=== PATIENT | female | born 1995 | race Two or more races ===

== ENCOUNTER 2016-10-03 20:08 | Inpatient (IN) | payer OTHER ==
[2016-10-03] MEDS ORDERED: RINGERS SOLUTION,LACTATED 300 ML IV ONE (20:13)
[2016-10-03] MEDS ORDERED: DINOPROSTONE 10 MG VAGINAL INSERT.SR PV PRN (20:13)
[2016-10-03] MEDS ORDERED: OXYTOCIN/NORMAL SALINE 1,000 ML IV PRN (20:13)
[2016-10-03 20:43] LABS: ABSOLUTE EOSINOPHILS # (AUTO) 0.1 10^3/uL (0.0-0.6); ABSOLUTE MONOCYTES (AUTO) 0.5 10^3/uL (0.1-1.4); BASOPHILS % (AUTO) 0.4 % (0-2); EOSINOPHILS % (AUTO) 1.1 % (0-6); HEMATOCRIT 35.9 % (36.0-47.0); HEMOGLOBIN 12.4 g/dL (12.0-15.5); HGB HCT DIFFERENCE 1.3; LYMPHOCYTES % (AUTO) 31.2 % (13-45); MEAN CORPUSCULAR HEMOGLOBIN 31.5 pg (27.0-33.4); MEAN CORPUSCULAR HGB CONC 34.5 g/dL (32.0-36.0); MEAN CORPUSCULAR VOLUME 91 fl (80-97); MONOCYTES % (AUTO) 4.9 % (3-13); RED BLOOD COUNT 3.94 10^6/uL (3.72-5.28); RED CELL DISTRIBUTION WIDTH 13.8 % (11.5-14.0); SEGMENTED NEUTROPHILS % (AUTO) 62.4 % (42-78); WHITE BLOOD COUNT 9.7 10^3/uL (4.0-10.5)
[2016-10-03 20:52] LABS: APPEARANCE,URINE CLEAR; BILIRUBIN,URINE NEGATIVE (NEGATIVE); GLUCOSE, URINE NEGATIVE (NEGATIVE); KETONES,URINE NEGATIVE (NEGATIVE); LEUKOCYTE ESTERASE,URINE NEGATIVE (NEGATIVE); NITRITE,URINE NEGATIVE (NEGATIVE); PROTEIN,URINE NEGATIVE (NEGATIVE); UROBILINOGEN,URINE NEGATIVE mg/dL (<2.0)
[2016-10-03] MEDS ORDERED: DINOPROSTONE 10 MG VAGINAL INSERT.SR ONE (20:55)
[2016-10-03 20:56] LABS: ALANINE AMINOTRANSFERASE 31 U/L (9-52); ALBUMIN 2.8 g/dL (3.5-5.0); ALKALINE PHOSPHATASE 147 U/L (38-126); ANION GAP 10 (5-19); ASPARTATE AMINO TRANSFERASE 19 U/L (14-36); BILIRUBIN,TOTAL 0.3 mg/dL (0.2-1.3); BLOOD UREA NITROGEN 6 mg/dL (7-20); CALCIUM 8.9 mg/dL (8.4-10.2); CARBON DIOXIDE 21 mmol/L (22-30); CHLORIDE 110 mmol/L (98-107); CREATININE RESULT 0.63 mg/dL (0.52-1.25); GLUCOSE 94 mg/dL (75-110); LDH 438 U/L (313-618); POTASSIUM 3.9 mmol/L (3.6-5.0); TOTAL PROTEIN 5.7 g/dL (6.3-8.2); URIC ACID 5.1 mg/dL (2.5-6.2)
[2016-10-03 21:08] LABS: URINE BARBITURATES SCREEN NEGATIVE; URINE METHADONE SCREEN NEGATIVE; URINE PHENCYCLIDINE SCREEN NEGATIVE
[2016-10-03] MEDS: RINGERS SOLUTION,LACTATED 1,000 ML IV PRN (21:08)
[2016-10-03] MEDS ORDERED: ZOLPIDEM TARTRATE 5 MG TABLET PO PRN (22:16)
[2016-10-03] MEDS ORDERED: ZOLPIDEM TARTRATE 5 MG TABLET ONE (22:51)
[2016-10-04] MEDS ORDERED: NALBUPHINE HCL INJ 10 MG/1 ML AMPULE INJ ONE (01:17)
[2016-10-04] MEDS ORDERED: PROMETHAZINE HCL INJ 25 MG/1 ML VIAL IV ONE (01:17)
[2016-10-04] MEDS ORDERED: NALBUPHINE HCL INJ 10 MG/1 ML AMPULE ONE (01:19)
[2016-10-04] MEDS ORDERED: PROMETHAZINE HCL INJ 25 MG/1 ML VIAL ONE (01:19)
--- NOTE | 2016-10-04 04:45 | L&D Admission Assessment ---
LD ADM ASMT Datetime Report Generated by CPN: 10/04/2016 04:45 Assessment Type: Admission Assessment (10/03/2016 20:42:Ashley Steward RN) Weight (lb): 196 (10/03/2016 20:24:QS system process) Weight (kg): 89.1 (10/03/2016 20:24:QS system process) Total Wt Gain (lb): 73 (10/03/2016 20:24:QS system process) Wt Gain (kg): 33.1 (10/03/2016 20:24:QS system process) BMI: 33.6 (10/03/2016 20:24:QS system process) Pain Scale: 3 (10/04/2016 01:15:Ashley Steward RN) Pain Scale: 3 (10/04/2016 00:48:Ashley Steward RN) Pain Scale: 2 (10/03/2016 22:30:Ashley Steward RN) Pain Scale: 0 (10/03/2016 20:42:Ashley Steward RN) Pain Presence: Intermittent (10/04/2016 01:15:Ashley Steward RN) Pain Presence: Intermittent (10/04/2016 00:48:Ashley Steward RN) Pain Presence: Intermittent (10/03/2016 22:30:Ashley Steward RN) Pain Type: Cramping (10/04/2016 01:15:Ashley Steward RN) Pain Type: Cramping (10/04/2016 00:48:Ashley Steward RN) Pain Type: Cramping (10/03/2016 22:30:Ashley Steward RN) Pain Location: Abdomen; Back (10/04/2016 01:15:Ashleymaynor Steward, RN) Pain Location: Abdomen; Back (10/04/2016 00:48:Ashleymaynor Steward, RN) Pain Location: Abdomen (10/03/2016 22:30:Ashley Nichelle, RN) Pain Comments: Pt sleeping soundly. (10/04/2016 01:59:Ashley Steward, RN) Pain Comments: Pt also feeling nauseated (10/04/2016 01:15:Ashley Steward RN) Pain Comments: Offered warm pack for pt's back. Declines at present. (10/04/2016 00:48:Ashleymaynor Steward, RN) Frequency (min): 0 (10/04/2016 04:00:Ashley Nichelle, RN) Frequency (min): occasional (10/04/2016 03:30:Ashley Nichelle, RN) Frequency (min): 1-5 (10/04/2016 03:00:Ashley Nichelle, RN) Frequency (min): occasional (10/04/2016 02:30:Ashley Nichelle, RN) Frequency (min): irritability (10/04/2016 02:00:Ashley Nichelle, RN) Frequency (min): Irregular (10/04/2016 01:30:Ashley Nichelle, RN) Frequency (min): 1.5-4 (10/04/2016 01:00:Ashley Nichelle, RN) Frequency (min): irritability (10/04/2016 00:30:Ashley Nichelle, RN) Frequency (min): occasional (10/04/2016 00:00:Ashley Nichelle, RN) Frequency (min): 1-3 (10/03/2016 23:30:Ashley Nichelle, RN) Frequency (min): 0 (10/03/2016 22:30:Ashley Nichelle, RN) Frequency (min): 0 (10/03/2016 22:00:Ashley Nichelle, RN) Frequency (min): irregular (10/03/2016 21:30:Ashley Nichelle, RN) Frequency (min): occasional (10/03/2016 21:00:Ashley Nichelle, RN) Duration (sec): 30-60 (10/04/2016 03:00:Ashley Nichelle, RN) Duration (sec): 50-60 (10/04/2016 01:30:Ashley Nichelle, RN) Duration (sec): 40-60 (10/04/2016 01:00:Ashley Nichelle, RN) Duration (sec): 40-55 (10/04/2016 00:00:Ashley Nichelle, RN) Duration (sec): 40-60 (10/03/2016 23:30:Ashley Nichelle, RN) Duration (sec): 50-60 (10/03/2016 21:30:Ashley Nichelle, RN) Duration (sec): 50 (10/03/2016 21:00:Ashley Nichelle, RN) Quality: Mild (10/04/2016 04:00:Ashley Nichelle, RN) Quality: Mild/Moderate (10/04/2016 03:30:Ashley Nichelle, RN) Quality: Mild/Moderate (10/04/2016 03:00:Ashley Nichelle, RN) Quality: Mild/Moderate (10/04/2016 02:30:Ashley Nichelle, RN) Quality: Mild/Moderate (10/04/2016 02:00:Ashley Nichelle, RN) Quality: Mild/Moderate (10/04/2016 01:30:Ashley Nichelle, RN) Quality: Mild/Moderate (10/04/2016 01:00:Ashley Nichelle, RN) Quality: Mild/Moderate (10/04/2016 00:30:Ashley Nichelle, RN) Quality: Moderate (10/04/2016 00:00:Ashley Nichelle, RN) Quality: Moderate (10/03/2016 23:30:Ashley Nichelle, RN) Quality: Mild/Moderate (10/03/2016 23:00:Ashley Nichelle, RN) Quality: Mild (10/03/2016 22:30:Ashley Nichelle, RN) Quality: Mild (10/03/2016 22:00:Ashley Nichelle, RN) Quality: Mild (10/03/2016 21:30:Ashley Nichelle, RN) Quality: Mild (10/03/2016 21:00:Ashley Nichelle, RN) Pattern: Normal: <= 5 Contractions in 10 Minutes (10/04/2016 03:30:Ashley Nichelle, RN) Pattern: Normal: <= 5 Contractions in 10 Minutes (10/03/2016 22:30:Ashley Steward RN) Resting Tone [place]: Relaxed (10/04/2016 04:00:Ashley Steward RN) Resting Tone [place]: Relaxed (10/04/2016 03:30:Ashley Steward RN) Resting Tone [place]: Relaxed (10/04/2016 03:00:Ashley Steward RN) Resting Tone [place]: Relaxed (10/04/2016 02:30:Ashley Steward RN) Resting Tone [place]: Relaxed (10/04/2016 02:00:Ashley Steward RN) Resting Tone [place]: Relaxed (10/04/2016 01:30:Ashley Steward RN) Resting Tone [place]: Relaxed (10/04/2016 01:00:Ashley Steward RN) Resting Tone [place]: Relaxed (10/04/2016 00:00:Ashley Steward RN) Resting Tone [place]: Relaxed (10/03/2016 23:30:Ashley Steward RN) Resting Tone [place]: Relaxed (10/03/2016 23:00:Ashley Steward RN) Resting Tone [place]: Relaxed (10/03/2016 22:30:Ashley Steward RN) Resting Tone [place]: Relaxed (10/03/2016 22:00:Ashley Steward RN) Resting Tone [place]: Relaxed (10/03/2016 21:30:Ashley Steward RN) Resting Tone [place]: Relaxed (10/03/2016 21:00:Ashley Steward RN) Contraction Comments: irritability (10/04/2016 04:00:Ashley Steward RN) Contraction Comments: mainly irritablilty noted. (10/04/2016 03:30:Ashley Steward RN) Contraction Comments: alot of irritability noted. (10/04/2016 02:30:Ashley Steward RN) Contraction Comments: Having alot of irritability in between u/c's. (10/04/2016 01:30:Ashley Steward RN) Contraction Comments: Irritability but unsure. (10/03/2016 23:00:Ashley Steward RN) Contraction Comments: irritability- Pt state that feels like bad menstrual cramps. (10/03/2016 22:30:Ashley Steward RN) Contraction Comments: irritability (10/03/2016 22:00:Ashley Steward RN) Dilatation (cm): 0.0 (10/03/2016 21:05:Ashley Steward RN) Effacement (%): 50 (10/03/2016 21:05:Ashley Steward RN) Station: 0 (10/04/2016 01:15:Ashley Steward RN) Station: -3 (10/03/2016 21:05:Ashley Steward RN) Level of Consciousness: Fully Conscious (10/03/2016 20:42:Ashley Steward RN) DTR's/Clonus: DTRs 1+ (10/03/2016 20:42:Ashley Steward RN) Headache: Denies (10/03/2016 20:42:Ashley Steward RN) Dizziness: No (10/03/2016 20:42:Ashley Steward RN) Blurred Vision: No (10/03/2016 20:42:Ashley Steward RN) Extremity Numbness/Tingling : None (10/03/2016 20:42:Ashley Steward RN) Extremity Movement: Full Range of Motion (10/03/2016 20:42:Ashley Steward RN) Heart Rhythm: Regular (10/03/2016 20:42:Ashley Steward RN) Nailbeds: [place] (10/03/2016 20:42:Ashley Steward RN) Capillary Refill: Less than 3 Seconds (10/03/2016 20:42:Ashley Steward RN) Lower Extremities Edema: Bilateral Lower Extremities (10/03/2016 20:42:Ashlye Steward RN) Lower Extremities Edema Degree: 1+ (10/03/2016 20:42:Ashley Steward RN) Upper Extremities Edema: None (10/03/2016 20:42:Ashley Steward RN) Upper Extremities Edema Degree: None (10/03/2016 20:42:Ashley Steward RN) Facial Edema: None (10/03/2016 20:42:Ashley Steward RN) Carolin's Sign Left Leg: Negative (10/03/2016 20:42:Ashley Stewadr RN) Carolin's Sign Right Leg: Negative (10/03/2016 20:42:Ashley Steward RN) DVT Risk Age: Age less than 41 years (10/03/2016 20:42:Ashley Steward RN) DVT Risk BMI: BMI<31 (10/03/2016 20:42:Ashley Steward RN) DVT Risk Surgery: None Applicable (Annotations: tonsillectomy) (10/03/2016 20:42:Ashley Steward RN) DVT Risk Other: Women Only- or (<1 month) (10/03/2016 20:42:Ashley Steward RN) DVT Risk Total: 1 (10/03/2016 20:42:QS system process) DVT Risk Text: Low Risk (<10%) No specific measures, early ambulation (10/03/2016 20:42:QS system process) Respiratory Effort: Unlabored; Regular Rhythm (10/03/2016 20:42:Ashley Steward RN) Breath Sounds, Left: Clear and Equal (10/03/2016 20:42:Ashley Steward RN) Breath Sounds, Right: Clear and Equal (10/03/2016 20:42:Ashley Steward RN) Cough Productivity: None (10/03/2016 20:42:Ashley Steward RN) Nausea/Vomiting: Denies (10/03/2016 20:42:Ashley Steward RN) Bowel Sounds: Normoactive (10/03/2016 20:42:Ashley Steward RN) RUQ Epigastric Pain: Denies (10/03/2016 20:42:Ashley Steward RN) Bowel Patterns: Soft, Formed Stool (10/03/2016 20:42:Ashley Steward RN) Hemorrhoids: None (10/03/2016 20:42:Ashley Steward RN) Diet Type: Regular diet (10/03/2016 20:42:Ashley Steward RN) Last Meal: 10/03/2016 16:00 (10/03/2016 20:42:Ashley Steward RN) Frequency of Urination: No (10/03/2016 20:42:Ashley Steward RN) Urination Burning: No (10/03/2016 20:42:Ashley Steward RN) CVA Tenderness: No (10/03/2016 20:42:Ashley Steward RN) Vaginal Bleeding: None (10/03/2016 20:42:Ashley Steward RN) Skin Color: Normal for Race (10/03/2016 20:42:Ashley Steward RN) Skin Temperature: Warm (10/03/2016 20:42:Ashley Steward RN) Skin Moisture: Dry (10/03/2016 20:42:Ashley Steward RN) Surgical Scars: none (10/03/2016 20:42:Ashley Steward RN) Body Piercings/Tattoos: tattoo x 1 (10/03/2016 20:42:Ashley Steward RN) Jerrod Scale Sensory Perception: No Impairment- Responds to verbal commands. Has no sensory deficit which would limit ability to feel or voice pain or discomfort (10/03/2016 20:42:Ashley Steward RN) Jerrod Scale Moisture: Rarely Moist- Skin is usually dry. Linen only requires changing at routine intervals (10/03/2016 20:42:Ashley Steward RN) Jerrod Scale Activity: Walks Frequently- Walks outside the room at least twice a day and inside room at least every 2 hours during the day. (10/03/2016 20:42:Ashley Steward RN) Jerrod Scale Mobility: No Limitations- Makes major and frequent changes in position without assistance (10/03/2016 20:42:Ashley Steward RN) Jerrod Scale Nutrition: Excellent- Eats most of every meal. Never refuses a meal. Usually eats a total of 4 or more servings of meat and dairy products. Occasionally eats between meals. Does not require supplementation (10/03/2016 20:42:Ashley Steward RN) Jerrod Scale Friction and Shear: No Apparent Problem- Moves in bed and in chair independently and has sufficient muscle strength to lift up completely during move. Maintains good position in bed or chair at all times (10/03/2016 20:42:Ashley Steward RN) Jerrod Scale Total: 23 (10/03/2016 20:42:QS system process) Ejrrod Scale Risk: No Risk of Pressure Ulcer Noted at this Time (10/03/2016 20:42:QS system process) Family Support: Significant Other supportive, at bedside frequently (10/03/2016 20:42:Ashley Steward RN) Emotional State: Calm/Relaxed (10/03/2016 20:42:Ashley Steward RN) Call [place] Within Reach: Yes (10/03/2016 20:42:Ashley Steward RN) Side Rails Up: Yes (10/03/2016 20:42:Ashley Steward RN) Bed Wheels Locked: Yes (10/03/2016 20:42:Ashley Steward RN) Arm Bands Present: Yes (10/03/2016 20:42:Ashley Steward RN) Isolation: [place] (10/03/2016 20:42:Ashley Steward RN) Fall Risk History of Falling: (0) No (10/03/2016 20:42:Ashley Steward RN) Fall Risk Secondary Diagnosis: (0) No (10/03/2016 20:42:Ashley Steward RN) Fall Risk Ambulatory Aid: (0) None/Bedrest/Wheelchair/Nurse Assist (10/03/2016 20:42:Ashley Steward RN) Fall Risk IV Therapy: (0) No (10/03/2016 20:42:Ashley Steward RN) Fall Risk Gait: (0) Normal/Bedrest/Immobile (10/03/2016 20:42:Ashley Steward RN) Fall Risk Mental Status: (0) Oriented to Own Ability (10/03/2016 20:42:Ashley Steward RN) Fall Risk Score: 0 (10/03/2016 20:42:QS system process) Fall Risk Score Definition: No Risk: No action required (10/03/2016 20:42:QS system process) Recent Exp Communicable Disease: No (10/03/2016 20:42:Ashley Steward RN) Cough or Fever: No (10/03/2016 20:42:Ashley Steward RN) Foreign Travel Past 10 Days: No (10/03/2016 20:42:Ashley Steward RN) Open Wounds or Sores: No (10/03/2016 20:42:Ashley Steward RN) Prior Antibiotic Resistance Tx: No (10/03/2016 20:42:Ashley Steward RN) Cultures Obtained: Not Applicable (10/03/2016 20:42:Ashley Steward RN) Isolation Initiated: No (10/03/2016 20:42:Ashley Steward RN) Pt/Family Education: Not Applicable (10/03/2016 20:42:Ashley Steward RN) FHR Baseline Rate (bpm) Baby A: 140 (10/04/2016 04:00:Ashley Steward RN) FHR Baseline Rate (bpm) Baby A: 140 (10/04/2016 03:00:Ashley Steward RN) FHR Baseline Rate (bpm) Baby A: 135 (10/04/2016 02:30:Ashley Steward RN) FHR Baseline Rate (bpm) Baby A: 150 (10/04/2016 02:00:Ashley Steward RN) FHR Baseline Rate (bpm) Baby A: 135 (10/04/2016 01:30:Ashley Steward RN) FHR Baseline Rate (bpm) Baby A: 135 (10/04/2016 01:00:Ashely Steward RN) FHR Baseline Rate (bpm) Baby A: 130 (10/04/2016 00:30:Ashley Steward RN) FHR Baseline Rate (bpm) Baby A: 130 (10/04/2016 00:00:Ashley Steward RN) FHR Baseline Rate (bpm) Baby A: 130 (10/03/2016 23:30:Ashley Steward RN) FHR Baseline Rate (bpm) Baby A: 130 (10/03/2016 23:00:Ashley Steward RN) FHR Baseline Rate (bpm) Baby A: 130 (10/03/2016 22:30:Ashley Steward RN) FHR Baseline Rate (bpm) Baby A: 130 (10/03/2016 22:00:Ashley Steward RN) FHR Baseline Rate (bpm) Baby A: 130 (10/03/2016 21:30:Ashley Steward RN) FHR Baseline Rate (bpm) Baby A: 135 (10/03/2016 21:00:Ashley Steward RN) Variability Baby A: Moderate 6-25 bpm (10/04/2016 04:00:Ashley Steward RN) Variability Baby A: Moderate 6-25 bpm (10/04/2016 03:00:Ashley Steward RN) Variability Baby A: Moderate 6-25 bpm (10/04/2016 02:30:Ashley Nichelle, RN) Variability Baby A: Moderate 6-25 bpm (10/04/2016 02:00:Ashley Nichelle, RN) Variability Baby A: Moderate 6-25 bpm (10/04/2016 01:30:Ashley Nichelle, RN) Variability Baby A: Moderate 6-25 bpm (10/04/2016 01:00:Ashley Nichelle, RN) Variability Baby A: Moderate 6-25 bpm (10/04/2016 00:30:Ashley Nichelle, RN) Variability Baby A: Moderate 6-25 bpm (10/04/2016 00:00:Ashley Nichelle, RN) Variability Baby A: Moderate 6-25 bpm (10/03/2016 23:30:Ashley Nichelle, RN) Variability Baby A: Moderate 6-25 bpm (10/03/2016 23:00:Ashley Nichelle, RN) Variability Baby A: Moderate 6-25 bpm (10/03/2016 22:30:Ashley Nichelle, RN) Variability Baby A: Moderate 6-25 bpm (10/03/2016 22:00:Ashley Nichelle, RN) Variability Baby A: Moderate 6-25 bpm (10/03/2016 21:30:Ashley Nichelle, RN) Variability Baby A: Moderate 6-25 bpm (10/03/2016 21:00:Ashley Nichelle, RN) Accelerations Baby A: None (10/04/2016 04:00:Ashley Nichelle, RN) Accelerations Baby A: 15X15 (10/04/2016 03:00:Ashley Nichelle, RN) Accelerations Baby A: None (10/04/2016 02:30:Ashley Nichelle, RN) Accelerations Baby A: None (10/04/2016 02:00:Ashley Nichelle, RN) Accelerations Baby A: 15X15 (10/04/2016 01:30:Ashley Nichelle, RN) Accelerations Baby A: 15X15 (10/04/2016 01:00:Ashley Nichelle, RN) Accelerations Baby A: 15X15 (10/04/2016 00:30:Ashley Nichelle, RN) Accelerations Baby A: 15X15 (10/04/2016 00:00:Ashley Nichelle, RN) Accelerations Baby A: 15X15 (10/03/2016 23:30:Ashley Steward RN) Accelerations Baby A: 15X15 (10/03/2016 23:00:Ashley Steward RN) Accelerations Baby A: 15X15 (10/03/2016 22:30:Ashley Steward RN) Accelerations Baby A: 15X15 (10/03/2016 22:00:Ashley Steward RN) Accelerations Baby A: 15X15 (10/03/2016 21:30:Ashley Steward RN) Accelerations Baby A: 15X15 (10/03/2016 21:00:Ashlye Steward RN) Decelerations Baby A: None (10/04/2016 04:00:Ashley Steward RN) Decelerations Baby A: None (10/04/2016 03:00:Ashley Steward RN) Decelerations Baby A: None (10/04/2016 02:30:Ashley Steward RN) Decelerations Baby A: None (10/04/2016 02:00:Ashley Steward RN) Decelerations Baby A: None (10/04/2016 01:30:Ashley Steward RN) Decelerations Baby A: None (10/04/2016 01:00:Ashley Steward RN) Decelerations Baby A: None (10/04/2016 00:30:Ashley Steward RN) Decelerations Baby A: None (10/04/2016 00:00:Ashley Steward RN) Decelerations Baby A: None (10/03/2016 23:30:Ashley Steward RN) Decelerations Baby A: None (10/03/2016 23:00:Ashley Steward RN) Decelerations Baby A: None (10/03/2016 22:30:Ashley Steward RN) Decelerations Baby A: None (10/03/2016 22:00:Ashley Steward RN) Decelerations Baby A: None (10/03/2016 21:30:Ashley Steward RN) Decelerations Baby A: None (10/03/2016 21:00:Ashley Steward RN) Assessment Flag: Admission Assessment (10/03/2016 20:42:QS system process)
--- NOTE | 2016-10-04 04:45 | L&D General Admission ---
General Admit Datetime Report Generated by [facility]: 10/04/2016 04:45 Height (in): 64 (10/03/2016 20:24:QS system process) Medication Allergies: shrimp (10/03/2016) (10/03/2016 20:21:QS system process) Hemoglobin: 12.4 (10/03/2016 20:29:QS system process) Hematocrit: 35.9 L (10/03/2016 20:29:QS system process) MCV: 91 (10/03/2016 20:29:QS system process)
--- NOTE | 2016-10-04 04:45 | L&D Discharge Summary ---
OB Discharge Summary Datetime Report Generated by CPN: 10/04/2016 04:45 DISCHARGE DIAGNOSIS Diagnosis/Symptoms: Gestational Hypertension Diagnoses/Symptoms Other: not in labor Gestation: 37.5 Number of Babies in Womb: 1 Parity: 0 DIET/ACTIVITY/RESTRICTIONS Diet: Regular Activity: Bedrest; May Be Up to Bathroom; May Be Up for Meals; May Shower Activity Restrictions: No Exercising; No Lifting; Minimize Stair Climbing TEACHING/INSTRUCTIONS/REFERRALS Instructions Given To: patient and spouse Instructions Understood: Patient Verbalized Understanding; Support Person Verbalized Understanding Referrals: None Educational Materials- Other: *Pre-Eclampsia DISCHARGE INFORMATION Discharged AMA: No Discharge Date/Time: 09/30/2016 19:05 Discharged To: Home Discharge Provider Name: Dr. Mahoney Accompanied By: spouse Discharge Method: Ambulatory Condition: Stable FOLLOW UP INFORMATION Follow Up With: Other-Annotate Follow Up On: 1-2 Days Follow Up Phone Number: [facility] - Comments: Pt to return to L_D at [facility] on Monday evening for IOL, informational handout provided.
--- NOTE | 2016-10-04 04:45 | L&D Current Admission ---
Current Admit Datetime Report Generated by [facility]: 10/04/2016 04:45 Chief Complaint: Scheduled Induction of Labor (10/03/2016 20:42:Ashley Steward RN)
--- NOTE | 2016-10-04 04:45 | L&D Flow Sheet ---
LD Flowsheet Datetime Report Generated by CPN: 10/04/2016 04:45 Datetime: 10/04/2016 04:28 NBP Sys/[place]/Mean (mmHg): 122 (QS system process) : 73 (QS system process) : 93 (QS system process) Pulse: 94 (QS system process) LaborFlag: Labor (QS system process) Datetime: 10/04/2016 04:00 Monitor Mode: External (Ashley Nichelle, RN) Frequency (min): 0 (Ashley Nichelle, RN) Quality: Mild (Ashley Nichelle, RN) Resting Tone (Palpate): Relaxed (Ashley Nichelle, RN) Contraction Comments: irritability (Ashley Nichelle, RN) Monitor Mode: External US (Ashley Nichelle, RN) FHR Baseline Rate : 140 (Ashley Nichelle, RN) FHR Baseline Changes: No Baseline Change (Ashley Nichelle, RN) Variability: Moderate 6-25 bpm (Ashley Nichelle, RN) Accelerations: None (Ashley Nichelle, RN) Decelerations: None (Ashley Nichelle, RN) Datetime: 10/04/2016 03:55 I/O Interventions: Up to BR (Ashley Nichelle, RN) Datetime: 10/04/2016 03:30 Monitor Mode: External (Ashley Nichelle, RN) Frequency (min): occasional (Ashley Nichelle, RN) Quality: Mild/Moderate (Ashley Nichelle, RN) Pattern: Normal: <= 5 Contractions in 10 Minutes (Ashley Nichelle, RN) Resting Tone (Palpate): Relaxed (Ashley Nichelle, RN) Contraction Comments: mainly irritablilty noted. (Ashley Nichelle, RN) Datetime: 10/04/2016 03:27 Patient Care Comments: asked pt if she was getting up to urinate or if she was feeling like she had to have bm. Pt states she is having to pee. (Ashley Nichelle, RN) Datetime: 10/04/2016 03:25 I/O Interventions: Up to BR (Ashley Nichelle, RN) Datetime: 10/04/2016 03:00 Monitor Mode: External (Ashley Nichelle, RN) Frequency (min): 1-5 (Ashley Nichelle, RN) Quality: Mild/Moderate (Ashley Nichelle, RN) Duration (sec): 30-60 (Ashley Nichelle, RN) Resting Tone (Palpate): Relaxed (Ashley Nichelle, RN) Monitor Mode: External US (Ashley Nichelle, RN) FHR Baseline Rate : 140 (Ashley Nichelle, RN) FHR Baseline Changes: No Baseline Change (Ashley Nichelle, RN) Variability: Moderate 6-25 bpm (Ashley Nichelle, RN) Accelerations: 15X15 (Ashley Nichelle, RN) Decelerations: None (Ashley Nichelle, RN) Datetime: 10/04/2016 02:36 I/O Interventions: Up to BR (Ashley Nichelle, RN) Datetime: 10/04/2016 02:30 Monitor Mode: External (Ashley Nichelle, RN) Frequency (min): occasional (Ashley Nichelle, RN) Quality: Mild/Moderate (Ashley Nichelle, RN) Resting Tone (Palpate): Relaxed (Ashley Nichelle, RN) Contraction Comments: alot of irritability noted. (Ashley Steward, RN) Monitor Mode: External US (Ashley Steward, RN) FHR Baseline Rate : 135 (Ashley Nichelle, RN) FHR Baseline Changes: No Baseline Change (Ashley Nichelle, RN) Variability: Moderate 6-25 bpm (Ashley Nichelle, RN) Accelerations: None (Ashley Nichelle, RN) Decelerations: None (Ashley Nichelle, RN) Datetime: 10/04/2016 02:28 NBP Sys/[place]/Mean (mmHg): 126 (QS system process) : 68 (QS system process) : 91 (QS system process) Pulse: 88 (QS system process) LaborFlag: Labor (QS system process) Datetime: 10/04/2016 02:00 Monitor Mode: External (Ashley Nichelle, RN) Frequency (min): irritability (Ashley Nichelle, RN) Quality: Mild/Moderate (Ashley Nichelle, RN) Resting Tone (Palpate): Relaxed (Ashley Steward, RN) Monitor Mode: External US (Ashley Nichelle, RN) FHR Baseline Rate : 150 (Ashley Nichelle, RN) FHR Baseline Changes: No Baseline Change (Ashley Nichelle, RN) Variability: Moderate 6-25 bpm (Ashley Nichelle, RN) Accelerations: None (Ashley Nichelle, RN) Decelerations: None (Ashley Nichelle, RN) Datetime: 10/04/2016 01:59 Pain Assessment Comments: Pt sleeping soundly. (Ashley Steward, RN) LaborFlag: Labor (QS system process) Datetime: 10/04/2016 01:58 NBP Sys/[place]/Mean (mmHg): 124 (QS system process) : 73 (QS system process) : 93 (QS system process) Pulse: 84 (QS system process) LaborFlag: Labor (QS system process) Datetime: 10/04/2016 01:30 Monitor Mode: External (Ashley Nichelle, RN) Frequency (min): Irregular (Ashley Nichelle, RN) Quality: Mild/Moderate (Ashley Nichelle, RN) Duration (sec): 50-60 (Ashley Nichelle, RN) Resting Tone (Palpate): Relaxed (Ashley Nichelle, RN) Contraction Comments: Having alot of irritability in between u/c's. (Ashley Steward, RN) Monitor Mode: External US (Ashley Steward, RN) FHR Baseline Rate : 135 (Ashley Nichelle, RN) FHR Baseline Changes: No Baseline Change (Ashley Nichelle, RN) Variability: Moderate 6-25 bpm (Ashley Nichelle, RN) Accelerations: 15X15 (Ashley Nichelle, RN) Decelerations: None (Ashley Nichelle, RN) Datetime: 10/04/2016 01:29 Analgesics/Sedatives: Nubain (mg) @ (Annotations: 10 IV) (Ashley Steward RN) Antiemetics/Antacids: Phenergan IV (mg) @ 12.5 IV (Ashley Steward, RN) Datetime: 10/04/2016 01:28 NBP Sys/[place]/Mean (mmHg): 137 (QS system process) : 89 (QS system process) : 109 (QS system process) Pulse: 74 (QS system process) LaborFlag: Labor (QS system process) Datetime: 10/04/2016 01:17 Communication Comments: Dr. Meyer notified of pt's pain and vag exam. Orders received for pain med. (Ashley Steward RN) Datetime: 10/04/2016 01:15 Pain Scale: 3 (Ashley Steward RN) Pain Presence: Intermittent (Ashley Steward RN) Pain Type: Cramping (Ashley Steward RN) Pain Location: Abdomen; Back (Ashley Steward RN) Pain Assessment Comments: Pt also feeling nauseated (Ashley Steward RN) Station: 0 (Ashley Steward RN) Exam by: JAYDEN Todd (Ashley Steward RN) Cervix, Consistency: Soft (Ashley Steward RN) Vaginal Exam Comments: Could not reach cervical os due to patients tensness and station of babys head. (Ashley Steward RN) LaborFlag: Labor (QS system process) Datetime: 10/04/2016 01:14 I/O Interventions: Up to BR (Ashley Steward RN) Datetime: 10/04/2016 01:09 Comments: Pt sitting up on side of bed. (Ashley Steward RN) Datetime: 10/04/2016 01:00 Monitor Mode: External (Ashley Nichelle, RN) Frequency (min): 1.5-4 (Ashley Nichelle, RN) Quality: Mild/Moderate (Ashley Nichelle, RN) Duration (sec): 40-60 (Ashley Nichelle, RN) Resting Tone (Palpate): Relaxed (Ashley Nichelle, RN) Monitor Mode: External US (Ashley Nichelle, RN) FHR Baseline Rate : 135 (Ashley Nichelle, RN) FHR Baseline Changes: No Baseline Change (Ashley Nichelle, RN) Variability: Moderate 6-25 bpm (Ashley Nichelle, RN) Accelerations: 15X15 (Ashley Nichelle, RN) Decelerations: None (Ashley Nichelle, RN) Datetime: 10/04/2016 00:59 NBP Sys/[place]/Mean (mmHg): 131 (QS system process) : 86 (QS system process) : 104 (QS system process) Pulse: 66 (QS system process) LaborFlag: Labor (QS system process) Datetime: 10/04/2016 00:48 Pain Scale: 3 (Ashley Nichelle, RN) Pain Presence: Intermittent (Ashley Nichelle, RN) Pain Type: Cramping (Ashley Nichelle, RN) Pain Location: Abdomen; Back (Ashley Nichelle, RN) Pain Assessment Comments: Offered warm pack for pt's back. Declines at present. (Ashley Steward, RN) LaborFlag: Labor (QS system process) Datetime: 10/04/2016 00:30 Frequency (min): irritability (Ashley Nichelle, RN) Quality: Mild/Moderate (Ashley Nichelle, RN) Monitor Mode: External US (Ashley Nichelle, RN) FHR Baseline Rate : 130 (Ashley Nichelle, RN) FHR Baseline Changes: No Baseline Change (Ashley Nichelle, RN) Variability: Moderate 6-25 bpm (Ashley Nichelle, RN) Accelerations: 15X15 (Ashley Nichelle, RN) Decelerations: None (Ashley Nichelle, RN) Datetime: 10/04/2016 00:28 NBP Sys/[place]/Mean (mmHg): 144 (QS system process) : 89 (QS system process) : 111 (QS system process) Pulse: 76 (QS system process) LaborFlag: Labor (QS system process) Datetime: 10/04/2016 00:00 Monitor Mode: External (Ashley Nichelle, RN) Frequency (min): occasional (Ashley Nichelle, RN) Quality: Moderate (Ashley Nichelle, RN) Duration (sec): 40-55 (Ashley Nichelle, RN) Resting Tone (Palpate): Relaxed (Ashley Nichelle, RN) Monitor Mode: External US (Ashley Nichelle, RN) FHR Baseline Rate : 130 (Ashley Nichelle, RN) FHR Baseline Changes: No Baseline Change (Ashley Nichelle, RN) Variability: Moderate 6-25 bpm (Ashley Nichelle, RN) Accelerations: 15X15 (Ashley Nichelle, RN) Decelerations: None (Ashley Nichelle, RN) Datetime: 10/03/2016 23:58 NBP Sys/[place]/Mean (mmHg): 143 (QS system process) : 88 (QS system process) : 111 (QS system process) Pulse: 72 (QS system process) LaborFlag: Labor (QS system process) Datetime: 10/03/2016 23:30 Monitor Mode: External (Ashley Nichelle, RN) Frequency (min): 1-3 (Ashley Nichelle, RN) Quality: Moderate (Ashley Nichelle, RN) Duration (sec): 40-60 (Ashley Nichelle, RN) Resting Tone (Palpate): Relaxed (Ashley Nichelle, RN) Monitor Mode: External US (Ashley Nichelle, RN) FHR Baseline Rate : 130 (Ashley Nichelle, RN) FHR Baseline Changes: No Baseline Change (Ashley Nichelle, RN) Variability: Moderate 6-25 bpm (Ashley Nichelle, RN) Accelerations: 15X15 (Ashley Nichelle, RN) Decelerations: None (Ashley Nichelle, RN) Datetime: 10/03/2016 23:28 NBP Sys/[place]/Mean (mmHg): 133 (QS system process) : 75 (QS system process) : 98 (QS system process) Pulse: 60 (QS system process) LaborFlag: Labor (QS system process) Datetime: 10/03/2016 23:00 Monitor Mode: External (Ashley Steward RN) Monitor Interventions for UA: Gravette Adjusted (Ashley Steward RN) Quality: Mild/Moderate (Ashley Steward RN) Resting Tone (Palpate): Relaxed (Ashley Steward RN) Contraction Comments: Irritability but unsure. (Ashley Steward, RN) Monitor Mode: External US (Ashley Steward, RN) FHR Baseline Rate : 130 (Ashley Steward RN) FHR Baseline Changes: No Baseline Change (Ashley Steward RN) Variability: Moderate 6-25 bpm (Ashley Steward, RN) Accelerations: 15X15 (Ashley Nichelle, RN) Decelerations: None (Ashley Steward, RN) Datetime: 10/03/2016 22:58 NBP Sys/[place]/Mean (mmHg): 148 (QS system process) : 76 (QS system process) : 106 (QS system process) Pulse: 58 (QS system process) LaborFlag: Labor (QS system process) Datetime: 10/03/2016 22:56 Analgesics/Sedatives: Ambien (mg) @ 10 (Ashley Nichelle, RN) Datetime: 10/03/2016 22:31 I/O Interventions: Up to BR (Ashley Nichelle, RN) Datetime: 10/03/2016 22:30 Monitor Mode: External (Ashley Nichelle, RN) Frequency (min): 0 (Ashley Steward, RN) Quality: Mild (Ashley Steward, RN) Pattern: Normal: <= 5 Contractions in 10 Minutes (Ashley Steward, RN) Resting Tone (Palpate): Relaxed (Ashley Steward, RN) Contraction Comments: irritability- Pt state that feels like bad menstrual cramps. (Ashley Steward, RN) Monitor Mode: External US (Ashley Steward, ORTIZ) FHR Baseline Rate : 130 (Ashley Steward, RN) FHR Baseline Changes: No Baseline Change (Ashley Steward, RN) Variability: Moderate 6-25 bpm (Ashley Steward, RN) Accelerations: 15X15 (Ashley Steward, RN) Decelerations: None (Ashley Steward, RN) Pain Scale: 2 (Ashley Steward RN) Pain Presence: Intermittent (Ashley Steward, RN) Pain Type: Cramping (Ashley Stweard, RN) Pain Location: Abdomen (Ashley Steward RN) LaborFlag: Labor (QS system process) Datetime: 10/03/2016 22:28 NBP Sys/[place]/Mean (mmHg): 140 (QS system process) : 84 (QS system process) : 106 (QS system process) Pulse: 63 (QS system process) LaborFlag: Labor (QS system process) Datetime: 10/03/2016 22:00 Monitor Mode: External (Ashley Nichelle, RN) Frequency (min): 0 (Ashley Nichelle, RN) Quality: Mild (Ashley Nichelle, RN) Resting Tone (Palpate): Relaxed (Ashley Nichelle, RN) Contraction Comments: irritability (Ashley Nichelle, RN) Monitor Mode: External US (Ashley Nichelle, RN) FHR Baseline Rate : 130 (Ashley Nichelle, RN) FHR Baseline Changes: No Baseline Change (Ashley Nichelle, RN) Variability: Moderate 6-25 bpm (Ashley Nichelle, RN) Accelerations: 15X15 (Ashley Nichelle, RN) Decelerations: None (Ashley Nichelle, RN) Datetime: 10/03/2016 21:58 NBP Sys/[place]/Mean (mmHg): 134 (QS system process) : 83 (QS system process) : 101 (QS system process) Pulse: 61 (QS system process) LaborFlag: Labor (QS system process) Datetime: 10/03/2016 21:30 Monitor Mode: External (Ashley Nichelle, RN) Frequency (min): irregular (Ashley Nichelle, RN) Quality: Mild (Ashley Nichelle, RN) Duration (sec): 50-60 (Ashley Nichelle, RN) Resting Tone (Palpate): Relaxed (Ashley Nichelle, RN) Monitor Mode: External US (Ashley Nichelle, RN) FHR Baseline Rate : 130 (Ashley Nichelle, RN) FHR Baseline Changes: No Baseline Change (Ashley Nichelle, RN) Variability: Moderate 6-25 bpm (Ashley Nichelle, RN) Accelerations: 15X15 (Ashley Nichelle, RN) Decelerations: None (Ashley Nichelle, RN) Datetime: 10/03/2016 21:28 NBP Sys/[place]/Mean (mmHg): 132 (QS system process) : 68 (QS system process) : 93 (QS system process) Pulse: 63 (QS system process) LaborFlag: Labor (QS system process) Datetime: 10/03/2016 21:05 Dilatation (cm): 0.0 (Ashley Steward RN) Effacement (%): 50 (Ashley Steward RN) Station: -3 (Ashley Steward RN) Exam by: JAYDEN Todd (Ashley Steward RN) Vaginal Bleeding: None (Ashley Steward RN) Cervix, Consistency: Soft (Ashley Steward RN) Cervix, Position: Posterior (Ashley Steward RN) Vaginal Exam Comments: cervix is extremely soft. (Ashley Steward RN) Cervical Ripening Agents: Cervidil (Ashley Steward RN) Datetime: 10/03/2016 21:00 NBP Sys/[place]/Mean (mmHg): 141 (QS system process) : 75 (QS system process) : 103 (QS system process) Pulse: 65 (QS system process) Monitor Mode: External (Ashley Steward RN) Frequency (min): occasional (Ashley Steward RN) Quality: Mild (Ashley Steward RN) Duration (sec): 50 (Ashley Steward RN) Resting Tone (Palpate): Relaxed (Ashley Steward RN) Monitor Mode: External US (Ashley Steward RN) FHR Baseline Rate : 135 (Ashley Steward RN) FHR Baseline Changes: No Baseline Change (Ashley Steward RN) Variability: Moderate 6-25 bpm (Ahsley Steward RN) Accelerations: 15X15 (Ashley Steward RN) Decelerations: None (Ashley Nichelle, RN) LaborFlag: Labor (QS system process) Datetime: 10/03/2016 20:51 I/O Interventions: Up to BR (Ashley Nichelle, RN) Datetime: 10/03/2016 20:44 IV/Blood Work: IV Started; IV Bolus Started (Ashley Nichelle, RN) Patient Care Comments: IV started with 18 g in left forearm (Ashley Nichelle, RN) Datetime: 10/03/2016 20:42 Pain Scale: 0 (Ashley Nichelle, RN) Level of Consciousness: Fully Conscious (Ashley Nichelle, RN) DTR's/Clonus: DTRs 1+ (Ashley Steward, RN) Headache: Denies (Ashley Steward, RN) Breath Sounds, Left: Clear and Equal (Ashley Nichelle, RN) Breath Sounds, Right: Clear and Equal (Ashley Nichelle, RN) Nausea/Vomiting: Denies (Ashley Steward, RN) RUQ Epigastric Pain: Denies (Ashley Steward, RN) LaborFlag: Labor (QS system process) Datetime: 10/03/2016 20:40 Patient Care Comments: IV attempted x2-veins blew (Ashley Steward, RN) Datetime: 10/03/2016 20:32 NBP Sys/[place]/Mean (mmHg): 146 (QS system process) : 87 (QS system process) : 111 (QS system process) Pulse: 79 (QS system process) LaborFlag: Labor (QS system process) Datetime: 10/03/2016 20:30 Procedures: Consents Signed (Ashley Steward RN) Datetime: 10/03/2016 20:28 NBP Sys/[place]/Mean (mmHg): 154 (QS system process) : 93 (QS system process) : 118 (QS system process) Pulse: 65 (QS system process) IV/Blood Work: Labs Drawn (Ashley Steward RN) LaborFlag: Labor (QS system process)
[2016-10-04] MEDS: RINGERS SOLUTION,LACTATED 1,000 ML IV PRN ×2 (06:00→10:35)
--- NOTE | 2016-10-04 06:15 | L&D General Admission ---
General Admit Datetime Report Generated by CPN: 10/04/2016 06:00 INFORMATION Patient Age: 21 (09/09/2016 13:56:QS system process) EDC: 10/19/2016 00:00 (09/27/2016 14:52:Ana M Gillespie RN) : 1 (09/27/2016 14:52:Ana M Gillespie RN) Para: 0 (09/30/2016 18:58:Claudia Durant RN) Term: 0 (09/27/2016 14:52:Claudia Durant RN) : 0 (09/27/2016 14:52:Claudia Durant RN) Spontaneous Abortions: 0 (09/27/2016 14:52:Claudia Durant RN) Induced Abortions: 0 (09/27/2016 14:52:Claudia Durant RN) Livin (09/27/2016 14:52:Claudia Durant RN) Cesareans: 0 (09/27/2016 14:52:Claudia Durant RN) VBACs: 0 (09/27/2016 14:52:Claudia Durant RN) Ectopic: 0 (09/27/2016 14:52:Claudia Durant RN) Multiple Births: 0 (09/27/2016 14:52:Claudia Durant RN) Baby, Number in Womb: 1 (09/30/2016 18:58:Claudia Durant RN) CARE Primary Ground Crew Lines Person: [facility] (09/27/2016 14:52:Ana M Gillespie RN) Month of 1st Visit: March 2016 (09/27/2016 14:52:Claudia Durant RN) Adequate Care: Yes (09/27/2016 14:52:Claudia Durant RN) Prepregnancy Weight (lb): 123 (09/27/2016 14:52:Claudia Durant RN) Prepregnancy Weight (kg): 55.9 (09/27/2016 14:52:QS system process) Height (in): 64 (10/03/2016 20:24:QS system process) ALLERGIES Medication Allergy: No (09/27/2016 14:52:Ana M Gillespie RN) Medication Allergies: shrimp (10/03/2016) (10/03/2016 20:21:QS system process) Latex Allergy: No Latex Allergies (09/27/2016 14:52:Ana M Gillespie RN) Food Allergies: shellfish, crawfish, shrimp (09/27/2016) (09/27/2016 14:52:Claudia Durant RN) Environmental Allergies: none (09/27/2016 14:52:Claudia Durant RN) COMMUNICATION Primary Language: Citizen Of [place] (09/27/2016 14:52:Claudia Durant RN) Medical Tx Preferred Language: Citizen Of [place] (09/27/2016 14:52:Claudia Durant RN) Communication Barrier(s): None (09/27/2016 14:52:Claudia Durant RN) DEMOGRAPHICS Address: [address] [place] [id number] (09/09/2016 13:56:QS system process) Zipcode: [address] (09/09/2016 13:56:QS system process) Home (09/09/2016 13:56:QS system process) SSN: [id number] (09/09/2016 13:56:QS system process) Next of Kin Name: ASHLEY PATE (09/09/2016 13:56:QS system process) Next of Kin (09/09/2016 13:56:QS system process) Next of Kin Relationship: SPO (09/09/2016 13:56:QS system process) Date of : 1995 (09/09/2016 13:56:QS system process) Marital Status: (09/09/2016 13:56:QS system process) Sex: Female (09/09/2016 13:56:QS system process) Race: Other (09/09/2016 13:56:QS system process) Ethnicity: or (09/09/2016 13:56:QS system process) Shinto: None (09/09/2016 13:56:QS system process) DRUG AND ALCOHOL USE Alcohol: No (09/27/2016 14:52:Claudia Durant RN) Cigarettes: Never Smoker. [id number] (09/27/2016 14:52:Claudia Durant RN) Marijuana: No (09/27/2016 14:52:Claudia Durant RN) Cocaine: No (09/27/2016 14:52:Claudia Durant RN) Other Illicit Drugs: No (09/27/2016 14:52:Claudia Durant RN) VACCINE HISTORY Influenza Vaccine: Yes (09/27/2016 14:52:Claudia Durant RN) Influenza Date: 06/2016 (09/27/2016 14:52:Claudia Durant RN) Pneumococcal Vaccine: No (09/27/2016 14:52:Claudia Durant RN) Tetanus Vaccine: Yes (09/27/2016 14:52:Claudia Durant RN) Tetanus Date: 09/2016 (09/27/2016 14:52:Claudia Durant RN) Tdap Vaccine: Yes (09/27/2016 14:52:Claudia Durant RN) Tdap Date: 09/2016 (09/27/2016 14:52:Claudia Durant RN) Hepatitis B Vaccine: No (09/27/2016 14:52:Claudia Durant RN) 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 Crane Operator: [facility] (09/27/2016 14:52:Ashley Steward RN) Feeding Preference: Breast (09/27/2016 14:52:Claudia Durant RN) Benefit of Breast Feed Discussed: Yes (09/27/2016 14:52:Ashley Steward RN) Circumcision: Yes (09/27/2016 14:52:Claudia Durant RN) Classes Attended: Yes (09/27/2016 14:52:Claudia Durant RN) Tubal Ligation: No (09/27/2016 14:52:Claudia Durant RN) Tubal Authorization Signed: N/A (09/27/2016 14:52:Claudia Durant RN) Consent: N/A (09/27/2016 14:52:Claudia Durant RN) Consent Signed: N/A (09/27/2016 14:52:Claudia Durant RN) Pain Management Plans: Epidural (09/27/2016 14:52:Ashley Steward RN) Plans for Labor and Delivery: None (09/27/2016 14:52:Ashley Steward RN) Support Person: Elie Pate (09/27/2016 14:52:Ashley Steward RN) Support Person Relationship: (09/27/2016 14:52:Ashley Steward RN) Cultural/Spritual Practice: No (09/27/2016 14:52:Claudia Durant RN) Spir/Cult Dietary Needs: No (09/27/2016 14:52:Claudia Durant RN) LIVING SITUATION/DISCHARGE PLAN Living Arrangements: House (09/27/2016 14:52:Claudia Durant RN) Adequate Access to:: Electric; Heat; Refrigeration; Plumbing/Running water; Phone; Transportation (09/27/2016 14:52:Claudia Durant RN) WIC Program: No (09/27/2016 14:52:Claudia Durant RN) Discharge Substation Inspector Person: spouse (09/27/2016 14:52:Claudia Durant RN) Person to Help after Discharge: spouse (09/27/2016 14:52:Claudia Durant RN) Currently Using Commun Resources: No (09/27/2016 14:52:Claudia Durant RN) Outside Agency/Hot Mill Tin Roller: No (09/27/2016 14:52:Claudia Durant RN) Car Seat for Discharge: Yes (09/27/2016 14:52:Claudia Durant RN) Adoption Requested: No (09/27/2016 14:52:Claudia Durant RN) Pt Contact w/ Post : N/A (09/27/2016 14:52:Claudia Durant RN) LABS Blood Type: O Positive (09/27/2016 14:52:Ana M Gillespie RN) Antibody Screen: Negative (09/27/2016 14:52:Ana M Gillespie RN) Rho(G) this : Not Applicable (09/27/2016 14:52:Connie Lawrence RN) Hemoglobin: 12.4 (10/03/2016 20:29:QS system process) Hematocrit: 35.9 L (10/03/2016 20:29:QS system process) MCV: 91 (10/03/2016 20:29:QS system process) Group Beta Strep: Negative (09/27/2016 14:52:Ana M Gillespie RN) Gonorrhea: Negative (09/27/2016 14:52:Ana M Gillespie RN) Chlamydia: Negative (09/27/2016 14:52:Ana M Gillespie RN) Hepatitis B: Negative (09/27/2016 14:52:Ana M Gillespie RN) Rubella: Immune (09/27/2016 14:52:Ana M Gillespie RN) OB/PREVIOUS HISTORY Previous Procedures: None (09/27/2016 14:52:Connie Lawrence RN) Current Procedures: Ultrasound; NST (09/27/2016 14:52:Connie Lawrence RN) History of Previous : No (09/27/2016 14:52:Connie Lawrence RN) History of Gestational Diabetes: No (09/27/2016 14:52:Connie Lawrence RN) History of PIH: No (09/27/2016 14:52:Connie Lawrence RN) History of Incompetent Cervix: No (09/27/2016 14:52:Connie Lawrence RN) History of Placenta Previa/Abrup: No (09/27/2016 14:52:Connie Lawrence RN) History of Macrosomia: No (09/27/2016 14:52:Connie Lawrence RN) History of IUGR: No (09/27/2016 14:52:Connie Lawrence RN) History of Hemorrhage: No (09/27/2016 14:52:Connie Lawrence RN) History of Loss/Stillborn: No (09/27/2016 14:52:Connie Lawrence RN) History of : No (09/27/2016 14:52:Connie Lawrence RN) History of D (Rh) Sensitization: No (09/27/2016 14:52:Connie Lawrence RN) History Recurrent Loss/Stillborn: No (09/27/2016 14:52:Connie Lawrence RN) History Depression/PP Depression: No (09/27/2016 14:52:Connie Lawrence RN) History of Uterine Anomaly/WILL: No (09/27/2016 14:52:Connie Lawrence RN) History of Infertility: No (09/27/2016 14:52:Connie Lawrence RN) History of ART Treatment: No (09/27/2016 14:52:Connie Lawrence RN) History of WILL: No (09/27/2016 14:52:Connie Lawrence RN) Comments Obstetrical History: G1-Current (09/27/2016 14:52:Connie Lawrence RN) MEDICAL HISTORY Med Hx Diabetes: No (09/27/2016 14:52:Connie Lawrence RN) Med Hx Hypertension: No (09/27/2016 14:52:Connie Lawrence RN) Med Hx Heart Disease: No (09/27/2016 14:52:Connie Lawrence RN) Med Hx Autoimmune Disorder: No (09/27/2016 14:52:Connie Lawrence RN) Med Hx Kidney Disease/UTI: No (09/27/2016 14:52:Connie Lawrence RN) Med Hx Neurologic/Epilepsy: No (09/27/2016 14:52:Connie Lawrence RN) Med Hx Psychiatric Disorders: No (09/27/2016 14:52:Connie Lawrence RN) Med Hx Hepatitis/Liver Disease: No (09/27/2016 14:52:Connie Lawrence RN) Med Hx Varicosities/Phlebitis: No (09/27/2016 14:52:Connie Lawrence RN) Med Hx Thyroid Dysfunction: No (09/27/2016 14:52:Connie Lawrence RN) Med Hx Trauma/Violence: No (09/27/2016 14:52:Connie Lawrence RN) Med Hx Blood Transfusion: No (09/27/2016 14:52:Connie Lawrence RN) Med Hx Pulmonary (Asthma,TB): No (09/27/2016 14:52:Connie Lawrence RN) Med Hx Breast: No (09/27/2016 14:52:Connie Lawrence RN) Med Hx ARMED CUSTOM PROTECTION OFFICER Surgery: No (09/27/2016 14:52:Connie Lawrence RN) Med Hx Hospitalization/Surgery: Yes (09/27/2016 14:52:Ana M Gillespie RN) Med Hx Anesthetic Complications: No (09/27/2016 14:52:Connie Lawrence RN) Med Hx Abnormal Pap Smear: No (09/27/2016 14:52:Connie Lawrence RN) Other Medical Diseases: No (09/27/2016 14:52:Connie Lawrence RN) Med Hx Significant Family Hx: No (09/27/2016 14:52:Connie Lawrence RN) Details of Med/Surg Hx: tonsillectomy, tubes in ears (09/27/2016 14:52:Ana M Gillespie RN) INFECTIOUS HISTORY Inf Hx Gonorrhea: No (09/27/2016 14:52:Connie Lawrence RN) Inf Hx Chlamydia: No (09/27/2016 14:52:Connie Lawrence RN) Inf Hx Syphilis: No (09/27/2016 14:52:Connie Lawrence RN) Inf Hx HIV/AIDS: No (09/27/2016 14:52:Connie Lawrence RN) Inf Hx Human Papilloma Virus: No (09/27/2016 14:52:Connie Lawrence RN) Inf Hx Pt/Partner Genital Herpes: No (09/27/2016 14:52:Connie Lawrence RN) Inf Hx Tuberculosis/Exposure: No (09/27/2016 14:52:Connie Lawrence RN) Inf Hx Hepatitis B,C: No (09/27/2016 14:52:Connie Lawrence RN) Inf Hx Rash or Viral Illness: No (09/27/2016 14:52:Connie Lawrence RN) GENETIC HISTORY Gen Hx Age >=35 at [place]: No (09/27/2016 14:52:Connie Lawrence RN) Gen Hx Thalassemia: No (09/27/2016 14:52:Connie Lawrence RN) Gen Hx Congenital Heart Defect: No (09/27/2016 14:52:Connie Lawrence RN) Gen Hx Neural Tube Defect: No (09/27/2016 14:52:Connie Lawrence RN) Gen Hx Down's Syndrome: No (09/27/2016 14:52:Connie Lawrence RN) Gen Hx John-Sachs: No (09/27/2016 14:52:Connie Lawrence RN) Gen Hx Marshall: No (09/27/2016 14:52:Connie Lawrence RN) Gen Hx Familial Dysautonomia: No (09/27/2016 14:52:Connie Lawrence RN) Gen Hx Sickle Cell Disease/Trait: No (09/27/2016 14:52:Connie Lawrence RN) Gen Hx Hemophilia/Blood Disorder: No (09/27/2016 14:52:Connie Lawrence RN) Gen Hx Muscular Dystrophy: No (09/27/2016 14:52:Connie Lawrence RN) Gen Hx Cystic Fibrosis: No (09/27/2016 14:52:Connie Lawrence RN) Gen Hx Huntingtons Chorea: No (09/27/2016 14:52:Connie Lawrence RN) Gen Hx Mental Retardation/Autism: No (09/27/2016 14:52:Connie Lawrence RN) Gen Hx Tested for Fragile X: No (09/27/2016 14:52:Connie Lawrence RN) Gen Hx Other Inher/Chromosomal: No (09/27/2016 14:52:Connie Lawrence RN) Gen Hx Maternal Metabolic DO: No (09/27/2016 14:52:Connie Lawrence RN) Gen Hx Pt Father or FOB Defect: No (09/27/2016 14:52:Connie Lawrence RN) Gen Hx Other Genetic History: No (09/27/2016 14:52:Connie Lawrence RN) Gen Hx Drugs/Meds since LMP: No (09/27/2016 14:52:Connie Lawrence RN)
--- NOTE | 2016-10-04 06:15 | L&D Current Admission ---
Current Admit Datetime Report Generated by CPN: 10/04/2016 06:00 ADMISSION INFORMATION Current Admit Date/Time: 10/04/2016 05:55 (10/03/2016 20:42:Ashley Steward RN) Reason for Admission: Induction of Labor (10/03/2016 20:42:Ashley Steward RN) Chief Complaint: Scheduled Induction of Labor (10/03/2016 20:42:Ashley Steward RN) Medications During : Ferrous Sulfate (Iron); Vitamin (10/03/2016 20:42:Ashley Steward RN) EGA per Dates: 37.6 (10/03/2016 20:42:QS system process) Reason for Induction: Gestational Hypertension (10/03/2016 20:42:Ashley Steward RN) Records Available: Yes (10/03/2016 20:42:Ashley Steward RN) General Admission Information: Reviewed; Confirmed (10/03/2016 20:42:Ashley Steward RN) General Admission Reviewed By: JAYDEN Todd (10/03/2016 20:42:Ashley Steward RN) BELONGINGS/ADVANCED DIRECTIVES Disposition of Belongings: Kept with Patient (10/03/2016 20:42:Ashley Steward RN) Advance Direct for Healthcare: No, and Wants No Information (10/03/2016 20:42:Ashley Steward RN) Durable Power of Cover Mat Machine Operator: No (10/03/2016 20:42:Ashley Steward RN) Living Will: No (10/03/2016 20:42:Ashley Steward RN) Organ Donor: Yes (10/03/2016 20:42:Ashley Steward RN) Pt Rights Information Given: Yes (10/03/2016 20:42:Ashley Steward RN) Pt Understands Pt Rights: Yes (10/03/2016 20:42:Ashley Steward RN) Patient Rights Comments: Given in patient access (10/03/2016 20:42:Ashley Steward RN) LEARNING ASSESSMENT Knowledge Level: Understands L_D Process; Understands Care Activities (10/03/2016 20:42:Ashley Steward RN) Barriers to Learning: None (10/03/2016 20:42:Ashley Steward RN) Learning Readiness: Motivated (10/03/2016 20:42:Ashley Steward RN) Learns Best By: Reading; Videos (10/03/2016 20:42:Ashley Steward RN) Learning Needs: Labor and Delivery Process; Pain Management; Symptoms to Report (10/03/2016 20:42:Ashley Steward RN) DOMESTIC VIOLANCE SCREENING Dom Viol Threatened/Hurt: No (10/03/2016 20:42:Ashley Steward RN) Hx of Abuse/Neglect past 2yrs: No (10/03/2016 20:42:Ashley Steward RN) Feel Unsafe Going Home: No (10/03/2016 20:42:Ashley Steward RN) Addt'l Observ Indicating Abuse: No (10/03/2016 20:42:Ashley Steward RN) Reason Unable to Complete Screen: N/A, Screen Completed (10/03/2016 20:42:Ashley Steward RN) Considered Personal Harm/Suicide: No (10/03/2016 20:42:Ashley Steward RN) NUTRITIONAL/FUNCTIONAL SCREENING Problem with Appetite >5 Days: No (10/03/2016 20:42:Ashley Steward RN) Chew/Swallow Difficulties: No (10/03/2016 20:42:Ashley Steward RN) Inappropriate Wt Gain/Loss: No (10/03/2016 20:42:Ashley Steward RN) Presence Skin Breakdown/Ulcer: No (10/03/2016 20:42:Ashley Steward RN) Special Diet: No (10/03/2016 20:42:Ashley Steward RN) Pt Requests Material Handling Warehouse Supervisor Visit: No (10/03/2016 20:42:Ashley Steward RN) Hx of Any of the Following?: N/A (10/03/2016 20:42:Ashley Steward RN) New Diagnosis of: N/A (10/03/2016 20:42:Ashley Steward RN) Requires Assist w/Ambulation: No (10/03/2016 20:42:Ashley Steward RN) Uses Assist Device to Ambulate: No (10/03/2016 20:42:Ashley Steward RN) Pt Requires Help w/ADL's: No (10/03/2016 20:42:Ashley Steward RN)
--- NOTE | 2016-10-04 08:00 | L&D Flow Sheet ---
LD Flowsheet Datetime Report Generated by CPN: 10/04/2016 08:00 Datetime: 10/04/2016 07:58 NBP Sys/[place]/Mean (mmHg): 190 (QS system process) : 85 (QS system process) : 121 (QS system process) Pulse: 98 (QS system process) LaborFlag: Labor (QS system process) Datetime: 10/04/2016 07:28 NBP Sys/[place]/Mean (mmHg): 137 (QS system process) : 82 (QS system process) : 105 (QS system process) Pulse: 88 (QS system process) LaborFlag: Labor (QS system process) Datetime: 10/04/2016 07:19 Respirations: 14 (Ana M Gillespie RN) Temperature (F): 98.5 (Ana M Gillespie RN) Temperature (C): 36.9 (QS system process) Pain Scale: 3 (Ana M Gillespie RN) Pain Presence: Intermittent (Ana M Gillespie RN) Pain Type: Cramping (Ana M Gillespie RN) Pain Location: Abdomen (Ana M Gillespie RN) Pain Relief Measures: Comfort Measures (Ana M Gillespie RN) LaborFlag: Labor (QS system process) Datetime: 10/04/2016 07:18 Level of Consciousness: Fully Conscious (Ana M Gillespie RN) DTR's/Clonus: DTRs 2+; No Clonus (Ana M Gillespie RN) Headache: Denies (Ana M Gillespie RN) Breath Sounds, Left: Clear and Equal (Ana M Gillespie RN) Breath Sounds, Right: Clear and Equal (Ana M Gillespie RN) Nausea/Vomiting: Denies (Ana M Gillespie RN) RUQ Epigastric Pain: Denies (Ana M Gillespie, RN) Datetime: 10/04/2016 07:13 Communication Comments: Bedside report given to Hollis Gillespie RN (Ashley Steward, RN) Datetime: 10/04/2016 07:00 Monitor Mode: External (Ashley Steward, RN) Frequency (min): irritability (Ashley Steward, RN) Quality: Mild/Moderate (Ashley Steward, RN) Resting Tone (Palpate): Relaxed (Ashley Steward, RN) Monitor Mode: External US (Ashley Steward, RN) FHR Baseline Rate : 155 (Ashley Steward, RN) FHR Baseline Changes: No Baseline Change (Ashley Steward, RN) Variability: Moderate 6-25 bpm (Ashley Steward, RN) Accelerations: 15X15 (Ashley Steward, RN) Decelerations: None (Ashley Steward, RN) Datetime: 10/04/2016 06:58 NBP Sys/[place]/Mean (mmHg): 121 (QS system process) : 67 (QS system process) : 89 (QS system process) Pulse: 90 (QS system process) LaborFlag: Labor (QS system process) Datetime: 10/04/2016 06:50 I/O Interventions: Up to BR (Ashley Nichelle, RN) Datetime: 10/04/2016 06:30 Monitor Mode: External (Ashley Steward, RN) Frequency (min): irritability (Ashley Steward, RN) Quality: Mild (Ashley Nichelle, RN) Resting Tone (Palpate): Relaxed (Ashley Nichelle, RN) Monitor Mode: External US (Ashley Nicehlle, RN) FHR Baseline Rate : 145 (Ashley Nichelle, RN) FHR Baseline Changes: No Baseline Change (Ashley Nichelle, RN) Variability: Moderate 6-25 bpm (Ashley Nichelle, RN) Accelerations: 15X15 (Ashley Nichelle, RN) Decelerations: None (Ashley Nichelle, RN) Datetime: 10/04/2016 06:26 Communication Comments: Strip reviewed by Dr. Meyer. (Ashley Nichelle, RN) Datetime: 10/04/2016 06:22 I/O Interventions: Up to BR (Ashley Nichelle, RN) Datetime: 10/04/2016 06:00 Monitor Mode: External (Ashley Nichelle, RN) Frequency (min): Occasional (Ashley Nichelle, RN) Quality: Mild/Moderate (Ashley Nichelle, RN) Resting Tone (Palpate): Relaxed (Ashley Nichelle, RN) Contraction Comments: irritability (Ashley Nichelle, RN) Monitor Mode: External US (Ashley Nichelle, RN) FHR Baseline Rate : 145 (Ashley Nichelle, RN) FHR Baseline Changes: No Baseline Change (Ashley Ncihelle, RN) Variability: Moderate 6-25 bpm (Ashley Nichelle, RN) Accelerations: 15X15 (Ashley Nichelle, RN) Decelerations: None (Ashley Nichelle, RN) Datetime: 10/04/2016 05:58 NBP Sys/[place]/Mean (mmHg): 131 (QS system process) : 73 (QS system process) : 96 (QS system process) Pulse: 92 (QS system process) Temperature (F): 98.6 (Ashley Nichelle, RN) Temperature (C): 37.0 (QS system process) Temperature Route: Oral (Ashley Nichelle, RN) LaborFlag: Labor (QS system process) Datetime: 10/04/2016 05:55 IV/Blood Work: New IV Bag Hung (Ashley Nichelle, RN) Datetime: 10/04/2016 05:30 NBP Sys/[place]/Mean (mmHg): 148 (QS system process) : 76 (QS system process) : 108 (QS system process) Pulse: 86 (QS system process) Monitor Mode: External (Ashley Nichelle, RN) Frequency (min): 0 (Ashley Nichelle, RN) Quality: Mild (Ashley Nichelle, RN) Resting Tone (Palpate): Relaxed (Ashley Nichelle, RN) Contraction Comments: irritability (Ashley Nichelle, RN) Monitor Mode: External US (Ashley Nichelle, RN) FHR Baseline Rate : 145 (Ashley Nichelle, RN) FHR Baseline Changes: No Baseline Change (Ashley Nichelle, RN) Variability: Moderate 6-25 bpm (Ashley Nichelle, RN) Accelerations: None (Ashley Nichelle, RN) Decelerations: None (Ashley Nichelle, RN) LaborFlag: Labor (QS system process) Datetime: 10/04/2016 05:24 I/O Interventions: Up to BR (Ashley Nichelle, RN) Datetime: 10/04/2016 05:00 Monitor Mode: External (Ashley Nichelle, RN) Frequency (min): occasional (Ashley Nichelle, RN) Quality: Mild (Ashley Nichelle, RN) Duration (sec): 50 (Ashley Nichelle, RN) Pattern: Normal: <= 5 Contractions in 10 Minutes (Ashley Nichelle, RN) Resting Tone (Palpate): Relaxed (Ashley Nichelle, RN) Contraction Comments: lots of irritability (Ashley Nichelle, RN) Monitor Mode: External US (Ashley Nichelle, RN) FHR Baseline Rate : 145 (Ashley Nichelle, RN) FHR Baseline Changes: No Baseline Change (Ashley Nichelle, RN) Variability: Moderate 6-25 bpm (Ashley Nichelle, RN) Accelerations: 15X15 (Ashley Nichelle, RN) Decelerations: None (Ashley Nichelle, RN) Datetime: 10/04/2016 04:58 NBP Sys/[place]/Mean (mmHg): 137 (QS system process) : 83 (QS system process) : 103 (QS system process) Pulse: 85 (QS system process) LaborFlag: Labor (QS system process) Datetime: 10/04/2016 04:30 Monitor Mode: External (Ashley Nichelle, RN) Frequency (min): irritability (Ashley Nichelle, RN) Quality: Mild (Ashley Nichelle, RN) Resting Tone (Palpate): Relaxed (Ashley Nichelle, RN) Monitor Mode: External US (Ashley Nichelle, RN) FHR Baseline Rate : 145 (Ashley Nichelle, RN) FHR Baseline Changes: No Baseline Change (Ashley Nichelle, RN) Variability: Moderate 6-25 bpm (Ashley Nichelle, RN) Accelerations: 15X15 (Ashley Nichelle, RN) Decelerations: None (Ashley Nichelle, RN) I/O Interventions: Up to BR (Ashley Nichelle, RN) Datetime: 10/04/2016 04:28 NBP Sys/[place]/Mean (mmHg): 122 (QS system process) : 73 (QS system process) : 93 (QS system process) Pulse: 94 (QS system process) LaborFlag: Labor (QS system process) Datetime: 10/04/2016 04:00 Monitor Mode: External (Ashley Nichelle, RN) Frequency (min): 0 (Ashley Nichelle, RN) Quality: Mild (Ashley Nichelle, RN) Resting Tone (Palpate): Relaxed (Ashley Nichelle, RN) Contraction Comments: irritability (Ashley Nichelle, RN) Monitor Mode: External US (Ashley Nichelle, RN) FHR Baseline Rate : 140 (Ashley Nichelle, RN) FHR Baseline Changes: No Baseline Change (Ashley Nichelle, RN) Variability: Moderate 6-25 bpm (Ashley Nichelle, RN) Accelerations: None (Ashley Nichelle, RN) Decelerations: None (Ashley Nichelle, RN) Datetime: 10/04/2016 03:55 I/O Interventions: Up to BR (Ashley Nichelle, RN) Datetime: 10/04/2016 03:30 Monitor Mode: External (Ashley Steward, RN) Frequency (min): occasional (Ashley Nichelle, RN) Quality: Mild/Moderate (Ashley Nichelle, RN) Pattern: Normal: <= 5 Contractions in 10 Minutes (Ashley Nichelle, RN) Resting Tone (Palpate): Relaxed (Ashley Steward, RN) Contraction Comments: mainly irritablilty noted. (Ashley Nichelle, RN) Monitor Mode: External US (Ashley Nichelle, RN) FHR Baseline Rate : 145 (Ashley Nichelle, RN) Variability: Moderate 6-25 bpm (Ashley Nichelle, RN) Accelerations: 15X15 (Ashley Nichelle, RN) Decelerations: None (Ashley Nichelle, RN) Datetime: 10/04/2016 03:27 Patient Care Comments: asked pt if she was getting up to urinate or if she was feeling like she had to have bm. Pt states she is having to pee. (Ashley Nichelle, RN) Datetime: 10/04/2016 03:25 I/O Interventions: Up to BR (Ashley Nichelle, RN) Datetime: 10/04/2016 03:00 Monitor Mode: External (Ashley Nichelle, RN) Frequency (min): 1-5 (Ashley Nichelle, RN) Quality: Mild/Moderate (Ashley Nichelle, RN) Duration (sec): 30-60 (Ashley Nichelle, RN) Resting Tone (Palpate): Relaxed (Ashley Nichelle, RN) Monitor Mode: External US (Ashley Nichelle, RN) FHR Baseline Rate : 140 (Ashley Nichelle, RN) FHR Baseline Changes: No Baseline Change (Ashley Nichelle, RN) Variability: Moderate 6-25 bpm (Ashley Nichelle, RN) Accelerations: 15X15 (Ashley Nichelle, RN) Decelerations: None (Ashley Nichelle, RN) Datetime: 10/04/2016 02:36 I/O Interventions: Up to BR (Ashley Nichelle, RN) Datetime: 10/04/2016 02:30 Monitor Mode: External (Ashley Nichelle, RN) Frequency (min): occasional (Ashley Nichelle, RN) Quality: Mild/Moderate (Ashley Nichelle, RN) Resting Tone (Palpate): Relaxed (Ashley Nichelle, RN) Contraction Comments: alot of irritability noted. (Ashley Nichelle, RN) Monitor Mode: External US (Ashley Nichelle, RN) FHR Baseline Rate : 135 (Ashley Nichelle, RN) FHR Baseline Changes: No Baseline Change (Ashley Nichelle, RN) Variability: Moderate 6-25 bpm (Ashley Nichelle, RN) Accelerations: None (Ashley Nichelle, RN) Decelerations: None (Ashley Nichelle, RN) Datetime: 10/04/2016 02:28 NBP Sys/[place]/Mean (mmHg): 126 (QS system process) : 68 (QS system process) : 91 (QS system process) Pulse: 88 (QS system process) LaborFlag: Labor (QS system process) Datetime: 10/04/2016 02:00 Monitor Mode: External (Ashley Nichelle, RN) Frequency (min): irritability (Ashley Nichelle, RN) Quality: Mild/Moderate (Ashley Nichelle, RN) Resting Tone (Palpate): Relaxed (Ashley Nichelle, RN) Monitor Mode: External US (Ashley Nichelle, RN) FHR Baseline Rate : 150 (Ashley Nichelle, RN) FHR Baseline Changes: No Baseline Change (Ashley Nichelle, RN) Variability: Moderate 6-25 bpm (Ashley Nichelle, RN) Accelerations: None (Ashley Nichelle, RN) Decelerations: None (Ashley Nichelle, RN) Datetime: 10/04/2016 01:59 Pain Assessment Comments: Pt sleeping soundly. (Ashley Steward RN) LaborFlag: Labor (QS system process) Datetime: 10/04/2016 01:58 NBP Sys/[place]/Mean (mmHg): 124 (QS system process) : 73 (QS system process) : 93 (QS system process) Pulse: 84 (QS system process) LaborFlag: Labor (QS system process) Datetime: 10/04/2016 01:30 Monitor Mode: External (Ashley Steward RN) Frequency (min): Irregular (Ashley Steward RN) Quality: Mild/Moderate (Ashley Steward RN) Duration (sec): 50-60 (Ashley Steward RN) Resting Tone (Palpate): Relaxed (Ashley Steward RN) Contraction Comments: Having alot of irritability in between u/c's. (Ashley Steward RN) Monitor Mode: External US (Ashley Steward RN) FHR Baseline Rate : 135 (Ashley Nichelle, RN) FHR Baseline Changes: No Baseline Change (Ashley Nichelle, RN) Variability: Moderate 6-25 bpm (Ashley Nichelle, RN) Accelerations: 15X15 (Ashley Nichelle, RN) Decelerations: None (Ashley Nichelle, RN) Datetime: 10/04/2016 01:29 Analgesics/Sedatives: Nubain (mg) @ (Annotations: 10 IV) (Ashley Nichelle, RN) Antiemetics/Antacids: Phenergan IV (mg) @ 12.5 IV (Aslhey Nichelle, RN) Datetime: 10/04/2016 01:28 NBP Sys/[place]/Mean (mmHg): 137 (QS system process) : 89 (QS system process) : 109 (QS system process) Pulse: 74 (QS system process) LaborFlag: Labor (QS system process) Datetime: 10/04/2016 01:17 Communication Comments: Dr. Meyer notified of pt's pain and vag exam. Orders received for pain med. (Ashley Steward RN) Datetime: 10/04/2016 01:15 Pain Scale: 3 (Ashley Steward RN) Pain Presence: Intermittent (Ashley Steward RN) Pain Type: Cramping (Ashley Steward RN) Pain Location: Abdomen; Back (Ashley Steward RN) Pain Assessment Comments: Pt also feeling nauseated (Ashley Steward RN) Station: 0 (Ashley Steward RN) Exam by: JAYDEN Todd (Ashley Steward RN) Cervix, Consistency: Soft (Ashley Steward RN) Vaginal Exam Comments: Could not reach cervical os due to patients tensness and station of babys head. (Ashley Steward RN) LaborFlag: Labor (QS system process) Datetime: 10/04/2016 01:14 I/O Interventions: Up to BR (Ashley Nichelle, RN) Datetime: 10/04/2016 01:09 Comments: Pt sitting up on side of bed. (Ashley Nichelle, RN) Datetime: 10/04/2016 01:00 Monitor Mode: External (Ashley Nichelle, RN) Frequency (min): 1.5-4 (Ashley Nichelle, RN) Quality: Mild/Moderate (Ashley Nichelle, RN) Duration (sec): 40-60 (Ashley Steward, RN) Resting Tone (Palpate): Relaxed (Ashley Steward, RN) Monitor Mode: External US (Ashley Steward, RN) FHR Baseline Rate : 135 (Ashley Nichelle, RN) FHR Baseline Changes: No Baseline Change (Ashley Steward, RN) Variability: Moderate 6-25 bpm (Ashley Nichelle, RN) Accelerations: 15X15 (Ashley Steward, RN) Decelerations: None (Ashley Steward, RN) Datetime: 10/04/2016 00:59 NBP Sys/[place]/Mean (mmHg): 131 (QS system process) : 86 (QS system process) : 104 (QS system process) Pulse: 66 (QS system process) LaborFlag: Labor (QS system process) Datetime: 10/04/2016 00:48 Pain Scale: 3 (Ashley Steward RN) Pain Presence: Intermittent (Ashley Steward RN) Pain Type: Cramping (Ashley Steward RN) Pain Location: Abdomen; Back (Ashley Steward RN) Pain Assessment Comments: Offered warm pack for pt's back. Declines at present. (Ashley Steward RN) LaborFlag: Labor (QS system process) Datetime: 10/04/2016 00:30 Frequency (min): irritability (Ashley Nichelle, RN) Quality: Mild/Moderate (Ashley Nichelle, RN) Monitor Mode: External US (Ashley Nichelle, RN) FHR Baseline Rate : 130 (Ashley Nichelle, RN) FHR Baseline Changes: No Baseline Change (Ashley Nichelle, RN) Variability: Moderate 6-25 bpm (Ashley Nichelle, RN) Accelerations: 15X15 (Ashley Nichelle, RN) Decelerations: None (Ashley Nichelle, RN) Datetime: 10/04/2016 00:28 NBP Sys/[place]/Mean (mmHg): 144 (QS system process) : 89 (QS system process) : 111 (QS system process) Pulse: 76 (QS system process) LaborFlag: Labor (QS system process) Datetime: 10/04/2016 00:00 Monitor Mode: External (Ashley Nichelle, RN) Frequency (min): occasional (Ashley Nichelle, RN) Quality: Moderate (Ashley Nichelle, RN) Duration (sec): 40-55 (Ashley Nichelle, RN) Resting Tone (Palpate): Relaxed (Ashley Nichelle, RN) Monitor Mode: External US (Ashley Nichelle, RN) FHR Baseline Rate : 130 (Ashley Nichelle, RN) FHR Baseline Changes: No Baseline Change (Ashley Nichelle, RN) Variability: Moderate 6-25 bpm (Ashley Nichelle, RN) Accelerations: 15X15 (Ashley Nichelle, RN) Decelerations: None (Ashley Nichelle, RN) Datetime: 10/03/2016 23:58 NBP Sys/[place]/Mean (mmHg): 143 (QS system process) : 88 (QS system process) : 111 (QS system process) Pulse: 72 (QS system process) LaborFlag: Labor (QS system process) Datetime: 10/03/2016 23:30 Monitor Mode: External (Ashley Nichelle, RN) Frequency (min): 1-3 (Ashley Nichelle, RN) Quality: Moderate (Ashley Nichelle, RN) Duration (sec): 40-60 (Ashley Nichelle, RN) Resting Tone (Palpate): Relaxed (Ashley Nichelle, RN) Monitor Mode: External US (Ashley Nichelle, RN) FHR Baseline Rate : 130 (Ashley Nichelle, RN) FHR Baseline Changes: No Baseline Change (Ashley Nichelle, RN) Variability: Moderate 6-25 bpm (Ashley Nichelle, RN) Accelerations: 15X15 (Ashley Nichelle, RN) Decelerations: None (Ashley Nichelle, RN) Datetime: 10/03/2016 23:28 NBP Sys/[place]/Mean (mmHg): 133 (QS system process) : 75 (QS system process) : 98 (QS system process) Pulse: 60 (QS system process) LaborFlag: Labor (QS system process) Datetime: 10/03/2016 23:00 Monitor Mode: External (Ashley Steward, RN) Monitor Interventions for UA: [place] Adjusted (Ashley Steward, RN) Quality: Mild/Moderate (Ashley Nichelle, RN) Resting Tone (Palpate): Relaxed (Ashley Steward, RN) Contraction Comments: Irritability but unsure. (Ashley Steward, RN) Monitor Mode: External US (Ashley Nichelle, RN) FHR Baseline Rate : 130 (Ashley Nichelle, RN) FHR Baseline Changes: No Baseline Change (Ashley Nichelle, RN) Variability: Moderate 6-25 bpm (Ashley Nichelle, RN) Accelerations: 15X15 (Ashley Nichelle, RN) Decelerations: None (Ashley Nichelle, RN) Datetime: 10/03/2016 22:58 NBP Sys/[place]/Mean (mmHg): 148 (QS system process) : 76 (QS system process) : 106 (QS system process) Pulse: 58 (QS system process) LaborFlag: Labor (QS system process) Datetime: 10/03/2016 22:56 Analgesics/Sedatives: Ambien (mg) @ 10 (Ashley Steward RN) Datetime: 10/03/2016 22:31 I/O Interventions: Up to BR (Ashley Steward RN) Datetime: 10/03/2016 22:30 Monitor Mode: External (Ashley Steward RN) Frequency (min): 0 (Ashley Steward RN) Quality: Mild (Ashley Steward RN) Pattern: Normal: <= 5 Contractions in 10 Minutes (Ashley Steward RN) Resting Tone (Palpate): Relaxed (Ashley Steward RN) Contraction Comments: irritability- Pt state that feels like bad menstrual cramps. (Ashley Steward RN) Monitor Mode: External US (Ashley Steward RN) FHR Baseline Rate : 130 (Ashley Steward RN) FHR Baseline Changes: No Baseline Change (Ashley Steward RN) Variability: Moderate 6-25 bpm (Ashley Steward RN) Accelerations: 15X15 (Ashley Steward RN) Decelerations: None (Ashley Steward RN) Pain Scale: 2 (Ashley Steward RN) Pain Presence: Intermittent (Ashley Steward RN) Pain Type: Cramping (Ashley Steward RN) Pain Location: Abdomen (Ashley Steward RN) LaborFlag: Labor (QS system process) Datetime: 10/03/2016 22:28 NBP Sys/[place]/Mean (mmHg): 140 (QS system process) : 84 (QS system process) : 106 (QS system process) Pulse: 63 (QS system process) LaborFlag: Labor (QS system process) Datetime: 10/03/2016 22:00 Monitor Mode: External (Ashley Steward RN) Frequency (min): 0 (Ashley Steward RN) Quality: Mild (Ashley Steward RN) Resting Tone (Palpate): Relaxed (Ashley Steward RN) Contraction Comments: irritability (Ashley Steward RN) Monitor Mode: External US (Ashley Steward RN) FHR Baseline Rate : 130 (Ashley Steward RN) FHR Baseline Changes: No Baseline Change (Ashley Steward RN) Variability: Moderate 6-25 bpm (Ashley Nichelle, RN) Accelerations: 15X15 (Ashley Nichelle, RN) Decelerations: None (Ashley Nichelle, RN) Datetime: 10/03/2016 21:58 NBP Sys/[place]/Mean (mmHg): 134 (QS system process) : 83 (QS system process) : 101 (QS system process) Pulse: 61 (QS system process) LaborFlag: Labor (QS system process) Datetime: 10/03/2016 21:30 Monitor Mode: External (Ashley Nichelle, RN) Frequency (min): irregular (Ashley Nichelle, RN) Quality: Mild (Ashley Nichelle, RN) Duration (sec): 50-60 (Ashley Nichelle, RN) Resting Tone (Palpate): Relaxed (Ashley Nichelle, RN) Monitor Mode: External US (Ashley Nichelle, RN) FHR Baseline Rate : 130 (Ashley Nichelle, RN) FHR Baseline Changes: No Baseline Change (Ashley Nichelle, RN) Variability: Moderate 6-25 bpm (Ashley Nichelle, RN) Accelerations: 15X15 (Ashley Nichelle, RN) Decelerations: None (Ashley Steward RN) Datetime: 10/03/2016 21:28 NBP Sys/[place]/Mean (mmHg): 132 (QS system process) : 68 (QS system process) : 93 (QS system process) Pulse: 63 (QS system process) LaborFlag: Labor (QS system process) Datetime: 10/03/2016 21:05 Dilatation (cm): 0.0 (Ashley Steward RN) Effacement (%): 50 (Ashley Steward RN) Station: -3 (Ashley Steward RN) Exam by: JAYDEN Todd (Ashley Steward RN) Vaginal Bleeding: None (Ashley Steward RN) Cervix, Consistency: Soft (Ashley Steward RN) Cervix, Position: Posterior (Ashley Steward RN) Vaginal Exam Comments: cervix is extremely soft. (Ashley Steward RN) Cervical Ripening Agents: Cervidil (Ashley Steward RN) Datetime: 10/03/2016 21:00 NBP Sys/[place]/Mean (mmHg): 141 (QS system process) : 75 (QS system process) : 103 (QS system process) Pulse: 65 (QS system process) Monitor Mode: External (Ashley Nichelle, RN) Frequency (min): occasional (Ashley Nichelle, RN) Quality: Mild (Ashley Nichelle, RN) Duration (sec): 50 (Ashley Nichelle, RN) Resting Tone (Palpate): Relaxed (Ashley Nichelle, RN) Monitor Mode: External US (Ashley Nichelle, RN) FHR Baseline Rate : 135 (Ashley Nichelle, RN) FHR Baseline Changes: No Baseline Change (Ashley Nichelle, RN) Variability: Moderate 6-25 bpm (Ashley Nichelle, RN) Accelerations: 15X15 (Ashley Nichelle, RN) Decelerations: None (Ashley Nichelle, RN) LaborFlag: Labor (QS system process) Datetime: 10/03/2016 20:51 I/O Interventions: Up to BR (Ashley Nichelle, RN) Datetime: 10/03/2016 20:44 IV/Blood Work: IV Started; IV Bolus Started (Ashley Steward, RN) Patient Care Comments: IV started with 18 g in left forearm (Ashley Nichelle, RN) Datetime: 10/03/2016 20:42 Pain Scale: 0 (Ashley Nichelle, RN) Level of Consciousness: Fully Conscious (Ashley Nichelle, RN) DTR's/Clonus: DTRs 1+ (Ashley Nichelle, RN) Headache: Denies (Ashley Nichelle, RN) Breath Sounds, Left: Clear and Equal (Ashley Nichelle, RN) Breath Sounds, Right: Clear and Equal (Ashley Nichelle, RN) Nausea/Vomiting: Denies (Ashley Nichelle, RN) RUQ Epigastric Pain: Denies (Ashley Nichelle, RN) LaborFlag: Labor (QS system process) Datetime: 10/03/2016 20:40 Patient Care Comments: IV attempted x2-veins blew (Ashley Nichelle, RN) Datetime: 10/03/2016 20:32 NBP Sys/[place]/Mean (mmHg): 146 (QS system process) : 87 (QS system process) : 111 (QS system process) Pulse: 79 (QS system process) LaborFlag: Labor (QS system process) Datetime: 10/03/2016 20:30 Procedures: Consents Signed (Ashley Nichelle, RN) Datetime: 10/03/2016 20:28 NBP Sys/[place]/Mean (mmHg): 154 (QS system process) : 93 (QS system process) : 118 (QS system process) Pulse: 65 (QS system process) IV/Blood Work: Labs Drawn (Ashley Steward RN) LaborFlag: Labor (QS system process)
--- NOTE | 2016-10-04 10:14 | L&D Progress Notes ---
PROGRESS NOTES Datetime Report Generated by CPN: 10/04/2016 10:14 PROGRESS NOTE Impression: Reassuring Heart Rate Procedures: Sterile Vag Exam Procedures- Other: cervidil removed Plan: Induction Plan Other: pt may shower, eat light breakfast, plan for pitocin Informed Consent Obtained: Induction of Labor Vital Signs : Reviewed; Within Normal Limits Comment: pt uncomfortable, desires epidural GBS negative Start pitocin May have epidural VAGINAL EXAM Dilatation: 3 Dilatation: 0 Effacement: 60 Effacement: 0 Station: -1 Station: -2 Contractions: irregular MEMBRANES Pooling: Negative Membranes: Intact Membranes: Intact FETUS A FHR - Baseline: 150 Monitoring: External US Variability: Moderate 6-25bpm Accelerations: 15X15 Decelerations: None FHR Category: Category I : 37.6 : 37.6 Estimated Weight (gm): 3500 Presentation: Vertex SIGNATURE SIGNATURE: [id number] SIGNATURE: [id number] SIGNATURE: [id number] Assignment: Dasha Venegas MD Signature: with User ID: [email or web address] : with User ID: Maria Teresa
[2016-10-04] MEDS ORDERED: OXYTOCIN/NORMAL SALINE 1,000 ML IV PRN (10:15)
[2016-10-04] MEDS ORDERED: OXYTOCIN/NORMAL SALINE 20 UNIT/1,000 ML RTUINJ ONE (10:17)
--- NOTE | 2016-10-04 12:01 | L&D Flow Sheet ---
LD Flowsheet Datetime Report Generated by CPN: 10/04/2016 12:00 Datetime: 10/04/2016 11:47 Respirations: 14 (Ana M Gillespie RN) Temperature (F): 98.9 (Ana M Gillespie RN) Temperature (C): 37.2 (QS system process) IV/Blood Work: IV Bolus Started (Ana M Gillespie RN) LaborFlag: Labor (QS system process) Datetime: 10/04/2016 11:46 Monitor Interventions for UA: [place] Adjusted (Ana M Gillespie RN) Datetime: 10/04/2016 11:45 Patient Position/Activity: Left Tilt (Ana M Gillespie, RN) Datetime: 10/04/2016 11:43 I/O Interventions: Up to BR (Ana M Gillespie, RN) Datetime: 10/04/2016 11:30 NBP Sys/[place]/Mean (mmHg): 130 (QS system process) : 74 (QS system process) : 96 (QS system process) Pulse: 77 (QS system process) LaborFlag: Labor (QS system process) Datetime: 10/04/2016 11:16 NBP Sys/[place]/Mean (mmHg): 154 (QS system process) : 96 (QS system process) : 120 (QS system process) Pulse: 100 (QS system process) LaborFlag: Labor (QS system process) Datetime: 10/04/2016 11:15 Monitor Mode: External (Ana M Gillespie RN) Monitor Interventions for UA: [place] Adjusted (Ana M Gillespie RN) Frequency (min): 1-3 (Ana M Gillespie RN) Quality: Mild/Moderate (Ana M Gillespie RN) Duration (sec): 30-60 (Ana M Gillespie RN) Resting Tone (Palpate): Relaxed (Ana M Gillespie RN) Monitor Mode: External US (Ana M Gillespie RN) FHR Baseline Rate : 150 (Ana M Gillespie RN) Variability: Moderate 6-25 bpm (Ana M Gillespie RN) Accelerations: 15X15 (Ana M Gillespie RN) Decelerations: None (Ana M Gillespie RN) Pitocin (milliunit): Pitocin Increased to (milliunits) @ 6 (Ana M Gillespie, RN) Datetime: 10/04/2016 11:13 Patient Position/Activity: Standing (Ana M Gillespie, RN) Datetime: 10/04/2016 11:08 I/O Interventions: Up to BR (Ana M Gillespie RN) Datetime: 10/04/2016 11:05 Pain Scale: 3 (Ana M Gillespie RN) Pain Presence: Intermittent (Ana M Gillespie RN) Pain Type: Contraction (Ana M Gillespie RN) Pain Location: Abdomen; Back (Ana M Gillespie RN) Pain Relief Measures: Comfort Measures (Ana M Gillespie RN) Pain Coping: Talking Through Contractions (Ana M Gillespie RN) Patient Position/Activity: Birthing Ball (Ana M Gillespie RN) Comfort Measures: Hot/Cold Pack (Ana M Gillespie RN) LaborFlag: Labor (QS system process) Datetime: 10/04/2016 11:02 I/O Interventions: Up to BR (Ana M Gillespie RN) Datetime: 10/04/2016 11:00 NBP Sys/[place]/Mean (mmHg): 139 (QS system process) : 82 (QS system process) : 104 (QS system process) Pulse: 89 (QS system process) Monitor Mode: External (Ana M Gillespie RN) Frequency (min): 1-3 (Ana M Gillespie RN) Quality: Mild/Moderate (Ana M Gillespie RN) Duration (sec): 30-60 (Ana M Gillespie RN) Resting Tone (Palpate): Relaxed (Ana M Gillespie RN) Monitor Mode: External US (Ana M Gillespie RN) FHR Baseline Rate : 150 (Ana M Gillespie RN) Variability: Moderate 6-25 bpm (Ana M Gillespie RN) Accelerations: 15X15 (Ana M Gillespie RN) Decelerations: None (Ana M Gillespie RN) Pitocin (milliunit): Pitocin Increased to (milliunits) @ 4 (Ana M Gillespie RN) LaborFlag: Labor (QS system process) Datetime: 10/04/2016 10:45 NBP Sys/[place]/Mean (mmHg): 138 (QS system process) : 84 (QS system process) : 106 (QS system process) Pulse: 77 (QS system process) Monitor Mode: External (Ana M Gillespie RN) Frequency (min): 1-4 (Ana M Gillespie RN) Quality: Mild/Moderate (Ana M Gillespie RN) Duration (sec): 50-70 (Ana M Gillespie RN) Resting Tone (Palpate): Relaxed (Ana M Gillespie RN) Monitor Mode: External US (Ana M Gillespie RN) FHR Baseline Rate : 145 (Ana M Gillespie RN) Variability: Moderate 6-25 bpm (Ana M Gillespie RN) Accelerations: 15X15 (Ana M Gillespie RN) Decelerations: None (Ana M Gillespie RN) Pitocin (milliunit): Pitocin Remains (milliunits) @ 2 (Ana M Gillespie RN) LaborFlag: Labor (QS system process) Datetime: 10/04/2016 10:35 Pitocin (milliunit): Pitocin Started (milliunits) @ 2; Pitocin 20 Units in 1000ml NS (Ana M Gillespie RN) Datetime: 10/04/2016 10:34 Communication Comments: H Pavel CNM on unit, reviewed strip. Ok'd to start Pitocin (Ana M Gillespie RN) Datetime: 10/04/2016 10:30 Monitor Mode: External (Ana M Gillespie RN) Frequency (min): 1-3 (Ana M Gillespie RN) Quality: Mild/Moderate (Ana M Gillespie RN) Duration (sec): 50-60 (Ana M Gillespie RN) Duration Criteria: Less than Two 120 Second Contractions (Ana M Gillespie RN) Pattern: Normal: <= 5 Contractions in 10 Minutes (Ana M Gillespie, RN) Resting Tone (Palpate): Relaxed (Ana M Gillespie RN) Monitor Mode: External US (Ana M Gillespie, RN) FHR Baseline Rate : 155 (Ana M Gillespie, RN) Variability: Moderate 6-25 bpm (Ana M Gillespie RN) Accelerations: 15X15 (Ana M Gillespie, RN) Decelerations: None (Ana M Gillespie, RN) Datetime: 10/04/2016 10:24 I/O Interventions: Up to BR (Ana M Gillespie RN) Datetime: 10/04/2016 10:15 NBP Sys/[place]/Mean (mmHg): 162 (QS system process) : 100 (QS system process) : 125 (QS system process) Pulse: 83 (QS system process) LaborFlag: Labor (QS system process) Datetime: 10/04/2016 10:12 Monitor Interventions for UA: [place] Adjusted (Ana M Gillespie, RN) Datetime: 10/04/2016 10:11 Patient Position/Activity: Left Lateral (Ana M Gillespie, RN) Patient Care Comments: IV fluids returned to 125ml/hr. (Ana M Gillespie, RN) Datetime: 10/04/2016 09:12 Communication Comments: Monitors removed, IV saline locked for pt to eat breakfast and shower (Ana M Gillespie, RN) Datetime: 10/04/2016 09:10 Communication Comments: Orders to start Pitocin and increase every 15 minute per protocol and pt can get epidural anytime (Ana M Gillespie RN) Datetime: 10/04/2016 09:08 Dilatation (cm): 3.0 (Ana M Gillespie RN) Effacement (%): 60 (Ana M Gillespie RN) Station: -1 (Ana M Gillespie RN) Exam by: Paolo Zhao CNM (Ana M Gillespie RN) Medication Comments: cervidil removed (Ana M Gillespie RN) Communication Comments: Paolo Zhao CNM at bedside (Ana M Gillespie RN) Datetime: 10/04/2016 09:00 Monitor Mode: External (Ana M Gillespie RN) Frequency (min): irritability (Ana M Gillespie RN) Quality: Mild (Ana M Gillespie, RN) Resting Tone (Palpate): Relaxed (Ana M Gillespie, RN) Monitor Mode: External US (Ana M Gillespie, RN) FHR Baseline Rate : 145 (Ana M Gillespie, RN) Variability: Moderate 6-25 bpm (Ana M Gillespie, RN) Accelerations: 15X15 (Ana M Gillespie, RN) Decelerations: None (An aM Gillespie, RN) Datetime: 10/04/2016 08:58 NBP Sys/[place]/Mean (mmHg): 141 (QS system process) : 74 (QS system process) : 100 (QS system process) Pulse: 82 (QS system process) LaborFlag: Labor (QS system process) Datetime: 10/04/2016 08:51 I/O Interventions: Up to BR (Ana M Gillespie, RN) Datetime: 10/04/2016 08:30 Monitor Mode: External (Ana M Gillespie, RN) Frequency (min): irritability (Ana M Gillespie, RN) Quality: Mild (Ana M Gillespie, RN) Duration Criteria: Less than Two 120 Second Contractions (Ana M Gillespie, RN) Pattern: Normal: <= 5 Contractions in 10 Minutes (Ana M Gillespie, RN) Resting Tone (Palpate): Relaxed (Ana M Gillespie, RN) Monitor Mode: External US (Ana M Jose Miguel, RN) FHR Baseline Rate : 155 (Ana M Gillespie, RN) Variability: Moderate 6-25 bpm (Ana M Gillespie, RN) Accelerations: 15X15 (Ana M Gillespie, RN) Decelerations: None (Ana M Gillespie, RN) Datetime: 10/04/2016 08:27 I/O Interventions: Up to BR (Ana M Gillespie, RN) Datetime: 10/04/2016 08:04 I/O Interventions: Up to BR (Ana M Gillespie, RN) Datetime: 10/04/2016 08:01 NBP Sys/[place]/Mean (mmHg): 147 (QS system process) : 76 (QS system process) : 104 (QS system process) Pulse: 87 (QS system process) LaborFlag: Labor (QS system process) Datetime: 10/04/2016 08:00 Monitor Mode: External (Ana M Gillespie RN) Frequency (min): irritability (Ana M Gillespie RN) Quality: Mild (Ana M Gillespie RN) Resting Tone (Palpate): Relaxed (Ana M Gillespie RN) Monitor Mode: External US (Ana M Gillespie RN) FHR Baseline Rate : 150 (Ana M Gillespie RN) Variability: Moderate 6-25 bpm (Ana M Gillespie RN) Accelerations: 15X15 (Ana M Gillespie RN) Decelerations: None (Ana M Gillespie RN)
--- NOTE | 2016-10-04 16:01 | L&D Flow Sheet ---
LD Flowsheet Datetime Report Generated by CPN: 10/04/2016 16:00 Datetime: 10/04/2016 15:46 NBP Sys/[place]/Mean (mmHg): 147 (QS system process) : 84 (QS system process) : 109 (QS system process) Pulse: 76 (QS system process) LaborFlag: Labor (QS system process) Datetime: 10/04/2016 15:45 Pain Assessment Comments: Pt sleeping (Ana M Gillespie, RN) Pitocin (milliunit): Pitocin Started (milliunits) @ 2; Pitocin 20 Units in 1000ml NS (Ana M Gillespie RN) Patient Position/Activity: Left Lateral (Ana M Gillespie RN) LaborFlag: Labor (QS system process) Datetime: 10/04/2016 15:31 NBP Sys/[place]/Mean (mmHg): 140 (QS system process) : 91 (QS system process) : 110 (QS system process) Pulse: 90 (QS system process) LaborFlag: Labor (QS system process) Datetime: 10/04/2016 15:30 Monitor Mode: External (Ana M Gillespie RN) Frequency (min): 1-5 (Ana M Gillespie RN) Quality: Mild/Moderate (Ana M Gillespie RN) Duration (sec): 40-70 (Ana M Gillespie RN) Resting Tone (Palpate): Relaxed (Ana M Gillespie RN) Monitor Mode: External US (Ana M Gillespie RN) FHR Baseline Rate : 145 (Ana M Gillespie RN) Variability: Moderate 6-25 bpm (Ana M Gillespie RN) Accelerations: 15X15 (Ana M Gillespie, RN) Decelerations: None (Ana M Gillespie, RN) Datetime: 10/04/2016 15:27 I/O Interventions: Up to BR (Ana M Gillespie, RN) Datetime: 10/04/2016 15:22 Monitor Interventions for UA: [place] Adjusted (Ana M Gillespie, RN) Datetime: 10/04/2016 15:21 Comfort Measures: Rocking Chair (Ana M Gillespie RN) Patient Care Comments: IV fluids returned to 125ml/hr (Ana M Gillespie RN) Datetime: 10/04/2016 15:18 I/O Interventions: Up to BR (Ana M Gillespie RN) Datetime: 10/04/2016 15:15 NBP Sys/[place]/Mean (mmHg): 131 (QS system process) : 64 (QS system process) : 91 (QS system process) Pulse: 80 (QS system process) Monitor Mode: External (Ana M Gillespie RN) Frequency (min): 1-6 (Ana M Gillespie RN) Quality: Mild/Moderate (Ana M Gilelspie RN) Duration (sec): 40-80 (Ana M Gillespie RN) Resting Tone (Palpate): Relaxed (Ana M Gillespie RN) Monitor Mode: External US (Ana M Gillespie RN) FHR Baseline Rate : 145 (Ana M Gillespie RN) Variability: Moderate 6-25 bpm (Ana M Gillespie RN) Accelerations: 15X15 (Ana M Gillespie RN) Decelerations: None (Ana M Gillespie RN) LaborFlag: Labor (QS system process) Datetime: 10/04/2016 15:00 NBP Sys/[place]/Mean (mmHg): 120 (QS system process) : 65 (QS system process) : 88 (QS system process) Pulse: 71 (QS system process) Monitor Mode: External (Ana M Gillespie RN) Frequency (min): 1-5 (Ana M Gillespie RN) Quality: Mild/Moderate (Ana M Gillespie RN) Duration (sec): 40-60 (Ana M Gillespie RN) Resting Tone (Palpate): Relaxed (Ana M Gillespie RN) Monitor Mode: External US (Ana M Gillespie RN) FHR Baseline Rate : 145 (Ana M Gillespie RN) Variability: Moderate 6-25 bpm (Ana M Gillespie, RN) Accelerations: None (Ana M Gillespie, RN) Decelerations: None (Ana M Gillespie, RN) LaborFlag: Labor (QS system process) Datetime: 10/04/2016 14:52 Patient Care Comments: IV bolus of D5LR started per H. Pavel CNM (Ana M Gillespie RN) Datetime: 10/04/2016 14:45 NBP Sys/[place]/Mean (mmHg): 134 (QS system process) : 81 (QS system process) : 104 (QS system process) Pulse: 72 (QS system process) Monitor Mode: External (Ana M Gillespie RN) Frequency (min): 1-1.5 (Ana M Gillespie RN) Quality: Mild/Moderate (Aan M Gillespie RN) Duration (sec): 40-50 (Ana M Gillespie RN) Resting Tone (Palpate): Relaxed (Ana M Gillespie RN) Monitor Mode: External US (Ana M Gillespie RN) FHR Baseline Rate : 135 (Ana M Gillespie RN) Variability: Moderate 6-25 bpm (Ana M Gillespie RN) Accelerations: 15X15 (Ana M Gillespie RN) LaborFlag: Labor (QS system process) Datetime: 10/04/2016 14:42 Pain Assessment Comments: Pt sleeping (Ana M Gillespie RN) Pitocin (milliunit): Pitocin Discontinued (Ana M Gillespie RN) Communication Comments: Paolo Zhao CNM on unit, reviewed strip. Orders to stop Pitocin for 1 hour and reevaluate. (Ana M Gillespie RN) LaborFlag: Labor (QS system process) Datetime: 10/04/2016 14:30 NBP Sys/[place]/Mean (mmHg): 134 (QS system process) : 77 (QS system process) : 100 (QS system process) Pulse: 72 (QS system process) Monitor Mode: External (Ana M Gillespie RN) Frequency (min): 1-5 (Ana M Gillespie RN) Quality: Mild/Moderate (Ana M Gillespie RN) Duration (sec): 40-80 (Ana M Gillespie RN) Resting Tone (Palpate): Relaxed (Ana M Gillespie RN) Monitor Mode: External US (Ana M Gillespie RN) FHR Baseline Rate : 145 (Ana M Gillespie RN) Variability: Moderate 6-25 bpm (Ana M Gillespie RN) Accelerations: 15X15 (Ana M Gillespie, RN) Decelerations: None (Ana M Gillespie RN) LaborFlag: Labor (QS system process) Datetime: 10/04/2016 14:16 I/O Interventions: Up to BR (Ana M Gillespie, RN) Datetime: 10/04/2016 14:15 NBP Sys/[place]/Mean (mmHg): 135 (QS system process) : 76 (QS system process) : 98 (QS system process) Pulse: 98 (QS system process) Monitor Mode: External (Ana M Gillespie RN) Frequency (min): 1-7 (Ana M Gillespie RN) Quality: Mild/Moderate (Ana M Gillespie RN) Duration (sec): 40-60 (Ana M Gillespie RN) Resting Tone (Palpate): Relaxed (Ana M Gillespie RN) Monitor Mode: External US (Ana M Gillespie RN) FHR Baseline Rate : 145 (Ana M Gillespie RN) Variability: Moderate 6-25 bpm (Ana M Gillespie RN) Accelerations: None (Ana M Gillespie RN) Decelerations: None (Ana M Gillespie RN) Pitocin (milliunit): Pitocin Increased to (milliunits) @ 16 (Ana M Gillespie RN) LaborFlag: Labor (QS system process) Datetime: 10/04/2016 14:00 NBP Sys/[place]/Mean (mmHg): 124 (QS system process) : 66 (QS system process) : 89 (QS system process) Pulse: 69 (QS system process) Monitor Mode: External (Ana M Gillespie RN) Frequency (min): 1-2 (Ana M Gillespie RN) Quality: Mild/Moderate (Ana M Gillespie RN) Duration (sec): 40-60 (Ana M Gillespie RN) Resting Tone (Palpate): Relaxed (Ana M Gillespie RN) Monitor Mode: External US (Ana M Gillespie RN) FHR Baseline Rate : 145 (Ana M Gillespie RN) Variability: Moderate 6-25 bpm (Ana M Gillespie RN) Accelerations: 10X10 (Ana M Gillespie RN) Decelerations: None (Ana M Gillespie RN) LaborFlag: Labor (QS system process) Datetime: 10/04/2016 13:58 Monitor Interventions for UA: [place] Adjusted (Ana M Gillespie RN) Datetime: 10/04/2016 13:46 NBP Sys/[place]/Mean (mmHg): 130 (QS system process) : 67 (QS system process) : 92 (QS system process) Pulse: 75 (QS system process) LaborFlag: Labor (QS system process) Datetime: 10/04/2016 13:45 Respirations: 14 (Ana M Gillespie RN) Temperature (F): 98.2 (Ana M Gillespie RN) Temperature (C): 36.8 (QS system process) Monitor Mode: External (Ana M Gillespie RN) Frequency (min): 1-2 (Ana M Gillespie RN) Quality: Mild/Moderate (Ana M Gillespie RN) Duration (sec): 40-70 (Ana M Gillespie RN) Resting Tone (Palpate): Relaxed (Ana M Gillespie RN) Monitor Mode: External US (Ana M Gillespie RN) FHR Baseline Rate : 155 (Ana M Gillespie RN) Variability: Moderate 6-25 bpm (Ana M Gillespie RN) Accelerations: 15X15 (Ana M Gillespie RN) Comments: spontaneous deceleration noted for 2 minutes. Returned to baseline spontaneously (Ana M Gillespie RN) Pain Scale: 3 (Ana M Gillespie RN) Pain Presence: Intermittent (Ana M Gillespie RN) Pain Type: Contraction (Ana M Gillespie RN) Pain Location: Abdomen; Back (Ana M Gillespie RN) Pain Coping: Talking Through Contractions (Ana M Gillespie RN) Pitocin (milliunit): Pitocin Increased to (milliunits) @ 14 (Ana M Gillespie RN) LaborFlag: Labor (QS system process) Datetime: 10/04/2016 13:42 Monitor Interventions for UA: [place] Adjusted (Ana M Gillespie RN) Datetime: 10/04/2016 13:31 NBP Sys/[place]/Mean (mmHg): 172 (QS system process) : 100 (QS system process) : 128 (QS system process) Pulse: 99 (QS system process) I/O Interventions: Up to BR (Ana M Gillespie RN) LaborFlag: Labor (QS system process) Datetime: 10/04/2016 13:30 Monitor Mode: External (Ana M Gillespie RN) Frequency (min): 1-2 (Ana M Gillespie RN) Quality: Mild/Moderate (Ana M Gillespie RN) Duration (sec): 40-70 (Ana M Gillespie RN) Resting Tone (Palpate): Relaxed (Ana M Gillespie RN) Monitor Mode: External US (Ana M Gillespie RN) FHR Baseline Rate : 155 (Ana M Gillespie RN) Variability: Moderate 6-25 bpm (Ana M Gillespie, RN) Accelerations: 15X15 (Ana M Jose Miguel, RN) Decelerations: None (Ana M Jose Miguel, RN) Pitocin (milliunit): Pitocin Remains (milliunits) @ 12 (Ana M Gillespie, RN) Datetime: 10/04/2016 13:19 I/O Interventions: Up to BR (Ana M Gillespie, RN) Datetime: 10/04/2016 13:16 I/O Interventions: Up to BR (Ana M Jose Miguel, RN) Datetime: 10/04/2016 13:15 NBP Sys/[place]/Mean (mmHg): 139 (QS system process) : 86 (QS system process) : 108 (QS system process) Pulse: 76 (QS system process) Monitor Mode: External (Ana M Gillespie RN) Frequency (min): 1-3 (Ana M Gillespie RN) Quality: Mild/Moderate (Ana M Gillespie RN) Duration (sec): 50-70 (Ana M Gillespie RN) Resting Tone (Palpate): Relaxed (Ana M Gillespie RN) Monitor Mode: External US (Ana M Gillespie RN) FHR Baseline Rate : 155 (Ana M Gillespie RN) Variability: Moderate 6-25 bpm (Ana M Gillespie RN) Accelerations: 15X15 (Ana M Gillespie RN) Decelerations: None (Ana M Gillespie RN) Pitocin (milliunit): Pitocin Increased to (milliunits) @ 12 (Ana M Gillespie RN) LaborFlag: Labor (QS system process) Datetime: 10/04/2016 13:09 I/O Interventions: Popsicle (Ana M Gillespie, RN) Datetime: 10/04/2016 13:08 Monitor Interventions for UA: [place] Adjusted (Ana M Gillespie, RN) Datetime: 10/04/2016 13:07 Comfort Measures: Rocking Chair (Ana M Gillespie, RN) Datetime: 10/04/2016 13:00 Monitor Mode: External; Palpation (Ana M Gillespie RN) Quality: Mild/Moderate (Ana M Gillespie RN) Resting Tone (Palpate): Relaxed (Ana M Gillespie RN) Contraction Comments: Contractions not tracing on monitor due to patient position (Ana M Gillespie RN) Monitor Mode: External US (Ana M Gillespie RN) FHR Baseline Rate : 155 (Ana M Gillespie RN) Variability: Moderate 6-25 bpm (Ana M Gillespie RN) Accelerations: 15X15 (Ana M Gillespie RN) Decelerations: None (Ana M Gillespie RN) Pitocin (milliunit): Pitocin Increased to (milliunits) @ 10 (Ana M Gillespie RN) Datetime: 10/04/2016 12:53 Monitor Interventions for UA: [place] Adjusted (Ana M Gillespie, RN) Monitor Interventions for FHR: Ultrasound Adjusted (Ana M Gillespie, RN) Communication: RN at Bedside (Ana M Gillespie, RN) Datetime: 10/04/2016 12:52 Patient Position/Activity: Hands-Knees (Ana M Gillespie, RN) Datetime: 10/04/2016 12:49 I/O Interventions: Up to BR (Ana M Gillespie, RN) Datetime: 10/04/2016 12:45 NBP Sys/[place]/Mean (mmHg): 139 (QS system process) : 80 (QS system process) : 104 (QS system process) Pulse: 68 (QS system process) Monitor Mode: External (Ana M Gillespie RN) Frequency (min): 1-3 (Ana M Gillespie RN) Quality: Mild/Moderate (Ana M Gillespie RN) Duration (sec): 50-70 (Ana M Gillespie RN) Resting Tone (Palpate): Relaxed (Ana M Gillespie RN) Monitor Mode: External US (Ana M Gillespie RN) FHR Baseline Rate : 145 (Ana M Gillespie RN) Variability: Moderate 6-25 bpm (Ana M Gillespie RN) Accelerations: 15X15 (Ana M Gillespie RN) Decelerations: None (Ana M Gillespie RN) Pitocin (milliunit): Pitocin Increased to (milliunits) @ 8 (Ana M Gillespie RN) LaborFlag: Labor (QS system process) Datetime: 10/04/2016 12:31 NBP Sys/[place]/Mean (mmHg): 147 (QS system process) : 80 (QS system process) : 106 (QS system process) Pulse: 71 (QS system process) LaborFlag: Labor (QS system process) Datetime: 10/04/2016 12:30 Monitor Mode: External (Ana M Gillespie, RN) Frequency (min): 155 (Ana M Gillespie RN) Quality: Mild/Moderate (Ana M Gillespie, RN) Duration (sec): 50-80 (Ana M Gillespie, RN) Resting Tone (Palpate): Relaxed (Ana M Gillespie, RN) Monitor Mode: External US (Ana M Gillespie RN) FHR Baseline Rate : 155 (Ana M Gillespie, RN) Variability: Moderate 6-25 bpm (Ana M Gillespie, RN) Accelerations: 15X15 (Ana M Gillespie, RN) Decelerations: None (Ana M Gillespie, RN) Pitocin (milliunit): Pitocin Remains (milliunits) @ 6 (Ana M Gillespie, RN) Datetime: 10/04/2016 12:22 Patient Position/Activity: Left Tilt (Ana M Gillespie, RN) Datetime: 10/04/2016 12:21 I/O Interventions: Up to BR (Ana M Gillespie, ORTIZ) Datetime: 10/04/2016 12:15 Monitor Mode: External (Ana M Gillespie RN) Frequency (min): 1-3 (Ana M Gillespie RN) Quality: Mild/Moderate (Ana M Gillespie RN) Duration (sec): 40-60 (Ana M Gillespie RN) Resting Tone (Palpate): Relaxed (Ana M Gillespie RN) Monitor Mode: External US (Ana M Gillespie RN) FHR Baseline Rate : 155 (Ana M Gillespie RN) Variability: Moderate 6-25 bpm (Ana M Gillespie RN) Accelerations: 15X15 (Ana M Gillespie RN) Decelerations: None (Ana M Gillespie, RN) Pitocin (milliunit): Pitocin Remains (milliunits) @ 6 (Ana M Gillespie RN) Datetime: 10/04/2016 12:10 Patient Position/Activity: Hands-Knees (Ana M Gillespie, RN) Datetime: 10/04/2016 12:07 I/O Interventions: Up to BR (Ana M Gillespie, RN) Datetime: 10/04/2016 12:05 Patient Care Comments: IV fluids returned to 125ml/hr. 300ml bolus given (Ana M Gillespie, RN) Datetime: 10/04/2016 12:00 NBP Sys/[place]/Mean (mmHg): 146 (QS system process) : 92 (QS system process) : 112 (QS system process) Pulse: 94 (QS system process) Monitor Mode: External (Ana M Gillespie RN) Frequency (min): 1-3 (Ana M Gillespie RN) Quality: Mild/Moderate (Ana M Gillespie RN) Duration (sec): 40-60 (Ana M Gillespie, RN) Resting Tone (Palpate): Relaxed (Ana M Gillespie, RN) Monitor Mode: External US (Ana M Gillespie, RN) FHR Baseline Rate : 155 (Ana M Gillespie, RN) Variability: Moderate 6-25 bpm (Ana M Gillespie, RN) Accelerations: 10X10 (Ana M Gillespie, RN) Decelerations: None (Ana M Gillespie, RN) Pitocin (milliunit): Pitocin Remains (milliunits) @ 6 (Ana M Gillespie, RN) LaborFlag: Labor (QS system process)
[2016-10-04] MEDS ORDERED: MISOPROSTOL 0.1 MG TABLET PO ONE (18:45)
[2016-10-04] MEDS ORDERED: MISOPROSTOL 0.1 MG TABLET ONE (18:55)
--- NOTE | 2016-10-04 20:00 | L&D Flow Sheet ---
LD Flowsheet Datetime Report Generated by CPN: 10/04/2016 20:00 Datetime: 10/04/2016 19:58 NBP Sys/[place]/Mean (mmHg): 185 (QS system process) : 102 (QS system process) : 136 (QS system process) Pulse: 78 (QS system process) LaborFlag: Labor (QS system process) Datetime: 10/04/2016 19:55 NBP Sys/[place]/Mean (mmHg): 178 (QS system process) : 96 (QS system process) : 127 (QS system process) Pulse: 81 (QS system process) LaborFlag: Labor (QS system process) Datetime: 10/04/2016 19:31 Level of Consciousness: Fully Conscious (Julia Field, RN) DTR's/Clonus: DTRs 2+; No Clonus (Julia Field, RN) Headache: Denies (Julia Field, RN) Breath Sounds, Left: Clear and Equal (Julia Field, RN) Breath Sounds, Right: Clear and Equal (Julia Field, RN) Nausea/Vomiting: Present (Julia Field, RN) RUQ Epigastric Pain: Denies (Julia Field, RN) Datetime: 10/04/2016 19:26 NBP Sys/[place]/Mean (mmHg): 170 (QS system process) : 86 (QS system process) : 118 (QS system process) Pulse: 84 (QS system process) LaborFlag: Labor (QS system process) Datetime: 10/04/2016 19:20 Communication Comments: Report given to Tran RN (Ana M Gillespie RN) Datetime: 10/04/2016 19:00 Respirations: 14 (Ana M Gillespie RN) Temperature (F): 99.0 (Ana M Gillespie RN) Temperature (C): 37.2 ([employer] system process) Monitor Mode: External (Ana M Gillespie RN) Frequency (min): x2 (Ana M Gillespie RN) Quality: Mild/Moderate (Ana M Gillespie RN) Duration (sec): 50-60 (Ana M Gillespie RN) Resting Tone (Palpate): Relaxed (Ana M Gillespie RN) Monitor Mode: External US (Ana M Gillespie RN) FHR Baseline Rate : 145 (Ana M Gillespie RN) Variability: Moderate 6-25 bpm (Ana M Gillespie RN) Accelerations: 15X15 (Ana M Gillespie RN) Decelerations: None (Ana M Gillespie RN) Cervical Ripening Agents: Cytotec @ 50 (Ana M Gillespie RN) Medication Comments: PO (Ana M Gillespie RN) LaborFlag: Labor (QS system process) Datetime: 10/04/2016 18:52 NBP Sys/[place]/Mean (mmHg): 143 (QS system process) : 83 (QS system process) : 107 (QS system process) Pulse: 71 (QS system process) LaborFlag: Labor (QS system process) Datetime: 10/04/2016 18:16 Communication Comments: Monitors removed for pt to shower. IV saline locked (Ana M Gillespie, RN) Datetime: 10/04/2016 18:15 NBP Sys/[place]/Mean (mmHg): 152 (QS system process) : 86 (QS system process) : 112 (QS system process) Pulse: 67 (QS system process) Monitor Mode: External (Ana M Gillespie RN) Frequency (min): 3-5 (Ana M Gillespie RN) Quality: Mild/Moderate (Ana M Gillespie RN) Duration (sec): 50-70 (Ana M Gillespie RN) Resting Tone (Palpate): Relaxed (Ana M Gillespie RN) Monitor Mode: External US (Ana M Gillespie RN) FHR Baseline Rate : 135 (Ana M Gillespie, RN) Variability: Moderate 6-25 bpm (Ana M Gillespie, RN) Accelerations: 15X15 (Ana M Gillespie, RN) Decelerations: None (Ana M Gillespie, RN) LaborFlag: Labor (QS system process) Datetime: 10/04/2016 18:01 NBP Sys/[place]/Mean (mmHg): 153 (QS system process) : 96 (QS system process) : 119 (QS system process) Pulse: 80 (QS system process) LaborFlag: Labor (QS system process) Datetime: 10/04/2016 18:00 Monitor Mode: External (Ana M Gillespie RN) Frequency (min): 3-5 (Ana M Gillespie, RN) Quality: Mild/Moderate (Ana M Gillespie RN) Duration (sec): 50-70 (Ana M Gillespie RN) Resting Tone (Palpate): Relaxed (Ana M Gillespie RN) Monitor Mode: External US (Ana M Gillespie RN) FHR Baseline Rate : 145 (Ana M Gillespie RN) Variability: Moderate 6-25 bpm (Ana M Gillespie RN) Accelerations: 15X15 (Ana M Gillespie RN) Decelerations: None (Ana M Gillespie RN) Datetime: 10/04/2016 17:56 I/O Interventions: Up to BR (Ana M Gillespie, RN) Datetime: 10/04/2016 17:47 NBP Sys/[place]/Mean (mmHg): 147 (QS system process) : 91 (QS system process) : 114 (QS system process) Pulse: 69 (QS system process) LaborFlag: Labor (QS system process) Datetime: 10/04/2016 17:45 Monitor Mode: External (Ana Mmaynor Gillespie, RN) Frequency (min): 3-6 (Ana Mmaynor Gillespie, RN) Quality: Mild/Moderate (Ana M Jose Miguel, RN) Duration (sec): 50-70 (Ana M Jose Miguel, RN) Resting Tone (Palpate): Relaxed (Ana Mmaynor Gillespie, RN) Monitor Mode: External US (Ana M Gillespie, RN) FHR Baseline Rate : 145 (Ana Mmaynor Gillespie, RN) Variability: Moderate 6-25 bpm (Ana M Jose Miguel, RN) Accelerations: 15X15 (Ana M Jose Miguel, RN) Decelerations: None (Ana M Jose Miguel, RN) Datetime: 10/04/2016 17:35 I/O Interventions: Up to BR (Ana M Gillespie, RN) Datetime: 10/04/2016 17:30 NBP Sys/[place]/Mean (mmHg): 165 (QS system process) : 84 (QS system process) : 119 (QS system process) Pulse: 78 (QS system process) Monitor Mode: External (Ana M Gillespie RN) Frequency (min): 2-6 (Ana M Gillespie RN) Quality: Mild/Moderate (Ana M Gillespie RN) Duration (sec): 50-70 (Ana M Gillespie RN) Resting Tone (Palpate): Relaxed (Ana M Gillespie, RN) Monitor Mode: External US (Ana M Gillespie, RN) FHR Baseline Rate : 145 (Ana M Gillespie, RN) Variability: Moderate 6-25 bpm (Ana M Gillespie, RN) Accelerations: 15X15 (Ana M Gillespie, RN) Decelerations: None (Ana M Gillespie, RN) LaborFlag: Labor (QS system process) Datetime: 10/04/2016 17:15 NBP Sys/[place]/Mean (mmHg): 145 (QS system process) : 87 (QS system process) : 110 (QS system process) Pulse: 73 (QS system process) Monitor Mode: External (Ana M Gillespie RN) Frequency (min): 2-5 (Ana M Gillespie RN) Quality: Mild/Moderate (Ana M Gillespie RN) Duration (sec): 40-80 (Ana M Gillespie RN) Resting Tone (Palpate): Relaxed (Ana M Gillespie, RN) Monitor Mode: External US (Ana M Gillespie, RN) FHR Baseline Rate : 155 (Ana M Gillespie, RN) Variability: Moderate 6-25 bpm (Ana M Gillespie, RN) Accelerations: 15X15 (Ana M Gillespie RN) Decelerations: None (Ana M Gillespie RN) LaborFlag: Labor (QS system process) Datetime: 10/04/2016 17:02 I/O Interventions: Up to BR (Ana M Gillespie RN) Datetime: 10/04/2016 17:00 NBP Sys/[place]/Mean (mmHg): 141 (QS system process) : 84 (QS system process) : 107 (QS system process) Pulse: 80 (QS system process) Monitor Mode: External (Ana M Gillespie RN) Frequency (min): 2-3 (Ana M Gillespie RN) Quality: Mild/Moderate (Ana M Gillespie RN) Duration (sec): 40-80 (Ana M Gillespie RN) Resting Tone (Palpate): Relaxed (Ana M Gillespie RN) Monitor Mode: External US (Ana M Gillespie RN) FHR Baseline Rate : 145 (Ana M Gillespie RN) Variability: Moderate 6-25 bpm (Ana M Gillespie RN) Accelerations: 15X15 (Ana M Gillespie RN) Decelerations: None (Ana M Gillespie RN) LaborFlag: Labor (QS system process) Datetime: 10/04/2016 16:52 Pitocin (milliunit): Pitocin Discontinued (Ana M Gillespie, RN) Datetime: 10/04/2016 16:51 Dilatation (cm): 3.0 (Ana M Gillespie RN) Effacement (%): 80 (Ana M Gillespie RN) Station: -1 (Ana M Gillespie RN) Exam by: Paolo Zhao CN (Ana M Gillespie RN) Communication Comments: Orders to stop Pitocin and let pt eat dinner and then do 50mcg Cytotec PO (Ana M Gillespie RN) Datetime: 10/04/2016 16:45 NBP Sys/[place]/Mean (mmHg): 140 (QS system process) : 95 (QS system process) : 112 (QS system process) Pulse: 89 (QS system process) Monitor Mode: External; Palpation (Ana M Gillespie RN) Frequency (min): 3-4 (Ana M Gillespie RN) Quality: Mild/Moderate (Ana M Gillespie RN) Duration (sec): 50-80 (Ana M Gillespie RN) Resting Tone (Palpate): Relaxed (Ana M Gillespie RN) Contraction Comments: Contractions not tracing due to patient position (Ana M Gillespie RN) Monitor Mode: External US (Ana M Gillespie RN) FHR Baseline Rate : 135 (Ana M Gillespie RN) Variability: Moderate 6-25 bpm (Ana M Gillespie, RN) Accelerations: 15X15 (Ana M Gillespie, RN) Decelerations: None (Ana M Gillespie RN) LaborFlag: Labor (QS system process) Datetime: 10/04/2016 16:36 I/O Interventions: Up to BR (Ana M Gillespie, RN) Datetime: 10/04/2016 16:31 NBP Sys/[place]/Mean (mmHg): 138 (QS system process) : 89 (QS system process) : 109 (QS system process) Pulse: 81 (QS system process) LaborFlag: Labor (QS system process) Datetime: 10/04/2016 16:30 Monitor Mode: External (Ana M Gillespie RN) Frequency (min): 3-4 (Ana M Gillespie RN) Quality: Mild/Moderate (Ana M Gillespie RN) Duration (sec): 50-70 (Ana M Gillespie RN) Resting Tone (Palpate): Relaxed (Ana M Gillespie RN) Monitor Mode: External US (Ana M Gillespie RN) FHR Baseline Rate : 145 (Ana M Gillespie RN) Variability: Moderate 6-25 bpm (Ana M Gillespie RN) Accelerations: 15X15 (Ana M Gillespie RN) Decelerations: None (Ana M Gillespie RN) Pitocin (milliunit): Pitocin Increased to (milliunits) @ 6 (Ana M Gillespie RN) Datetime: 10/04/2016 16:16 I/O Interventions: Up to BR (Ana M iGllespie, RN) Datetime: 10/04/2016 16:15 Monitor Mode: External (Ana M Gillespie, RN) Frequency (min): 2-4 (Ana M Gillespie RN) Quality: Mild/Moderate (Ana M Gillespie RN) Duration (sec): 50-80 (Ana M Gillespie RN) Resting Tone (Palpate): Relaxed (Ana M Gillespie, RN) Monitor Mode: External US (Ana M Gillespie, RN) FHR Baseline Rate : 140 (Ana M Gillespie, RN) Variability: Moderate 6-25 bpm (Ana M Gillespie, RN) Accelerations: 15X15 (Ana M Gillespie, RN) Decelerations: None (Ana M Gillespie, RN) Comments: Pt sitting straight up in bed (Ana M Gillespie, RN) Datetime: 10/04/2016 16:08 Monitor Interventions for UA: [place] Adjusted (Ana M Gillespie, RN) Datetime: 10/04/2016 16:02 Patient Position/Activity: Hands-Knees (Ana M Gillespie RN) Datetime: 10/04/2016 16:00 Monitor Mode: External (Ana M Gillespie RN) Frequency (min): 2-5 (Ana M Gillespie RN) Quality: Mild/Moderate (Ana M Gillespie RN) Duration (sec): 50-100 (Ana M Gillespie RN) Resting Tone (Palpate): Relaxed (Ana M Gillespie RN) Monitor Mode: External US (Ana M Gillespie RN) FHR Baseline Rate : 145 (Ana M Gillespie RN) Variability: Moderate 6-25 bpm (Ana M Gillespie RN) Accelerations: 15X15 (Ana M Gillespie RN) Decelerations: None (Ana M Gillespie RN) Pitocin (milliunit): Pitocin Increased to (milliunits) @ 4 (Ana M Gillespie RN)
[2016-10-04] MEDS ORDERED: FENTANYL/BUPIVACAINE/NS/PF 100 ML EPI PRN (20:21)
[2016-10-04] MEDS ORDERED: BENZOIN/ALOE VERA/STORAX/TOLU TINCTURE 60 ML TP PRN (20:21)
[2016-10-04] MEDS ORDERED: EPHEDRINE SULFATE INJ 50 MG/1 ML AMPULE IV PRN (20:21)
[2016-10-04] MEDS ORDERED: BUPIVACAINE HCL 0.25 % INJ/PF (2.5 MG/1 ML) 30 ML VIAL INFIL ONE (20:21)
[2016-10-04] MEDS ORDERED: BUPIVACAINE HCL 0.25 % INJ/PF (2.5 MG/1 ML) 30 ML VIAL ONE (20:27)
[2016-10-04] MEDS ORDERED: FENTANYL/BUPIVACAINE/NS/PF 200 MCG/100 ML RTUINJ EPI ONE (20:27)
[2016-10-04] MEDS ORDERED: EPHEDRINE SULFATE INJ 50 MG/1 ML AMPULE ONE (20:27)
[2016-10-05] MEDS ORDERED: MISOPROSTOL 0.2 MG TABLET ONE (00:25)
[2016-10-05] MEDS ORDERED: OXYTOCIN/NORMAL SALINE 0 UNIT/0 ML RTUINJ ONE (00:25)
[2016-10-05] MEDS ORDERED: LIDOCAINE 1% INJ-PF (10 MG/ML) 30 ML SDV ONE (00:25)
[2016-10-05] MEDS ORDERED: BENZOCAINE/MENTHOL AEROSOL SPRAY 56 ML TOP PRN (04:41)
[2016-10-05] MEDS ORDERED: DIBUCAINE 1% OINTMENT 28 GM TP PRN (04:41)
[2016-10-05] MEDS ORDERED: MISOPROSTOL 0.2 MG TABLET PR PRN (04:41)
[2016-10-05] MEDS ORDERED: ACETAMINOPHEN WITH CODEINE #3 TABLET PO PRN ×2 (04:41)
[2016-10-05] MEDS ORDERED: DIPH/PERTUSS(ACELL)/TETANUS VAC/PF 0.5 ML SYR (>=10YO) IM PRN (04:41)
[2016-10-05] MEDS ORDERED: MEASLES,MUMPS&RUBELLA VACC/PF 0.5 ML VIAL SUBCUT PRN (04:41)
[2016-10-05] MEDS ORDERED: ZOLPIDEM TARTRATE 5 MG TABLET PO PRN (04:41)
[2016-10-05] MEDS ORDERED: OXYTOCIN/NORMAL SALINE 1,000 ML IV PRN (04:41)
--- NOTE | 2016-10-05 04:46 | L&D Flow Sheet ---
LD Flowsheet Datetime Report Generated by CPN: 10/05/2016 04:45 Datetime: 10/05/2016 04:30 Stage of : Recovery (Julia Field, RN) Datetime: 10/05/2016 04:23 NBP Sys/[place]/Mean (mmHg): 159 (QS system process) : 96 (QS system process) : 120 (QS system process) Pulse: 100 (QS system process) Datetime: 10/05/2016 04:15 Stage of : Recovery (Julia Field, RN) Datetime: 10/05/2016 04:00 Stage of : Recovery (Julia Field, RN) Datetime: 10/05/2016 03:53 NBP Sys/[place]/Mean (mmHg): 147 (QS system process) : 87 (QS system process) : 113 (QS system process) Pulse: 92 (QS system process) Datetime: 10/05/2016 03:45 Stage of : Recovery (Julia Field, RN) Datetime: 10/05/2016 03:30 Stage of : Recovery (Julia Field, RN) Datetime: 10/05/2016 03:15 Stage of : Recovery (Julia Field, RN) Datetime: 10/05/2016 03:00 Stage of : Recovery (Julia Montes De Oca, RN) Temperature (F): 98.7 (Julia Montes De Oca RN) Temperature (C): 37.1 (QS system process) Temperature Route: Oral (Julia Montes De Oca, RN) Datetime: 10/05/2016 02:53 NBP Sys/[place]/Mean (mmHg): 139 (QS system process) : 75 (QS system process) : 101 (QS system process) Pulse: 104 (QS system process) LaborFlag: Labor (QS system process) Datetime: 10/05/2016 02:45 Monitor Mode: External; Palpation (Julia Montes De Oca RN) Frequency (min): 1-3 (Julia Montes De Oca RN) Quality: Moderate to Strong (Julia Field, RN) Duration (sec): 40-50 (Julia Field, RN) Resting Tone (Palpate): Relaxed (Julia Field, RN) Monitor Mode: External US (Julia Field, RN) FHR Baseline Rate : 145 (Julia Field, RN) Variability: Moderate 6-25 bpm (Julia Field, RN) Accelerations: 10X10 (Julia Field, RN) Decelerations: None (Julia Field, RN) Datetime: 10/05/2016 02:30 Monitor Mode: External; Palpation (Julia Field, RN) Frequency (min): 1-2 (Julia Field, RN) Quality: Moderate to Strong (Julia Field, RN) Duration (sec): 40-50 (Julia Field, RN) Resting Tone (Palpate): Relaxed (Julia Field, RN) Monitor Mode: External US (Julia Field, RN) FHR Baseline Rate : 145 (Julia Field, RN) Variability: Moderate 6-25 bpm (Julia Field, RN) Accelerations: None (Julia Field, RN) Decelerations: None (Julia Field, RN) Pitocin (milliunit): Pitocin Remains (milliunits) @ 8 (Julia Field, RN) Datetime: 10/05/2016 02:23 NBP Sys/[place]/Mean (mmHg): 155 (QS system process) : 79 (QS system process) : 106 (QS system process) Pulse: 146 (QS system process) LaborFlag: Labor (QS system process) Datetime: 10/05/2016 02:15 Monitor Mode: External; Palpation (Julia , RN) Frequency (min): 1-2 (Julia , RN) Quality: Moderate to Strong (Julia Field, RN) Duration (sec): 40-50 (Julia Field, RN) Resting Tone (Palpate): Relaxed (Julia Field, RN) Monitor Mode: External US (Julia Field, RN) FHR Baseline Rate : 155 (Julia Field, RN) Variability: Moderate 6-25 bpm (Julia Field, RN) Accelerations: None (Julia Field, RN) Decelerations: None (Julia Field, RN) Pitocin (milliunit): Pitocin Remains (milliunits) @ 8 (Julia Field, RN) Datetime: 10/05/2016 02:00 Monitor Mode: External; Palpation (Julia Field, RN) Frequency (min): 1-2 (Julia Field, RN) Quality: Moderate (Julia Field, RN) Duration (sec): 40-50 (Julia Field, RN) Resting Tone (Palpate): Relaxed (Julia Field, RN) Monitor Mode: External US (Julia Field, RN) FHR Baseline Rate : 145 (Julia Field, RN) Variability: Moderate 6-25 bpm (Julia Field, RN) Accelerations: 15X15 (Julia Field, RN) Decelerations: None (Julia Field, RN) Pitocin (milliunit): Pitocin Remains (milliunits) @ 8 (Julia Field, RN) Datetime: 10/05/2016 01:53 NBP Sys/[place]/Mean (mmHg): 179 (QS system process) : 87 (QS system process) : 123 (QS system process) Pulse: 104 (QS system process) LaborFlag: Labor (QS system process) Datetime: 10/05/2016 01:45 Monitor Mode: External; Palpation (Julia Field, RN) Frequency (min): 1-2 (Julia Field, RN) Quality: Moderate (Julia Field, RN) Duration (sec): 40-50 (Julia Field, RN) Resting Tone (Palpate): Relaxed (Julia Field, RN) Monitor Mode: External US (Julia Field, RN) FHR Baseline Rate : 135 (Julia Field, RN) Variability: Moderate 6-25 bpm (Julia Field, RN) Accelerations: 10X10 (Julia Field, RN) Decelerations: None (Julia Field, RN) Pitocin (milliunit): Pitocin Remains (milliunits) @ 8 (Julia Field, RN) Datetime: 10/05/2016 01:43 Stage 2 Comments: Tug of War (Julia Field, RN) Datetime: 10/05/2016 01:30 Monitor Mode: External; Palpation (Julia Field, RN) Frequency (min): 2-3 (Julia Field, RN) Quality: Moderate (Julia Field, RN) Duration (sec): 50-60 (Julia Field, RN) Resting Tone (Palpate): Relaxed (Julia Field, RN) Monitor Mode: External US (Julia Field, RN) FHR Baseline Rate : 145 (Julia Field, RN) Variability: Moderate 6-25 bpm (Julia Field, RN) Accelerations: 10X10 (Julia Field, RN) Decelerations: None (Julia Field, RN) Pitocin (milliunit): Pitocin Remains (milliunits) @ 8 (Julia Field, RN) Datetime: 10/05/2016 01:24 Pushing: Coached on Pushing (Julia Field, RN) Pushing Position: Pushing with Contractions (Julia Field, RN) Pushing Progress: Descent with Pushing (Julia Field, RN) Datetime: 10/05/2016 01:17 Pushing: Coached on Pushing; Urge to Push (Julia Field, RN) Pushing Position: Pushing with Contractions (Julia Field, RN) Datetime: 10/05/2016 01:15 Monitor Mode: External; Palpation (Julia Field, RN) Frequency (min): 1.5-3 (Julia Field, RN) Quality: Moderate (Julia Field, RN) Duration (sec): 60-90 (Julia Field, RN) Resting Tone (Palpate): Relaxed (Julia Field, RN) Monitor Mode: External US (Julia Field, RN) FHR Baseline Rate : 145 (Julia Field, RN) Variability: Moderate 6-25 bpm (Julia Field, RN) Accelerations: 15X15 (Julia Field, RN) Decelerations: None (Julia Field, RN) Pitocin (milliunit): Pitocin Remains (milliunits) @ 8 (Julia Field, RN) Datetime: 10/05/2016 01:11 Dilatation (cm): 10.0 (Connie Lattibeaudeir, RN) Exam by: Dr. Venegas (Connie Lattibeaudeir, RN) Membrane Status: Ruptured (Connie Lattibeaudeir, RN) Datetime: 10/05/2016 01:00 Monitor Mode: External; Palpation (Julia Montes De Oca, RN) Frequency (min): 1.5-2 (Julia Montes De Oca, RN) Quality: Moderate (Julia Montes De Oca, RN) Duration (sec): 80-100 (Julia Field, RN) Resting Tone (Palpate): Relaxed (Julia Field, RN) Monitor Mode: External US (Julia Field, RN) FHR Baseline Rate : 145 (Julia Field, RN) Variability: Moderate 6-25 bpm (Julia Field, RN) Accelerations: 10X10 (Julia Field, RN) Decelerations: None (Julia Field, RN) Pitocin (milliunit): Pitocin Remains (milliunits) @ 8 (Julia Field, RN) Datetime: 10/05/2016 00:53 NBP Sys/[place]/Mean (mmHg): 172 (QS system process) : 97 (QS system process) : 128 (QS system process) Pulse: 96 (QS system process) LaborFlag: Labor (QS system process) Datetime: 10/05/2016 00:45 Monitor Mode: External; Palpation (Julia Montes De Oca RN) Frequency (min): 2.5-3 (Julia Montes De Oca RN) Quality: Moderate (Julia Montes De Oca RN) Duration (sec): 60-100 (Julia Montes De Oca RN) Resting Tone (Palpate): Relaxed (Julia Montse De Oca RN) Monitor Mode: External US (Julia Montes De Oca RN) FHR Baseline Rate : 140 (Julia Montes De Oca RN) Variability: Moderate 6-25 bpm (Julia Montes De Oca RN) Accelerations: 15X15 (Julia Montes De Oca RN) Decelerations: None (Julia Montes De Oca RN) Pitocin (milliunit): Pitocin Remains (milliunits) @ 8 (Julia Montes De Oca RN) Communication: RN Reviewed Strip; Call/Page Placed to Provider (Julia Montes De Oca RN) Communication Comments: Informed Dr. Venegas of vag exam; Dr. Venegas is on her way in (Julia Montes De Oca RN) Datetime: 10/05/2016 00:42 Dilatation (cm): 9.5 (Julia Field, RN) Effacement (%): 100 (Julia Field, RN) Station: 1 (Julia Montes De Oca, RN) Exam by: ORTIZ Roger (Julia Field, RN) Datetime: 10/05/2016 00:30 Monitor Mode: External; Palpation (Julia Field, RN) Frequency (min): 2-3 (Julia Montes De Oca, RN) Quality: Moderate (Julia Field, RN) Duration (sec): 70-100 (Julia Field, RN) Resting Tone (Palpate): Relaxed (Julia Field, RN) Monitor Mode: External US (Julia Field, RN) FHR Baseline Rate : 145 (Julia Field, RN) Variability: Moderate 6-25 bpm (Julia Field, RN) Accelerations: 10X10 (Julia Field, RN) Decelerations: None (Julia Field, RN) Pitocin (milliunit): Pitocin Increased to (milliunits) @ 8 (Julia Field, RN) Datetime: 10/05/2016 00:23 NBP Sys/[place]/Mean (mmHg): 142 (QS system process) : 88 (QS system process) : 111 (QS system process) Pulse: 75 (QS system process) LaborFlag: Labor (QS system process) Datetime: 10/05/2016 00:15 Monitor Mode: External; Palpation (Julia Montes De Oca RN) Frequency (min): 1.5-2.5 (Julia Montes De Oca RN) Quality: Moderate (Julia Montes De Oca RN) Duration (sec): 50-100 (Julia Montes De Oca RN) Resting Tone (Palpate): Relaxed (Julia Montes De Oca RN) Monitor Mode: External US (Julia Montes De Oca RN) FHR Baseline Rate : 135 (Julia Montes De Oca RN) Variability: Moderate 6-25 bpm (Julia Montes De Oca RN) Accelerations: 15X15 (Julia Montes De Oca RN) Decelerations: None (Julia Montes De Oca RN) Dilatation (cm): 7.5 (Julia Montes De Oca RN) Effacement (%): 80 (Julia Montes De Oca RN) Station: 0 (Julia Montes De Oca RN) Exam by: ORTIZ Roger (Julia Montes De Oca RN) Pitocin (milliunit): Pitocin Remains (milliunits) @ 6 (Julia Field, RN) Datetime: 10/05/2016 00:00 Monitor Mode: External; Palpation (Julia Montes De Oca, RN) Frequency (min): 2-4 (Julia Montes De Oca, RN) Quality: Mild/Moderate (Julia Field, RN) Duration (sec): 50-80 (Julia Field, RN) Resting Tone (Palpate): Relaxed (Julia Field, RN) Monitor Mode: External US (Julia Field, RN) FHR Baseline Rate : 145 (Julia Field, RN) Variability: Moderate 6-25 bpm (Julia Field, RN) Accelerations: 10X10 (Julia Field, RN) Decelerations: None (Julia Field, RN) Pitocin (milliunit): Pitocin Increased to (milliunits) @ 6 (Julia Field, RN) Datetime: 10/04/2016 23:54 NBP Sys/[place]/Mean (mmHg): 138 (QS system process) : 88 (QS system process) : 108 (QS system process) Pulse: 75 (QS system process) LaborFlag: Labor (QS system process) Datetime: 10/04/2016 23:45 Monitor Mode: External; Palpation (Julia Field, RN) Frequency (min): 3.5-4.5 (Julia Field, RN) Quality: Mild/Moderate (Julia Field, RN) Duration (sec): 70-90 (Julia Field, RN) Resting Tone (Palpate): Relaxed (Julia Field, RN) Monitor Mode: External US (Julia Field, RN) FHR Baseline Rate : 140 (Julia Field, RN) Variability: Moderate 6-25 bpm (Julia Field, RN) Accelerations: 10X10 (Julia Field, RN) Decelerations: None (Julia Field, RN) Pitocin (milliunit): Pitocin Remains (milliunits) @ 4 (Julia Field, RN) Datetime: 10/04/2016 23:33 Patient Position/Activity: Peanut Ball; Right Extreme (Julia Field, RN) Datetime: 10/04/2016 23:30 Monitor Mode: External; Palpation (Julia Field, RN) Frequency (min): 3-3.5 (Julia Field, RN) Quality: Mild/Moderate (Julia Field, RN) Duration (sec): 60-100 (Julia Field, RN) Resting Tone (Palpate): Relaxed (Julia Field, RN) Monitor Mode: External US (Julia Field, RN) FHR Baseline Rate : 135 (Julia Field, RN) Variability: Moderate 6-25 bpm (Julia Field, RN) Accelerations: 15X15 (Julia Field, RN) Decelerations: None (Julia Field, RN) Pitocin (milliunit): Pitocin Increased to (milliunits) @ 4 (Julia Field, RN) Datetime: 10/04/2016 23:23 NBP Sys/[place]/Mean (mmHg): 122 (QS system process) : 70 (QS system process) : 91 (QS system process) Pulse: 68 (QS system process) LaborFlag: Labor (QS system process) Datetime: 10/04/2016 23:15 Monitor Mode: External; Palpation (Julia Field, RN) Monitor Interventions for UA: [place] Adjusted (Julia Field, RN) Frequency (min): x1 (Julia Field, RN) Quality: Mild/Moderate (Julia Field, RN) Duration (sec): 60 (Julia Field, RN) Resting Tone (Palpate): Relaxed (Julia Field, RN) Monitor Mode: External US (Julia Field, RN) Monitor Interventions for FHR: Ultrasound Adjusted (Julia Field, RN) FHR Baseline Rate : 145 (Julia Field, RN) Variability: Moderate 6-25 bpm (Julia Field, RN) Pitocin (milliunit): Pitocin Remains (milliunits) @ 2 (Julia Field, RN) Datetime: 10/04/2016 23:00 Monitor Mode: External; Palpation (Julia Field, RN) Frequency (min): 4-5.5 (Julia Field, RN) Quality: Mild/Moderate (Julia Field, RN) Duration (sec): 60-120 (Julia Field, RN) Resting Tone (Palpate): Relaxed (Julia Field, RN) Monitor Mode: External US (Julia Field, RN) FHR Baseline Rate : 150 (Julia Field, RN) Variability: Moderate 6-25 bpm (Julia Field, RN) Accelerations: 15X15 (Julia Field, RN) Decelerations: Late (Julia Field, RN) Patient Position/Activity: Left Lateral; Peanut Ball (Julia Field, RN) Datetime: 10/04/2016 22:55 Pitocin (milliunit): Pitocin Started (milliunits) @ 2; Pitocin 20 Units in 1000ml NS (Julia Field, RN) Datetime: 10/04/2016 22:53 NBP Sys/[place]/Mean (mmHg): 135 (QS system process) : 84 (QS system process) : 105 (QS system process) Pulse: 73 (QS system process) LaborFlag: Labor (QS system process) Datetime: 10/04/2016 22:50 Communication: RN Reviewed Strip; Provider Orders Received; Call/Page Placed to Provider (Julia Montes De Oca RN) Communication Comments: Informed Venegas of vag exam; orders received to restart pitocin (Julia Montes De Oca RN) Datetime: 10/04/2016 22:46 Temperature (F): 98.7 (Julia Montes De Oca RN) Temperature (C): 37.1 (QS system process) Dilatation (cm): 5.0 (Julia Montes De Oca RN) Effacement (%): 80 (Julia Montes De Oca RN) Station: -1 (Julia Montes De Oca RN) Exam by: ORTIZ Roger (Julia Montes De Oca RN) LaborFlag: Labor (QS system process) Datetime: 10/04/2016 22:30 Monitor Mode: External; Palpation (Julia Field, RN) Frequency (min): 3.5-6 (Julia Field, RN) Quality: Mild/Moderate (Julia Field, RN) Duration (sec): 80-120 (Julia Field, RN) Resting Tone (Palpate): Relaxed (Julia Field, RN) Monitor Mode: External US (Julia Field, RN) FHR Baseline Rate : 150 (Julia Field, RN) Variability: Moderate 6-25 bpm (Julia Field, RN) Accelerations: 15X15 (Julia Field, RN) Decelerations: None (Julia Field, RN) Datetime: 10/04/2016 22:24 NBP Sys/[place]/Mean (mmHg): 124 (QS system process) : 82 (QS system process) : 99 (QS system process) Pulse: 86 (QS system process) LaborFlag: Labor (QS system process) Datetime: 10/04/2016 22:00 Monitor Mode: External; Palpation (Julia Field, RN) Frequency (min): 3.5-5.5 (Julia Field, RN) Quality: Mild/Moderate (Julia Field, RN) Duration (sec): 60-100 (Julia Field, RN) Resting Tone (Palpate): Relaxed (Julia Field, RN) Monitor Mode: External US (Julia Field, RN) FHR Baseline Rate : 145 (Julia Field, RN) Variability: Moderate 6-25 bpm (Julia Field, RN) Accelerations: 15X15 (Julia Field, RN) Decelerations: None (Julia Field, RN) Datetime: 10/04/2016 21:53 NBP Sys/[place]/Mean (mmHg): 132 (QS system process) : 70 (QS system process) : 95 (QS system process) Pulse: 86 (QS system process) LaborFlag: Labor (QS system process) Datetime: 10/04/2016 21:30 Monitor Mode: External; Palpation (Julia Field, RN) Frequency (min): 3-6 (Julia Field, RN) Quality: Mild/Moderate (Julia Field, RN) Duration (sec): 80-100 (Julia Field, RN) Resting Tone (Palpate): Relaxed (Ujlia Field, RN) Monitor Mode: External US (Julia Field, RN) FHR Baseline Rate : 150 (Julia Field, RN) Variability: Moderate 6-25 bpm (Julia Field, RN) Accelerations: 15X15 (Julia Field, RN) Decelerations: None (Julia Field, RN) Datetime: 10/04/2016 21:22 NBP Sys/[place]/Mean (mmHg): 129 (QS system process) : 76 (QS system process) : 98 (QS system process) Pulse: 105 (QS system process) LaborFlag: Labor (QS system process) Datetime: 10/04/2016 21:18 NBP Sys/[place]/Mean (mmHg): 159 (QS system process) : 72 (QS system process) : 103 (QS system process) Pulse: 102 (QS system process) LaborFlag: Labor (QS system process) Datetime: 10/04/2016 21:13 NBP Sys/[place]/Mean (mmHg): 127 (QS system process) : 87 (QS system process) : 103 (QS system process) Pulse: 90 (QS system process) LaborFlag: Labor (QS system process) Datetime: 10/04/2016 21:06 NBP Sys/[place]/Mean (mmHg): 133 (QS system process) : 75 (QS system process) : 100 (QS system process) Pulse: 90 (QS system process) LaborFlag: Labor (QS system process) Datetime: 10/04/2016 21:05 NBP Sys/[place]/Mean (mmHg): 141 (QS system process) : 73 (QS system process) : 102 (QS system process) Pulse: 85 (QS system process) LaborFlag: Labor (QS system process) Datetime: 10/04/2016 21:04 NBP Sys/[place]/Mean (mmHg): 141 (QS system process) : 74 (QS system process) : 100 (QS system process) Pulse: 96 (QS system process) LaborFlag: Labor (QS system process) Datetime: 10/04/2016 21:03 NBP Sys/[place]/Mean (mmHg): 154 (QS system process) : 82 (QS system process) : 111 (QS system process) Pulse: 117 (QS system process) I/O Interventions: Hutchison Cath Inserted (Julia Montes De Oca RN) LaborFlag: Labor (QS system process) Datetime: 10/04/2016 21:02 NBP Sys/[place]/Mean (mmHg): 148 (QS system process) : 78 (QS system process) : 105 (QS system process) Pulse: 105 (QS system process) LaborFlag: Labor (QS system process) Datetime: 10/04/2016 21:01 NBP Sys/[place]/Mean (mmHg): 147 (QS system process) : 74 (QS system process) : 105 (QS system process) Pulse: 93 (QS system process) LaborFlag: Labor (QS system process) Datetime: 10/04/2016 21:00 NBP Sys/[place]/Mean (mmHg): 141 (QS system process) : 84 (QS system process) : 107 (QS system process) Pulse: 94 (QS system process) Monitor Mode: External; Palpation (Julia Montes De Oca, RN) Frequency (min): x1 (Julia Montes De Oca, RN) Quality: Mild/Moderate (Julia Field, RN) Duration (sec): 80 (Julia , RN) Resting Tone (Palpate): Relaxed (Julia Montes De Oca, RN) Contraction Comments: sitting up for epidural (Julia Montes De Oca, RN) Monitor Mode: External US (Julia Montes De Oca, RN) FHR Baseline Rate : 150 (Julia Field, RN) Variability: Moderate 6-25 bpm (Julia Field, RN) Accelerations: 15X15 (Julia Field, RN) Decelerations: None (Julia Field, RN) LaborFlag: Labor (QS system process) Datetime: 10/04/2016 20:59 NBP Sys/[place]/Mean (mmHg): 140 (QS system process) : 87 (QS system process) : 109 (QS system process) Pulse: 107 (QS system process) Anesthesia Level Check: T10- Umbilicus (Julia Montes De Oca, RN) LaborFlag: Labor (QS system process) Datetime: 10/04/2016 20:58 NBP Sys/[place]/Mean (mmHg): 140 (QS system process) : 83 (QS system process) : 104 (QS system process) Pulse: 103 (QS system process) LaborFlag: Labor (QS system process) Datetime: 10/04/2016 20:57 NBP Sys/[place]/Mean (mmHg): 161 (QS system process) : 79 (QS system process) : 112 (QS system process) Pulse: 106 (QS system process) LaborFlag: Labor (QS system process) Datetime: 10/04/2016 20:55 NBP Sys/[place]/Mean (mmHg): 166 (QS system process) : 79 (QS system process) : 114 (QS system process) Pulse: 105 (QS system process) LaborFlag: Labor (QS system process) Datetime: 10/04/2016 20:54 NBP Sys/[place]/Mean (mmHg): 155 (QS system process) : 83 (QS system process) : 113 (QS system process) Pulse: 105 (QS system process) Pulse: 112 (QS system process) SpO2 (%): 100 (QS system process) LaborFlag: Labor (QS system process) Datetime: 10/04/2016 20:53 NBP Sys/[place]/Mean (mmHg): 155 (QS system process) : 100 (QS system process) : 122 (QS system process) Pulse: 103 (QS system process) LaborFlag: Labor (QS system process) Datetime: 10/04/2016 20:52 Epidural Procedure: Cath Placed; Test Dose (Malika Jael, RN) Datetime: 10/04/2016 20:49 Pulse: 98 (QS system process) SpO2 (%): 100 (QS system process) LaborFlag: Labor (QS system process) Datetime: 10/04/2016 20:44 Pulse: 94 (QS system process) SpO2 (%): 100 (QS system process) LaborFlag: Labor (QS system process) Datetime: 10/04/2016 20:42 Procedure Verify: Correct Patient Identity; Correct Side and Site are Marked; Accurate Procedure Consent Form; Agreement on Procedure to be Done; Correct Patient Position; Relevant Images and Results are Properly Labeled and Displayed; Addressed Need to Administer Antibiotics or Fluids for Irrigation; Safety Precautions Based on Patient History or Medication Use (Malika Elder RN) Anesthesia Plans: Epidural (Malika Elder RN) Epidural Positioning: Sitting (Malika Elder RN) Anesthesia Comments: Dr Forde at bedside (Malika Elder RN) Datetime: 10/04/2016 20:39 Procedure Verify: Correct Patient Identity; Correct Side and Site are Marked; Accurate Procedure Consent Form; Agreement on Procedure to be Done; Correct Patient Position; Relevant Images and Results are Properly Labeled and Displayed; Addressed Need to Administer Antibiotics or Fluids for Irrigation; Safety Precautions Based on Patient History or Medication Use (Julia Montes De Oca RN) Anesthesia Plans: Epidural (Julia Montes De Oca RN) Epidural Positioning: Sitting (Julia Montes De Oca RN) Datetime: 10/04/2016 20:30 Monitor Mode: External; Palpation (Julia Field, RN) Frequency (min): x2 (Julia Field, RN) Quality: Mild/Moderate (Julia Field, RN) Duration (sec): 100 (Julia Field, RN) Resting Tone (Palpate): Relaxed (Julia Field, RN) Monitor Mode: External US (Julia Field, RN) FHR Baseline Rate : 145 (Julia Field, RN) Variability: Moderate 6-25 bpm (Julia Field, RN) Accelerations: 15X15 (Julia Field, RN) Decelerations: None (Julia Field, RN) Datetime: 10/04/2016 20:25 NBP Sys/[place]/Mean (mmHg): 181 (QS system process) : 84 (QS system process) : 120 (QS system process) Pulse: 90 (QS system process) LaborFlag: Labor (QS system process) Datetime: 10/04/2016 20:20 Procedure Verify: Correct Patient Identity; Correct Side and Site are Marked; Accurate Procedure Consent Form; Agreement on Procedure to be Done (Julia Montes De Oca, RN) Anesthesia Plans: Epidural (Julia Montes De Oca, RN) Datetime: 10/04/2016 20:09 I/O Interventions: Up to BR (Julia Montes De Oca, RN) Datetime: 10/04/2016 20:06 Communication: RN Reviewed Strip; Provider Orders Received; Call/Page Placed to Provider (Julia Montes De Oca RN) Communication Comments: Informed Dr. Venegas of patient's status and complaint of pain 4 out of 5; orders received for epidural (Julia Montes De Oca, RN) Datetime: 10/04/2016 20:01 Pain Scale: 4 (Julia Montes De Oca, ORTIZ) Pain Presence: Intermittent (Julia Montes De Oca, RN) Pain Type: Cramping; Contraction (Julia Montes De Oca, RN) Pain Location: Abdomen (Julia Montes De Oca, RN) Pain Goal: 0 (Julia Montes De Oca, RN) Pain Coping: Talking Through Contractions; Breathing Through Contractions; Requesting Pain Medication or Epidural (Julia Montes De Oca RN) LaborFlag: Labor (QS system process) Datetime: 10/04/2016 20:00 NBP Sys/[place]/Mean (mmHg): 160 (QS system process) : 91 (QS system process) : 119 (QS system process) Pulse: 75 (QS system process) Monitor Mode: External; Palpation (Julia Montes De Oca, RN) Frequency (min): 3-4 (Julia Montes De Oca, RN) Quality: Mild/Moderate (Julia Montes De Oca, RN) Duration (sec): 60-80 (Julia Montes De Oca, RN) Resting Tone (Palpate): Relaxed (Julia Montes De Oca, RN) Monitor Mode: External US (Julia Montes De Oca, RN) FHR Baseline Rate : 140 (Julia Montes De Oca, RN) Variability: Moderate 6-25 bpm (Julia Montes De Oca, RN) Accelerations: 15X15 (Julia Montes De Oca, RN) Decelerations: None (Julia Montes De Oca, RN) LaborFlag: Labor (QS system process) Datetime: 10/04/2016 19:58 NBP Sys/[place]/Mean (mmHg): 185 (QS system process) : 102 (QS system process) : 136 (QS system process) Pulse: 78 (QS system process) LaborFlag: Labor (QS system process) Datetime: 10/04/2016 19:55 NBP Sys/[place]/Mean (mmHg): 178 (QS system process) : 96 (QS system process) : 127 (QS system process) Pulse: 81 (QS system process) LaborFlag: Labor (QS system process) Datetime: 10/04/2016 19:36 I/O Interventions: Up to BR ([facility], RN) Datetime: 10/04/2016 19:31 Level of Consciousness: Fully Conscious (Julia Field, RN) DTR's/Clonus: DTRs 2+; No Clonus (Julia Field, RN) Headache: Denies (Julia Field, RN) Breath Sounds, Left: Clear and Equal (Julia Field, RN) Breath Sounds, Right: Clear and Equal (Julia Field, RN) Nausea/Vomiting: Present (Julia Field, RN) RUQ Epigastric Pain: Denies (Julia Field, RN) Datetime: 10/04/2016 19:30 Monitor Mode: External; Palpation (Julia Field, RN) Frequency (min): 4.5-5.5 (Julia Field, RN) Quality: Mild/Moderate (Julia Field, RN) Duration (sec): 80-100 (Julia Field, RN) Resting Tone (Palpate): Relaxed (Julia Field, RN) Monitor Mode: External US (Julia Field, RN) FHR Baseline Rate : 145 (Julia Field, RN) Variability: Moderate 6-25 bpm (Julia Field, RN) Accelerations: 15X15 (Julia Field, RN) Decelerations: None (Julia Field, RN) Datetime: 10/04/2016 19:26 NBP Sys/[place]/Mean (mmHg): 170 (QS system process) : 86 (QS system process) : 118 (QS system process) Pulse: 84 (QS system process) LaborFlag: Labor (QS system process) Datetime: 10/04/2016 19:20 Communication Comments: Report given to Tran Montes De Oca RN (Ana M Gillespie, RN) Datetime: 10/04/2016 19:00 Respirations: 14 (Ana M Gillespie RN) Temperature (F): 99.0 (Ana M Gillespie RN) Temperature (C): 37.2 (QS system process) Monitor Mode: External (Ana M Gillespie RN) Frequency (min): x2 (Ana M Gillespie RN) Quality: Mild/Moderate (Ana M Gillespie RN) Duration (sec): 50-60 (Ana M Gillespie RN) Resting Tone (Palpate): Relaxed (Ana M Gillespie RN) Monitor Mode: External US (Ana M Gillespie RN) FHR Baseline Rate : 145 (Ana M Gillespie RN) Variability: Moderate 6-25 bpm (Ana M Gillespie RN) Accelerations: 15X15 (Ana M Gillespie RN) Decelerations: None (Ana M Gillespie RN) Cervical Ripening Agents: Cervidil; Cytotec @ (Connie Lawrence RN) Medication Comments: PO (Ana M Gillespie RN) LaborFlag: Labor (QS system process) Datetime: 10/04/2016 18:52 NBP Sys/[place]/Mean (mmHg): 143 (QS system process) : 83 (QS system process) : 107 (QS system process) Pulse: 71 (QS system process) LaborFlag: Labor (QS system process) Datetime: 10/04/2016 18:16 Communication Comments: Monitors removed for pt to shower. IV saline locked (Ana M Gillespie RN) Datetime: 10/04/2016 18:15 NBP Sys/[place]/Mean (mmHg): 152 (QS system process) : 86 (QS system process) : 112 (QS system process) Pulse: 67 (QS system process) Monitor Mode: External (Ana M Gillespie RN) Frequency (min): 3-5 (Ana M Gillespie RN) Quality: Mild/Moderate (Ana M Gillespie RN) Duration (sec): 50-70 (Ana M Gillespie RN) Resting Tone (Palpate): Relaxed (Ana M Gillespie RN) Monitor Mode: External US (Ana M Gillespie RN) FHR Baseline Rate : 135 (Ana M Gillespie RN) Variability: Moderate 6-25 bpm (Ana M Gillespie RN) Accelerations: 15X15 (Ana M Gillespie, RN) Decelerations: None (Ana M Gillespie, RN) LaborFlag: Labor (QS system process) Datetime: 10/04/2016 18:01 NBP Sys/[place]/Mean (mmHg): 153 (QS system process) : 96 (QS system process) : 119 (QS system process) Pulse: 80 (QS system process) LaborFlag: Labor (QS system process) Datetime: 10/04/2016 18:00 Monitor Mode: External (Ana M Gillespie, RN) Frequency (min): 3-5 (Ana M Gillespie, RN) Quality: Mild/Moderate (Ana M Gillespie, RN) Duration (sec): 50-70 (Ana M Gillespie, RN) Resting Tone (Palpate): Relaxed (Ana M Gillespie, RN) Monitor Mode: External US (Ana M Gillespie, RN) FHR Baseline Rate : 145 (Ana M Gillespie, RN) Variability: Moderate 6-25 bpm (Ana M Gillespie, RN) Accelerations: 15X15 (Ana M Gillespie, RN) Decelerations: None (Ana M Gillespie, RN) Datetime: 10/04/2016 17:56 I/O Interventions: Up to BR (Ana M Gillespie RN) Datetime: 10/04/2016 17:47 NBP Sys/[place]/Mean (mmHg): 147 (QS system process) : 91 (QS system process) : 114 (QS system process) Pulse: 69 (QS system process) LaborFlag: Labor (QS system process) Datetime: 10/04/2016 17:45 Monitor Mode: External (Ana M Gillespie RN) Frequency (min): 3-6 (Ana M Gillespie RN) Quality: Mild/Moderate (Ana M Gillespie RN) Duration (sec): 50-70 (Ana M Gillespie RN) Resting Tone (Palpate): Relaxed (Ana M Gillespie RN) Monitor Mode: External US (Ana M Gillespie RN) FHR Baseline Rate : 145 (Ana M Gillespie RN) Variability: Moderate 6-25 bpm (Ana M Gillespie RN) Accelerations: 15X15 (Ana M Gillespie RN) Decelerations: None (Ana M Gillespie RN) Datetime: 10/04/2016 17:35 I/O Interventions: Up to BR (Ana M Gillespie RN) Datetime: 10/04/2016 17:30 NBP Sys/[place]/Mean (mmHg): 165 (QS system process) : 84 (QS system process) : 119 (QS system process) Pulse: 78 (QS system process) Monitor Mode: External (Ana M Gillespie RN) Frequency (min): 2-6 (Ana M Gillespie RN) Quality: Mild/Moderate (Ana M Gillespie RN) Duration (sec): 50-70 (Ana M Gillespie RN) Resting Tone (Palpate): Relaxed (Ana M Gillespie RN) Monitor Mode: External US (Ana M Gillespie RN) FHR Baseline Rate : 145 (Ana M Gillespie RN) Variability: Moderate 6-25 bpm (Ana M Gillespie RN) Accelerations: 15X15 (Ana M Gillespie RN) Decelerations: None (Ana M Gillespie RN) LaborFlag: Labor (QS system process) Datetime: 10/04/2016 17:15 NBP Sys/[place]/Mean (mmHg): 145 (QS system process) : 87 (QS system process) : 110 (QS system process) Pulse: 73 (QS system process) Monitor Mode: External (Ana M Gillespie RN) Frequency (min): 2-5 (Ana M Gillespie RN) Quality: Mild/Moderate (Ana M Gillespie RN) Duration (sec): 40-80 (Ana M Gillespie RN) Resting Tone (Palpate): Relaxed (Ana M Gillespie RN) Monitor Mode: External US (Ana M Gillespie RN) FHR Baseline Rate : 155 (Ana M Gillespie RN) Variability: Moderate 6-25 bpm (Ana M Gillespie, RN) Accelerations: 15X15 (Ana M Gillespie, RN) Decelerations: None (Ana M Gillespie, RN) LaborFlag: Labor (QS system process) Datetime: 10/04/2016 17:02 I/O Interventions: Up to BR (Ana M Gillespie, RN) Datetime: 10/04/2016 17:00 NBP Sys/[place]/Mean (mmHg): 141 (QS system process) : 84 (QS system process) : 107 (QS system process) Pulse: 80 (QS system process) Monitor Mode: External (Ana M Gillespie RN) Frequency (min): 2-3 (Ana M Gillespie RN) Quality: Mild/Moderate (Ana M Gillespie RN) Duration (sec): 40-80 (Ana M Gillespie RN) Resting Tone (Palpate): Relaxed (Ana M Gillespie RN) Monitor Mode: External US (Ana M Gillespie RN) FHR Baseline Rate : 145 (Ana M Gillespie RN) Variability: Moderate 6-25 bpm (Ana M Gillespie, RN) Accelerations: 15X15 (Ana M Gillespie, RN) Decelerations: None (Ana M Gillespie, RN) LaborFlag: Labor (QS system process) Datetime: 10/04/2016 16:52 Pitocin (milliunit): Pitocin Discontinued (Ana M Gillespie RN) Datetime: 10/04/2016 16:51 Dilatation (cm): 3.0 (Ana M Gillespie RN) Effacement (%): 80 (Ana M Gillespie RN) Station: -1 (Ana M Gillespie RN) Exam by: Paolo Zhao CNM (Ana M Gillespie RN) Communication Comments: Orders to stop Pitocin and let pt eat dinner and then do 50mcg Cytotec PO (Ana M Gillespie RN) Datetime: 10/04/2016 16:45 NBP Sys/[place]/Mean (mmHg): 140 (QS system process) : 95 (QS system process) : 112 (QS system process) Pulse: 89 (QS system process) Monitor Mode: External; Palpation (Ana M Gillespie RN) Frequency (min): 3-4 (Ana M Gillespie RN) Quality: Mild/Moderate (Ana M Gillespie RN) Duration (sec): 50-80 (Ana M Gillespie RN) Resting Tone (Palpate): Relaxed (Ana M Gillespie RN) Contraction Comments: Contractions not tracing due to patient position (Ana M Gillespie RN) Monitor Mode: External US (Ana M Gillespie RN) FHR Baseline Rate : 135 (Ana M Gillespie RN) Variability: Moderate 6-25 bpm (Ana M Gillespie RN) Accelerations: 15X15 (Ana M Gillespie RN) Decelerations: None (Ana M Gillespie RN) LaborFlag: Labor (QS system process)
--- NOTE | 2016-10-05 04:47 | L&D Admission Assessment ---
LD ADM ASMT Datetime Report Generated by CPN: 10/05/2016 04:45 Assessment Type: Ongoing Assessment (10/04/2016 19:31:Julia Montes De Oca RN) Assessment Type: Ongoing Assessment (10/04/2016 07:18:Ana M Gillespie RN) Pain Scale: 4 (10/04/2016 20:01:Julia Montes De Oca RN) Pain Scale: 3 (10/04/2016 13:45:Ana M Gillespie RN) Pain Scale: 3 (10/04/2016 11:05:Ana M Gillespie RN) Pain Scale: 3 (10/04/2016 07:19:Ana M Gillespie RN) Pain Presence: Intermittent (10/04/2016 20:01:Julia Montes De Oca RN) Pain Presence: Intermittent (10/04/2016 13:45:Ana M Gillespie RN) Pain Presence: Intermittent (10/04/2016 11:05:Ana M Gillespie RN) Pain Presence: Intermittent (10/04/2016 07:19:Ana M Gillespie RN) Pain Type: Cramping; Contraction (10/04/2016 20:01:Julia Montes De Oca RN) Pain Type: Contraction (10/04/2016 13:45:Ana M Gillespie RN) Pain Type: Contraction (10/04/2016 11:05:Ana M Gillespie RN) Pain Type: Cramping (10/04/2016 07:19:Ana M Gillespie RN) Pain Location: Abdomen (10/04/2016 20:01:Julia Montes De Oca RN) Pain Location: Abdomen; Back (10/04/2016 13:45:Ana M Gillespie RN) Pain Location: Abdomen; Back (10/04/2016 11:05:Ana M Gillespie RN) Pain Location: Abdomen (10/04/2016 07:19:Ana M Gillespie RN) Pain Goal: 0 (10/04/2016 20:01:Julia Montes De Oca RN) Pain Comments: Pt sleeping (10/04/2016 15:45:Ana M Gillespie RN) Pain Comments: Pt sleeping (10/04/2016 14:42:Ana M Gillespie RN) Frequency (min): 1-3 (10/05/2016 02:45:Julia Montes De Oca, RN) Frequency (min): 1-2 (10/05/2016 02:30:Julia Montes De Oca, RN) Frequency (min): 1-2 (10/05/2016 02:15:Julia Montes De Oca RN) Frequency (min): 1-2 (10/05/2016 02:00:Julia Montes De Oca RN) Frequency (min): 1-2 (10/05/2016 01:45:Julia Montes De Oca RN) Frequency (min): 2-3 (10/05/2016 01:30:Julia Montes De Oca, RN) Frequency (min): 1.5-3 (10/05/2016 01:15:Julia Montes De Oca, RN) Frequency (min): 1.5-2 (10/05/2016 01:00:Julia Montes De Oca, RN) Frequency (min): 2.5-3 (10/05/2016 00:45:Julia Montes De Oca, RN) Frequency (min): 2-3 (10/05/2016 00:30:Julia Montes De Oca, RN) Frequency (min): 1.5-2.5 (10/05/2016 00:15:Julia Montes De Oca, RN) Frequency (min): 2-4 (10/05/2016 00:00:Julia Montes De Oca, RN) Frequency (min): 3.5-4.5 (10/04/2016 23:45:Julia Montes De Oca, RN) Frequency (min): 3-3.5 (10/04/2016 23:30:Julia Montes De Oca, RN) Frequency (min): x1 (10/04/2016 23:15:Julia Montes De Oca, RN) Frequency (min): 4-5.5 (10/04/2016 23:00:Julia Field, RN) Frequency (min): 3.5-6 (10/04/2016 22:30:Julia Field, RN) Frequency (min): 3.5-5.5 (10/04/2016 22:00:Julia Field, RN) Frequency (min): 3-6 (10/04/2016 21:30:Julia Field, RN) Frequency (min): x1 (10/04/2016 21:00:Julia Field, RN) Frequency (min): x2 (10/04/2016 20:30:Julia Field, RN) Frequency (min): 3-4 (10/04/2016 20:00:Julia Field, RN) Frequency (min): 4.5-5.5 (10/04/2016 19:30:Julia Montes De Oca, RN) Frequency (min): x2 (10/04/2016 19:00:Ana M Gillespie RN) Frequency (min): 3-5 (10/04/2016 18:15:Ana M Gillespie RN) Frequency (min): 3-5 (10/04/2016 18:00:Ana M Gillespie RN) Frequency (min): 3-6 (10/04/2016 17:45:Ana M Gillespie RN) Frequency (min): 2-6 (10/04/2016 17:30:Ana M Gillespie RN) Frequency (min): 2-5 (10/04/2016 17:15:Ana M Gillespie RN) Frequency (min): 2-3 (10/04/2016 17:00:Ana M Gillespie RN) Frequency (min): 3-4 (10/04/2016 16:45:Ana M Gillespie RN) Frequency (min): 3-4 (10/04/2016 16:30:Ana M Gillespie RN) Frequency (min): 2-4 (10/04/2016 16:15:Aan M Gillespie RN) Frequency (min): 2-5 (10/04/2016 16:00:Ana M Gillespie RN) Frequency (min): 3-4 (10/04/2016 15:45:Ana M Gillespie RN) Frequency (min): 1-5 (10/04/2016 15:30:Ana M Gillespie RN) Frequency (min): 1-6 (10/04/2016 15:15:Ana M Gillespie RN) Frequency (min): 1-5 (10/04/2016 15:00:Ana M Gillespie RN) Frequency (min): 1-1.5 (10/04/2016 14:45:Ana M Gillespie RN) Frequency (min): 1-5 (10/04/2016 14:30:Ana M Gillespie RN) Frequency (min): 1-7 (10/04/2016 14:15:Ana M Gillespie RN) Frequency (min): 1-2 (10/04/2016 14:00:Ana M Gillespie RN) Frequency (min): 1-2 (10/04/2016 13:45:Ana M Gillespie RN) Frequency (min): 1-2 (10/04/2016 13:30:Ana M Gillespie RN) Frequency (min): 1-3 (10/04/2016 13:15:Ana M Gillespie RN) Frequency (min): 1-3 (10/04/2016 12:45:Ana M Gillespie RN) Frequency (min): 155 (10/04/2016 12:30:Ana M Gillespie RN) Frequency (min): 1-3 (10/04/2016 12:15:Ana M Gillespie RN) Frequency (min): 1-3 (10/04/2016 12:00:Ana M Gillespie RN) Frequency (min): 1-3 (10/04/2016 11:45:Ana M Gillespie RN) Frequency (min): 1-3 (10/04/2016 11:30:Ana M Gillespie RN) Frequency (min): 1-3 (10/04/2016 11:15:Ana M Gillespie RN) Frequency (min): 1-3 (10/04/2016 11:00:Ana M Gillespie RN) Frequency (min): 1-4 (10/04/2016 10:45:Ana M Gillespie RN) Frequency (min): 1-3 (10/04/2016 10:30:Ana M Gillespie RN) Frequency (min): irritability (10/04/2016 09:00:Ana M Gillespie RN) Frequency (min): irritability (10/04/2016 08:30:Ana M Gillespie RN) Frequency (min): irritability (10/04/2016 08:00:Ana M Gillespie RN) Frequency (min): irritability (10/04/2016 07:30:Ana M Gillespie RN) Frequency (min): irritability (10/04/2016 07:00:Ashley Steward RN) Frequency (min): irritability (10/04/2016 06:30:Ashley Steward, RN) Frequency (min): Occasional (10/04/2016 06:00:Ashley Steward RN) Frequency (min): 0 (10/04/2016 05:30:Ashley Steward, RN) Frequency (min): occasional (10/04/2016 05:00:Ashley Steward, RN) Duration (sec): 40-50 (10/05/2016 02:45:Julia Montes De Oca RN) Duration (sec): 40-50 (10/05/2016 02:30:Julia Montes De Oca RN) Duration (sec): 40-50 (10/05/2016 02:15:Julia Montes De Oca RN) Duration (sec): 40-50 (10/05/2016 02:00:Julia Montes De Oca RN) Duration (sec): 40-50 (10/05/2016 01:45:Julia Montes De Oca RN) Duration (sec): 50-60 (10/05/2016 01:30:Julia Montes De Oca RN) Duration (sec): 60-90 (10/05/2016 01:15:Julia Montes De Oca RN) Duration (sec): 80-100 (10/05/2016 01:00:Julia Montes De Oca RN) Duration (sec): 60-100 (10/05/2016 00:45:Julia Montes De Oca RN) Duration (sec): 70-100 (10/05/2016 00:30:Julia Montes De Oca RN) Duration (sec): 50-100 (10/05/2016 00:15:Julia Montes De Oca RN) Duration (sec): 50-80 (10/05/2016 00:00:Julia Montes De Oca RN) Duration (sec): 70-90 (10/04/2016 23:45:Julia Montes De Oca RN) Duration (sec): 60-100 (10/04/2016 23:30:Julia Montes De Oca RN) Duration (sec): 60 (10/04/2016 23:15:Julia Montes De Oca RN) Duration (sec): 60-120 (10/04/2016 23:00:Julia Montes De Oca RN) Duration (sec): 80-120 (10/04/2016 22:30:Julia Montes De Oca RN) Duration (sec): 60-100 (10/04/2016 22:00:Julia Montes De Oca RN) Duration (sec): 80-100 (10/04/2016 21:30:Julia Montes De Oca RN) Duration (sec): 80 (10/04/2016 21:00:Julia Montes De Oca RN) Duration (sec): 100 (10/04/2016 20:30:Julia Montes De Oca RN) Duration (sec): 60-80 (10/04/2016 20:00:Julia Montes De Oca RN) Duration (sec): 80-100 (10/04/2016 19:30:Julia Montes De Oca RN) Duration (sec): 50-60 (10/04/2016 19:00:Ana M Gillespie RN) Duration (sec): 50-70 (10/04/2016 18:15:Ana M Gillespie RN) Duration (sec): 50-70 (10/04/2016 18:00:Ana M Gillespie RN) Duration (sec): 50-70 (10/04/2016 17:45:Ana M Gillespie RN) Duration (sec): 50-70 (10/04/2016 17:30:Ana M Gillespie RN) Duration (sec): 40-80 (10/04/2016 17:15:Ana M Gillespie RN) Duration (sec): 40-80 (10/04/2016 17:00:Ana M Gillespie RN) Duration (sec): 50-80 (10/04/2016 16:45:Ana M Gillespie RN) Duration (sec): 50-70 (10/04/2016 16:30:Ana M Gillespie RN) Duration (sec): 50-80 (10/04/2016 16:15:Ana M Gillespie RN) Duration (sec): 50-100 (10/04/2016 16:00:Ana M Gillespie RN) Duration (sec): 50-70 (10/04/2016 15:45:Ana M Gillespie RN) Duration (sec): 40-70 (10/04/2016 15:30:Ana M Gillespie RN) Duration (sec): 40-80 (10/04/2016 15:15:Ana M Gillespie RN) Duration (sec): 40-60 (10/04/2016 15:00:Ana M Gillespie RN) Duration (sec): 40-50 (10/04/2016 14:45:Ana M Gillespie RN) Duration (sec): 40-80 (10/04/2016 14:30:Ana M Gillespie RN) Duration (sec): 40-60 (10/04/2016 14:15:Ana M Gillespie RN) Duration (sec): 40-60 (10/04/2016 14:00:Ana M Gillespie RN) Duration (sec): 40-70 (10/04/2016 13:45:Ana M Gillespie RN) Duration (sec): 40-70 (10/04/2016 13:30:Ana M Gillespie RN) Duration (sec): 50-70 (10/04/2016 13:15:Ana M Gillespie RN) Duration (sec): 50-70 (10/04/2016 12:45:Ana M Gillespie RN) Duration (sec): 50-80 (10/04/2016 12:30:Ana M Gillepsie RN) Duration (sec): 40-60 (10/04/2016 12:15:Ana M Gillespie RN) Duration (sec): 40-60 (10/04/2016 12:00:Ana M Gillespie RN) Duration (sec): 40-60 (10/04/2016 11:45:Ana M Gillespie RN) Duration (sec): 40-60 (10/04/2016 11:30:Ana M Gillespie RN) Duration (sec): 30-60 (10/04/2016 11:15:Ana M Gillespie RN) Duration (sec): 30-60 (10/04/2016 11:00:Ana M Gillespie RN) Duration (sec): 50-70 (10/04/2016 10:45:Ana M Gillespie RN) Duration (sec): 50-60 (10/04/2016 10:30:Ana M Gillespie RN) Duration (sec): 50 (10/04/2016 05:00:Ashley Steward RN) Quality: Moderate to Strong (10/05/2016 02:45:Julia Montes De Oca, RN) Quality: Moderate to Strong (10/05/2016 02:30:Julia Montes De Oca, RN) Quality: Moderate to Strong (10/05/2016 02:15:Julia Montes De Oca, RN) Quality: Moderate (10/05/2016 02:00:Julia Montes De Oca, RN) Quality: Moderate (10/05/2016 01:45:Julia Montes De Oca, RN) Quality: Moderate (10/05/2016 01:30:Julia Montes De Oca, RN) Quality: Moderate (10/05/2016 01:15:Julia Montes De Oca, RN) Quality: Moderate (10/05/2016 01:00:Julia Montes De Oca, RN) Quality: Moderate (10/05/2016 00:45:Julia Montes De Oca, RN) Quality: Moderate (10/05/2016 00:30:Julia Montes De Oca, RN) Quality: Moderate (10/05/2016 00:15:Julia Montes De Oca, RN) Quality: Mild/Moderate (10/05/2016 00:00:Julia Montes De Oca, RN) Quality: Mild/Moderate (10/04/2016 23:45:Julia Montes De Oca, RN) Quality: Mild/Moderate (10/04/2016 23:30:Julia Montes De Oca, RN) Quality: Mild/Moderate (10/04/2016 23:15:Julia Montes De Oca, RN) Quality: Mild/Moderate (10/04/2016 23:00:Julia Montes De Oca, RN) Quality: Mild/Moderate (10/04/2016 22:30:Julia Montes De Oca, RN) Quality: Mild/Moderate (10/04/2016 22:00:Julia Montes De Oca, RN) Quality: Mild/Moderate (10/04/2016 21:30:Julia Montes De Oca, RN) Quality: Mild/Moderate (10/04/2016 21:00:Julia Montes De Oca RN) Quality: Mild/Moderate (10/04/2016 20:30:Julia Montes De Oca, RN) Quality: Mild/Moderate (10/04/2016 20:00:Julia Montes De Oca, RN) Quality: Mild/Moderate (10/04/2016 19:30:Julia Field, RN) Quality: Mild/Moderate (10/04/2016 19:00:Ana M Gillespie RN) Quality: Mild/Moderate (10/04/2016 18:15:Ana M Gillespie RN) Quality: Mild/Moderate (10/04/2016 18:00:Ana M Gillespie RN) Quality: Mild/Moderate (10/04/2016 17:45:Ana M Gillespie RN) Quality: Mild/Moderate (10/04/2016 17:30:Ana M Gillespie RN) Quality: Mild/Moderate (10/04/2016 17:15:Ana M Gillespie RN) Quality: Mild/Moderate (10/04/2016 17:00:Ana M Gillespie RN) Quality: Mild/Moderate (10/04/2016 16:45:Ana M Gillespie RN) Quality: Mild/Moderate (10/04/2016 16:30:Ana M Gillespie RN) Quality: Mild/Moderate (10/04/2016 16:15:Ana M Gillespie RN) Quality: Mild/Moderate (10/04/2016 16:00:Ana M Gillespie RN) Quality: Mild/Moderate (10/04/2016 15:45:Ana M Gillespie RN) Quality: Mild/Moderate (10/04/2016 15:30:Ana M Gillespie RN) Quality: Mild/Moderate (10/04/2016 15:15:Ana M Gillespie RN) Quality: Mild/Moderate (10/04/2016 15:00:Ana M Gillespie RN) Quality: Mild/Moderate (10/04/2016 14:45:Ana M Gillespie RN) Quality: Mild/Moderate (10/04/2016 14:30:Ana M Gillespie RN) Quality: Mild/Moderate (10/04/2016 14:15:Ana M Gillespie RN) Quality: Mild/Moderate (10/04/2016 14:00:Ana M Gillespie RN) Quality: Mild/Moderate (10/04/2016 13:45:Ana M Gillespie RN) Quality: Mild/Moderate (10/04/2016 13:30:Ana M Gillespie RN) Quality: Mild/Moderate (10/04/2016 13:15:Ana M Gillespie RN) Quality: Mild/Moderate (10/04/2016 13:00:Ana M Gillespie RN) Quality: Mild/Moderate (10/04/2016 12:45:Ana M Gillespie RN) Quality: Mild/Moderate (10/04/2016 12:30:Ana M Gillespie RN) Quality: Mild/Moderate (10/04/2016 12:15:Ana M Gillespie RN) Quality: Mild/Moderate (10/04/2016 12:00:Ana M Gillespie RN) Quality: Mild/Moderate (10/04/2016 11:45:Ana M Gillespie RN) Quality: Mild/Moderate (10/04/2016 11:30:Ana M Gillespie RN) Quality: Mild/Moderate (10/04/2016 11:15:Ana M Gillespie RN) Quality: Mild/Moderate (10/04/2016 11:00:Ana M Gillespie RN) Quality: Mild/Moderate (10/04/2016 10:45:Ana M Gillespie RN) Quality: Mild/Moderate (10/04/2016 10:30:Ana M Gillespie RN) Quality: Mild (10/04/2016 09:00:Ana M Gillespie RN) Quality: Mild (10/04/2016 08:30:Ana M Gillespie RN) Quality: Mild (10/04/2016 08:00:Ana M Gillespie RN) Quality: Mild (10/04/2016 07:30:Ana M Gillespie RN) Quality: Mild/Moderate (10/04/2016 07:00:Ashley Steward RN) Quality: Mild (10/04/2016 06:30:Ashley Steward RN) Quality: Mild/Moderate (10/04/2016 06:00:Ashley Steward RN) Quality: Mild (10/04/2016 05:30:Ashley Steward RN) Quality: Mild (10/04/2016 05:00:Ashley Steward RN) Pattern: Normal: <= 5 Contractions in 10 Minutes (10/04/2016 15:45:Ana M Gillespie RN) Pattern: Normal: <= 5 Contractions in 10 Minutes (10/04/2016 10:30:Ana M Gillespie RN) Pattern: Normal: <= 5 Contractions in 10 Minutes (10/04/2016 08:30:Ana M Gillespie RN) Pattern: Normal: <= 5 Contractions in 10 Minutes (10/04/2016 05:00:Ashley Steward RN) Resting Tone [place]: Relaxed (10/05/2016 02:45:Julia Field, RN) Resting Tone [place]: Relaxed (10/05/2016 02:30:Julia Montes De Oca, RN) Resting Tone [place]: Relaxed (10/05/2016 02:15:Julia Montes De Oca, RN) Resting Tone [place]: Relaxed (10/05/2016 02:00:Julia Montes De Oca, RN) Resting Tone [place]: Relaxed (10/05/2016 01:45:Julia Montes De Oca, RN) Resting Tone [place]: Relaxed (10/05/2016 01:30:Julia Montes De Oca, RN) Resting Tone [place]: Relaxed (10/05/2016 01:15:Julia Montes De Oca, RN) Resting Tone [place]: Relaxed (10/05/2016 01:00:Julia Montes De Oca, RN) Resting Tone [place]: Relaxed (10/05/2016 00:45:Julia Montes De Oca, RN) Resting Tone [place]: Relaxed (10/05/2016 00:30:Julia Montes De Oca, RN) Resting Tone [place]: Relaxed (10/05/2016 00:15:Julia Montes De Oca, RN) Resting Tone [place]: Relaxed (10/05/2016 00:00:Julia Montes De Oca, RN) Resting Tone [place]: Relaxed (10/04/2016 23:45:Julia Montes De Oca, RN) Resting Tone [place]: Relaxed (10/04/2016 23:30:Julia Montes De Oca, RN) Resting Tone [place]: Relaxed (10/04/2016 23:15:Julia Montes De Oca, RN) Resting Tone [place]: Relaxed (10/04/2016 23:00:Julia Montes De Oca, RN) Resting Tone [place]: Relaxed (10/04/2016 22:30:Julia Montes De Oca, RN) Resting Tone [place]: Relaxed (10/04/2016 22:00:Julia Montes De Oca, RN) Resting Tone [place]: Relaxed (10/04/2016 21:30:Julia Montes De Oca, RN) Resting Tone [place]: Relaxed (10/04/2016 21:00:Julia Montes De Oca, RN) Resting Tone [place]: Relaxed (10/04/2016 20:30:Julia Montes De Oca, RN) Resting Tone [place]: Relaxed (10/04/2016 20:00:Julia Montes De Oca, RN) Resting Tone [place]: Relaxed (10/04/2016 19:30:Julia Montes De Oca RN) Resting Tone [place]: Relaxed (10/04/2016 19:00:Ana M Gillespie RN) Resting Tone [place]: Relaxed (10/04/2016 18:15:Ana M Gillespie RN) Resting Tone [place]: Relaxed (10/04/2016 18:00:Ana M Gillespie RN) Resting Tone [place]: Relaxed (10/04/2016 17:45:Ana M Gillespie RN) Resting Tone [place]: Relaxed (10/04/2016 17:30:Ana M Gillespie RN) Resting Tone [place]: Relaxed (10/04/2016 17:15:Ana M Gillespie RN) Resting Tone [place]: Relaxed (10/04/2016 17:00:Ana M Gillespie RN) Resting Tone [place]: Relaxed (10/04/2016 16:45:Ana M Gillespie RN) Resting Tone [place]: Relaxed (10/04/2016 16:30:Ana M Gillespie RN) Resting Tone [place]: Relaxed (10/04/2016 16:15:Ana M Gillespie RN) Resting Tone [place]: Relaxed (10/04/2016 16:00:Ana M Gillespie RN) Resting Tone [place]: Relaxed (10/04/2016 15:45:Ana M Gillespie RN) Resting Tone [place]: Relaxed (10/04/2016 15:30:Ana M Gillespie RN) Resting Tone [place]: Relaxed (10/04/2016 15:15:Ana M Gillespie RN) Resting Tone [place]: Relaxed (10/04/2016 15:00:An aM Gillespie RN) Resting Tone [place]: Relaxed (10/04/2016 14:45:Ana M Gillespie RN) Resting Tone [place]: Relaxed (10/04/2016 14:30:Ana M Gillespie RN) Resting Tone [place]: Relaxed (10/04/2016 14:15:Ana M Gillespie RN) Resting Tone [place]: Relaxed (10/04/2016 14:00:Ana M Gillespie RN) Resting Tone [place]: Relaxed (10/04/2016 13:45:Ana M Gillespie RN) Resting Tone [place]: Relaxed (10/04/2016 13:30:Ana M Gillespie RN) Resting Tone [place]: Relaxed (10/04/2016 13:15:Ana M Gillespie RN) Resting Tone [place]: Relaxed (10/04/2016 13:00:Ana M Gillespie RN) Resting Tone [place]: Relaxed (10/04/2016 12:45:Ana M Gillespie RN) Resting Tone [place]: Relaxed (10/04/2016 12:30:Ana M Gillespie RN) Resting Tone [place]: Relaxed (10/04/2016 12:15:Ana M Gillespie RN) Resting Tone [place]: Relaxed (10/04/2016 12:00:Ana M Gillespie RN) Resting Tone [place]: Relaxed (10/04/2016 11:45:Ana M Gillespie RN) Resting Tone [place]: Relaxed (10/04/2016 11:30:Ana M Gillespie RN) Resting Tone [place]: Relaxed (10/04/2016 11:15:Ana M Gillespie RN) Resting Tone [place]: Relaxed (10/04/2016 11:00:Ana M Gillespie RN) Resting Tone [place]: Relaxed (10/04/2016 10:45:Ana M Gillespie RN) Resting Tone [place]: Relaxed (10/04/2016 10:30:Ana M Gillespie RN) Resting Tone [place]: Relaxed (10/04/2016 09:00:Ana M Gillespie RN) Resting Tone [place]: Relaxed (10/04/2016 08:30:Ana M Gillespie RN) Resting Tone [place]: Relaxed (10/04/2016 08:00:Ana M Gillespie RN) Resting Tone [place]: Relaxed (10/04/2016 07:30:Ana M Gillespie RN) Resting Tone [place]: Relaxed (10/04/2016 07:00:Ashley Steward RN) Resting Tone [place]: Relaxed (10/04/2016 06:30:Ashley Steward RN) Resting Tone [place]: Relaxed (10/04/2016 06:00:Ashley Steward RN) Resting Tone [place]: Relaxed (10/04/2016 05:30:Ashley Steward RN) Resting Tone [place]: Relaxed (10/04/2016 05:00:Ashley Steward RN) Contraction Comments: sitting up for epidural (10/04/2016 21:00:Julia Montes De Oca RN) Contraction Comments: Contractions not tracing due to patient position (10/04/2016 16:45:Ana M Gillespie RN) Contraction Comments: Contractions not tracing on monitor due to patient position (10/04/2016 13:00:Ana M Gillespie RN) Contraction Comments: irritability (10/04/2016 06:00:Ashley Steward RN) Contraction Comments: irritability (10/04/2016 05:30:Ashley Steward RN) Contraction Comments: lots of irritability (10/04/2016 05:00:Ashley Steward RN) Dilatation (cm): 10.0 (10/05/2016 01:11:Connie Lawrence RN) Dilatation (cm): 9.5 (10/05/2016 00:42:Julia Montes De Oca RN) Dilatation (cm): 7.5 (10/05/2016 00:15:Julia Montes De Oca RN) Dilatation (cm): 5.0 (10/04/2016 22:46:Julia Montes De Oca RN) Dilatation (cm): 3.0 (10/04/2016 16:51:Ana M Gillespie RN) Dilatation (cm): 3.0 (10/04/2016 09:08:Ana M Gillespie RN) Effacement (%): 100 (10/05/2016 00:42:Julia Montes De Oca RN) Effacement (%): 80 (10/05/2016 00:15:Julia Montes De Oca RN) Effacement (%): 80 (10/04/2016 22:46:Julia Montes De Oca RN) Effacement (%): 80 (10/04/2016 16:51:Ana M Gillespie RN) Effacement (%): 60 (10/04/2016 09:08:Ana M Gillespie RN) Station: 1 (10/05/2016 00:42:Julia Montes De Oca RN) Station: 0 (10/05/2016 00:15:Julia Montes De Oca RN) Station: -1 (10/04/2016 22:46:Julia Montes De Oca RN) Station: -1 (10/04/2016 16:51:Ana M Gillespie RN) Station: -1 (10/04/2016 09:08:Ana M Gillespie RN) Membranes Status: Ruptured (10/05/2016 01:11:Connie Lawrence RN) Level of Consciousness: Fully Conscious (10/04/2016 19:31:Julia Montes De Oca RN) Level of Consciousness: Fully Conscious (10/04/2016 07:18:Ana M Gillespie RN) DTR's/Clonus: DTRs 2+; No Clonus (10/04/2016 19:31:Julia Montes De Oca RN) DTR's/Clonus: DTRs 2+; No Clonus (10/04/2016 07:18:Ana M Gillespie RN) Headache: Denies (10/04/2016 19:31:Julia Montes De Oca RN) Headache: Denies (10/04/2016 07:18:Ana M Gillespie RN) Dizziness: No (10/04/2016 19:31:Julia Montes De Oca RN) Dizziness: No (10/04/2016 07:18:Ana M Gillespie RN) Blurred Vision: No (10/04/2016 19:31:Julia Montes De Oca RN) Blurred Vision: No (10/04/2016 07:18:Ana M Gillespie RN) Extremity Numbness/Tingling : None (10/04/2016 19:31:Julia Montes De Oca RN) Extremity Numbness/Tingling : None (10/04/2016 07:18:Ana M Gillespie RN) Extremity Movement: Full Range of Motion (10/04/2016 19:31:Julia Montes De Oca RN) Extremity Movement: Full Range of Motion (10/04/2016 07:18:Ana M Gillespie RN) Heart Rhythm: Regular (10/04/2016 19:31:Julia Montes De Oca RN) Nailbeds: Merrick (10/04/2016 19:31:Julia Montes De Oca RN) Nailbeds: Merrick (10/04/2016 07:18:Ana M Gillespie RN) Capillary Refill: Less than 3 Seconds (10/04/2016 19:31:Julia Montes De Oca RN) Capillary Refill: Less than 3 Seconds (10/04/2016 07:18:Ana M Gillespie RN) Lower Extremities Edema: Bilateral Lower Extremities (10/04/2016 19:31:Julia Montes De Oca RN) Lower Extremities Edema Degree: 1+ (10/04/2016 19:31:Julia Montes De Oca RN) Upper Extremities Edema: None (10/04/2016 19:31:Julia Field, RN) Upper Extremities Edema Degree: None (10/04/2016 19:31:Julia Montes De Oca RN) Facial Edema: None (10/04/2016 19:31:Julia Montes De Oca RN) Facial Edema: None (10/04/2016 07:18:Ana M Gillespie RN) Carolin's Sign Left Leg: Negative (10/04/2016 19:31:Julia Montes De Oca RN) Carolin's Sign Right Leg: Negative (10/04/2016 19:31:Julia Montes De Oca RN) DVT Risk Age: Age less than 41 years (10/04/2016 19:31:Julia Montes De Oca RN) DVT Risk BMI: BMI<31 (10/04/2016 19:31:Julia Montes De Oca RN) DVT Risk Surgery: None Applicable (10/04/2016 19:31:Julia Montes De Oca RN) DVT Risk Other: Women Only- or (<1 month) (10/04/2016 19:31:Julia Montes De Oca RN) DVT Risk Total: 1 (10/04/2016 19:31:QS system process) DVT Risk Text: Low Risk (<10%) No specific measures, early ambulation (10/04/2016 19:31:QS system process) Respiratory Effort: Unlabored; Regular Rhythm; Equal Expansion (10/04/2016 19:31:Julia Montes De Oca RN) Respiratory Effort: Unlabored; Regular Rhythm; Equal Expansion (10/04/2016 07:18:Ana M Gillespie RN) Breath Sounds, Left: Clear and Equal (10/04/2016 19:31:Julia Montes De Oca RN) Breath Sounds, Left: Clear and Equal (10/04/2016 07:18:Ana M Gillespie RN) Breath Sounds, Right: Clear and Equal (10/04/2016 19:31:Julia Montes De Oca RN) Breath Sounds, Right: Clear and Equal (10/04/2016 07:18:Ana M Gillespie RN) Cough Productivity: None (10/04/2016 19:31:Julia Montes De Oca RN) Cough Productivity: None (10/04/2016 07:18:Ana M Gillespie RN) Nausea/Vomiting: Present (10/04/2016 19:31:Julia Montes De Oca RN) Nausea/Vomiting: Denies (10/04/2016 07:18:Ana M Gillespie RN) Bowel Sounds: Normoactive (10/04/2016 19:31:Julia Montes De Oca RN) Bowel Sounds: Normoactive; All Quadrants (10/04/2016 07:18:Ana M Gillespie RN) RUQ Epigastric Pain: Denies (10/04/2016 19:31:Julia Montes De Oca RN) RUQ Epigastric Pain: Denies (10/04/2016 07:18:Ana M Gillespie RN) Bowel Patterns: Soft, Formed Stool (10/04/2016 19:31:Julia Montes De Oca RN) Hemorrhoids: None (10/04/2016 19:31:Julia Montes De Oca RN) Diet Type: Regular diet (10/04/2016 19:31:Julia Montes De Oca RN) Bladder: Nondistended (10/04/2016 19:31:Julia Montes De Oca RN) Bladder: Nondistended (10/04/2016 07:18:Ana M Gillespie RN) Frequency of Urination: No (10/04/2016 19:31:Julia Montes De Oca RN) Frequency of Urination: No (10/04/2016 07:18:Ana M Gillespie RN) Urination Burning: No (10/04/2016 19:31:Julia Montes De Oca RN) Urination Burning: No (10/04/2016 07:18:Ana M Gillespie RN) CVA Tenderness: No (10/04/2016 19:31:Julia Montes De Oca RN) CVA Tenderness: No (10/04/2016 07:18:Ana M Gillespie RN) Vaginal Discharge Color: N/A (10/04/2016 07:18:Ana M Gillespie RN) Skin Color: Normal for Race (10/04/2016 19:31:Julia Montes De Oca RN) Skin Color: Normal for Race (10/04/2016 07:18:Ana M Gillespie RN) Skin Temperature: Warm (10/04/2016 19:31:Julia Montes De Oca RN) Skin Temperature: Warm (10/04/2016 07:18:Ana M Gillespie RN) Skin Moisture: Dry (10/04/2016 19:31:Julia Montes De Oca RN) Skin Moisture: Dry (10/04/2016 07:18:Ana M Gillespie RN) Jerrod Scale Sensory Perception: No Impairment- Responds to verbal commands. Has no sensory deficit which would limit ability to feel or voice pain or discomfort (10/04/2016 19:31:Julia Montes De Oca RN) Jerrod Scale Sensory Perception: No Impairment- Responds to verbal commands. Has no sensory deficit which would limit ability to feel or voice pain or discomfort (10/04/2016 07:18:Ana M Gillespie RN) Jerrod Scale Moisture: Rarely Moist- Skin is usually dry. Linen only requires changing at routine intervals (10/04/2016 19:31:Julia Montes De Oca RN) Jerrod Scale Moisture: Rarely Moist- Skin is usually dry. Linen only requires changing at routine intervals (10/04/2016 07:18:Ana M Gillespie RN) Jerrod Scale Activity: Walks Frequently- Walks outside the room at least twice a day and inside room at least every 2 hours during the day. (10/04/2016 19:31:Julia Montes De Oca RN) Jerrod Scale Activity: Walks Frequently- Walks outside the room at least twice a day and inside room at least every 2 hours during the day. (10/04/2016 07:18:Ana M Gillespie RN) Jerrod Scale Mobility: No Limitations- Makes major and frequent changes in position without assistance (10/04/2016 19:31:Julia Montes De Oca RN) Jerrod Scale Mobility: No Limitations- Makes major and frequent changes in position without assistance (10/04/2016 07:18:Ana M Gillespie RN) Jerrod Scale Nutrition: Excellent- Eats most of every meal. Never refuses a meal. Usually eats a total of 4 or more servings of meat and dairy products. Occasionally eats between meals. Does not require supplementation (10/04/2016 19:31:Julia Montes De Oca RN) Jerrod Scale Nutrition: Excellent- Eats most of every meal. Never refuses a meal. Usually eats a total of 4 or more servings of meat and dairy products. Occasionally eats between meals. Does not require supplementation (10/04/2016 07:18:Ana M Gillespie RN) Jerrod Scale Friction and Shear: No Apparent Problem- Moves in bed and in chair independently and has sufficient muscle strength to lift up completely during move. Maintains good position in bed or chair at all times (10/04/2016 19:31:Julia Montes De Oca RN) Jerrod Scale Friction and Shear: No Apparent Problem- Moves in bed and in chair independently and has sufficient muscle strength to lift up completely during move. Maintains good position in bed or chair at all times (10/04/2016 07:18:Ana M Gillespie RN) Jerrod Scale Total: 23 (10/04/2016 19:31:QS system process) Jerrod Scale Total: 23 (10/04/2016 07:18:QS system process) Jerrod Scale Risk: No Risk of Pressure Ulcer Noted at this Time (10/04/2016 19:31:QS system process) Jerrod Scale Risk: No Risk of Pressure Ulcer Noted at this Time (10/04/2016 07:18:QS system process) Family Support: Significant Other supportive, at bedside frequently (10/04/2016 19:31:Julai Montes De Oca RN) Family Support: Significant Other supportive, at bedside frequently (10/04/2016 07:18:Ana M Gillespie RN) Emotional State: Calm/Relaxed (10/04/2016 19:31:Julia Montes De Oca RN) Emotional State: Calm/Relaxed (10/04/2016 07:18:Ana M Gillespie RN) Call [place] Within Reach: Yes (10/04/2016 19:31:Julia Montes De Oca RN) Call [place] Within Reach: Yes (10/04/2016 07:18:Ana M Gillespie RN) Side Rails Up: Yes (10/04/2016 19:31:Julia Montes De Oca RN) Side Rails Up: Yes (10/04/2016 07:18:Ana M Gillespie RN) Bed Wheels Locked: Yes (10/04/2016 19:31:Julia Montes De Oca RN) Bed Wheels Locked: Yes (10/04/2016 07:18:Ana M Gillespie RN) Arm Bands Present: Yes (10/04/2016 19:31:Julia Montes De Oca RN) Arm Bands Present: Yes (10/04/2016 07:18:Ana M Gillespie RN) Isolation: [place] (10/04/2016 19:31:Julia Montes De Oca RN) Fall Risk History of Falling: (0) No (10/04/2016 19:31:Julia Montes De Oca RN) Fall Risk History of Falling: (0) No (10/04/2016 07:18:Ana M Gillespie RN) Fall Risk Secondary Diagnosis: (0) No (10/04/2016 19:31:Julia Montes De Oca RN) Fall Risk Secondary Diagnosis: (0) No (10/04/2016 07:18:Ana M Gillespie RN) Fall Risk Ambulatory Aid: (0) None/Bedrest/Wheelchair/Nurse Assist (10/04/2016 19:31:Julia Montes De Oca RN) Fall Risk Ambulatory Aid: (0) None/Bedrest/Wheelchair/Nurse Assist (10/04/2016 07:18:Ana M Gillespie RN) Fall Risk IV Therapy: (20) Yes (10/04/2016 19:31:Julia Montes De Oca RN) Fall Risk IV Therapy: (0) No (10/04/2016 07:18:Ana M Gillespie RN) Fall Risk Gait: (0) Normal/Bedrest/Immobile (10/04/2016 19:31:Julia Montes De Oca RN) Fall Risk Gait: (0) Normal/Bedrest/Immobile (10/04/2016 07:18:Ana M Gillespie RN) Fall Risk Mental Status: (0) Oriented to Own Ability (10/04/2016 19:31:Julia Montes De Oca RN) Fall Risk Mental Status: (0) Oriented to Own Ability (10/04/2016 07:18:Ana M Gillespie RN) Fall Risk Score: 20 (10/04/2016 19:31:QS system process) Fall Risk Score: 0 (10/04/2016 07:18:QS system process) Fall Risk Score Definition: No Risk: No action required (10/04/2016 19:31:QS system process) Fall Risk Score Definition: No Risk: No action required (10/04/2016 07:18:QS system process) Recent Exp Communicable Disease: No (10/04/2016 19:31:Julia Montes De Oca RN) Cough or Fever: No (10/04/2016 19:31:Julia Montes De Oca RN) Foreign Travel Past 10 Days: No (10/04/2016 19:31:Julia Montes De Oca RN) Open Wounds or Sores: No (10/04/2016 19:31:Julia Montes De Oca RN) Prior Antibiotic Resistance Tx: No (10/04/2016 19:31:Julia Montes De Oca RN) Cultures Obtained: Not Applicable (10/04/2016 19:31:Julia Montes De Oca RN) Isolation Initiated: No (10/04/2016 19:31:Julia Montes De Oca RN) Pt/Family Education: Handwashing Hygiene (10/04/2016 19:31:Julia Montes De Oca RN) FHR Baseline Rate (bpm) Baby A: 145 (10/05/2016 02:45:Julia Montes De Oca RN) FHR Baseline Rate (bpm) Baby A: 145 (10/05/2016 02:30:Julia Montes De Oca RN) FHR Baseline Rate (bpm) Baby A: 155 (10/05/2016 02:15:Julia Montes De Oca RN) FHR Baseline Rate (bpm) Baby A: 145 (10/05/2016 02:00:Julia Montes De Oca RN) FHR Baseline Rate (bpm) Baby A: 135 (10/05/2016 01:45:Julia Montes De Oca RN) FHR Baseline Rate (bpm) Baby A: 145 (10/05/2016 01:30:Julia Montes De Oca RN) FHR Baseline Rate (bpm) Baby A: 145 (10/05/2016 01:15:Julia Montes De Oca RN) FHR Baseline Rate (bpm) Baby A: 145 (10/05/2016 01:00:Julia Montes De Oca RN) FHR Baseline Rate (bpm) Baby A: 140 (10/05/2016 00:45:Julia Montes De Oca RN) FHR Baseline Rate (bpm) Baby A: 145 (10/05/2016 00:30:Julia Montes De Oca RN) FHR Baseline Rate (bpm) Baby A: 135 (10/05/2016 00:15:Julia Montes D eOca RN) FHR Baseline Rate (bpm) Baby A: 145 (10/05/2016 00:00:Julia Montes De Oca RN) FHR Baseline Rate (bpm) Baby A: 140 (10/04/2016 23:45:Julia Montes De Oca RN) FHR Baseline Rate (bpm) Baby A: 135 (10/04/2016 23:30:Julia Montes De Oca RN) FHR Baseline Rate (bpm) Baby A: 145 (10/04/2016 23:15:Julia Montes De Oca RN) FHR Baseline Rate (bpm) Baby A: 150 (10/04/2016 23:00:Julia Montes De Oca RN) FHR Baseline Rate (bpm) Baby A: 150 (10/04/2016 22:30:Julia Montes De Oca RN) FHR Baseline Rate (bpm) Baby A: 145 (10/04/2016 22:00:Julia Montes De Oca RN) FHR Baseline Rate (bpm) Baby A: 150 (10/04/2016 21:30:Julia Montes De Oca RN) FHR Baseline Rate (bpm) Baby A: 150 (10/04/2016 21:00:Julia Montes De Oca RN) FHR Baseline Rate (bpm) Baby A: 145 (10/04/2016 20:30:Julia Montes De Oca RN) FHR Baseline Rate (bpm) Baby A: 140 (10/04/2016 20:00:Julia Montes De Oca RN) FHR Baseline Rate (bpm) Baby A: 145 (10/04/2016 19:30:Julia Montes De Oca RN) FHR Baseline Rate (bpm) Baby A: 145 (10/04/2016 19:00:Ana M Gillespie RN) FHR Baseline Rate (bpm) Baby A: 135 (10/04/2016 18:15:Ana M Gillespie RN) FHR Baseline Rate (bpm) Baby A: 145 (10/04/2016 18:00:Ana M Gillespie RN) FHR Baseline Rate (bpm) Baby A: 145 (10/04/2016 17:45:Ana M Gillespie RN) FHR Baseline Rate (bpm) Baby A: 145 (10/04/2016 17:30:Ana M Gillespie RN) FHR Baseline Rate (bpm) Baby A: 155 (10/04/2016 17:15:Ana M Gillespie RN) FHR Baseline Rate (bpm) Baby A: 145 (10/04/2016 17:00:Ana M Gillespie RN) FHR Baseline Rate (bpm) Baby A: 135 (10/04/2016 16:45:Ana M Gillespie RN) FHR Baseline Rate (bpm) Baby A: 145 (10/04/2016 16:30:Ana M Gillespie RN) FHR Baseline Rate (bpm) Baby A: 140 (10/04/2016 16:15:Ana M Gillespie RN) FHR Baseline Rate (bpm) Baby A: 145 (10/04/2016 16:00:Ana M Gillespie RN) FHR Baseline Rate (bpm) Baby A: 145 (10/04/2016 15:45:Ana M Gillespie RN) FHR Baseline Rate (bpm) Baby A: 145 (10/04/2016 15:30:Ana M Gillespie RN) FHR Baseline Rate (bpm) Baby A: 145 (10/04/2016 15:15:Ana M Gillespie RN) FHR Baseline Rate (bpm) Baby A: 145 (10/04/2016 15:00:Ana M Gillespie RN) FHR Baseline Rate (bpm) Baby A: 135 (10/04/2016 14:45:Ana M Gillespie RN) FHR Baseline Rate (bpm) Baby A: 145 (10/04/2016 14:30:Ana M Gillespie RN) FHR Baseline Rate (bpm) Baby A: 145 (10/04/2016 14:15:Ana M Gillespie RN) FHR Baseline Rate (bpm) Baby A: 145 (10/04/2016 14:00:Ana M Gillespie RN) FHR Baseline Rate (bpm) Baby A: 155 (10/04/2016 13:45:Ana M Gillespie RN) FHR Baseline Rate (bpm) Baby A: 155 (10/04/2016 13:30:Ana M Gillespie RN) FHR Baseline Rate (bpm) Baby A: 155 (10/04/2016 13:15:Ana M Gillespie RN) FHR Baseline Rate (bpm) Baby A: 155 (10/04/2016 13:00:Ana M Gillespie RN) FHR Baseline Rate (bpm) Baby A: 145 (10/04/2016 12:45:Ana M Gillespie RN) FHR Baseline Rate (bpm) Baby A: 155 (10/04/2016 12:30:Ana M Gillespie RN) FHR Baseline Rate (bpm) Baby A: 155 (10/04/2016 12:15:Ana M Gillespie RN) FHR Baseline Rate (bpm) Baby A: 155 (10/04/2016 12:00:Ana M Gillespie RN) FHR Baseline Rate (bpm) Baby A: 145 (10/04/2016 11:45:Ana M Gillespie RN) FHR Baseline Rate (bpm) Baby A: 145 (10/04/2016 11:30:Ana M Gillespie RN) FHR Baseline Rate (bpm) Baby A: 150 (10/04/2016 11:15:Ana M Gillespie RN) FHR Baseline Rate (bpm) Baby A: 150 (10/04/2016 11:00:Ana M Gillespie RN) FHR Baseline Rate (bpm) Baby A: 145 (10/04/2016 10:45:Ana M Gillespie RN) FHR Baseline Rate (bpm) Baby A: 155 (10/04/2016 10:30:Ana M Gillespie RN) FHR Baseline Rate (bpm) Baby A: 145 (10/04/2016 09:00:Ana M Gillespie RN) FHR Baseline Rate (bpm) Baby A: 155 (10/04/2016 08:30:Ana M Gillespie RN) FHR Baseline Rate (bpm) Baby A: 150 (10/04/2016 08:00:Ana M Gillespie RN) FHR Baseline Rate (bpm) Baby A: 155 (10/04/2016 07:30:Ana M Gillespie RN) FHR Baseline Rate (bpm) Baby A: 155 (10/04/2016 07:00:Ashley Steward RN) FHR Baseline Rate (bpm) Baby A: 145 (10/04/2016 06:30:Ashley Steward RN) FHR Baseline Rate (bpm) Baby A: 145 (10/04/2016 06:00:Ashley Steward RN) FHR Baseline Rate (bpm) Baby A: 145 (10/04/2016 05:30:Ashley Steward RN) FHR Baseline Rate (bpm) Baby A: 145 (10/04/2016 05:00:Ashley Steward RN) Variability Baby A: Moderate 6-25 bpm (10/05/2016 02:45:Julia Montes De Oca RN) Variability Baby A: Moderate 6-25 bpm (10/05/2016 02:30:Julia Montes De Oca RN) Variability Baby A: Moderate 6-25 bpm (10/05/2016 02:15:Julia Montes De Oca RN) Variability Baby A: Moderate 6-25 bpm (10/05/2016 02:00:Julia Montes De Oca RN) Variability Baby A: Moderate 6-25 bpm (10/05/2016 01:45:Julia Montes De Oca RN) Variability Baby A: Moderate 6-25 bpm (10/05/2016 01:30:Julia Montes De Oca RN) Variability Baby A: Moderate 6-25 bpm (10/05/2016 01:15:Julia Montes De Oca RN) Variability Baby A: Moderate 6-25 bpm (10/05/2016 01:00:Julia Montes De Oca RN) Variability Baby A: Moderate 6-25 bpm (10/05/2016 00:45:Julia Montes De Oca RN) Variability Baby A: Moderate 6-25 bpm (10/05/2016 00:30:Julia Montes De Oca RN) Variability Baby A: Moderate 6-25 bpm (10/05/2016 00:15:Julia Montes De Oca RN) Variability Baby A: Moderate 6-25 bpm (10/05/2016 00:00:Julia Montes De Oca RN) Variability Baby A: Moderate 6-25 bpm (10/04/2016 23:45:Julia Montes De Oca RN) Variability Baby A: Moderate 6-25 bpm (10/04/2016 23:30:Julia Montes De Oca RN) Variability Baby A: Moderate 6-25 bpm (10/04/2016 23:15:Julia Montes De Oca RN) Variability Baby A: Moderate 6-25 bpm (10/04/2016 23:00:Julia Montes De Oca RN) Variability Baby A: Moderate 6-25 bpm (10/04/2016 22:30:Julia Montes De Oca RN) Variability Baby A: Moderate 6-25 bpm (10/04/2016 22:00:Julia Montes De Oca RN) Variability Baby A: Moderate 6-25 bpm (10/04/2016 21:30:Julia Montes De Oca RN) Variability Baby A: Moderate 6-25 bpm (10/04/2016 21:00:Julia Montes De Oca RN) Variability Baby A: Moderate 6-25 bpm (10/04/2016 20:30:Julia Montes De Oca RN) Variability Baby A: Moderate 6-25 bpm (10/04/2016 20:00:Julia Montes De Oca RN) Variability Baby A: Moderate 6-25 bpm (10/04/2016 19:30:Julia Montes De Oca RN) Variability Baby A: Moderate 6-25 bpm (10/04/2016 19:00:Ana M Gillespie RN) Variability Baby A: Moderate 6-25 bpm (10/04/2016 18:15:Ana M Gillespie RN) Variability Baby A: Moderate 6-25 bpm (10/04/2016 18:00:Ana M Gillespie RN) Variability Baby A: Moderate 6-25 bpm (10/04/2016 17:45:Ana M Gillespie RN) Variability Baby A: Moderate 6-25 bpm (10/04/2016 17:30:Ana M Gillespie RN) Variability Baby A: Moderate 6-25 bpm (10/04/2016 17:15:Ana M Gillespie RN) Variability Baby A: Moderate 6-25 bpm (10/04/2016 17:00:Ana M Gillespie RN) Variability Baby A: Moderate 6-25 bpm (10/04/2016 16:45:Ana M Gillespie RN) Variability Baby A: Moderate 6-25 bpm (10/04/2016 16:30:Ana M Gillespie RN) Variability Baby A: Moderate 6-25 bpm (10/04/2016 16:15:Ana M Gillespie RN) Variability Baby A: Moderate 6-25 bpm (10/04/2016 16:00:Ana M Gillespie RN) Variability Baby A: Moderate 6-25 bpm (10/04/2016 15:45:Ana M Gillespie RN) Variability Baby A: Moderate 6-25 bpm (10/04/2016 15:30:Ana M Gillespie RN) Variability Baby A: Moderate 6-25 bpm (10/04/2016 15:15:Ana M Gillespie RN) Variability Baby A: Moderate 6-25 bpm (10/04/2016 15:00:Ana M Gillespie RN) Variability Baby A: Moderate 6-25 bpm (10/04/2016 14:45:Ana M Gillespie RN) Variability Baby A: Moderate 6-25 bpm (10/04/2016 14:30:Ana M Gillespie RN) Variability Baby A: Moderate 6-25 bpm (10/04/2016 14:15:Ana M Gillespie RN) Variability Baby A: Moderate 6-25 bpm (10/04/2016 14:00:Ana M Gillespie RN) Variability Baby A: Moderate 6-25 bpm (10/04/2016 13:45:Ana M Gillespie RN) Variability Baby A: Moderate 6-25 bpm (10/04/2016 13:30:Ana M Gillespie RN) Variability Baby A: Moderate 6-25 bpm (10/04/2016 13:15:Ana M Gillespie RN) Variability Baby A: Moderate 6-25 bpm (10/04/2016 13:00:Ana M Gillespie RN) Variability Baby A: Moderate 6-25 bpm (10/04/2016 12:45:Ana M Gillespie RN) Variability Baby A: Moderate 6-25 bpm (10/04/2016 12:30:Ana M Gillespie RN) Variability Baby A: Moderate 6-25 bpm (10/04/2016 12:15:Ana M Gillespie RN) Variability Baby A: Moderate 6-25 bpm (10/04/2016 12:00:Ana M Gillespie RN) Variability Baby A: Moderate 6-25 bpm (10/04/2016 11:45:Ana M Gillespie RN) Variability Baby A: Moderate 6-25 bpm (10/04/2016 11:30:Ana M Gillespie RN) Variability Baby A: Moderate 6-25 bpm (10/04/2016 11:15:Ana M Gillespie RN) Variability Baby A: Moderate 6-25 bpm (10/04/2016 11:00:Ana M Gillespie RN) Variability Baby A: Moderate 6-25 bpm (10/04/2016 10:45:Ana M Gillespie RN) Variability Baby A: Moderate 6-25 bpm (10/04/2016 10:30:Ana M Gillespie RN) Variability Baby A: Moderate 6-25 bpm (10/04/2016 09:00:Ana M Gillespie RN) Variability Baby A: Moderate 6-25 bpm (10/04/2016 08:30:Ana M Gillespie RN) Variability Baby A: Moderate 6-25 bpm (10/04/2016 08:00:Ana M Gillespie RN) Variability Baby A: Moderate 6-25 bpm (10/04/2016 07:30:Ana M Gillespie RN) Variability Baby A: Moderate 6-25 bpm (10/04/2016 07:00:Ashley Steward RN) Variability Baby A: Moderate 6-25 bpm (10/04/2016 06:30:Ashley Steward RN) Variability Baby A: Moderate 6-25 bpm (10/04/2016 06:00:Ashley Steward RN) Variability Baby A: Moderate 6-25 bpm (10/04/2016 05:30:Ashley Steward RN) Variability Baby A: Moderate 6-25 bpm (10/04/2016 05:00:Ashley Steward RN) Accelerations Baby A: 10X10 (10/05/2016 02:45:Julia Montes De Oca RN) Accelerations Baby A: None (10/05/2016 02:30:Julia Montes De Oca RN) Accelerations Baby A: None (10/05/2016 02:15:Julia Montes De Oca RN) Accelerations Baby A: 15X15 (10/05/2016 02:00:Julia Montes De Oca RN) Accelerations Baby A: 10X10 (10/05/2016 01:45:Julia Montes De Oca RN) Accelerations Baby A: 10X10 (10/05/2016 01:30:Julia Montes De Oca RN) Accelerations Baby A: 15X15 (10/05/2016 01:15:Julia Montes De Oca RN) Accelerations Baby A: 10X10 (10/05/2016 01:00:Julia Montes De Oca RN) Accelerations Baby A: 15X15 (10/05/2016 00:45:Julia Montes De Oca RN) Accelerations Baby A: 10X10 (10/05/2016 00:30:Julia Montes De Oca RN) Accelerations Baby A: 15X15 (10/05/2016 00:15:Julia Montes De Oca RN) Accelerations Baby A: 10X10 (10/05/2016 00:00:Julia Montes De Oca RN) Accelerations Baby A: 10X10 (10/04/2016 23:45:Julia Montes De Oca RN) Accelerations Baby A: 15X15 (10/04/2016 23:30:Julia Montes De Oca RN) Accelerations Baby A: 15X15 (10/04/2016 23:00:Julia Montes De Oca RN) Accelerations Baby A: 15X15 (10/04/2016 22:30:Julia Montes De Oca RN) Accelerations Baby A: 15X15 (10/04/2016 22:00:Julia Montes De Oca RN) Accelerations Baby A: 15X15 (10/04/2016 21:30:Julia Montes De Oca RN) Accelerations Baby A: 15X15 (10/04/2016 21:00:Julia Montes De Oca RN) Accelerations Baby A: 15X15 (10/04/2016 20:30:Julia Montes De Oca RN) Accelerations Baby A: 15X15 (10/04/2016 20:00:Julia Montes De Oca RN) Accelerations Baby A: 15X15 (10/04/2016 19:30:Julia Montes De Oca RN) Accelerations Baby A: 15X15 (10/04/2016 19:00:Ana M Gillespie RN) Accelerations Baby A: 15X15 (10/04/2016 18:15:Ana M Gillespie RN) Accelerations Baby A: 15X15 (10/04/2016 18:00:Ana M Gillespie RN) Accelerations Baby A: 15X15 (10/04/2016 17:45:Ana M Gillespie RN) Accelerations Baby A: 15X15 (10/04/2016 17:30:Ana M Gillespie RN) Accelerations Baby A: 15X15 (10/04/2016 17:15:Ana M Gillespie RN) Accelerations Baby A: 15X15 (10/04/2016 17:00:Ana M Gillespie RN) Accelerations Baby A: 15X15 (10/04/2016 16:45:Ana M Gillespie RN) Accelerations Baby A: 15X15 (10/04/2016 16:30:Ana M Gillespie RN) Accelerations Baby A: 15X15 (10/04/2016 16:15:Ana M Gillespie RN) Accelerations Baby A: 15X15 (10/04/2016 16:00:Ana M Gillespie RN) Accelerations Baby A: 15X15 (10/04/2016 15:45:Ana M Gillespie RN) Accelerations Baby A: 15X15 (10/04/2016 15:30:Ana M Gillespie RN) Accelerations Baby A: 15X15 (10/04/2016 15:15:Ana M Gillespie RN) Accelerations Baby A: None (10/04/2016 15:00:Ana M Gillespie RN) Accelerations Baby A: 15X15 (10/04/2016 14:45:Ana M Gillespie RN) Accelerations Baby A: 15X15 (10/04/2016 14:30:Ana M Gillespie RN) Accelerations Baby A: None (10/04/2016 14:15:Ana M Gillespie RN) Accelerations Baby A: 10X10 (10/04/2016 14:00:Ana M Gillespie RN) Accelerations Baby A: 15X15 (10/04/2016 13:45:Ana M Gillespie RN) Accelerations Baby A: 15X15 (10/04/2016 13:30:Ana M Gillespie RN) Accelerations Baby A: 15X15 (10/04/2016 13:15:Ana M Gillespie RN) Accelerations Baby A: 15X15 (10/04/2016 13:00:Ana M Gillespie RN) Accelerations Baby A: 15X15 (10/04/2016 12:45:Ana M Gillespie RN) Accelerations Baby A: 15X15 (10/04/2016 12:30:Ana M Gillespie RN) Accelerations Baby A: 15X15 (10/04/2016 12:15:Ana M Gillespie RN) Accelerations Baby A: 10X10 (10/04/2016 12:00:Ana M Gillespie RN) Accelerations Baby A: 15X15 (10/04/2016 11:45:Ana M Gillespie RN) Accelerations Baby A: 15X15 (10/04/2016 11:30:Ana M Gillespie RN) Accelerations Baby A: 15X15 (10/04/2016 11:15:Ana M Gillespie RN) Accelerations Baby A: 15X15 (10/04/2016 11:00:Ana M Gillespie RN) Accelerations Baby A: 15X15 (10/04/2016 10:45:Ana M Gillespie RN) Accelerations Baby A: 15X15 (10/04/2016 10:30:Ana M Gillespie RN) Accelerations Baby A: 15X15 (10/04/2016 09:00:Ana M Gillespie RN) Accelerations Baby A: 15X15 (10/04/2016 08:30:Ana M Gillespie RN) Accelerations Baby A: 15X15 (10/04/2016 08:00:Ana M Gillespie RN) Accelerations Baby A: 15X15 (10/04/2016 07:30:Ana M Gillespie RN) Accelerations Baby A: 15X15 (10/04/2016 07:00:Ashley Steward RN) Accelerations Baby A: 15X15 (10/04/2016 06:30:Ashley Steward RN) Accelerations Baby A: 15X15 (10/04/2016 06:00:Ashley Steward RN) Accelerations Baby A: None (10/04/2016 05:30:Ashley Steward RN) Accelerations Baby A: 15X15 (10/04/2016 05:00:Ashley Steward RN) Decelerations Baby A: None (10/05/2016 02:45:Julia Montes De Oca RN) Decelerations Baby A: None (10/05/2016 02:30:Julia Montes De Oca RN) Decelerations Baby A: None (10/05/2016 02:15:Julia Montes De Oca RN) Decelerations Baby A: None (10/05/2016 02:00:Julia Montes De Oca RN) Decelerations Baby A: None (10/05/2016 01:45:Julia Montes De Oca RN) Decelerations Baby A: None (10/05/2016 01:30:Julia Montes De Oca RN) Decelerations Baby A: None (10/05/2016 01:15:Julia Montes De Oca RN) Decelerations Baby A: None (10/05/2016 01:00:Julia Montes De Oca RN) Decelerations Baby A: None (10/05/2016 00:45:Julia Montes De Oca RN) Decelerations Baby A: None (10/05/2016 00:30:Julia Montes De Oca RN) Decelerations Baby A: None (10/05/2016 00:15:Julia Montes De Oca RN) Decelerations Baby A: None (10/05/2016 00:00:Julia Montes De Oca RN) Decelerations Baby A: None (10/04/2016 23:45:Julia Montes De Oca RN) Decelerations Baby A: None (10/04/2016 23:30:Julia Montes De Oca RN) Decelerations Baby A: Late (10/04/2016 23:00:Julia Montes De Oca RN) Decelerations Baby A: None (10/04/2016 22:30:Julia Montes De Oca RN) Decelerations Baby A: None (10/04/2016 22:00:Julia Montes De Oca RN) Decelerations Baby A: None (10/04/2016 21:30:Julia Montes De Oca RN) Decelerations Baby A: None (10/04/2016 21:00:Julia Montes De Oca RN) Decelerations Baby A: None (10/04/2016 20:30:Julia Montes De Oca RN) Decelerations Baby A: None (10/04/2016 20:00:Julia Montes De Oca RN) Decelerations Baby A: None (10/04/2016 19:30:uJlia Montes De Oca RN) Decelerations Baby A: None (10/04/2016 19:00:Ana M Gillespie RN) Decelerations Baby A: None (10/04/2016 18:15:Ana M Gillespie RN) Decelerations Baby A: None (10/04/2016 18:00:Ana M Gillespie RN) Decelerations Baby A: None (10/04/2016 17:45:Ana M Gillespie RN) Decelerations Baby A: None (10/04/2016 17:30:Ana M Gillespie RN) Decelerations Baby A: None (10/04/2016 17:15:Ana M Gillespie RN) Decelerations Baby A: None (10/04/2016 17:00:Ana M Gillespie RN) Decelerations Baby A: None (10/04/2016 16:45:Ana M Gillespie RN) Decelerations Baby A: None (10/04/2016 16:30:Ana M Gillespie RN) Decelerations Baby A: None (10/04/2016 16:15:Ana M Gillespie RN) Decelerations Baby A: None (10/04/2016 16:00:Ana M Gillespie RN) Decelerations Baby A: None (10/04/2016 15:45:Ana M Gillespie RN) Decelerations Baby A: None (10/04/2016 15:30:Ana M Gillespie RN) Decelerations Baby A: None (10/04/2016 15:15:Ana M Gillespie RN) Decelerations Baby A: None (10/04/2016 15:00:Ana M Gillespie RN) Decelerations Baby A: None (10/04/2016 14:30:Ana M Gillespie RN) Decelerations Baby A: None (10/04/2016 14:15:Ana M Gillespie RN) Decelerations Baby A: None (10/04/2016 14:00:Ana M Gillespie RN) Decelerations Baby A: None (10/04/2016 13:30:Ana M Gillespie RN) Decelerations Baby A: None (10/04/2016 13:15:Ana M Gillespie RN) Decelerations Baby A: None (10/04/2016 13:00:Ana M Gillespie RN) Decelerations Baby A: None (10/04/2016 12:45:Ana M Gillespie RN) Decelerations Baby A: None (10/04/2016 12:30:Ana M Gillespie RN) Decelerations Baby A: None (10/04/2016 12:15:Ana M Gillespie RN) Decelerations Baby A: None (10/04/2016 12:00:Ana M Gillespie RN) Decelerations Baby A: None (10/04/2016 11:45:Ana M Gillespie RN) Decelerations Baby A: None (10/04/2016 11:30:Ana M Gillespie RN) Decelerations Baby A: None (10/04/2016 11:15:Ana M Gillespie RN) Decelerations Baby A: None (10/04/2016 11:00:Ana M Gillespie RN) Decelerations Baby A: None (10/04/2016 10:45:Ana M Gillespie RN) Decelerations Baby A: None (10/04/2016 10:30:Ana M Gillespie RN) Decelerations Baby A: None (10/04/2016 09:00:Ana M Gillespie RN) Decelerations Baby A: None (10/04/2016 08:30:Ana M Gillespie RN) Decelerations Baby A: None (10/04/2016 08:00:Ana M Gillespie RN) Decelerations Baby A: None (10/04/2016 07:30:Ana M Gillespie RN) Decelerations Baby A: None (10/04/2016 07:00:Ashley Steward RN) Decelerations Baby A: None (10/04/2016 06:30:Ashley Steward RN) Decelerations Baby A: None (10/04/2016 06:00:Ashley Steward RN) Decelerations Baby A: None (10/04/2016 05:30:Ashley Steward RN) Decelerations Baby A: None (10/04/2016 05:00:Ashley Steward RN)
--- NOTE | 2016-10-05 04:47 | L&D Discharge Summary ---
OB Discharge Summary Datetime Report Generated by CPN: 10/05/2016 04:45 DISCHARGE DIAGNOSIS Diagnosis/Symptoms: Gestational Hypertension Diagnoses/Symptoms Other: not in labor Gestation: 38.0 Number of Babies in Womb: 1 Parity: 0 DIET/ACTIVITY/RESTRICTIONS Diet: Regular Activity: Bedrest; May Be Up to Bathroom; May Be Up for Meals; May Shower Activity Restrictions: No Exercising; No Lifting; Minimize Stair Climbing TEACHING/INSTRUCTIONS/REFERRALS Instructions Given To: patient and spouse Instructions Understood: Patient Verbalized Understanding; Support Person Verbalized Understanding Referrals: None Educational Materials- Other: *Pre-Eclampsia DISCHARGE INFORMATION Discharged AMA: No Discharge Date/Time: 09/30/2016 19:05 Discharged To: Home Discharge Provider Name: Dr. Mahoney Accompanied By: spouse Discharge Method: Ambulatory Condition: Stable FOLLOW UP INFORMATION Follow Up With: Other-Annotate Follow Up On: 1-2 Days Follow Up Phone Number: [facility] - Comments: Pt to return to L_D at [facility] on Monday evening for IOL, informational handout provided.
--- NOTE | 2016-10-05 04:58 | Admission Physical ---
Datetime Report Generated by CPN: 10/05/2016 04:57 CURRENT ADMISSION Chief Complaint: Signs/Symptoms Gestational HTN; Scheduled Induction of Labor Indication for Induction: Gest. HTN/PreEclampsia/Eclampsia Admit Plan: Admit to Unit; Initiate Labor Induction Protocol ALLERGIES Medication Allergies: No Medication Allergies: shrimp (10/03/2016) Latex: No Latex Allergies Food Allergies: shellfish, crawfish, shrimp (09/27/2016) Environmental Allergies: none OBSTETRICAL HISTORY EDC: 10/19/2016 00:00 : 1 Para: 0 Term: 0 : 0 SAB: 0 IAB: 0 Ectopic: 0 Livin Cesareans: 0 VBACs: 0 Multiple Births: 0 Gestational Diabetes: No Rh Sensitization: No Incompetent Cervix: No WILL: No Infertility: No ART Treatment: No Uterine Anomaly: No IUGR: No Hx Previous C/S: No Macrosomia: No Hx Loss/Stillborn: No PIH: No Hx : No Placenta Previa/Abruption: No Depression/PP Depression: No PTL/PROM: No Post Hemorrhage: No Current Procedures: Ultrasound; NST Obstetrical History Comments: G1-Current SEE RECORDS Alcohol: No Marijuana : No Cocaine: No Other Illicit Drugs: No Cigarettes: Never Smoker. [id number] MEDICAL HISTORY Diabetes: No Blood Transfusion: No Pulmonary Disease (Asthma, TB): No Breast Disease: No Hypertension: No Facetor Surgery: No Heart Disease: No Hosp/Surgery: Yes Autoimmune Disorder: No Anesthetic Complications: No Kidney Disease: No Abnormal Pap Smear: No Neuro/Epilepsy: No Psychiatric Disorders: No Other Medical Diseases: No Hepatitis/Liver Disease: No Significant Family History: No Varicosities/Phlebitis: No Trauma/Violence : No Thyroid Dysfunction: No Medical History Comments: tonsillectomy, tubes in ears L hip doesn't have full range of motion INFECTIOUS HISTORY Gonorrhea: No Genital Herpes: No Chlamydia: No Tuberculosis: No Syphilis: No Hepatitis: No HIV/AIDS Exposure: No Rash or Viral Illness: No HPV: No PHYSICAL EXAM General: Normal HEENT: Normal Neurologic: Normal Thyroid: Normal Heart: Normal Lungs: Normal Breast: Normal Back: Normal Abdomen: Normal Genitourinary Exam: Normal Extremities: Normal DTRs: Normal Pelvic Type: Adequate Vital Signs: Reviewed VAGINAL EXAM Dilatation: 3 Effacement: 60 Station: -1 Contraction Comments: irregular MEMBRANES Pooling: Negative Membranes: Intact FETUS A EGA: 37.6 Monitoring: External US FHR- Baseline: 150 Variability: Moderate 6-25bpm Accelerations: 15X15 Decelerations: None FHR Category: Category I Estimated Weight (gm): 3500 Presentation: Vertex Admit Comment: severe range pressures in office last week requiring 2 visits to L_D for PreE w/u that returned normal. Given additional days for cervical ripening. Now here for induction w/ cervidil. PLANS FOR LABOR AND DELIVERY Labor and Delivery: None Pain Management: Epidural Feeding Preference: Breast Benefit of Breast Feed Discussed: Yes Circumcision: Yes INFORMED CONSENT Informed Consent Obtained: Induction of Labor Signature: with User ID: [email or web address]
--- NOTE | 2016-10-05 05:03 | Delivery Summary ---
Del Sum A-C Datetime Report Generated by CPN: 10/05/2016 05:03 ADMISSION DATA Chief Complaint: Signs/Symptoms Gestational HTN; Scheduled Induction of Labor Indication for Induction: Gest. HTN/PreEclampsia/Eclampsia Admission Impression: Term, Intrauterine ; Induction of Labor; Medical Complication Admit Provider Comments: severe range pressures in office last week requiring 2 visits to L_D for PreE w/u that returned normal. Given additional days for cervical ripening. Now here for induction w/ cervidil. DELIVERY PERSONNEL Delivery Doctor:: Dasha Venegas MD Labor and Delivery Nurse:: Julia Montes De Oca RNtool engineer Nurse:: Kathy Barragan RN Plant Packer/OPTICIANRY TEACHER: Yue Alyjerson, CASH ANALYST MATERNAL INFORMATION Delivery Anesthesia: Epidural Medications After Delivery: Pitocin Drip 20 Units/1000ml NSS; Other-Please Comment Meds After Delivery Comment: Cytotec 1000 mcg NV Estimated Blood Loss (ml): 300 Maternal Complications: None Provider Comments: over intact perineum, no lacs. live male ap 8/9. nuchal times one easily reduced. spontaneous intact placenta 3vc. no complications LABOR SUMMARY EDC: 10/19/2016 00:00 No. Babies in Womb: 1 Attempted: No Labor Anesthesia: Epidural LABOR INFORMATION Reason for Induction: Gestational Hypertension Onset of Labor: 10/04/2016 22:46 Complete Dilatation: 10/05/2016 01:11 Cervical Ripening Agents: Cervidil; Cytotec @ Oxytocin: Induction Group B Beta Strep: Negative Antibiotics # of Doses: 0 Steroids Given: None Reason Steroids Not Administered: Not Applicable MEMBRANES Membranes Rupture Method: Spontaneous Amniotic Fluid Color: Clear Amniotic Fluid Amount: None Amniotic Fluid Odor: Normal STAGES OF LABOR Stage 1 hr: 2 Stage 1 min: 25 Stage 2 hr: 1 Stage 2 min: 34 Stage 3 hr: 0 Stage 3 min: 3 Total Time in Labor hr: 4 Total Time in Labor min: 2 VAGINAL DELIVERY Episiotomy: None Laceration Extension: N/A Laceration Type: None Laceration Repair: Not Applicable Sponge Count Correct: N/A Sharps Count Correct: N/A CSECTION DELIVERY Primary Indication: N/A Secondary Indication: N/A CSection Incidence: N/A Labor: N/A Elective: N/A CSection Incision: N/A BABY A INFORMATION Infant Delivery Date/Time: 10/05/2016 02:45 Method of Delivery: Vaginal Born in Route : No : N/A Forceps: N/A Vacuum Extraction: N/A Shoulder Dystocia : No PRESENTATION/POSITION BABY A Presentation: Cephalic Cephalic Presentation: Vertex Vertex Position: Right Occipital Anterior Breech Presentation: N/A PLACENTA INFORMATION BABY A Placenta Delivery Time : 10/05/2016 02:48 Placenta Method of Delivery: Spontaneous Placenta Status: Delivered SCORES BABY A Heart Rate 1 min: >100 bpm Resp Effort 1 min: Good Cry Reflex Irritability 1 min: Cough or Sneeze or Pulls Away Muscle Tone 1 min: Active Motion Color 1 min: Blue/Pale Resuscitation Effort 1 min: Tactile Stimulation SCORE 1 MIN: 8 Heart Rate 5 min: >100 bpm Resp Effort 5 min: Good Cry Reflex Irritability 5 min: Cough or Sneeze or Pulls Away Muscle Tone 5 min: Active Motion Color 5 min: Body [place], Extremities Blue Resuscitation Effort 5 min: Tactile Stimulation SCORE 5 MIN: 9 INFORMATION BABY A Gestational Age at Delivery: 38.0 Gestational Status: Early Term- 37- 38.6 Weeks Outcome : Liveborn Infant Condition : Stable Infant Sex: Male IDENTIFICATION BABY A Infant Verification Date/Time: 10/05/2016 02:51 ID Band Number: [id number] Mother's Name Verified: Yes RN Verifying : SEdilson Melinda RN Additional Verifying Personnel: REdilson Florence RN WEIGHT/LENGTH BABY A Infant Birthweight (gm): 3370 Weight (lb): 7 Weight (oz): 7 Length (in): 20.25 Infant Length (cm): 51.44 CORD INFORMATION BABY A No. Cord Vessels: 3 Nuchal Cord : Around Neck x1, Loose Cord Blood Taken: Yes-For Eval (Mom's Blood Type - or O+) Suction: Mouth; Nose ASSESSMENT BABY A Infant Complications: None Physical Findings at Delivery: Within Normal Limits Respirations: Appears Normal Skin to Skin: Yes Alterations Expert/ALS Called : No Care By: Waleska Barragan RN Transferred To: [facility] BABY B INFORMATION : N/A SIGNATURES Signature: with User ID: [email or web address]
[2016-10-05] MEDS: IBUPROFEN 800 MG TABLET PO SCH ×3 (05:55→21:14)
--- NOTE | 2016-10-05 06:17 | L&D General Admission ---
General Admit Datetime Report Generated by CPN: 10/05/2016 06:00 INFORMATION Patient Age: 21 (09/09/2016 13:56:QS system process) EDC: 10/19/2016 00:00 (09/27/2016 14:52:Ana M Gillespie RN) : 1 (09/27/2016 14:52:Ana M Gillespie RN) Para: 0 (09/30/2016 18:58:Claudia Durant RN) Term: 0 (09/27/2016 14:52:Claudia Durant RN) : 0 (09/27/2016 14:52:Claudia Durant RN) Spontaneous Abortions: 0 (09/27/2016 14:52:Claudia Durant RN) Induced Abortions: 0 (09/27/2016 14:52:Claudia Durant RN) Livin (09/27/2016 14:52:Claudia Durant RN) Cesareans: 0 (09/27/2016 14:52:Claudia Durant RN) VBACs: 0 (09/27/2016 14:52:Claudia Durant RN) Ectopic: 0 (09/27/2016 14:52:Claudia Durant RN) Multiple Births: 0 (09/27/2016 14:52:Claudia Durant RN) Baby, Number in Womb: 1 (09/30/2016 18:58:Claudia Durant RN) CARE [facility] (09/27/2016 14:52:Ana M Gillespie RN) Month of 1st Visit: March 2016 (09/27/2016 14:52:Claudia Durant RN) Adequate Care: Yes (09/27/2016 14:52:Claudia Durant RN) Prepregnancy Weight (lb): 123 (09/27/2016 14:52:Claudia Durant RN) Prepregnancy Weight (kg): 55.9 (09/27/2016 14:52:QS system process) Height (in): 64 (10/05/2016 04:56:QS system process) ALLERGIES Medication Allergy: No (09/27/2016 14:52:Ana M Gillespie RN) Medication Allergies: shrimp (10/03/2016) (10/03/2016 20:21:QS system process) Latex Allergy: No Latex Allergies (09/27/2016 14:52:Ana M Gillespie RN) Food Allergies: shellfish, crawfish, shrimp (09/27/2016) (09/27/2016 14:52:Claudia Durant RN) Environmental Allergies: none (09/27/2016 14:52:Claudia Durant RN) COMMUNICATION Primary Language: Citizen Of [place] (09/27/2016 14:52:Claudia Durant RN) Medical Tx Preferred Language: Citizen Of [place] (09/27/2016 14:52:Claudia Durant RN) Communication Barrier(s): None (09/27/2016 14:52:Claudia Durant RN) DEMOGRAPHICS Address: [address] [place] [id number] (09/09/2016 13:56:QS system process) Zipcode: [address] (09/09/2016 13:56:QS system process) Home (09/09/2016 13:56:QS system process) SSN: [id number] (09/09/2016 13:56:QS system process) Next of Kin Name: ASHLEY PATE (09/09/2016 13:56:QS system process) Next of Kin (09/09/2016 13:56:QS system process) Next of Kin Relationship: SPO (09/09/2016 13:56:QS system process) Date of : 1995 (09/09/2016 13:56:QS system process) Marital Status: (09/09/2016 13:56:QS system process) Sex: Female (09/09/2016 13:56:QS system process) Race: Other (09/09/2016 13:56:QS system process) Ethnicity: or (09/09/2016 13:56:QS system process) Buddhist: None (09/09/2016 13:56:QS system process) DRUG AND ALCOHOL USE Alcohol: No (09/27/2016 14:52:Claudia Durant RN) Cigarettes: Never Smoker. [id number] (09/27/2016 14:52:Claudia Durant RN) Marijuana: No (09/27/2016 14:52:Claudia Durant RN) Cocaine: No (09/27/2016 14:52:Claudia Durant RN) Other Illicit Drugs: No (09/27/2016 14:52:Claudia Durant RN) VACCINE HISTORY Influenza Vaccine: Yes (09/27/2016 14:52:Claudia Durant RN) Influenza Date: 06/2016 (09/27/2016 14:52:Claudia Durant RN) Pneumococcal Vaccine: No (09/27/2016 14:52:Claudia Durant RN) Tetanus Vaccine: Yes (09/27/2016 14:52:Claudia Durant RN) Tetanus Date: 09/2016 (09/27/2016 14:52:Claudia Durant RN) Tdap Vaccine: Yes (09/27/2016 14:52:Claudia Durant RN) Tdap Date: 09/2016 (09/27/2016 14:52:Claudia Durant RN) Hepatitis B Vaccine: No (09/27/2016 14:52:Claudia Durant RN) Dental Instructor: [facility] (09/27/2016 14:52:Ashley Steward RN) Feeding Preference: Breast (09/27/2016 14:52:Claudia Durant RN) Benefit of Breast Feed Discussed: Yes (09/27/2016 14:52:Ashley Steward RN) Circumcision: Yes (09/27/2016 14:52:Claudia Durant RN) Classes Attended: Yes (09/27/2016 14:52:Claudia Durant RN) Tubal Ligation: No (09/27/2016 14:52:Claudia Durant RN) Tubal Authorization Signed: N/A (09/27/2016 14:52:Claudia Durant RN) Consent: N/A (09/27/2016 14:52:Claudia Durant RN) Consent Signed: N/A (09/27/2016 14:52:Claudia Durant RN) Pain Management Plans: Epidural (09/27/2016 14:52:Ashley Steward RN) Plans for Labor and Delivery: None (09/27/2016 14:52:Ashley Steward RN) Support Person: Elie Pate (09/27/2016 14:52:Ashley Steward RN) Support Person Relationship: (09/27/2016 14:52:Ashley Steward RN) Cultural/Spritual Practice: No (09/27/2016 14:52:Claudia Durant RN) Spir/Cult Dietary Needs: No (09/27/2016 14:52:Claudia Durant RN) LIVING SITUATION/DISCHARGE PLAN Living Arrangements: House (09/27/2016 14:52:Claudia Durant RN) Adequate Access to:: Electric; Heat; Refrigeration; Plumbing/Running water; Phone; Transportation (09/27/2016 14:52:Claudai Durant RN) WIC Program: No (09/27/2016 14:52:Claudia Durant RN) Discharge Hydraulic Press Tender Person: spouse (09/27/2016 14:52:Claudia Durant RN) Person to Help after Discharge: spouse (09/27/2016 14:52:Claudia Durant RN) Currently Using Commun Resources: No (09/27/2016 14:52:Claudia Durant RN) Outside Agency/Industrial Truck Operator: No (09/27/2016 14:52:Claudia Durant RN) Car Seat for Discharge: Yes (09/27/2016 14:52:Claudia Durant RN) Adoption Requested: No (09/27/2016 14:52:Claudia Durant RN) Pt Contact w/ Post : N/A (09/27/2016 14:52:Claudia Durant RN) LABS Blood Type: O Positive (09/27/2016 14:52:Ana M Gillespie RN) Antibody Screen: Negative (09/27/2016 14:52:Ana M Gillespie RN) Rho(G) this : Not Applicable (09/27/2016 14:52:Connie Lawrence RN) Hemoglobin: 12.4 (10/03/2016 20:29:QS system process) Hematocrit: 35.9 L (10/03/2016 20:29:QS system process) MCV: 91 (10/03/2016 20:29:QS system process) Group Beta Strep: Negative (09/27/2016 14:52:Ana M Gillespie RN) Gonorrhea: Negative (09/27/2016 14:52:Ana M Gillespie RN) Chlamydia: Negative (09/27/2016 14:52:Ana M Gillespie RN) Hepatitis B: Negative (09/27/2016 14:52:Ana M Gillespie RN) Rubella: Immune (09/27/2016 14:52:Ana M Gillespie RN) OB/PREVIOUS HISTORY Previous Procedures: None (09/27/2016 14:52:Connie Lawrence RN) Current Procedures: Ultrasound; NST (09/27/2016 14:52:Connie Lawrence RN) History of Previous : No (09/27/2016 14:52:Connie Lawrence RN) History of Gestational Diabetes: No (09/27/2016 14:52:Connie Lawrence RN) History of PIH: No (09/27/2016 14:52:Connie Lawrence RN) History of Incompetent Cervix: No (09/27/2016 14:52:Connie Lawrence RN) History of Placenta Previa/Abrup: No (09/27/2016 14:52:Connie Lawrence RN) History of Macrosomia: No (09/27/2016 14:52:Connie Lawrence RN) History of IUGR: No (09/27/2016 14:52:Connie Lawrence RN) History of Hemorrhage: No (09/27/2016 14:52:Connie Lawrence RN) History of Loss/Stillborn: No (09/27/2016 14:52:Connie Lawrence RN) History of : No (09/27/2016 14:52:Connie Lawrence RN) History of D (Rh) Sensitization: No (09/27/2016 14:52:Connie Lawrence RN) History Recurrent Loss/Stillborn: No (09/27/2016 14:52:Connie Lawrence RN) History Depression/PP Depression: No (09/27/2016 14:52:Connie Lawrence RN) History of Uterine Anomaly/WILL: No (09/27/2016 14:52:Connie Lawrence RN) History of Infertility: No (09/27/2016 14:52:Connie Lawrence RN) History of ART Treatment: No (09/27/2016 14:52:Connie Lawrence RN) History of WILL: No (09/27/2016 14:52:Connie Lawrence RN) Comments Obstetrical History: G1-Current (09/27/2016 14:52:Connie Lawrence RN) MEDICAL HISTORY Med Hx Diabetes: No (09/27/2016 14:52:Connie Lawrence RN) Med Hx Hypertension: No (09/27/2016 14:52:Connie Lawrence RN) Med Hx Heart Disease: No (09/27/2016 14:52:Connie Lawrence RN) Med Hx Autoimmune Disorder: No (09/27/2016 14:52:Connie Lawrence RN) Med Hx Kidney Disease/UTI: No (09/27/2016 14:52:Connie Lawrence RN) Med Hx Neurologic/Epilepsy: No (09/27/2016 14:52:Connie Lawrence RN) Med Hx Psychiatric Disorders: No (09/27/2016 14:52:Connie Lawrence RN) Med Hx Hepatitis/Liver Disease: No (09/27/2016 14:52:Connie Lawrence RN) Med Hx Varicosities/Phlebitis: No (09/27/2016 14:52:Connie Lawrence RN) Med Hx Thyroid Dysfunction: No (09/27/2016 14:52:Connie Lawrence RN) Med Hx Trauma/Violence: No (09/27/2016 14:52:Connie Lawrence RN) Med Hx Blood Transfusion: No (09/27/2016 14:52:Connie Lawrence RN) Med Hx Pulmonary (Asthma,TB): No (09/27/2016 14:52:Connie Lawrence RN) Med Hx Breast: No (09/27/2016 14:52:Connie Lawrence RN) Med Hx SUGAR LABORATORY ASSISTANT Surgery: No (09/27/2016 14:52:Connie Lawrence RN) Med Hx Hospitalization/Surgery: Yes (09/27/2016 14:52:Ana M Gillespie RN) Med Hx Anesthetic Complications: No (09/27/2016 14:52:Connie Lawrence RN) Med Hx Abnormal Pap Smear: No (09/27/2016 14:52:Connie Lawrence RN) Other Medical Diseases: No (09/27/2016 14:52:Connie Lawrence RN) Med Hx Significant Family Hx: No (09/27/2016 14:52:Connie Lawrence RN) Details of Med/Surg Hx: tonsillectomy, tubes in ears L hip doesn't have full range of motion (09/27/2016 14:52:Ana M Gillespie RN) INFECTIOUS HISTORY Inf Hx Gonorrhea: No (09/27/2016 14:52:Connie Lawrence RN) Inf Hx Chlamydia: No (09/27/2016 14:52:Connie Lawrence RN) Inf Hx Syphilis: No (09/27/2016 14:52:Connie Lawrence RN) Inf Hx HIV/AIDS: No (09/27/2016 14:52:Connie Lawrence RN) Inf Hx Human Papilloma Virus: No (09/27/2016 14:52:Connie Lawrence RN) Inf Hx Pt/Partner Genital Herpes: No (09/27/2016 14:52:Connie Lawrence RN) Inf Hx Tuberculosis/Exposure: No (09/27/2016 14:52:Connie Lawrence RN) Inf Hx Hepatitis B,C: No (09/27/2016 14:52:Connie Lawrence RN) Inf Hx Rash or Viral Illness: No (09/27/2016 14:52:Connie Lawrence RN) GENETIC HISTORY Gen Hx Age >=35 at [place]: No (09/27/2016 14:52:Connie Lawrence RN) Gen Hx Thalassemia: No (09/27/2016 14:52:Connie Lawrence RN) Gen Hx Congenital Heart Defect: No (09/27/2016 14:52:Connie Lawrence RN) Gen Hx Neural Tube Defect: No (09/27/2016 14:52:Connie Lawrence RN) Gen Hx Down's Syndrome: No (09/27/2016 14:52:Connie Lawrence RN) Gen Hx John-Sachs: No (09/27/2016 14:52:Connie Lawrence RN) Gen Hx Marshall: No (09/27/2016 14:52:Connie Lawrence RN) Gen Hx Familial Dysautonomia: No (09/27/2016 14:52:Connie Lawrence RN) Gen Hx Sickle Cell Disease/Trait: No (09/27/2016 14:52:Connie Lawrence RN) Gen Hx Hemophilia/Blood Disorder: No (09/27/2016 14:52:Connie Lawrence RN) Gen Hx Muscular Dystrophy: No (09/27/2016 14:52:Connie Lawrence RN) Gen Hx Cystic Fibrosis: No (09/27/2016 14:52:Connie Lawrence RN) Gen Hx Huntingtons Chorea: No (09/27/2016 14:52:Connie Lawrence RN) Gen Hx Mental Retardation/Autism: No (09/27/2016 14:52:Connie Lawrence RN) Gen Hx Tested for Fragile X: No (09/27/2016 14:52:Connie Lawrence RN) Gen Hx Other Inher/Chromosomal: No (09/27/2016 14:52:Connie Lawrence RN) Gen Hx Maternal Metabolic DO: No (09/27/2016 14:52:Connie Lawrence RN) Gen Hx Pt Father or FOB Defect: No (09/27/2016 14:52:Connie Lawrence RN) Gen Hx Other Genetic History: No (09/27/2016 14:52:Connie Lawrence RN) Gen Hx Drugs/Meds since LMP: No (09/27/2016 14:52:Connie Lawrence RN)
--- NOTE | 2016-10-05 07:01 | L&D Flow Sheet ---
LD Flowsheet Datetime Report Generated by CPN: 10/05/2016 07:00 Datetime: 10/05/2016 04:30 Stage of : Recovery (Julia Field, RN) Datetime: 10/05/2016 04:23 NBP Sys/[place]/Mean (mmHg): 159 (QS system process) : 96 (QS system process) : 120 (QS system process) Pulse: 100 (QS system process) Datetime: 10/05/2016 04:15 Stage of : Recovery (Julia Field, RN) Datetime: 10/05/2016 04:00 Stage of : Recovery (Julia Field, RN) Datetime: 10/05/2016 03:53 NBP Sys/[place]/Mean (mmHg): 147 (QS system process) : 87 (QS system process) : 113 (QS system process) Pulse: 92 (QS system process) Datetime: 10/05/2016 03:45 Stage of : Recovery (Julia Field, RN) Datetime: 10/05/2016 03:30 Stage of : Recovery (Julia Field, RN) Datetime: 10/05/2016 03:15 Stage of : Recovery (Julia Field, RN) Datetime: 10/05/2016 03:00 Stage of : Recovery (Julia Montes De Oca, RN) Temperature (F): 98.7 (Julia Montes De Oca RN) Temperature (C): 37.1 (QS system process) Temperature Route: Oral (Julia Montes De Oca, RN) Datetime: 10/05/2016 02:53 NBP Sys/[place]/Mean (mmHg): 139 (QS system process) : 75 (QS system process) : 101 (QS system process) Pulse: 104 (QS system process) LaborFlag: Labor (QS system process) Datetime: 10/05/2016 02:45 Monitor Mode: External; Palpation (Julia Montes De Oca RN) Frequency (min): 1-3 (Julia Montes De Oca RN) Quality: Moderate to Strong (Julia Field, RN) Duration (sec): 40-50 (Julia Field, RN) Resting Tone (Palpate): Relaxed (Julia Field, RN) Monitor Mode: External US (Julia Field, RN) FHR Baseline Rate : 145 (Julia Field, RN) Variability: Moderate 6-25 bpm (Julia Field, RN) Accelerations: 10X10 (Julia Field, RN) Decelerations: None (Julia Field, RN) Datetime: 10/05/2016 02:30 Monitor Mode: External; Palpation (Julia Field, RN) Frequency (min): 1-2 (Julia Field, RN) Quality: Moderate to Strong (Julia Field, RN) Duration (sec): 40-50 (Julia Field, RN) Resting Tone (Palpate): Relaxed (Julia Field, RN) Monitor Mode: External US (Julia Field, RN) FHR Baseline Rate : 145 (Julia Field, RN) Variability: Moderate 6-25 bpm (Julia Field, RN) Accelerations: None (Julia Field, RN) Decelerations: None (Julia Field, RN) Pitocin (milliunit): Pitocin Remains (milliunits) @ 8 (Julia Field, RN) Datetime: 10/05/2016 02:23 NBP Sys/[place]/Mean (mmHg): 155 (QS system process) : 79 (QS system process) : 106 (QS system process) Pulse: 146 (QS system process) LaborFlag: Labor (QS system process) Datetime: 10/05/2016 02:15 Monitor Mode: External; Palpation (Julia , RN) Frequency (min): 1-2 (Julia , RN) Quality: Moderate to Strong (Julia Field, RN) Duration (sec): 40-50 (Julia Field, RN) Resting Tone (Palpate): Relaxed (Julia Field, RN) Monitor Mode: External US (Julia Field, RN) FHR Baseline Rate : 155 (Julia Field, RN) Variability: Moderate 6-25 bpm (Julia Field, RN) Accelerations: None (Julia Field, RN) Decelerations: None (Julia Field, RN) Pitocin (milliunit): Pitocin Remains (milliunits) @ 8 (Julia Field, RN) Datetime: 10/05/2016 02:00 Monitor Mode: External; Palpation (Julia Field, RN) Frequency (min): 1-2 (Julia Field, RN) Quality: Moderate (Julia Field, RN) Duration (sec): 40-50 (Julia Field, RN) Resting Tone (Palpate): Relaxed (Julia Field, RN) Monitor Mode: External US (Julia Field, RN) FHR Baseline Rate : 145 (Julia Field, RN) Variability: Moderate 6-25 bpm (Julia Field, RN) Accelerations: 15X15 (Julia Field, RN) Decelerations: None (Julia Field, RN) Pitocin (milliunit): Pitocin Remains (milliunits) @ 8 (Julia Field, RN) Datetime: 10/05/2016 01:53 NBP Sys/[place]/Mean (mmHg): 179 (QS system process) : 87 (QS system process) : 123 (QS system process) Pulse: 104 (QS system process) LaborFlag: Labor (QS system process) Datetime: 10/05/2016 01:45 Monitor Mode: External; Palpation (Julia Field, RN) Frequency (min): 1-2 (Julia Field, RN) Quality: Moderate (Julia Field, RN) Duration (sec): 40-50 (Julia Field, RN) Resting Tone (Palpate): Relaxed (Julia Field, RN) Monitor Mode: External US (Julia Field, RN) FHR Baseline Rate : 135 (Julia Field, RN) Variability: Moderate 6-25 bpm (Julia Field, RN) Accelerations: 10X10 (Julia Field, RN) Decelerations: None (Julia Field, RN) Pitocin (milliunit): Pitocin Remains (milliunits) @ 8 (Julia Field, RN) Datetime: 10/05/2016 01:43 Stage 2 Comments: Tug of War (Julia Field, RN) Datetime: 10/05/2016 01:30 Monitor Mode: External; Palpation (Julia Field, RN) Frequency (min): 2-3 (Julia Field, RN) Quality: Moderate (Julia Field, RN) Duration (sec): 50-60 (Julia Field, RN) Resting Tone (Palpate): Relaxed (Julia Field, RN) Monitor Mode: External US (Julia Field, RN) FHR Baseline Rate : 145 (Julia Field, RN) Variability: Moderate 6-25 bpm (Julia Field, RN) Accelerations: 10X10 (Julia Field, RN) Decelerations: None (Julia Field, RN) Pitocin (milliunit): Pitocin Remains (milliunits) @ 8 (Julia Field, RN) Datetime: 10/05/2016 01:24 Pushing: Coached on Pushing (Julia Field, RN) Pushing Position: Pushing with Contractions (Juila Field, RN) Pushing Progress: Descent with Pushing (Julia Field, RN) Datetime: 10/05/2016 01:17 Pushing: Coached on Pushing; Urge to Push (Julia Field, RN) Pushing Position: Pushing with Contractions (Julia Field, RN) Datetime: 10/05/2016 01:15 Monitor Mode: External; Palpation (Julia Field, RN) Frequency (min): 1.5-3 (Julia Field, RN) Quality: Moderate (Julia Field, RN) Duration (sec): 60-90 (Julia Field, RN) Resting Tone (Palpate): Relaxed (Julia Field, RN) Monitor Mode: External US (Julia Field, RN) FHR Baseline Rate : 145 (Julia Field, RN) Variability: Moderate 6-25 bpm (Julia Field, RN) Accelerations: 15X15 (Julia Field, RN) Decelerations: None (Julia Field, RN) Pitocin (milliunit): Pitocin Remains (milliunits) @ 8 (Julia Field, RN) Datetime: 10/05/2016 01:11 Dilatation (cm): 10.0 (Connie Lattibeaudeir, RN) Exam by: Dr. Venegas (Connie Lattibeaudeir, RN) Membrane Status: Ruptured (Connie Lattibeaudeir, RN) Datetime: 10/05/2016 01:00 Monitor Mode: External; Palpation (Julia Montes De Oca, RN) Frequency (min): 1.5-2 (Julia Montes De Oca, RN) Quality: Moderate (Julia Montes De Oca, RN) Duration (sec): 80-100 (Julia Field, RN) Resting Tone (Palpate): Relaxed (Julia Field, RN) Monitor Mode: External US (Julia Field, RN) FHR Baseline Rate : 145 (Julia Field, RN) Variability: Moderate 6-25 bpm (Julia Field, RN) Accelerations: 10X10 (Julia Field, RN) Decelerations: None (Julia Field, RN) Pitocin (milliunit): Pitocin Remains (milliunits) @ 8 (Julia Field, RN) Datetime: 10/05/2016 00:53 NBP Sys/[place]/Mean (mmHg): 172 (QS system process) : 97 (QS system process) : 128 (QS system process) Pulse: 96 (QS system process) LaborFlag: Labor (QS system process) Datetime: 10/05/2016 00:45 Monitor Mode: External; Palpation (Julia Montes De Oca RN) Frequency (min): 2.5-3 (Julia Montes De Oca RN) Quality: Moderate (Julia Montes De Oca RN) Duration (sec): 60-100 (Julia Montes De Oca RN) Resting Tone (Palpate): Relaxed (Julia Montes De Oca RN) Monitor Mode: External US (Julia Montes De Oca RN) FHR Baseline Rate : 140 (Julia Montes De Oca RN) Variability: Moderate 6-25 bpm (Julia Montes De Oca RN) Accelerations: 15X15 (Julia Montes De Oca RN) Decelerations: None (Julia Montes De Oca RN) Pitocin (milliunit): Pitocin Remains (milliunits) @ 8 (Julia Montes De Oca RN) Communication: RN Reviewed Strip; Call/Page Placed to Provider (Julia Montes De Oca RN) Communication Comments: Informed Dr. Venegas of vag exam; Dr. Venegas is on her way in (Julia Montes De Oca RN) Datetime: 10/05/2016 00:42 Dilatation (cm): 9.5 (Julia Field, RN) Effacement (%): 100 (Julia Field, RN) Station: 1 (Julia Montes De Oca, RN) Exam by: ORTIZ Roger (Julia Field, RN) Datetime: 10/05/2016 00:30 Monitor Mode: External; Palpation (Julia Field, RN) Frequency (min): 2-3 (Julia Montes De Oca, RN) Quality: Moderate (Julia Field, RN) Duration (sec): 70-100 (Julia Field, RN) Resting Tone (Palpate): Relaxed (Julia Field, RN) Monitor Mode: External US (Julia Field, RN) FHR Baseline Rate : 145 (Julia Field, RN) Variability: Moderate 6-25 bpm (Julia Field, RN) Accelerations: 10X10 (Julia Field, RN) Decelerations: None (Julia Field, RN) Pitocin (milliunit): Pitocin Increased to (milliunits) @ 8 (Julia Field, RN) Datetime: 10/05/2016 00:23 NBP Sys/[place]/Mean (mmHg): 142 (QS system process) : 88 (QS system process) : 111 (QS system process) Pulse: 75 (QS system process) LaborFlag: Labor (QS system process) Datetime: 10/05/2016 00:15 Monitor Mode: External; Palpation (Julia Montes De Oca RN) Frequency (min): 1.5-2.5 (Julia Montes De Oca RN) Quality: Moderate (Julia Montes De Oca RN) Duration (sec): 50-100 (Julia Montes De Oca RN) Resting Tone (Palpate): Relaxed (Julia Montes De Oca RN) Monitor Mode: External US (Julia Montes De Oca RN) FHR Baseline Rate : 135 (Julia Montes De Oca RN) Variability: Moderate 6-25 bpm (Julia Montes De Oca RN) Accelerations: 15X15 (Julia Montes De Oca RN) Decelerations: None (Julia Montes De Oca RN) Dilatation (cm): 7.5 (Julia Montes De Oca RN) Effacement (%): 80 (Julia Montes De Oca RN) Station: 0 (Julia Montes De Oca RN) Exam by: ORTIZ Roger (Julia Montes De Oca RN) Pitocin (milliunit): Pitocin Remains (milliunits) @ 6 (Julia Field, RN) Datetime: 10/05/2016 00:00 Monitor Mode: External; Palpation (Julia Montes De Oca, RN) Frequency (min): 2-4 (Julia Montes De Oca, RN) Quality: Mild/Moderate (Julia Field, RN) Duration (sec): 50-80 (Julia Field, RN) Resting Tone (Palpate): Relaxed (Julia Field, RN) Monitor Mode: External US (Julia Field, RN) FHR Baseline Rate : 145 (Julia Field, RN) Variability: Moderate 6-25 bpm (Julia Field, RN) Accelerations: 10X10 (Julia Field, RN) Decelerations: None (Julia Field, RN) Pitocin (milliunit): Pitocin Increased to (milliunits) @ 6 (Julia Field, RN) Datetime: 10/04/2016 23:54 NBP Sys/[place]/Mean (mmHg): 138 (QS system process) : 88 (QS system process) : 108 (QS system process) Pulse: 75 (QS system process) LaborFlag: Labor (QS system process) Datetime: 10/04/2016 23:45 Monitor Mode: External; Palpation (Julia Field, RN) Frequency (min): 3.5-4.5 (Julia Field, RN) Quality: Mild/Moderate (Julia Field, RN) Duration (sec): 70-90 (Julia Field, RN) Resting Tone (Palpate): Relaxed (Julia Field, RN) Monitor Mode: External US (Julia Field, RN) FHR Baseline Rate : 140 (Julia Field, RN) Variability: Moderate 6-25 bpm (Julia Field, RN) Accelerations: 10X10 (Julia Field, RN) Decelerations: None (Julia Field, RN) Pitocin (milliunit): Pitocin Remains (milliunits) @ 4 (Julia Field, RN) Datetime: 10/04/2016 23:33 Patient Position/Activity: Peanut Ball; Right Extreme (Julia Field, RN) Datetime: 10/04/2016 23:30 Monitor Mode: External; Palpation (Julia Field, RN) Frequency (min): 3-3.5 (Julia Field, RN) Quality: Mild/Moderate (Julia Field, RN) Duration (sec): 60-100 (Julia Field, RN) Resting Tone (Palpate): Relaxed (Julia Field, RN) Monitor Mode: External US (Julia Field, RN) FHR Baseline Rate : 135 (Julia Field, RN) Variability: Moderate 6-25 bpm (Julia Field, RN) Accelerations: 15X15 (Julia Field, RN) Decelerations: None (Julia Field, RN) Pitocin (milliunit): Pitocin Increased to (milliunits) @ 4 (Julia Field, RN) Datetime: 10/04/2016 23:23 NBP Sys/[place]/Mean (mmHg): 122 (QS system process) : 70 (QS system process) : 91 (QS system process) Pulse: 68 (QS system process) LaborFlag: Labor (QS system process) Datetime: 10/04/2016 23:15 Monitor Mode: External; Palpation (Julia Field, RN) Monitor Interventions for UA: [place] Adjusted (Julia Field, RN) Frequency (min): x1 (Julia Field, RN) Quality: Mild/Moderate (Julia Field, RN) Duration (sec): 60 (Julia Field, RN) Resting Tone (Palpate): Relaxed (Julia Field, RN) Monitor Mode: External US (Julia Field, RN) Monitor Interventions for FHR: Ultrasound Adjusted (Julia Field, RN) FHR Baseline Rate : 145 (Julia Field, RN) Variability: Moderate 6-25 bpm (Julia Field, RN) Pitocin (milliunit): Pitocin Remains (milliunits) @ 2 (Julia Field, RN) Datetime: 10/04/2016 23:00 Monitor Mode: External; Palpation (Julia Field, RN) Frequency (min): 4-5.5 (Julia Field, RN) Quality: Mild/Moderate (Julia Field, RN) Duration (sec): 60-120 (Julia Field, RN) Resting Tone (Palpate): Relaxed (Julia Field, RN) Monitor Mode: External US (Julia Field, RN) FHR Baseline Rate : 150 (Julia Field, RN) Variability: Moderate 6-25 bpm (Julia Field, RN) Accelerations: 15X15 (Julia Field, RN) Decelerations: Late (Julia Field, RN) Patient Position/Activity: Left Lateral; Peanut Ball (Julia Field, RN) Datetime: 10/04/2016 22:55 Pitocin (milliunit): Pitocin Started (milliunits) @ 2; Pitocin 20 Units in 1000ml NS (Julia Field, RN) Datetime: 10/04/2016 22:53 NBP Sys/[place]/Mean (mmHg): 135 (QS system process) : 84 (QS system process) : 105 (QS system process) Pulse: 73 (QS system process) LaborFlag: Labor (QS system process) Datetime: 10/04/2016 22:50 Communication: RN Reviewed Strip; Provider Orders Received; Call/Page Placed to Provider (Julia Montes De Oca RN) Communication Comments: Informed Venegas of vag exam; orders received to restart pitocin (Julia Montes De Oca RN) Datetime: 10/04/2016 22:46 Temperature (F): 98.7 (Julia Montes De Oca RN) Temperature (C): 37.1 (QS system process) Dilatation (cm): 5.0 (Julia Montes De Oca RN) Effacement (%): 80 (Julia Montes De Oca RN) Station: -1 (Julia Montes De Oca RN) Exam by: ORTIZ Roger (Julia Montes De Oca RN) LaborFlag: Labor (QS system process) Datetime: 10/04/2016 22:30 Monitor Mode: External; Palpation (Julia Field, RN) Frequency (min): 3.5-6 (Julia Field, RN) Quality: Mild/Moderate (Julia Field, RN) Duration (sec): 80-120 (Julia Field, RN) Resting Tone (Palpate): Relaxed (Julia Field, RN) Monitor Mode: External US (Julia Field, RN) FHR Baseline Rate : 150 (Julia Field, RN) Variability: Moderate 6-25 bpm (Julia Field, RN) Accelerations: 15X15 (Julia Field, RN) Decelerations: None (Julia Field, RN) Datetime: 10/04/2016 22:24 NBP Sys/[place]/Mean (mmHg): 124 (QS system process) : 82 (QS system process) : 99 (QS system process) Pulse: 86 (QS system process) LaborFlag: Labor (QS system process) Datetime: 10/04/2016 22:00 Monitor Mode: External; Palpation (Julia Field, RN) Frequency (min): 3.5-5.5 (Julia Field, RN) Quality: Mild/Moderate (Julia Field, RN) Duration (sec): 60-100 (Julia Field, RN) Resting Tone (Palpate): Relaxed (Julia Field, RN) Monitor Mode: External US (Julia Field, RN) FHR Baseline Rate : 145 (Julia Field, RN) Variability: Moderate 6-25 bpm (Julia Field, RN) Accelerations: 15X15 (Julia Field, RN) Decelerations: None (Julia Field, RN) Datetime: 10/04/2016 21:53 NBP Sys/[place]/Mean (mmHg): 132 (QS system process) : 70 (QS system process) : 95 (QS system process) Pulse: 86 (QS system process) LaborFlag: Labor (QS system process) Datetime: 10/04/2016 21:30 Monitor Mode: External; Palpation (Julia Field, RN) Frequency (min): 3-6 (Julia Field, RN) Quality: Mild/Moderate (Julia Field, RN) Duration (sec): 80-100 (Julia Field, RN) Resting Tone (Palpate): Relaxed (Julia Field, RN) Monitor Mode: External US (Julia Field, RN) FHR Baseline Rate : 150 (Julia Field, RN) Variability: Moderate 6-25 bpm (Julia Field, RN) Accelerations: 15X15 (Julia Field, RN) Decelerations: None (Julia Field, RN) Datetime: 10/04/2016 21:22 NBP Sys/[place]/Mean (mmHg): 129 (QS system process) : 76 (QS system process) : 98 (QS system process) Pulse: 105 (QS system process) LaborFlag: Labor (QS system process) Datetime: 10/04/2016 21:18 NBP Sys/[place]/Mean (mmHg): 159 (QS system process) : 72 (QS system process) : 103 (QS system process) Pulse: 102 (QS system process) LaborFlag: Labor (QS system process) Datetime: 10/04/2016 21:13 NBP Sys/[place]/Mean (mmHg): 127 (QS system process) : 87 (QS system process) : 103 (QS system process) Pulse: 90 (QS system process) LaborFlag: Labor (QS system process) Datetime: 10/04/2016 21:06 NBP Sys/[place]/Mean (mmHg): 133 (QS system process) : 75 (QS system process) : 100 (QS system process) Pulse: 90 (QS system process) LaborFlag: Labor (QS system process) Datetime: 10/04/2016 21:05 NBP Sys/[place]/Mean (mmHg): 141 (QS system process) : 73 (QS system process) : 102 (QS system process) Pulse: 85 (QS system process) LaborFlag: Labor (QS system process) Datetime: 10/04/2016 21:04 NBP Sys/[place]/Mean (mmHg): 141 (QS system process) : 74 (QS system process) : 100 (QS system process) Pulse: 96 (QS system process) LaborFlag: Labor (QS system process) Datetime: 10/04/2016 21:03 NBP Sys/[place]/Mean (mmHg): 154 (QS system process) : 82 (QS system process) : 111 (QS system process) Pulse: 117 (QS system process) I/O Interventions: [place] Cath Inserted (Julia Montes De Oca RN) LaborFlag: Labor (QS system process) Datetime: 10/04/2016 21:02 NBP Sys/[place]/Mean (mmHg): 148 (QS system process) : 78 (QS system process) : 105 (QS system process) Pulse: 105 (QS system process) LaborFlag: Labor (QS system process) Datetime: 10/04/2016 21:01 NBP Sys/[place]/Mean (mmHg): 147 (QS system process) : 74 (QS system process) : 105 (QS system process) Pulse: 93 (QS system process) LaborFlag: Labor (QS system process) Datetime: 10/04/2016 21:00 NBP Sys/[place]/Mean (mmHg): 141 (QS system process) : 84 (QS system process) : 107 (QS system process) Pulse: 94 (QS system process) Monitor Mode: External; Palpation (Julia Montes De Oca, RN) Frequency (min): x1 (Julia Montes De Oca, RN) Quality: Mild/Moderate (Julia Field, RN) Duration (sec): 80 (Julia , RN) Resting Tone (Palpate): Relaxed (Julia Montes De Oca, RN) Contraction Comments: sitting up for epidural (Julia Montes De Oca, RN) Monitor Mode: External US (Julia Montes De Oca, RN) FHR Baseline Rate : 150 (Julia Field, RN) Variability: Moderate 6-25 bpm (Julia Field, RN) Accelerations: 15X15 (Julia Field, RN) Decelerations: None (Julia Field, RN) LaborFlag: Labor (QS system process) Datetime: 10/04/2016 20:59 NBP Sys/[place]/Mean (mmHg): 140 (QS system process) : 87 (QS system process) : 109 (QS system process) Pulse: 107 (QS system process) Anesthesia Level Check: T10- Umbilicus (Julia Montes De Oca, RN) LaborFlag: Labor (QS system process) Datetime: 10/04/2016 20:58 NBP Sys/[place]/Mean (mmHg): 140 (QS system process) : 83 (QS system process) : 104 (QS system process) Pulse: 103 (QS system process) LaborFlag: Labor (QS system process) Datetime: 10/04/2016 20:57 NBP Sys/[place]/Mean (mmHg): 161 (QS system process) : 79 (QS system process) : 112 (QS system process) Pulse: 106 (QS system process) LaborFlag: Labor (QS system process) Datetime: 10/04/2016 20:55 NBP Sys/[place]/Mean (mmHg): 166 (QS system process) : 79 (QS system process) : 114 (QS system process) Pulse: 105 (QS system process) LaborFlag: Labor (QS system process) Datetime: 10/04/2016 20:54 NBP Sys/[place]/Mean (mmHg): 155 (QS system process) : 83 (QS system process) : 113 (QS system process) Pulse: 105 (QS system process) Pulse: 112 (QS system process) SpO2 (%): 100 (QS system process) LaborFlag: Labor (QS system process) Datetime: 10/04/2016 20:53 NBP Sys/[place]/Mean (mmHg): 155 (QS system process) : 100 (QS system process) : 122 (QS system process) Pulse: 103 (QS system process) LaborFlag: Labor (QS system process) Datetime: 10/04/2016 20:52 Epidural Procedure: Cath Placed; Test Dose (Malika Jael, RN) Datetime: 10/04/2016 20:49 Pulse: 98 (QS system process) SpO2 (%): 100 (QS system process) LaborFlag: Labor (QS system process) Datetime: 10/04/2016 20:44 Pulse: 94 (QS system process) SpO2 (%): 100 (QS system process) LaborFlag: Labor (QS system process) Datetime: 10/04/2016 20:42 Procedure Verify: Correct Patient Identity; Correct Side and Site are Marked; Accurate Procedure Consent Form; Agreement on Procedure to be Done; Correct Patient Position; Relevant Images and Results are Properly Labeled and Displayed; Addressed Need to Administer Antibiotics or Fluids for Irrigation; Safety Precautions Based on Patient History or Medication Use (Malika Elder RN) Anesthesia Plans: Epidural (Malika Elder RN) Epidural Positioning: Sitting (Malika Elder RN) Anesthesia Comments: Dr Forde at bedside (Malika Elder RN) Datetime: 10/04/2016 20:39 Procedure Verify: Correct Patient Identity; Correct Side and Site are Marked; Accurate Procedure Consent Form; Agreement on Procedure to be Done; Correct Patient Position; Relevant Images and Results are Properly Labeled and Displayed; Addressed Need to Administer Antibiotics or Fluids for Irrigation; Safety Precautions Based on Patient History or Medication Use (Julia Montes De Oca RN) Anesthesia Plans: Epidural (Julia Montes De Oca RN) Epidural Positioning: Sitting (Julia Montes De Oca RN) Datetime: 10/04/2016 20:30 Monitor Mode: External; Palpation (Julia Field, RN) Frequency (min): x2 (Julia Field, RN) Quality: Mild/Moderate (Juila Field, RN) Duration (sec): 100 (Julia Field, RN) Resting Tone (Palpate): Relaxed (Julia Field, RN) Monitor Mode: External US (Julia Field, RN) FHR Baseline Rate : 145 (Julia Field, RN) Variability: Moderate 6-25 bpm (Julia Field, RN) Accelerations: 15X15 (Julia Field, RN) Decelerations: None (Julia Field, RN) Datetime: 10/04/2016 20:25 NBP Sys/[place]/Mean (mmHg): 181 (QS system process) : 84 (QS system process) : 120 (QS system process) Pulse: 90 (QS system process) LaborFlag: Labor (QS system process) Datetime: 10/04/2016 20:20 Procedure Verify: Correct Patient Identity; Correct Side and Site are Marked; Accurate Procedure Consent Form; Agreement on Procedure to be Done (Julia Montes De Oca, RN) Anesthesia Plans: Epidural (Julia Montes De Oca, RN) Datetime: 10/04/2016 20:09 I/O Interventions: Up to BR (Julia Montes De Oca, RN) Datetime: 10/04/2016 20:06 Communication: RN Reviewed Strip; Provider Orders Received; Call/Page Placed to Provider (Julia Montes De Oca RN) Communication Comments: Informed Dr. Venegas of patient's status and complaint of pain 4 out of 5; orders received for epidural (Julia Montes De Oca, RN) Datetime: 10/04/2016 20:01 Pain Scale: 4 (Julia Montes De Oca, ORTIZ) Pain Presence: Intermittent (Julia Montes De Oca, RN) Pain Type: Cramping; Contraction (Julia Montes De Oca, RN) Pain Location: Abdomen (Julia Montes De Oca, RN) Pain Goal: 0 (Julia Montes De Oca, RN) Pain Coping: Talking Through Contractions; Breathing Through Contractions; Requesting Pain Medication or Epidural (Julia Montes De Oca RN) LaborFlag: Labor (QS system process) Datetime: 10/04/2016 20:00 NBP Sys/[place]/Mean (mmHg): 160 (QS system process) : 91 (QS system process) : 119 (QS system process) Pulse: 75 (QS system process) Monitor Mode: External; Palpation (Julia Montes De Oca, RN) Frequency (min): 3-4 (Julia Montes De Oca, RN) Quality: Mild/Moderate (Julia Montes De Oca, RN) Duration (sec): 60-80 (Julia Montes De Oca, RN) Resting Tone (Palpate): Relaxed (Julia Montes De Oca, RN) Monitor Mode: External US (Julia Montes De Oca, RN) FHR Baseline Rate : 140 (Julia Montes De Oca, RN) Variability: Moderate 6-25 bpm (Julia Montes De Oca, RN) Accelerations: 15X15 (Julia Montes De Oca, RN) Decelerations: None (Julia Montes De Oca, RN) LaborFlag: Labor (QS system process) Datetime: 10/04/2016 19:58 NBP Sys/[place]/Mean (mmHg): 185 (QS system process) : 102 (QS system process) : 136 (QS system process) Pulse: 78 (QS system process) LaborFlag: Labor (QS system process) Datetime: 10/04/2016 19:55 NBP Sys/[place]/Mean (mmHg): 178 (QS system process) : 96 (QS system process) : 127 (QS system process) Pulse: 81 (QS system process) LaborFlag: Labor (QS system process) Datetime: 10/04/2016 19:36 I/O Interventions: Up to BR ([facility], RN) Datetime: 10/04/2016 19:31 Level of Consciousness: Fully Conscious (Julia Field, RN) DTR's/Clonus: DTRs 2+; No Clonus (Julia Field, RN) Headache: Denies (Julia Field, RN) Breath Sounds, Left: Clear and Equal (Julia Field, RN) Breath Sounds, Right: Clear and Equal (Julia Field, RN) Nausea/Vomiting: Present (Juila Field, RN) RUQ Epigastric Pain: Denies (Julia Field, RN) Datetime: 10/04/2016 19:30 Monitor Mode: External; Palpation (Julia Field, RN) Frequency (min): 4.5-5.5 (Julia Field, RN) Quality: Mild/Moderate (Julia Field, RN) Duration (sec): 80-100 (Julia Field, RN) Resting Tone (Palpate): Relaxed (Julia Field, RN) Monitor Mode: External US (Julia Field, RN) FHR Baseline Rate : 145 (Julia Field, RN) Variability: Moderate 6-25 bpm (Julia Field, RN) Accelerations: 15X15 (Julia Field, RN) Decelerations: None (Julia Field, RN) Datetime: 10/04/2016 19:26 NBP Sys/[place]/Mean (mmHg): 170 (QS system process) : 86 (QS system process) : 118 (QS system process) Pulse: 84 (QS system process) LaborFlag: Labor (QS system process) Datetime: 10/04/2016 19:20 Communication Comments: Report given to rTan Montes De Oca RN (Ana M Gillespie, RN) Datetime: 10/04/2016 19:00 Respirations: 14 (Ana M Gillespie RN) Temperature (F): 99.0 (Ana M Gillespie RN) Temperature (C): 37.2 (QS system process) Monitor Mode: External (Ana M Gillespie RN) Frequency (min): x2 (Ana M Gillespie RN) Quality: Mild/Moderate (Ana M Gillespie RN) Duration (sec): 50-60 (Ana M Gillespie RN) Resting Tone (Palpate): Relaxed (Ana M Gillespie RN) Monitor Mode: External US (Ana M Gillespie RN) FHR Baseline Rate : 145 (Ana M Gillespie RN) Variability: Moderate 6-25 bpm (Ana M Gillespie RN) Accelerations: 15X15 (Ana M Gillespie RN) Decelerations: None (Ana M Gillespie RN) Cervical Ripening Agents: Cervidil; Cytotec @ (Connie Lawrence RN) Medication Comments: PO (Ana M Gillespie RN) LaborFlag: Labor (QS system process)
[2016-10-05] MEDS: DOCUSATE SODIUM 100 MG CAPSULE PO SCH ×2 (10:01→17:29)
[2016-10-05] MEDS: SENNOSIDES/DOCUSATE 8.6-50 MG 1 EACH TABLET PO SCH (10:01)
[2016-10-05] MEDS: FERROUS SULFATE 325 MG TABLET PO SCH ×2 (10:01→17:29)
[2016-10-05] MEDS: PRENATAL VITAMIN W-O CA NO5/FE FUMARATE/FA CAPSULE PO SCH (10:01)
[2016-10-06] MEDS: IBUPROFEN 800 MG TABLET PO SCH ×2 (05:13→14:53)
--- NOTE | 2016-10-06 06:11 | L&D General Admission ---
General Admit Datetime Report Generated by CPN: 10/06/2016 06:00 INFORMATION Patient Age: 21 (09/09/2016 13:56:QS system process) EDC: 10/19/2016 00:00 (09/27/2016 14:52:Ana M Gillespie RN) : 1 (09/27/2016 14:52:Ana M Gillespie RN) Para: 0 (09/30/2016 18:58:Claudia Durant RN) Term: 0 (09/27/2016 14:52:Claudia Durant RN) : 0 (09/27/2016 14:52:Claudia uDrant RN) Spontaneous Abortions: 0 (09/27/2016 14:52:Claudia Durant RN) Induced Abortions: 0 (09/27/2016 14:52:Claudia Durant RN) Livin (09/27/2016 14:52:Claudia Durant RN) Cesareans: 0 (09/27/2016 14:52:Claudia Durant RN) VBACs: 0 (09/27/2016 14:52:Claudia Durant RN) Ectopic: 0 (09/27/2016 14:52:Claudia Durant RN) Multiple Births: 0 (09/27/2016 14:52:Claudia Durant RN) Baby, Number in Womb: 1 (09/30/2016 18:58:Claudia Durant RN) CARE Primary Child Guidance Counselor: [facility] (09/27/2016 14:52:Ana M Gillespie RN) Month of 1st Visit: March 2016 (09/27/2016 14:52:Claudia Durant RN) Adequate Care: Yes (09/27/2016 14:52:Claudia Durant RN) Prepregnancy Weight (lb): 123 (09/27/2016 14:52:Claudia Durant RN) Prepregnancy Weight (kg): 55.9 (09/27/2016 14:52:QS system process) Height (in): 64 (10/05/2016 13:25:QS system process) ALLERGIES Medication Allergy: No (09/27/2016 14:52:Ana M Gillespie RN) Medication Allergies: shrimp (10/03/2016) (10/03/2016 20:21:QS system process) Latex Allergy: No Latex Allergies (09/27/2016 14:52:Ana M Gillespie RN) Food Allergies: shellfish, crawfish, shrimp (09/27/2016) (09/27/2016 14:52:Claudia Durant RN) Environmental Allergies: none (09/27/2016 14:52:Claudia Durant RN) COMMUNICATION Primary Language: Comoran (09/27/2016 14:52:Claudia Durant RN) Medical Tx Preferred Language: Comoran (09/27/2016 14:52:Claudia Durant RN) Communication Barrier(s): None (09/27/2016 14:52:Claudia Durant RN) DEMOGRAPHICS Address: [address] [place] [id number] (09/09/2016 13:56:QS system process) Zipcode: [address] (09/09/2016 13:56:QS system process) Home (09/09/2016 13:56:QS system process) SSN: [id number] (09/09/2016 13:56:QS system process) Next of Kin Name: ASHLEY PATE (09/09/2016 13:56:QS system process) Next of Kin (09/09/2016 13:56:QS system process) Next of Kin Relationship: SPO (09/09/2016 13:56:QS system process) Date of : 1995 (09/09/2016 13:56:QS system process) Marital Status: (09/09/2016 13:56:QS system process) Sex: Female (09/09/2016 13:56:QS system process) Race: Other (09/09/2016 13:56:QS system process) Ethnicity: or (09/09/2016 13:56:QS system process) Latter Day: None (09/09/2016 13:56:QS system process) DRUG AND ALCOHOL USE Alcohol: No (09/27/2016 14:52:Claudia Durant RN) Cigarettes: Never Smoker. [id number] (09/27/2016 14:52:Claudia Durant RN) Marijuana: No (09/27/2016 14:52:Claudia Durant RN) Cocaine: No (09/27/2016 14:52:Claudia Durant RN) Other Illicit Drugs: No (09/27/2016 14:52:Claudia Durant RN) VACCINE HISTORY Influenza Vaccine: Yes (09/27/2016 14:52:Claudia Durant RN) Influenza Date: 06/2016 (09/27/2016 14:52:Claudia Durant RN) Pneumococcal Vaccine: No (09/27/2016 14:52:Claudia Durant RN) Tetanus Vaccine: Yes (09/27/2016 14:52:Claudia Durant RN) Tetanus Date: 09/2016 (09/27/2016 14:52:Claudia Durant RN) Tdap Vaccine: Yes (09/27/2016 14:52:Claudia Durant RN) Tdap Date: 09/2016 (09/27/2016 14:52:Claudia Durant RN) Hepatitis B Vaccine: No (09/27/2016 14:52:Claudia Durant RN) Geriatric Physician: [facility] (09/27/2016 14:52:Ashley Steward RN) Feeding Preference: Breast (09/27/2016 14:52:Claudia Durant RN) Benefit of Breast Feed Discussed: Yes (09/27/2016 14:52:Ashley Steward RN) Circumcision: Yes (09/27/2016 14:52:Claudia Durant RN) Classes Attended: Yes (09/27/2016 14:52:Claudia Durant RN) Tubal Ligation: No (09/27/2016 14:52:Claudia Durant RN) Tubal Authorization Signed: N/A (09/27/2016 14:52:Claudia Durant RN) Consent: N/A (09/27/2016 14:52:Claudia Durant RN) Consent Signed: N/A (09/27/2016 14:52:Claudia Durant RN) Pain Management Plans: Epidural (09/27/2016 14:52:Ashley Steward RN) Plans for Labor and Delivery: None (09/27/2016 14:52:Ashley Steward RN) Support Person: Elie Pate (09/27/2016 14:52:Ashley Steward RN) Support Person Relationship: (09/27/2016 14:52:Ashley Steward RN) Cultural/Spritual Practice: No (09/27/2016 14:52:Claudia Durant RN) Spir/Cult Dietary Needs: No (09/27/2016 14:52:Claudia Durant RN) LIVING SITUATION/DISCHARGE PLAN Living Arrangements: House (09/27/2016 14:52:Claudia Durant RN) Adequate Access to:: Electric; Heat; Refrigeration; Plumbing/Running water; Phone; Transportation (09/27/2016 14:52:Claudia Durant RN) WIC Program: No (09/27/2016 14:52:Claudia Durant RN) Discharge Hydrogenation Operator Person: spouse (09/27/2016 14:52:Claudia Durant RN) Person to Help after Discharge: spouse (09/27/2016 14:52:Claudia Durant RN) Currently Using Commun Resources: No (09/27/2016 14:52:Claudia Durant RN) Outside Agency/Poultry Hatchery Supervisor: No (09/27/2016 14:52:Claudia Durant RN) Car Seat for Discharge: Yes (09/27/2016 14:52:Claudia Durant RN) Adoption Requested: No (09/27/2016 14:52:Claudia Durant RN) Pt Contact w/ Post : N/A (09/27/2016 14:52:Claudia Durant RN) LABS Blood Type: O Positive (09/27/2016 14:52:Ana M Gillespie RN) Antibody Screen: Negative (09/27/2016 14:52:Ana M Gillespie RN) Rho(G) this : Not Applicable (09/27/2016 14:52:Connie Lawrence RN) Hemoglobin: 12.4 (10/03/2016 20:29:QS system process) Hematocrit: 35.9 L (10/03/2016 20:29:QS system process) MCV: 91 (10/03/2016 20:29:QS system process) Group Beta Strep: Negative (09/27/2016 14:52:Ana M Gillespie RN) Gonorrhea: Negative (09/27/2016 14:52:Ana M Gillespie RN) Chlamydia: Negative (09/27/2016 14:52:Ana M Gillespie RN) Hepatitis B: Negative (09/27/2016 14:52:Ana M Gillespie RN) Rubella: Immune (09/27/2016 14:52:Ana M Gillespie RN) OB/PREVIOUS HISTORY Previous Procedures: None (09/27/2016 14:52:Connie Lawrence RN) Current Procedures: Ultrasound; NST (09/27/2016 14:52:Connie Lawrence RN) History of Previous : No (09/27/2016 14:52:Connie Lawrence RN) History of Gestational Diabetes: No (09/27/2016 14:52:Connie Lawrence RN) History of PIH: No (09/27/2016 14:52:Connie Lawrence RN) History of Incompetent Cervix: No (09/27/2016 14:52:Connie Lawrence RN) History of Placenta Previa/Abrup: No (09/27/2016 14:52:Connie Lawrence RN) History of Macrosomia: No (09/27/2016 14:52:Connie Lawrence RN) History of IUGR: No (09/27/2016 14:52:Connie Lawrence RN) History of Hemorrhage: No (09/27/2016 14:52:Connie Lawrence RN) History of Loss/Stillborn: No (09/27/2016 14:52:Connie Lawrence RN) History of : No (09/27/2016 14:52:Connie Lawrence RN) History of D (Rh) Sensitization: No (09/27/2016 14:52:Connie Lawrence RN) History Recurrent Loss/Stillborn: No (09/27/2016 14:52:Connie Lawrence RN) History Depression/PP Depression: No (09/27/2016 14:52:Connie Lawrence RN) History of Uterine Anomaly/WILL: No (09/27/2016 14:52:Connie Lawrence RN) History of Infertility: No (09/27/2016 14:52:Connie Lawrence RN) History of ART Treatment: No (09/27/2016 14:52:Connie Lawrence RN) History of WILL: No (09/27/2016 14:52:Connie Lawrence RN) Comments Obstetrical History: G1-Current (09/27/2016 14:52:Connie Lawrence RN) MEDICAL HISTORY Med Hx Diabetes: No (09/27/2016 14:52:Connie Lawrence RN) Med Hx Hypertension: No (09/27/2016 14:52:Connie Lawrence RN) Med Hx Heart Disease: No (09/27/2016 14:52:Connie Lawrence RN) Med Hx Autoimmune Disorder: No (09/27/2016 14:52:Connie Lawrence RN) Med Hx Kidney Disease/UTI: No (09/27/2016 14:52:Connie Lawrence RN) Med Hx Neurologic/Epilepsy: No (09/27/2016 14:52:Connie Lawrence RN) Med Hx Psychiatric Disorders: No (09/27/2016 14:52:Connie Lawrence RN) Med Hx Hepatitis/Liver Disease: No (09/27/2016 14:52:Connie Lawrence RN) Med Hx Varicosities/Phlebitis: No (09/27/2016 14:52:Connie Lawrence RN) Med Hx Thyroid Dysfunction: No (09/27/2016 14:52:Connie Lawrence RN) Med Hx Trauma/Violence: No (09/27/2016 14:52:Connie Lawrence RN) Med Hx Blood Transfusion: No (09/27/2016 14:52:Connie Lawrence RN) Med Hx Pulmonary (Asthma,TB): No (09/27/2016 14:52:Connie Lawrence RN) Med Hx Breast: No (09/27/2016 14:52:Connie Lawrence RN) Med Hx ASSISTANT PROFESSOR OF ECONOMICS Surgery: No (09/27/2016 14:52:Connie Lawrence RN) Med Hx Hospitalization/Surgery: Yes (09/27/2016 14:52:Ana M Gillespie RN) Med Hx Anesthetic Complications: No (09/27/2016 14:52:Connie Lawrence RN) Med Hx Abnormal Pap Smear: No (09/27/2016 14:52:Connie Lawrence RN) Other Medical Diseases: No (09/27/2016 14:52:Connie Lawrence RN) Med Hx Significant Family Hx: No (09/27/2016 14:52:Connie Lawrence RN) Details of Med/Surg Hx: tonsillectomy, tubes in ears L hip doesn't have full range of motion (09/27/2016 14:52:Ana M Gillespie RN) INFECTIOUS HISTORY Inf Hx Gonorrhea: No (09/27/2016 14:52:Connie Lawrence RN) Inf Hx Chlamydia: No (09/27/2016 14:52:Connie Lawrence RN) Inf Hx Syphilis: No (09/27/2016 14:52:Connie Lawrence RN) Inf Hx HIV/AIDS: No (09/27/2016 14:52:Connie Lawrence RN) Inf Hx Human Papilloma Virus: No (09/27/2016 14:52:Connie Lawrence RN) Inf Hx Pt/Partner Genital Herpes: No (09/27/2016 14:52:Connie Lawrence RN) Inf Hx Tuberculosis/Exposure: No (09/27/2016 14:52:Connie Lawrence RN) Inf Hx Hepatitis B,C: No (09/27/2016 14:52:Connie Lawrence RN) Inf Hx Rash or Viral Illness: No (09/27/2016 14:52:Connie Lawrence RN) GENETIC HISTORY Gen Hx Age >=35 at [place]: No (09/27/2016 14:52:Connie Lawrence RN) Gen Hx Thalassemia: No (09/27/2016 14:52:Connie Lawrence RN) Gen Hx Congenital Heart Defect: No (09/27/2016 14:52:Connie Lawrence RN) Gen Hx Neural Tube Defect: No (09/27/2016 14:52:Connie Lawrence RN) Gen Hx Down's Syndrome: No (09/27/2016 14:52:Connie Lawrence RN) Gen Hx John-Sachs: No (09/27/2016 14:52:Connie Lawrence RN) Gen Hx Marshall: No (09/27/2016 14:52:Connie Lawrence RN) Gen Hx Familial Dysautonomia: No (09/27/2016 14:52:Connie Lawrence RN) Gen Hx Sickle Cell Disease/Trait: No (09/27/2016 14:52:Connie Lawrence RN) Gen Hx Hemophilia/Blood Disorder: No (09/27/2016 14:52:Connie Lawrence RN) Gen Hx Muscular Dystrophy: No (09/27/2016 14:52:Connie Lawrence RN) Gen Hx Cystic Fibrosis: No (09/27/2016 14:52:Connie Lawrence RN) Gen Hx Huntingtons Chorea: No (09/27/2016 14:52:Connie Lawrence RN) Gen Hx Mental Retardation/Autism: No (09/27/2016 14:52:Connie Lawrence RN) Gen Hx Tested for Fragile X: No (09/27/2016 14:52:Connie Lawrence RN) Gen Hx Other Inher/Chromosomal: No (09/27/2016 14:52:Connie Lawrence RN) Gen Hx Maternal Metabolic DO: No (09/27/2016 14:52:Connie Lawrence RN) Gen Hx Pt Father or FOB Defect: No (09/27/2016 14:52:Connie Lawrence RN) Gen Hx Other Genetic History: No (09/27/2016 14:52:Connie Lawrence RN) Gen Hx Drugs/Meds since LMP: No (09/27/2016 14:52:Connie Lawrence RN)
--- NOTE | 2016-10-06 06:11 | L&D Current Admission ---
Current Admit Datetime Report Generated by CPN: 10/06/2016 06:00 ADMISSION INFORMATION Current Admit Date/Time: 10/04/2016 05:55 (10/03/2016 20:42:Ashley Steward RN) Reason for Admission: Induction of Labor (10/03/2016 20:42:Ashley Steward RN) Chief Complaint: Scheduled Induction of Labor (10/03/2016 20:42:Ashley Steward RN) Medications During : Ferrous Sulfate (Iron); Vitamin (10/03/2016 20:42:Ashley Steward RN) EGA per Dates: 37.6 (10/03/2016 20:42:QS system process) Reason for Induction: Gestational Hypertension (10/03/2016 20:42:Ashley Steward RN) Records Available: Yes (10/03/2016 20:42:Ashley Steward RN) General Admission Information: Reviewed; Confirmed (10/03/2016 20:42:Ashley Steward RN) General Admission Reviewed By: JAYDEN Todd (10/03/2016 20:42:Ashley Steward RN) BELONGINGS/ADVANCED DIRECTIVES Disposition of Belongings: Kept with Patient (10/03/2016 20:42:Ashley Stewadr RN) Advance Direct for Healthcare: No, and Wants No Information (10/03/2016 20:42:Ashley Steward RN) Durable Power of Clinical Informatics Spec: No (10/03/2016 20:42:Ashley Steward RN) Living Will: No (10/03/2016 20:42:Ashley Steward RN) Organ Donor: Yes (10/03/2016 20:42:Ashley Steward RN) Pt Rights Information Given: Yes (10/03/2016 20:42:Ashley Steward RN) Pt Understands Pt Rights: Yes (10/03/2016 20:42:Ashley Steward RN) Patient Rights Comments: Given in patient access (10/03/2016 20:42:Ashley Steward RN) LEARNING ASSESSMENT Knowledge Level: Understands L_D Process; Understands Care Activities (10/03/2016 20:42:Ashley Steward RN) Barriers to Learning: None (10/03/2016 20:42:Ashley Steward RN) Learning Readiness: Motivated (10/03/2016 20:42:Ashley Steward RN) Learns Best By: Reading; Videos (10/03/2016 20:42:Ashley Steward RN) Learning Needs: Labor and Delivery Process; Pain Management; Symptoms to Report (10/03/2016 20:42:Ashley Steward RN) DOMESTIC VIOLANCE SCREENING Dom Viol Threatened/Hurt: No (10/03/2016 20:42:Ashley Steward RN) Hx of Abuse/Neglect past 2yrs: No (10/03/2016 20:42:Ashley Steward RN) Feel Unsafe Going Home: No (10/03/2016 20:42:Ashley Steward RN) Addt'l Observ Indicating Abuse: No (10/03/2016 20:42:Ashley Steward RN) Reason Unable to Complete Screen: N/A, Screen Completed (10/03/2016 20:42:Ashley Steward RN) Considered Personal Harm/Suicide: No (10/03/2016 20:42:Ashley Steward RN) NUTRITIONAL/FUNCTIONAL SCREENING Problem with Appetite >5 Days: No (10/03/2016 20:42:Ashley Steward RN) Chew/Swallow Difficulties: No (10/03/2016 20:42:Ashely Steward RN) Inappropriate Wt Gain/Loss: No (10/03/2016 20:42:Ashley Steward RN) Presence Skin Breakdown/Ulcer: No (10/03/2016 20:42:Ashley Steward RN) Special Diet: No (10/03/2016 20:42:Ashley Steward RN) Pt Requests Nut Chopper Visit: No (10/03/2016 20:42:Ashley Steward RN) Hx of Any of the Following?: N/A (10/03/2016 20:42:Ashley Steward RN) New Diagnosis of: N/A (10/03/2016 20:42:Ashley Steward RN) Requires Assist w/Ambulation: No (10/03/2016 20:42:Ashley Steward RN) Uses Assist Device to Ambulate: No (10/03/2016 20:42:Ashley Steward RN) Pt Requires Help w/ADL's: No (10/03/2016 20:42:Ashley Steward RN)
--- NOTE | 2016-10-06 06:16 | L&D Care Plan ---
LD CARE PLANS Datetime Report Generated by CPCourtney: 10/06/2016 06:15 Datetime: 10/03/2016 20:54 State: Risk For (Connie Lawrence RN) Related To: Labor and Delivery Process; Treatment and Procedures; Post (Connie Lawrence RN) Goal(s): Patients Pain will be Assessed and Managed; Patient will Verbalize Adequate Relief of Pain or the Ability to [place] with Current Pain (Connie Lawrence RN) Interventions: Assess Pain Severity on Scale of 0 (None) to 5 (Severe); Assess Type, Location and Intensity of Pain Each Time Client Reports Discomfort and Notify Provider if Unusal Pain Develops; Encourage Proper Breathing and Relaxation Techniques; Offer Alternatives Such as Repositioning, Calm Environment, Massages, Diversional Activities, Ice Pack, Splinting, and Ambulation; Administer Analgesics as Ordered; Assist with Epidural Placement as Appropriate; Evaluate Therapeutic Effectiveness of Medication and Treatments (Connie Lawrence RN) Outcome: Patient will Report Absence or Relief of Pain Consistent with Established Pain Goal (Connie Lawrence RN) Status: Ongoing (Connie Lawrence RN) Outcome: Patient will have a Decrease in Signs and Symptoms of Discomfort (Connie Lawrence RN) Status: Ongoing (Connie Lawrence RN) Outcome: Pain will be Controlled During Procedures (Connie Lawrence RN) Status: Ongoing (Connie Lawrence RN) State: Risk For (Connie Lawrence RN) Related To: Labor and Delivery Process; Perceived or Actual Threat to ; Fear of Unknown; Situational Crisis; Significant Life Event (Cnonie Lawrence RN) Goal(s): Patient will have Decreased Anxiety and be able to Function at Acceptable Levels (Connie Lawrence RN) Interventions: Assess Verbal and Nonverbal Behavioral Indicators of Anxiety; Assist Patient to Identify and Verbalize Symptoms of Anxiety; Identify and Demonstrate Techniques to Control Anxiety; Assist Patient with Coping Mechanisms to Manage Anxiety; Provide Theraputic Touch for the Patient; Explain to Patient, Using a Calm Reassuring Approach and Nonmedical Terms, All Activities, Procedures, and Concerns; Instruct Patient and Family about Post Discharge Care, Limitations, Symptoms to Report and Resources Available (Connie Lawrence RN) Outcome: Patient will Identify, Verbalize and Demonstrate Techniques to Control Anxiety (Connie Lawrence RN) Status: Ongoing (Connie Lawrence RN) Outcome: Patient's Posture, Facial Expressions, Gestures and Activity Level will Reflect Decreased Anxiety (Connie Lawrence RN) Status: Ongoing (Connie Lawrence RN) Outcome: Patient will Verbalize a Sense of Control and/or Acceptance of the Situation (Connie Lawrence RN) Status: Ongoing (Connie Lawrence RN) Outcome: Patient will Identify and Utilize Support Person (Connie Lawrence RN) Status: Ongoing (Connie Lawrence RN) State: Actual (Connie Lawrence RN) Related To: Labor and Delivery Process; Treatment and Procedures; Impending Alterations in Family Dynamics; Community Resources and Available Support Mechanisms (Cnonie Lawrence RN) Goal(s): Patient will Accurately Verbalize Understanding of Plan of Care and Treatment; Patient and Family will Accurately Verbalize Understanding of the Disease Process (Connie Lawrence RN) Interventions: Assess Motivation and Willingness of Patient/Family to Learn; Assess Preferred Learning Mode: One to One Instruction, Reading, Videos, Group Discussion or Demonstration; Assess Barriers to Learning: Pain, Emotional State, Language Barrier, Cognitive Impairment, Visual or Hearing Deficits; Assess Patient and Family Knowledge of Disease Process, Medications and Treatment; Discuss Therapy and/or Treatment Options, Describe Rationale Behind Management, Therapy and Treatment Recommendations; Instruct Patient and Family on Signs and Symptoms to Report; Instruct Patient and Family on Medication Effects and Side Effects; Provide Appropriate and Timely Education Using Multiple Techniques; Provide Patient and Family with Support Group Information and Resources; Give Clear and Thorough Explanations and Demonstrations (Connie Lawrence RN) Outcome: Patient and Family will Verbalize Understanding of Condition, Treatment and Signs and Symptoms to Report (Connie Lawrence RN) Status: Ongoing (Connie Lawrence RN) Outcome: Patient will Identify Perceived Learning Needs and Express Motivation to Learn (Connie Lawrence RN) Status: Ongoing (Connie Lawrence RN) Outcome: Patient will Verbalize Understanding of Desired Content, and/or Performs Desired Skill Prior to Discharge (Connie Lawrence RN) Status: Ongoing (Connie Lawrence RN) State: Risk For (Connie Lawrence RN) Related To: Prolonged Labor or Induction; Invasive Procedures; Altered Tissue Integrity (Connie Lawrence RN) Goal(s): The Patient will be Free of Infection, Vital Signs Stable and Lab Work within Normal Parameters (Connie Lawrence RN) Interventions: Instruct and Reinforce Proper Handwashing, Hygiene, and Care Techniques to Patient and Family; Monitor Vital Signs; Monitor Patient for the Following Signs of Infection: Fever, Abdominal Tenderness, Unusual Discharge; Monitor Aminiotic Fluid, Urine and Lochia for Color and Odor; Observe Wounds, Incisions and Invasive Line Sites for Redness, Drainage and Edema; Assess IV Sites per Hospital Policy; Monitor Lab and Test Results and Notify Provider of Abnormal Findings; Assess Nutritional Status and Promote Good Nutrition (Connie Lawrence RN) Outcome: Patient will Remain Free of Infection (Connie Lawrence RN) Status: Ongoing (Connie Lawrence RN) Outcome: Infection will be Recognized Early to Allow for Prompt Treatment (Connie Lawrence RN) Status: Ongoing (Connie Lawrence RN) Outcome: Patient will have Vital Signs Within Expected Range (Connie Lawrence RN) Status: Ongoing (Connie Lawrence RN) State: Risk For (Connie Lawrence RN) Related To: Gestational Hypertension; Prolonged Labor or Induction (Connie Lawrence RN) Goal(s): Patient will Achieve and Maintain a Balanced Fluid Volume Status; Hemodynamically Stable (Connie Lawrence RN) Interventions: Monitor Vital Signs; Auscultate Breath Sounds; Monitor Patient for Skin Turgor, Mucous Membranes, Dry Skin, Weakness, Headaches and Confusion; Provide Oral Fluids as Ordered; Initiate and Maintain Intravenous Fluids as Ordered; Monitor Intake and Output as Indicated Per Patient Status; Accurately Measure Blood Loss; Monitor Lab and Test Results as Obtained and Notify Provider of Abnormal Findings; Monitor Patient's Weight (Cnonie Lawrence RN) Outcome: Patient will have Clear Lung Sounds (Connie Lawrence RN) Status: Ongoing (Connie Lawrence RN) Outcome: Patient will have Vital Signs within Expected Range (Connie Lawrence RN) Status: Ongoing (Connie Lawrence RN) Outcome: Urine Output will be within Expected Range (Connie Lawrence RN) Status: Ongoing (Connie Lawrence RN) Outcome: Patient will have Minimal Generalized or Upper Extremity Edema (Connie Lawrence RN) Status: Ongoing (Connie Lawrecne RN) State: Risk For (Connie Lawrence RN) Related To: Labor and Delivery Process; Gestational Hypertension or Eclampsia (Connie Lawrence RN) Goal(s): Patient will Remain Free from Injury (Connie Lawrence RN) Interventions: Monitoring as per Hospital Protocol; Assess Neurological Status; Perform Risk Assessment of Patients with Induction and ; Perform Fall Risk Assessment and Prevention per Hospital Protocol; Perform DVT Risk Assessment and Prophylaxis per Hospital Protocol; Ensure that Oxygen, Suction, and Resuscitation Medications and Equipment are Readily Available; Confirm Patient ID Prior to Procedure(s) and Medication Administration per Hospital Policy (Connie Lawrence RN) Outcome: Successful Fall Risk Prevention (Connie Lawrence RN) Status: Ongoing (Connie Lawrence RN) Outcome: Patient will Deliver Infant without Adverse Sequela (Connie Lawrence RN) Status: Ongoing (Connie Lawrence RN) Outcome: Patient's Neurological Status will Remain Stable (Connie Lawrence RN) Status: Ongoing (Connie Lawrence RN) State: Risk For (Connie Lawrence RN) Related To: Vaginal Delivery; Prolonged Bedrest; Altered Tissue Integrity; Invasive Procedures (Connie Lawrence RN) Goal(s): Patient will Maintain Optimal Skin Integrity, Free of Breakdown, Injury or Infection (Connie Lawrence RN) Interventions: Complete Screening for Pressure Ulcer Risk and Initiate Protocol per Hospital Policy; Monitor Site of Skin Impairment for Color Changes, Redness, Swelling, Warmth, Pain or Other Signs of Infection; Encourage and Assist with Position Changes; Monitor Patient's Mobility Status; Provide Adequate Nutrition and Fluids; Teach Patient Appropriate Hygienic Care; Teach Patient/Family Skin Care Management (Connie Lawrence RN) Outcome: Patient will not have Evidence of Injury Such as Skin Breakdown, Scrapes, Cuts, or Bruising (Connie Lawrence RN) Status: Ongoing (Connie Lawrence RN) Outcome: Patient will Report Any Altered Sensation or Pain at Site of Skin Impairment (Connie Lawrence RN) Status: Ongoing (Connie Lawrence RN) Outcome: Patients Incisions and Wounds will be without Signs or Symptoms of Infection (Connie Lawrence RN) Status: Ongoing (Connie Lawrence RN) Outcome: Patient will Demonstrate Understanding of Plan to Heal Skin and Prevent Reinjury and Verbalize Risk Factors (Connie Lawrence RN) Status: Ongoing (Connie Lawrence RN)
[2016-10-06 07:39] LABS: HEMATOCRIT 32.7 % (36.0-47.0); HEMOGLOBIN 11.3 g/dL (12.0-15.5); HGB HCT DIFFERENCE 1.2; MEAN CORPUSCULAR HEMOGLOBIN 31.3 pg (27.0-33.4); MEAN CORPUSCULAR HGB CONC 34.4 g/dL (32.0-36.0); MEAN CORPUSCULAR VOLUME 91 fl (80-97); RED BLOOD COUNT 3.61 10^6/uL (3.72-5.28); RED CELL DISTRIBUTION WIDTH 14.1 % (11.5-14.0); WHITE BLOOD COUNT 12.5 10^3/uL (4.0-10.5)
[2016-10-06] MEDS: SENNOSIDES/DOCUSATE 8.6-50 MG 1 EACH TABLET PO SCH (09:14)
[2016-10-06] MEDS: PRENATAL VITAMIN W-O CA NO5/FE FUMARATE/FA CAPSULE PO SCH (09:14)
[2016-10-06] MEDS: DOCUSATE SODIUM 100 MG CAPSULE PO SCH ×2 (09:14→18:26)
[2016-10-06] MEDS: FERROUS SULFATE 325 MG TABLET PO SCH ×2 (09:14→18:26)
[2016-10-06 12:24] VITALS: BP 143/89
--- NOTE | 2016-10-06 14:52 | PDOC DISCHARGE SUMMARY ---
Discharge Summary-OB Discharge Date: 10/06/16 - desires to be discharged today if baby can go as well - Final Diagnosis (1) Vaginal delivery Is this a current diagnosis for this admission?: Yes - Discharge Medication Home Medications: Pnv with Ca,No.72/Iron/FA [Pnv Plus Multivit Tab] 1 tab PO DAILY Ibuprofen [Motrin 800 mg Tablet] 800 mg PO Q8HP PRN #90 tablet 10/06/16 Reason(s) for Admission: Induction of Labor - GHTN Procedures: NST, Ultrasound Intrapartum Procedure(s): Spontaneous Vaginal Delivery - Diagnosis Test Laboratory: Temp Pulse Resp BP Pulse Ox 97.8 F 59 L 18 143/89 H 100 10/06/16 12:00 10/06/16 12:00 10/06/16 12:00 10/06/16 12:00 10/06/16 04:21 10/03/16 10/03/16 10/06/16 20:20 20:29 06:50 RBC 3.94 3.61 L Hgb 12.4 11.3 L Hct 35.9 L 32.7 L Urine Opiates Screen NEGATIVE - Discharge information/Instructions Discharge Activity: Activity As Tolerated, Balance Activity w/Rest, No Lifting Over 10 Pounds, Pelvic Rest, No tub bath Discharge Diet: As Tolerated, Regular Disposition: HOME, SELF-CARE Follow up with: [facility] in: 1, Weeks - BP check Physical Exam (OB) Vital Signs: Temp Pulse Resp BP Pulse Ox 97.8 F 59 L 18 143/89 H 100 10/06/16 12:00 10/06/16 12:00 10/06/16 12:00 10/06/16 12:00 10/06/16 04:21 - General General Appearance: Appears well In distress: None - PIH/Pre-Eclampsia DTR's: 1 + Clonus: Negative Headache: Absent Epigastric Pain: No Visual Changes: No - Episiotomy/Laceration Site Condition: N/A - Lochia Lochia Amount: Small 10-25 ml Lochia Color: Rubra/Red - Abdomen Description: Soft, Round Hernia Present: No Fundal Description: Firm, Midline Fundal Height: u/u - u/2 - Respiratory Respiratory Status: No respiratory distress - Neurological Cognition: Normal Orientation: AAOx4 - Psychological Associated symptoms: Normal affect, Normal mood
--- NOTE | 2016-10-07 06:16 | L&D General Admission ---
General Admit Datetime Report Generated by CPN: 10/07/2016 06:00 INFORMATION Patient Age: 21 (09/09/2016 13:56:QS system process) EDC: 10/19/2016 00:00 (09/27/2016 14:52:Ana M Gillespie RN) : 1 (09/27/2016 14:52:Ana M Gillespie RN) Para: 0 (09/30/2016 18:58:Claudia Durant RN) Term: 0 (09/27/2016 14:52:Claudia Durant RN) : 0 (09/27/2016 14:52:Claudia Durant RN) Spontaneous Abortions: 0 (09/27/2016 14:52:Claudia Durant RN) Induced Abortions: 0 (09/27/2016 14:52:Claudia Durant RN) Livin (09/27/2016 14:52:Claudia Durant RN) Cesareans: 0 (09/27/2016 14:52:Claudia Durant RN) VBACs: 0 (09/27/2016 14:52:Claudia Durant RN) Ectopic: 0 (09/27/2016 14:52:Claudia Durant RN) Multiple Births: 0 (09/27/2016 14:52:Claudia Durant RN) Baby, Number in Womb: 1 (09/30/2016 18:58:Claudia Durant RN) CARE Primary Furnace Packer: [employer] (09/27/2016 14:52:Ana M Gillespie RN) Month of 1st Visit: March 2016 (09/27/2016 14:52:Claudia Durant RN) Adequate Care: Yes (09/27/2016 14:52:Claudia Durant RN) Prepregnancy Weight (lb): 123 (09/27/2016 14:52:Claudia Durant RN) Prepregnancy Weight (kg): 55.9 (09/27/2016 14:52:QS system process) Height (in): 64 (10/06/2016 14:52:QS system process) ALLERGIES Medication Allergy: No (09/27/2016 14:52:Ana M Gillespie RN) Medication Allergies: shrimp (10/03/2016) (10/03/2016 20:21:QS system process) Latex Allergy: No Latex Allergies (09/27/2016 14:52:Ana M Gillespie RN) Food Allergies: shellfish, crawfish, shrimp (09/27/2016) (09/27/2016 14:52:Claudia Durant RN) Environmental Allergies: none (09/27/2016 14:52:Claudia Durant RN) COMMUNICATION Primary Language: [place] Korean (09/27/2016 14:52:Claudia Durant RN) Medical Tx Preferred Language: [place] (09/27/2016 14:52:Claudia Durant RN) Communication Barrier(s): None (09/27/2016 14:52:Claudia Durant RN) DEMOGRAPHICS Address: [address] [place] [id number] (09/09/2016 13:56:QS system process) Zipcode: [address] (09/09/2016 13:56:QS system process) Home (09/09/2016 13:56:QS system process) SSN: [id number] (09/09/2016 13:56:QS system process) Next of Kin Name: ASHLEY PATE (09/09/2016 13:56:QS system process) Next of Kin (09/09/2016 13:56:QS system process) Next of Kin Relationship: SPO (09/09/2016 13:56:QS system process) Date of : 1995 (09/09/2016 13:56:QS system process) Marital Status: (09/09/2016 13:56:QS system process) Sex: Female (09/09/2016 13:56:QS system process) Race: Other (09/09/2016 13:56:QS system process) Ethnicity: or (09/09/2016 13:56:QS system process) Mandaeism: None (09/09/2016 13:56:QS system process) DRUG AND ALCOHOL USE Alcohol: No (09/27/2016 14:52:Claudia Durant RN) Cigarettes: Never Smoker. [id number] (09/27/2016 14:52:Claudia Durant RN) Marijuana: No (09/27/2016 14:52:Claudia Durant RN) Cocaine: No (09/27/2016 14:52:Claudia Durant RN) Other Illicit Drugs: No (09/27/2016 14:52:Claudia Durant RN) VACCINE HISTORY Influenza Vaccine: Yes (09/27/2016 14:52:Claudia Durant RN) Influenza Date: 06/2016 (09/27/2016 14:52:Claudia Durant RN) Pneumococcal Vaccine: No (09/27/2016 14:52:Claudia Durant RN) Tetanus Vaccine: Yes (09/27/2016 14:52:Claudia Durant RN) Tetanus Date: 09/2016 (09/27/2016 14:52:Claudia Durant RN) Tdap Vaccine: Yes (09/27/2016 14:52:Claudia Durant RN) Tdap Date: 09/2016 (09/27/2016 14:52:Claudia Durant RN) Hepatitis B Vaccine: No (09/27/2016 14:52:Claudia Durant RN) 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 Lathe 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: [facility] (09/27/2016 14:52:Ashley Steward RN) Feeding Preference: Breast (09/27/2016 14:52:Claudia Durant RN) Benefit of Breast Feed Discussed: Yes (09/27/2016 14:52:Ashley Steward RN) Circumcision: Yes (09/27/2016 14:52:Claudia Durant RN) Classes Attended: Yes (09/27/2016 14:52:Claudia Durant RN) Tubal Ligation: No (09/27/2016 14:52:Claudia Durant RN) Tubal Authorization Signed: N/A (09/27/2016 14:52:Claudia Durant RN) Consent: N/A (09/27/2016 14:52:Claudia Durant RN) Consent Signed: N/A (09/27/2016 14:52:Claudia Durant RN) Pain Management Plans: Epidural (09/27/2016 14:52:Ashley Steward RN) Plans for Labor and Delivery: None (09/27/2016 14:52:Ashley Steward RN) Support Person: Elie Pate (09/27/2016 14:52:Ashley Steward RN) Support Person Relationship: (09/27/2016 14:52:Ashley Steward RN) Cultural/Spritual Practice: No (09/27/2016 14:52:Claudia Durant RN) Spir/Cult Dietary Needs: No (09/27/2016 14:52:Claudia Durant RN) LIVING SITUATION/DISCHARGE PLAN Living Arrangements: House (09/27/2016 14:52:Claudia Durant RN) Adequate Access to:: Electric; Heat; Refrigeration; Plumbing/Running water; Phone; Transportation (09/27/2016 14:52:Claudia Durant RN) WIC Program: No (09/27/2016 14:52:Claudia Durant RN) Discharge Social Security Benefits Interviewer Person: spouse (09/27/2016 14:52:Claudia Durant RN) Person to Help after Discharge: spouse (09/27/2016 14:52:Claudia Durant RN) Currently Using Commun Resources: No (09/27/2016 14:52:Claudia Durant RN) Outside Agency/Funeral Prearrangement Counselor: No (09/27/2016 14:52:Claudia Durant RN) Car Seat for Discharge: Yes (09/27/2016 14:52:Claudia Durant RN) Adoption Requested: No (09/27/2016 14:52:Claudia Durant RN) Pt Contact w/ Post : N/A (09/27/2016 14:52:Claudia Durant RN) LABS Blood Type: O Positive (09/27/2016 14:52:Ana M Gillespie RN) Antibody Screen: Negative (09/27/2016 14:52:Ana M Gillespie RN) Rho(G) this : Not Applicable (09/27/2016 14:52:Connie Lawrence RN) Hemoglobin: 11.3 L (10/06/2016 06:50:QS system process) Hematocrit: 32.7 L (10/06/2016 06:50:QS system process) MCV: 91 (10/06/2016 06:50:QS system process) Group Beta Strep: Negative (09/27/2016 14:52:Ana M Gillespie RN) Gonorrhea: Negative (09/27/2016 14:52:Ana M Gillespie RN) Chlamydia: Negative (09/27/2016 14:52:Ana M Gillespie RN) Hepatitis B: Negative (09/27/2016 14:52:Ana M Gillespie RN) Rubella: Immune (09/27/2016 14:52:Ana M Gillespie RN) OB/PREVIOUS HISTORY Previous Procedures: None (09/27/2016 14:52:Connie Lawrence RN) Current Procedures: Ultrasound; NST (09/27/2016 14:52:Connie Lawrence RN) History of Previous : No (09/27/2016 14:52:Connie Lawrence RN) History of Gestational Diabetes: No (09/27/2016 14:52:Connie Lawrence RN) History of PIH: No (09/27/2016 14:52:Connie Lawrence RN) History of Incompetent Cervix: No (09/27/2016 14:52:Connie Lawrence RN) History of Placenta Previa/Abrup: No (09/27/2016 14:52:Connie Lawrence RN) History of Macrosomia: No (09/27/2016 14:52:Connie Lawernce RN) History of IUGR: No (09/27/2016 14:52:Connie Lawrence RN) History of Hemorrhage: No (09/27/2016 14:52:Connie Lawrence RN) History of Loss/Stillborn: No (09/27/2016 14:52:Connie Lawrence RN) History of : No (09/27/2016 14:52:Connie Lawrence RN) History of D (Rh) Sensitization: No (09/27/2016 14:52:Connie Lawrence RN) History Recurrent Loss/Stillborn: No (09/27/2016 14:52:Connie Lawrence RN) History Depression/PP Depression: No (09/27/2016 14:52:Connie Lawrence RN) History of Uterine Anomaly/WILL: No (09/27/2016 14:52:Connie Lawrence RN) History of Infertility: No (09/27/2016 14:52:Connie Lawrence RN) History of ART Treatment: No (09/27/2016 14:52:Connie Lawrence RN) History of WILL: No (09/27/2016 14:52:Connie Lawrence RN) Comments Obstetrical History: G1-Current (09/27/2016 14:52:Connie Lawrence RN) MEDICAL HISTORY Med Hx Diabetes: No (09/27/2016 14:52:Connie Lawrence RN) Med Hx Hypertension: No (09/27/2016 14:52:Connie Lawrence RN) Med Hx Heart Disease: No (09/27/2016 14:52:Connie Lawrence RN) Med Hx Autoimmune Disorder: No (09/27/2016 14:52:Connie Lawrence RN) Med Hx Kidney Disease/UTI: No (09/27/2016 14:52:Connie Lawrence RN) Med Hx Neurologic/Epilepsy: No (09/27/2016 14:52:Connie Lawrence RN) Med Hx Psychiatric Disorders: No (09/27/2016 14:52:Connie Lawrence RN) Med Hx Hepatitis/Liver Disease: No (09/27/2016 14:52:Connie Lawrence RN) Med Hx Varicosities/Phlebitis: No (09/27/2016 14:52:Connie Lawrence RN) Med Hx Thyroid Dysfunction: No (09/27/2016 14:52:Connie Lawrence RN) Med Hx Trauma/Violence: No (09/27/2016 14:52:Connie Lawrence RN) Med Hx Blood Transfusion: No (09/27/2016 14:52:Connie Lawrence RN) Med Hx Pulmonary (Asthma,TB): No (09/27/2016 14:52:Connie Lawrence RN) Med Hx Breast: No (09/27/2016 14:52:Connie Lawrence RN) Med Hx CHICKEN FANCIER Surgery: No (09/27/2016 14:52:Connie Lawrence RN) Med Hx Hospitalization/Surgery: Yes (09/27/2016 14:52:Ana M Gillespie RN) Med Hx Anesthetic Complications: No (09/27/2016 14:52:Connie Lawrence RN) Med Hx Abnormal Pap Smear: No (09/27/2016 14:52:Connie Lawrence RN) Other Medical Diseases: No (09/27/2016 14:52:Connie Lawrence RN) Med Hx Significant Family Hx: No (09/27/2016 14:52:Connie Lawrence RN) Details of Med/Surg Hx: tonsillectomy, tubes in ears L hip doesn't have full range of motion (09/27/2016 14:52:Ana M Gillespie RN) INFECTIOUS HISTORY Inf Hx Gonorrhea: No (09/27/2016 14:52:Connie Lawrence RN) Inf Hx Chlamydia: No (09/27/2016 14:52:Connie Lawrence RN) Inf Hx Syphilis: No (09/27/2016 14:52:Connie Lawrence RN) Inf Hx HIV/AIDS: No (09/27/2016 14:52:Connie Lawrence RN) Inf Hx Human Papilloma Virus: No (09/27/2016 14:52:Connie Lawrence RN) Inf Hx Pt/Partner Genital Herpes: No (09/27/2016 14:52:Connie Lawrence RN) Inf Hx Tuberculosis/Exposure: No (09/27/2016 14:52:Connie Lawrence RN) Inf Hx Hepatitis B,C: No (09/27/2016 14:52:Connie Lawrence RN) Inf Hx Rash or Viral Illness: No (09/27/2016 14:52:Connie Lawrence RN) GENETIC HISTORY Gen Hx Age >=35 at MATTE[place]: No (09/27/2016 14:52:Connie Lawrence RN) Gen Hx Thalassemia: No (09/27/2016 14:52:Connie Lawrence RN) Gen Hx Congenital Heart Defect: No (09/27/2016 14:52:Connie Lawrence RN) Gen Hx Neural Tube Defect: No (09/27/2016 14:52:Connie Lawrence RN) Gen Hx Down's Syndrome: No (09/27/2016 14:52:Connie Lawrence RN) Gen Hx John-Sachs: No (09/27/2016 14:52:Connie Lawrence RN) Gen Hx Marshall: No (09/27/2016 14:52:Connie Lawrence RN) Gen Hx Familial Dysautonomia: No (09/27/2016 14:52:Connie Lawrence RN) Gen Hx Sickle Cell Disease/Trait: No (09/27/2016 14:52:Connie Lawrence RN) Gen Hx Hemophilia/Blood Disorder: No (09/27/2016 14:52:Connie Lawrence RN) Gen Hx Muscular Dystrophy: No (09/27/2016 14:52:Connie Lawrence RN) Gen Hx Cystic Fibrosis: No (09/27/2016 14:52:Connie Lawrence RN) Gen Hx Huntingtons Chorea: No (09/27/2016 14:52:Connie Lawrence RN) Gen Hx Mental Retardation/Autism: No (09/27/2016 14:52:Connie Lawrence RN) Gen Hx Tested for Fragile X: No (09/27/2016 14:52:Connie Lawrence RN) Gen Hx Other Inher/Chromosomal: No (09/27/2016 14:52:Connie Lawrence RN) Gen Hx Maternal Metabolic DO: No (09/27/2016 14:52:Connie Lawrence RN) Gen Hx Pt Father or FOB Defect: No (09/27/2016 14:52:Connie Lawrence RN) Gen Hx Other Genetic History: No (09/27/2016 14:52:Connie Lawrence RN) Gen Hx Drugs/Meds since LMP: No (09/27/2016 14:52:Connie Lawrence RN)
--- NOTE | 2016-10-07 06:16 | L&D Current Admission ---
Current Admit Datetime Report Generated by CPN: 10/07/2016 06:00 ADMISSION INFORMATION Current Admit Date/Time: 10/04/2016 05:55 (10/03/2016 20:42:Ashley Steward RN) Reason for Admission: Induction of Labor (10/03/2016 20:42:Ashley Steward RN) Chief Complaint: Scheduled Induction of Labor (10/03/2016 20:42:Ashley Steward RN) Medications During : Ferrous Sulfate (Iron); Vitamin (10/03/2016 20:42:Ashley Steward RN) EGA per Dates: 37.6 (10/03/2016 20:42:QS system process) Reason for Induction: Gestational Hypertension (10/03/2016 20:42:Ashley Steward RN) Records Available: Yes (10/03/2016 20:42:Ashley Steward RN) General Admission Information: Reviewed; Confirmed (10/03/2016 20:42:Ashley Steward RN) General Admission Reviewed By: JAYDEN Todd (10/03/2016 20:42:Ashley Steward RN) BELONGINGS/ADVANCED DIRECTIVES Disposition of Belongings: Kept with Patient (10/03/2016 20:42:Ashley Steward RN) Advance Direct for Healthcare: No, and Wants No Information (10/03/2016 20:42:Ashley Steward RN) Durable Power of Leather Whitener: No (10/03/2016 20:42:Ashley Steward RN) Living Will: No (10/03/2016 20:42:Ashley Steward RN) Organ Donor: Yes (10/03/2016 20:42:Ashley Steward RN) Pt Rights Information Given: Yes (10/03/2016 20:42:Ashley Steward RN) Pt Understands Pt Rights: Yes (10/03/2016 20:42:Ashley Steward RN) Patient Rights Comments: Given in patient access (10/03/2016 20:42:Ashley Steward RN) LEARNING ASSESSMENT Knowledge Level: Understands L_D Process; Understands Care Activities (10/03/2016 20:42:Ashley Steward RN) Barriers to Learning: None (10/03/2016 20:42:Ashley Steward RN) Learning Readiness: Motivated (10/03/2016 20:42:Ashley Steward RN) Learns Best By: Reading; Videos (10/03/2016 20:42:Ashley Steward RN) Learning Needs: Labor and Delivery Process; Pain Management; Symptoms to Report (10/03/2016 20:42:Ashley Steward RN) DOMESTIC VIOLANCE SCREENING Dom Viol Threatened/Hurt: No (10/03/2016 20:42:Ashley Steward RN) Hx of Abuse/Neglect past 2yrs: No (10/03/2016 20:42:Ashley Steward RN) Feel Unsafe Going Home: No (10/03/2016 20:42:Ashley Steward RN) Addt'l Observ Indicating Abuse: No (10/03/2016 20:42:Ashley Steward RN) Reason Unable to Complete Screen: N/A, Screen Completed (10/03/2016 20:42:Ashley Steward RN) Considered Personal Harm/Suicide: No (10/03/2016 20:42:Ashley Steward RN) NUTRITIONAL/FUNCTIONAL SCREENING Problem with Appetite >5 Days: No (10/03/2016 20:42:Ashley Steward RN) Chew/Swallow Difficulties: No (10/03/2016 20:42:Ashley Steward RN) Inappropriate Wt Gain/Loss: No (10/03/2016 20:42:Ashley Steward RN) Presence Skin Breakdown/Ulcer: No (10/03/2016 20:42:Ashley Steward RN) Special Diet: No (10/03/2016 20:42:Ashley Steward RN) Pt Requests Exceptional Student Education Teacher Visit: No (10/03/2016 20:42:Ashley Steward RN) Hx of Any of the Following?: N/A (10/03/2016 20:42:Ashley Steward RN) New Diagnosis of: N/A (10/03/2016 20:42:Ashley Steward RN) Requires Assist w/Ambulation: No (10/03/2016 20:42:Ashley Steward RN) Uses Assist Device to Ambulate: No (10/03/2016 20:42:Ashley Steward RN) Pt Requires Help w/ADL's: No (10/03/2016 20:42:Ashley Steward RN)
--- NOTE | 2016-10-08 06:16 | L&D Current Admission ---
Current Admit Datetime Report Generated by CPN: 10/08/2016 06:00 ADMISSION INFORMATION Current Admit Date/Time: 10/04/2016 05:55 (10/03/2016 20:42:Ashley Steward RN) Reason for Admission: Induction of Labor (10/03/2016 20:42:Ashley Steward RN) Chief Complaint: Scheduled Induction of Labor (10/03/2016 20:42:Ashley Steward RN) Medications During : Ferrous Sulfate (Iron); Vitamin (10/03/2016 20:42:Ashley Steward RN) EGA per Dates: 37.6 (10/03/2016 20:42:QS system process) Reason for Induction: Gestational Hypertension (10/03/2016 20:42:Ashley Steward RN) Records Available: Yes (10/03/2016 20:42:Ashley Steward RN) General Admission Information: Reviewed; Confirmed (10/03/2016 20:42:Ashley Steward RN) General Admission Reviewed By: JAYDEN Todd (10/03/2016 20:42:Ashley Steward RN) BELONGINGS/ADVANCED DIRECTIVES Disposition of Belongings: Kept with Patient (10/03/2016 20:42:Ashley Steward RN) Advance Direct for Healthcare: No, and Wants No Information (10/03/2016 20:42:Ashley Steward RN) Durable Power of Boring Mill Set Up Operator: No (10/03/2016 20:42:Ashley Steward RN) Living Will: No (10/03/2016 20:42:Ashley Steward RN) Organ Donor: Yes (10/03/2016 20:42:Ashley Steward RN) Pt Rights Information Given: Yes (10/03/2016 20:42:Ashley Steward RN) Pt Understands Pt Rights: Yes (10/03/2016 20:42:Ashley Steward RN) Patient Rights Comments: Given in patient access (10/03/2016 20:42:Ashley Steward RN) LEARNING ASSESSMENT Knowledge Level: Understands L_D Process; Understands Care Activities (10/03/2016 20:42:Ashley Steward RN) Barriers to Learning: None (10/03/2016 20:42:Ashley Steward RN) Learning Readiness: Motivated (10/03/2016 20:42:Ashley Steward RN) Learns Best By: Reading; Videos (10/03/2016 20:42:Ashley Steward RN) Learning Needs: Labor and Delivery Process; Pain Management; Symptoms to Report (10/03/2016 20:42:Ashley Steward RN) DOMESTIC VIOLANCE SCREENING Dom Viol Threatened/Hurt: No (10/03/2016 20:42:Ashley Steward RN) Hx of Abuse/Neglect past 2yrs: No (10/03/2016 20:42:Ashley Steward RN) Feel Unsafe Going Home: No (10/03/2016 20:42:Ashley Steward RN) Addt'l Observ Indicating Abuse: No (10/03/2016 20:42:Ashley Steward RN) Reason Unable to Complete Screen: N/A, Screen Completed (10/03/2016 20:42:Ashley Steward RN) Considered Personal Harm/Suicide: No (10/03/2016 20:42:Ashley Steward RN) NUTRITIONAL/FUNCTIONAL SCREENING Problem with Appetite >5 Days: No (10/03/2016 20:42:Ashley Steward RN) Chew/Swallow Difficulties: No (10/03/2016 20:42:Ashley Steward RN) Inappropriate Wt Gain/Loss: No (10/03/2016 20:42:Ashley Steward RN) Presence Skin Breakdown/Ulcer: No (10/03/2016 20:42:Ashley Steward RN) Special Diet: No (10/03/2016 20:42:Ashley Steward RN) Pt Requests Percussion Teacher Visit: No (10/03/2016 20:42:Ashley Steward RN) Hx of Any of the Following?: N/A (10/03/2016 20:42:Ashley Steward RN) New Diagnosis of: N/A (10/03/2016 20:42:Ashley Steward RN) Requires Assist w/Ambulation: No (10/03/2016 20:42:Ashley Steward RN) Uses Assist Device to Ambulate: No (10/03/2016 20:42:Ashley Steward RN) Pt Requires Help w/ADL's: No (10/03/2016 20:42:Ashley Steward RN)
--- NOTE | 2016-10-08 06:16 | L&D General Admission ---
General Admit Datetime Report Generated by CPN: 10/08/2016 06:00 INFORMATION Patient Age: 21 (09/09/2016 13:56:QS system process) EDC: 10/19/2016 00:00 (09/27/2016 14:52:Ana M Gillespie RN) : 1 (09/27/2016 14:52:Ana M Gillespie RN) Para: 0 (09/30/2016 18:58:Claudia Durant RN) Term: 0 (09/27/2016 14:52:Claudia Durant RN) : 0 (09/27/2016 14:52:Claudia Durant RN) Spontaneous Abortions: 0 (09/27/2016 14:52:Claudia Durant RN) Induced Abortions: 0 (09/27/2016 14:52:Claudia Durant RN) Livin (09/27/2016 14:52:Claudia Durant RN) Cesareans: 0 (09/27/2016 14:52:Claudia Durant RN) VBACs: 0 (09/27/2016 14:52:Claudia Durant RN) Ectopic: 0 (09/27/2016 14:52:Claudia Durant RN) Multiple Births: 0 (09/27/2016 14:52:Claudia Durant RN) Baby, Number in Womb: 1 (09/30/2016 18:58:Claudia Durant RN) CARE Primary Personal Service [facility] (09/27/2016 14:52:Ana M Gillespie RN) Month of 1st Visit: March 2016 (09/27/2016 14:52:Claudia Durant RN) Adequate Care: Yes (09/27/2016 14:52:Claudia Druant RN) Prepregnancy Weight (lb): 123 (09/27/2016 14:52:Claudia Durant RN) Prepregnancy Weight (kg): 55.9 (09/27/2016 14:52:QS system process) Height (in): 64 (10/06/2016 14:52:QS system process) ALLERGIES Medication Allergy: No (09/27/2016 14:52:Ana M Gillespie RN) Medication Allergies: shrimp (10/03/2016) (10/03/2016 20:21:QS system process) Latex Allergy: No Latex Allergies (09/27/2016 14:52:Ana M Gillespie RN) Food Allergies: shellfish, crawfish, shrimp (09/27/2016) (09/27/2016 14:52:Claudia Durant RN) Environmental Allergies: none (09/27/2016 14:52:Claudia Durant RN) COMMUNICATION Primary Language: Bolivian (09/27/2016 14:52:Claudia Durant RN) Medical Tx Preferred Language: Bolivian (09/27/2016 14:52:Claudia Durant RN) Communication Barrier(s): None (09/27/2016 14:52:Claudia Durant RN) DEMOGRAPHICS Address: [address] [place] [id number] (09/09/2016 13:56:QS system process) Zipcode: [address] (09/09/2016 13:56:QS system process) Home (09/09/2016 13:56:QS system process) SSN: [id number] (09/09/2016 13:56:QS system process) Next of Kin Name: ASHLEY PATE (09/09/2016 13:56:QS system process) Next of Kin (09/09/2016 13:56:QS system process) Next of Kin Relationship: SPO (09/09/2016 13:56:QS system process) Date of : 1995 (09/09/2016 13:56:QS system process) Marital Status: (09/09/2016 13:56:QS system process) Sex: Female (09/09/2016 13:56:QS system process) Race: Other (09/09/2016 13:56:QS system process) Ethnicity: or (09/09/2016 13:56:QS system process) Catholic: None (09/09/2016 13:56:QS system process) DRUG AND ALCOHOL USE Alcohol: No (09/27/2016 14:52:Claudia Durant RN) Cigarettes: Never Smoker. [id number] (09/27/2016 14:52:Claudia Durant RN) Marijuana: No (09/27/2016 14:52:Claudia Durant RN) Cocaine: No (09/27/2016 14:52:Claudia Durant RN) Other Illicit Drugs: No (09/27/2016 14:52:Claudia Durant RN) VACCINE HISTORY Influenza Vaccine: Yes (09/27/2016 14:52:Claudia Durant RN) Influenza Date: 06/2016 (09/27/2016 14:52:Claudia Durant RN) Pneumococcal Vaccine: No (09/27/2016 14:52:Claudia Durant RN) Tetanus Vaccine: Yes (09/27/2016 14:52:Claudia Durant RN) Tetanus Date: 09/2016 (09/27/2016 14:52:Claudia Durant RN) Tdap Vaccine: Yes (09/27/2016 14:52:Claudia Durant RN) Tdap Date: 09/2016 (09/27/2016 14:52:Claudia Durant RN) Hepatitis B Vaccine: No (09/27/2016 14:52:Claudia Durant RN) Code And Test Clerk: [facility] (09/27/2016 14:52:Ashley Steward RN) Feeding Preference: Breast (09/27/2016 14:52:Claudia Durant RN) Benefit of Breast Feed Discussed: Yes (09/27/2016 14:52:Ashley Steward RN) Circumcision: Yes (09/27/2016 14:52:Claudia Durant RN) Classes Attended: Yes (09/27/2016 14:52:Claudia Durant RN) Tubal Ligation: No (09/27/2016 14:52:Claudia Durant RN) Tubal Authorization Signed: N/A (09/27/2016 14:52:Claudia Durant RN) Consent: N/A (09/27/2016 14:52:Claudia Durant RN) Consent Signed: N/A (09/27/2016 14:52:Claudia Durant RN) Pain Management Plans: Epidural (09/27/2016 14:52:Ashley Steward RN) Plans for Labor and Delivery: None (09/27/2016 14:52:Ashley Steward RN) Support Person: Elie Pate (09/27/2016 14:52:Ashley Steward RN) Support Person Relationship: (09/27/2016 14:52:Ashley Steward RN) Cultural/Spritual Practice: No (09/27/2016 14:52:Claudia Durant RN) Spir/Cult Dietary Needs: No (09/27/2016 14:52:Claudia Durant RN) LIVING SITUATION/DISCHARGE PLAN Living Arrangements: House (09/27/2016 14:52:Claudia Durant RN) Adequate Access to:: Electric; Heat; Refrigeration; Plumbing/Running water; Phone; Transportation (09/27/2016 14:52:Claudia Durant RN) WIC Program: No (09/27/2016 14:52:Claudia Durant RN) Discharge [employer] Person: spouse (09/27/2016 14:52:Claudia Durant RN) Person to Help after Discharge: spouse (09/27/2016 14:52:Claudia Durant RN) Currently Using Commun Resources: No (09/27/2016 14:52:Claudia Durant RN) Outside Agency/Lithograph Printer: No (09/27/2016 14:52:Claudia Durant RN) Car Seat for Discharge: Yes (09/27/2016 14:52:Claudia Durant RN) Adoption Requested: No (09/27/2016 14:52:Claudia Durant RN) Pt Contact w/ Post : N/A (09/27/2016 14:52:Claudia Durant RN) LABS Blood Type: O Positive (09/27/2016 14:52:Ana M Gillespie RN) Antibody Screen: Negative (09/27/2016 14:52:Ana M Gillespie RN) Rho(G) this : Not Applicable (09/27/2016 14:52:Connie Lawrence RN) Hemoglobin: 11.3 L (10/06/2016 06:50:QS system process) Hematocrit: 32.7 L (10/06/2016 06:50:QS system process) MCV: 91 (10/06/2016 06:50:QS system process) Group Beta Strep: Negative (09/27/2016 14:52:Ana M Gillespie RN) Gonorrhea: Negative (09/27/2016 14:52:Ana M Gillespie RN) Chlamydia: Negative (09/27/2016 14:52:Ana M Gillespie RN) Hepatitis B: Negative (09/27/2016 14:52:Ana M Gillespie RN) Rubella: Immune (09/27/2016 14:52:Ana M Gillespie RN) OB/PREVIOUS HISTORY Previous Procedures: None (09/27/2016 14:52:Connie Lawrence RN) Current Procedures: Ultrasound; NST (09/27/2016 14:52:Connie Lawrence RN) History of Previous : No (09/27/2016 14:52:Connie Lawrence RN) History of Gestational Diabetes: No (09/27/2016 14:52:Connie Lawrence RN) History of PIH: No (09/27/2016 14:52:Connie Lawrence RN) History of Incompetent Cervix: No (09/27/2016 14:52:Connie Lawrence RN) History of Placenta Previa/Abrup: No (09/27/2016 14:52:Connie Lawrence RN) History of Macrosomia: No (09/27/2016 14:52:Connie Lawrence RN) History of IUGR: No (09/27/2016 14:52:Connie Lawrence RN) History of Hemorrhage: No (09/27/2016 14:52:Connie Lawrence RN) History of Loss/Stillborn: No (09/27/2016 14:52:Connie Lawrence RN) History of : No (09/27/2016 14:52:Connie Lawrence RN) History of D (Rh) Sensitization: No (09/27/2016 14:52:Connie Lawrence RN) History Recurrent Loss/Stillborn: No (09/27/2016 14:52:Connie Lawrence RN) History Depression/PP Depression: No (09/27/2016 14:52:Connie Lawrence RN) History of Uterine Anomaly/WILL: No (09/27/2016 14:52:Connie Lawrence RN) History of Infertility: No (09/27/2016 14:52:Connie Lawrence RN) History of ART Treatment: No (09/27/2016 14:52:Connie Lawrence RN) History of WILL: No (09/27/2016 14:52:Connie Lawrence RN) Comments Obstetrical History: G1-Current (09/27/2016 14:52:Connie Lawrence RN) MEDICAL HISTORY Med Hx Diabetes: No (09/27/2016 14:52:Connie Lawrence RN) Med Hx Hypertension: No (09/27/2016 14:52:Connie Lawrence RN) Med Hx Heart Disease: No (09/27/2016 14:52:Connie Lawrence RN) Med Hx Autoimmune Disorder: No (09/27/2016 14:52:Connie Lawrence RN) Med Hx Kidney Disease/UTI: No (09/27/2016 14:52:Connie Lawrence RN) Med Hx Neurologic/Epilepsy: No (09/27/2016 14:52:Connie Lawrence RN) Med Hx Psychiatric Disorders: No (09/27/2016 14:52:Connie Lawrence RN) Med Hx Hepatitis/Liver Disease: No (09/27/2016 14:52:Connie Lawrence RN) Med Hx Varicosities/Phlebitis: No (09/27/2016 14:52:Connie Lawrence RN) Med Hx Thyroid Dysfunction: No (09/27/2016 14:52:Connie Lawrence RN) Med Hx Trauma/Violence: No (09/27/2016 14:52:Connie Lawrence RN) Med Hx Blood Transfusion: No (09/27/2016 14:52:Connie Lawrence RN) Med Hx Pulmonary (Asthma,TB): No (09/27/2016 14:52:Connie Lawrence RN) Med Hx Breast: No (09/27/2016 14:52:Connie Lawrence RN) Med Hx COLOR CONSULTANT Surgery: No (09/27/2016 14:52:Connie Lawrence RN) Med Hx Hospitalization/Surgery: Yes (09/27/2016 14:52:Ana M Gillespie RN) Med Hx Anesthetic Complications: No (09/27/2016 14:52:Connie Lawrence RN) Med Hx Abnormal Pap Smear: No (09/27/2016 14:52:Connie Lawrence RN) Other Medical Diseases: No (09/27/2016 14:52:Connie Lawrence RN) Med Hx Significant Family Hx: No (09/27/2016 14:52:Connie Lawrence RN) Details of Med/Surg Hx: tonsillectomy, tubes in ears L hip doesn't have full range of motion (09/27/2016 14:52:Ana M Gillespie RN) INFECTIOUS HISTORY Inf Hx Gonorrhea: No (09/27/2016 14:52:Connie Lawrence RN) Inf Hx Chlamydia: No (09/27/2016 14:52:Connie Lawrence RN) Inf Hx Syphilis: No (09/27/2016 14:52:Connie Lawrence RN) Inf Hx HIV/AIDS: No (09/27/2016 14:52:Connie Lawrence RN) Inf Hx Human Papilloma Virus: No (09/27/2016 14:52:Connie Lawrence RN) Inf Hx Pt/Partner Genital Herpes: No (09/27/2016 14:52:Connie Lawrence RN) Inf Hx Tuberculosis/Exposure: No (09/27/2016 14:52:Connie Lawrence RN) Inf Hx Hepatitis B,C: No (09/27/2016 14:52:Connie Lawrence RN) Inf Hx Rash or Viral Illness: No (09/27/2016 14:52:Connie Lawrence RN) GENETIC HISTORY Gen Hx Age >=35 at MATTE[place]: No (09/27/2016 14:52:Connie Lawrence RN) Gen Hx Thalassemia: No (09/27/2016 14:52:Connie Lawrence RN) Gen Hx Congenital Heart Defect: No (09/27/2016 14:52:Connie Lawrence RN) Gen Hx Neural Tube Defect: No (09/27/2016 14:52:Connie Lawrence RN) Gen Hx Down's Syndrome: No (09/27/2016 14:52:Connie Lawrence RN) Gen Hx John-Sachs: No (09/27/2016 14:52:Connie Lawrence RN) Gen Hx Marshall: No (09/27/2016 14:52:Connie Lawrence RN) Gen Hx Familial Dysautonomia: No (09/27/2016 14:52:Connie Lawrence RN) Gen Hx Sickle Cell Disease/Trait: No (09/27/2016 14:52:Connie Lawrence RN) Gen Hx Hemophilia/Blood Disorder: No (09/27/2016 14:52:Connie Lawrence RN) Gen Hx Muscular Dystrophy: No (09/27/2016 14:52:Connie Lawrence RN) Gen Hx Cystic Fibrosis: No (09/27/2016 14:52:Connie Lawrence RN) Gen Hx Huntingtons Chorea: No (09/27/2016 14:52:Connie Lawrence RN) Gen Hx Mental Retardation/Autism: No (09/27/2016 14:52:Connie Lawrence RN) Gen Hx Tested for Fragile X: No (09/27/2016 14:52:Connie Lawrence RN) Gen Hx Other Inher/Chromosomal: No (09/27/2016 14:52:Connie Lawrence RN) Gen Hx Maternal Metabolic DO: No (09/27/2016 14:52:Connie Lawrence RN) Gen Hx Pt Father or FOB Defect: No (09/27/2016 14:52:Connie Lawrence RN) Gen Hx Other Genetic History: No (09/27/2016 14:52:Connie Lawrence RN) Gen Hx Drugs/Meds since LMP: No (09/27/2016 14:52:Connie Lawrence RN)
--- NOTE | 2016-10-09 06:17 | L&D General Admission ---
General Admit Datetime Report Generated by CPN: 10/09/2016 06:00 INFORMATION Patient Age: 21 (09/09/2016 13:56:QS system process) EDC: 10/19/2016 00:00 (09/27/2016 14:52:Ana M Gillespie RN) : 1 (09/27/2016 14:52:Ana M Gillespie RN) Para: 0 (09/30/2016 18:58:Claudia Durant RN) Term: 0 (09/27/2016 14:52:Claudia Durant RN) : 0 (09/27/2016 14:52:Claudia Durant RN) Spontaneous Abortions: 0 (09/27/2016 14:52:Claudia Durant RN) Induced Abortions: 0 (09/27/2016 14:52:Claudia Durant RN) Livin (09/27/2016 14:52:Claudia Durant RN) Cesareans: 0 (09/27/2016 14:52:Claudia Durant RN) VBACs: 0 (09/27/2016 14:52:Claudia Durant RN) Ectopic: 0 (09/27/2016 14:52:Claudia Durant RN) Multiple Births: 0 (09/27/2016 14:52:Claudia Durant RN) Baby, Number in Womb: 1 (09/30/2016 18:58:Claudia Durant RN) CARE Primary Bowling Ball Mold Assembler: [facility] (09/27/2016 14:52:Ana M Gillespie RN) Month of 1st Visit: March 2016 (09/27/2016 14:52:Claudia Durant RN) Adequate Care: Yes (09/27/2016 14:52:Claudia Durant RN) Prepregnancy Weight (lb): 123 (09/27/2016 14:52:Claudia Durant RN) Prepregnancy Weight (kg): 55.9 (09/27/2016 14:52:QS system process) Height (in): 64 (10/06/2016 14:52:QS system process) ALLERGIES Medication Allergy: No (09/27/2016 14:52:nAa M Gillespie RN) Medication Allergies: shrimp (10/03/2016) (10/03/2016 20:21:QS system process) Latex Allergy: No Latex Allergies (09/27/2016 14:52:Ana M Gillespie RN) Food Allergies: shellfish, crawfish, shrimp (09/27/2016) (09/27/2016 14:52:Claudia Durant RN) Environmental Allergies: none (09/27/2016 14:52:Claudia Durant RN) COMMUNICATION Primary Language: Cypriot (09/27/2016 14:52:Claudia Durant RN) Medical Tx Preferred Language: Cypriot (09/27/2016 14:52:Claudia Durant RN) Communication Barrier(s): None (09/27/2016 14:52:Claudia Durant RN) DEMOGRAPHICS Address: [address] [place] [id number] (09/09/2016 13:56:QS system process) Zipcode: [address] (09/09/2016 13:56:QS system process) Home (09/09/2016 13:56:QS system process) SSN: [id number] (09/09/2016 13:56:QS system process) Next of Kin Name: ASHLEY PATE (09/09/2016 13:56:QS system process) Next of Kin (09/09/2016 13:56:QS system process) Next of Kin Relationship: SPO (09/09/2016 13:56:QS system process) Date of : 1995 (09/09/2016 13:56:QS system process) Marital Status: (09/09/2016 13:56:QS system process) Sex: Female (09/09/2016 13:56:QS system process) Race: Other (09/09/2016 13:56:QS system process) Ethnicity: or (09/09/2016 13:56:QS system process) Pentecostalism: None (09/09/2016 13:56:QS system process) DRUG AND ALCOHOL USE Alcohol: No (09/27/2016 14:52:Claudia Durant RN) Cigarettes: Never Smoker. [id number] (09/27/2016 14:52:Claudia Durant RN) Marijuana: No (09/27/2016 14:52:Claudia Durant RN) Cocaine: No (09/27/2016 14:52:Claudia Durant RN) Other Illicit Drugs: No (09/27/2016 14:52:Claudia Durant RN) VACCINE HISTORY Influenza Vaccine: Yes (09/27/2016 14:52:Claudia Durant RN) Influenza Date: 06/2016 (09/27/2016 14:52:Claudia Durant RN) Pneumococcal Vaccine: No (09/27/2016 14:52:Claudia Durant RN) Tetanus Vaccine: Yes (09/27/2016 14:52:Claudia Durant RN) Tetanus Date: 09/2016 (09/27/2016 14:52:Claudia Durant RN) Tdap Vaccine: Yes (09/27/2016 14:52:Claudia Durant RN) Tdap Date: 09/2016 (09/27/2016 14:52:Claudia Durant RN) Hepatitis B Vaccine: No (09/27/2016 14:52:Claudia Durant RN) Beamer Hand: [facility] (09/27/2016 14:52:Ashley Steward RN) Feeding Preference: Breast (09/27/2016 14:52:Claudia Durant RN) Benefit of Breast Feed Discussed: Yes (09/27/2016 14:52:Ashley Steward RN) Circumcision: Yes (09/27/2016 14:52:Claudia Durant RN) Classes Attended: Yes (09/27/2016 14:52:Claudia Durant RN) Tubal Ligation: No (09/27/2016 14:52:Claudia Durant RN) Tubal Authorization Signed: N/A (09/27/2016 14:52:Claudia Durant RN) Consent: N/A (09/27/2016 14:52:Claudia Durant RN) Consent Signed: N/A (09/27/2016 14:52:Claudia Durant RN) Pain Management Plans: Epidural (09/27/2016 14:52:Ashley Steward RN) Plans for Labor and Delivery: None (09/27/2016 14:52:Ashley Steward RN) Support Person: Elie Pate (09/27/2016 14:52:Ashley Steward RN) Support Person Relationship: (09/27/2016 14:52:Ashley Steward RN) Cultural/Spritual Practice: No (09/27/2016 14:52:Claudia Durant RN) Spir/Cult Dietary Needs: No (09/27/2016 14:52:Claudia Durant RN) LIVING SITUATION/DISCHARGE PLAN Living Arrangements: House (09/27/2016 14:52:Claudia Durant RN) Adequate Access to:: Electric; Heat; Refrigeration; Plumbing/Running water; Phone; Transportation (09/27/2016 14:52:Claudia Durant RN) WIC Program: No (09/27/2016 14:52:Claudia Durant RN) Discharge Director Clinical Operations Person: spouse (09/27/2016 14:52:Claudia Durant RN) Person to Help after Discharge: spouse (09/27/2016 14:52:Claudia Durant RN) Currently Using Commun Resources: No (09/27/2016 14:52:Claudia Durant RN) Outside Agency/Career Coordinator: No (09/27/2016 14:52:Claudia Durant RN) Car Seat for Discharge: Yes (09/27/2016 14:52:Claudia Durant RN) Adoption Requested: No (09/27/2016 14:52:Claudia Durant RN) Pt Contact w/ Post : N/A (09/27/2016 14:52:Claudia Durant RN) LABS Blood Type: O Positive (09/27/2016 14:52:Ana M Gillespie RN) Antibody Screen: Negative (09/27/2016 14:52:Ana M Gillsepie RN) Rho(G) this : Not Applicable (09/27/2016 14:52:Connie Lawrence RN) Hemoglobin: 11.3 L (10/06/2016 06:50:QS system process) Hematocrit: 32.7 L (10/06/2016 06:50:QS system process) MCV: 91 (10/06/2016 06:50:QS system process) Group Beta Strep: Negative (09/27/2016 14:52:Ana M Gillespie RN) Gonorrhea: Negative (09/27/2016 14:52:Ana M Gillespie RN) Chlamydia: Negative (09/27/2016 14:52:Ana M Gillespie RN) Hepatitis B: Negative (09/27/2016 14:52:Ana M Gillespie RN) Rubella: Immune (09/27/2016 14:52:Ana M Gillespie RN) OB/PREVIOUS HISTORY Previous Procedures: None (09/27/2016 14:52:Connie Lawrence RN) Current Procedures: Ultrasound; NST (09/27/2016 14:52:Connie Lawrence RN) History of Previous : No (09/27/2016 14:52:Connie Lawrence RN) History of Gestational Diabetes: No (09/27/2016 14:52:Connie Lawrence RN) History of PIH: No (09/27/2016 14:52:Connie Lawrence RN) History of Incompetent Cervix: No (09/27/2016 14:52:Connie Lawrence RN) History of Placenta Previa/Abrup: No (09/27/2016 14:52:Connie Lawrence RN) History of Macrosomia: No (09/27/2016 14:52:Connie Lawrence RN) History of IUGR: No (09/27/2016 14:52:Connie Lawrence RN) History of Hemorrhage: No (09/27/2016 14:52:Connie Lawrence RN) History of Loss/Stillborn: No (09/27/2016 14:52:Connie Lawrence RN) History of : No (09/27/2016 14:52:Connie Lawrence RN) History of D (Rh) Sensitization: No (09/27/2016 14:52:Connie Lawrence RN) History Recurrent Loss/Stillborn: No (09/27/2016 14:52:Connie Lawrence RN) History Depression/PP Depression: No (09/27/2016 14:52:Connie Lawrence RN) History of Uterine Anomaly/WILL: No (09/27/2016 14:52:Connie Lawrence RN) History of Infertility: No (09/27/2016 14:52:Connie Lawrence RN) History of ART Treatment: No (09/27/2016 14:52:Connie Lawrence RN) History of WILL: No (09/27/2016 14:52:Connie Lawrence RN) Comments Obstetrical History: G1-Current (09/27/2016 14:52:Connie Lawrence RN) MEDICAL HISTORY Med Hx Diabetes: No (09/27/2016 14:52:Connie Lawrence RN) Med Hx Hypertension: No (09/27/2016 14:52:Connie Lawrence RN) Med Hx Heart Disease: No (09/27/2016 14:52:Connie Lawrence RN) Med Hx Autoimmune Disorder: No (09/27/2016 14:52:Connie Lawrence RN) Med Hx Kidney Disease/UTI: No (09/27/2016 14:52:Connie Lawrence RN) Med Hx Neurologic/Epilepsy: No (09/27/2016 14:52:Connie Lawrence RN) Med Hx Psychiatric Disorders: No (09/27/2016 14:52:Connie Lawrence RN) Med Hx Hepatitis/Liver Disease: No (09/27/2016 14:52:Connie Lawrence RN) Med Hx Varicosities/Phlebitis: No (09/27/2016 14:52:Connie Lawrence RN) Med Hx Thyroid Dysfunction: No (09/27/2016 14:52:Connie Lawrence RN) Med Hx Trauma/Violence: No (09/27/2016 14:52:Connie Lawrence RN) Med Hx Blood Transfusion: No (09/27/2016 14:52:Connie Lawrence RN) Med Hx Pulmonary (Asthma,TB): No (09/27/2016 14:52:Connie Lawrence RN) Med Hx Breast: No (09/27/2016 14:52:Connie Lawrence RN) Med Hx CHIEF ULTRASOUND TECHNOLOGIST Surgery: No (09/27/2016 14:52:Connie Lawrence RN) Med Hx Hospitalization/Surgery: Yes (09/27/2016 14:52:Ana M Gillespie RN) Med Hx Anesthetic Complications: No (09/27/2016 14:52:Connie Lawrence RN) Med Hx Abnormal Pap Smear: No (09/27/2016 14:52:Connie Lawrence RN) Other Medical Diseases: No (09/27/2016 14:52:Cnonie Lawrence RN) Med Hx Significant Family Hx: No (09/27/2016 14:52:Connie Lawrence RN) Details of Med/Surg Hx: tonsillectomy, tubes in ears L hip doesn't have full range of motion (09/27/2016 14:52:Ana M Gillespie RN) INFECTIOUS HISTORY Inf Hx Gonorrhea: No (09/27/2016 14:52:Connie Lawrence RN) Inf Hx Chlamydia: No (09/27/2016 14:52:Connie Lawrence RN) Inf Hx Syphilis: No (09/27/2016 14:52:Connie Lawrence RN) Inf Hx HIV/AIDS: No (09/27/2016 14:52:Connie Lawrence RN) Inf Hx Human Papilloma Virus: No (09/27/2016 14:52:Connie Lawrence RN) Inf Hx Pt/Partner Genital Herpes: No (09/27/2016 14:52:Connie Lawrence RN) Inf Hx Tuberculosis/Exposure: No (09/27/2016 14:52:Connie Lawrence RN) Inf Hx Hepatitis B,C: No (09/27/2016 14:52:Connie Lawrence RN) Inf Hx Rash or Viral Illness: No (09/27/2016 14:52:Connie Lawrence RN) GENETIC HISTORY Gen Hx Age >=35 at MAT[place]: No (09/27/2016 14:52:Connie Lawrence RN) Gen Hx Thalassemia: No (09/27/2016 14:52:Connie Lawrence RN) Gen Hx Congenital Heart Defect: No (09/27/2016 14:52:Connie Lawrence RN) Gen Hx Neural Tube Defect: No (09/27/2016 14:52:Connie Lawrence RN) Gen Hx Down's Syndrome: No (09/27/2016 14:52:Connie Lawrence RN) Gen Hx John-Sachs: No (09/27/2016 14:52:Connie Lawrence RN) Gen Hx Marshall: No (09/27/2016 14:52:Connie Lawrence RN) Gen Hx Familial Dysautonomia: No (09/27/2016 14:52:Connie Lawrence RN) Gen Hx Sickle Cell Disease/Trait: No (09/27/2016 14:52:Connie Lawrence RN) Gen Hx Hemophilia/Blood Disorder: No (09/27/2016 14:52:Connie Lawrence RN) Gen Hx Muscular Dystrophy: No (09/27/2016 14:52:Connie Lawrence RN) Gen Hx Cystic Fibrosis: No (09/27/2016 14:52:Connie Lawrence RN) Gen Hx Hunting[place] Chorea: No (09/27/2016 14:52:Connie Lawrence RN) Gen Hx Mental Retardation/Autism: No (09/27/2016 14:52:Connie Lawrence RN) Gen Hx Tested for Fragile X: No (09/27/2016 14:52:Connie Lawrence RN) Gen Hx Other Inher/Chromosomal: No (09/27/2016 14:52:Connie Lawrence RN) Gen Hx Maternal Metabolic DO: No (09/27/2016 14:52:Connie Lawrence RN) Gen Hx Pt Father or FOB Defect: No (09/27/2016 14:52:Connie Lawrence RN) Gen Hx Other Genetic History: No (09/27/2016 14:52:Connie Lawrence RN) Gen Hx Drugs/Meds since LMP: No (09/27/2016 14:52:Connie Lawrence RN)
--- NOTE | 2016-10-10 06:16 | L&D General Admission ---
General Admit Datetime Report Generated by CPN: 10/10/2016 06:00 INFORMATION Patient Age: 21 (09/09/2016 13:56:QS system process) EDC: 10/19/2016 00:00 (09/27/2016 14:52:Ana M Gillespie RN) : 1 (09/27/2016 14:52:Ana M Gillespie RN) Para: 0 (09/30/2016 18:58:Claudia Durant RN) Term: 0 (09/27/2016 14:52:Claudia Durant RN) : 0 (09/27/2016 14:52:Claudia uDrant RN) Spontaneous Abortions: 0 (09/27/2016 14:52:Claudia Durant RN) Induced Abortions: 0 (09/27/2016 14:52:Claudia Durant RN) Livin (09/27/2016 14:52:Claudia Durant RN) Cesareans: 0 (09/27/2016 14:52:Claudia Durant RN) VBACs: 0 (09/27/2016 14:52:Claudia Durant RN) Ectopic: 0 (09/27/2016 14:52:Claudia Durant RN) Multiple Births: 0 (09/27/2016 14:52:Claudia Durant RN) Baby, Number in Womb: 1 (09/30/2016 18:58:Claudia Durant RN) CARE [facility] Fitting Room Operator[facility] (09/27/2016 14:52:Ana M Gillespie RN) Month of 1st Visit: March 2016 (09/27/2016 14:52:Claudia Durant RN) Adequate Care: Yes (09/27/2016 14:52:Claudia Durant RN) Prepregnancy Weight (lb): 123 (09/27/2016 14:52:Claudia Durant RN) Prepregnancy Weight (kg): 55.9 (09/27/2016 14:52:QS system process) Height (in): 64 (10/06/2016 14:52:QS system process) ALLERGIES Medication Allergy: No (09/27/2016 14:52:Ana M Gillespie RN) Medication Allergies: shrimp (10/03/2016) (10/03/2016 20:21:QS system process) Latex Allergy: No Latex Allergies (09/27/2016 14:52:Ana M Gillespie RN) Food Allergies: shellfish, crawfish, shrimp (09/27/2016) (09/27/2016 14:52:Claudia Durant RN) Environmental Allergies: none (09/27/2016 14:52:Claudia Durant RN) COMMUNICATION Primary Language: Pakistani (09/27/2016 14:52:Claudia Durant RN) Medical Tx Preferred Language: Pakistani (09/27/2016 14:52:Claudia Durant RN) Communication Barrier(s): None (09/27/2016 14:52:Claudia Durant RN) DEMOGRAPHICS Address: [address] [place] [id number] (09/09/2016 13:56:QS system process) Zipcode: [address] (09/09/2016 13:56:QS system process) Home (09/09/2016 13:56:QS system process) SSN: [id number] (09/09/2016 13:56:QS system process) Next of Kin Name: ASHLEY PATE (09/09/2016 13:56:QS system process) Next of Kin (09/09/2016 13:56:QS system process) Next of Kin Relationship: SPO (09/09/2016 13:56:QS system process) Date of : 1995 (09/09/2016 13:56:QS system process) Marital Status: (09/09/2016 13:56:QS system process) Sex: Female (09/09/2016 13:56:QS system process) Race: Other (09/09/2016 13:56:QS system process) Ethnicity: or (09/09/2016 13:56:QS system process) Mu-Ism: None (09/09/2016 13:56:QS system process) DRUG AND ALCOHOL USE Alcohol: No (09/27/2016 14:52:Claudia Durant RN) Cigarettes: Never Smoker. [id number] (09/27/2016 14:52:Claudia Durant RN) Marijuana: No (09/27/2016 14:52:Claudia Durant RN) Cocaine: No (09/27/2016 14:52:Claudia Durant RN) Other Illicit Drugs: No (09/27/2016 14:52:Claudia Durant RN) VACCINE HISTORY Influenza Vaccine: Yes (09/27/2016 14:52:Claudia Durant RN) Influenza Date: 06/2016 (09/27/2016 14:52:Claudia Durant RN) Pneumococcal Vaccine: No (09/27/2016 14:52:Claudia Durant RN) Tetanus Vaccine: Yes (09/27/2016 14:52:Claudia Durant RN) Tetanus Date: 09/2016 (09/27/2016 14:52:Claudia Durant RN) Tdap Vaccine: Yes (09/27/2016 14:52:Claudia Durant RN) Tdap Date: 09/2016 (09/27/2016 14:52:Claudia Durant RN) Hepatitis B Vaccine: No (09/27/2016 14:52:Claudia Durant RN) Food Service Counter Clerk: [facility] (09/27/2016 14:52:Ashley Steward RN) Feeding Preference: Breast (09/27/2016 14:52:Claudia Durant RN) Benefit of Breast Feed Discussed: Yes (09/27/2016 14:52:Ashley Steward RN) Circumcision: Yes (09/27/2016 14:52:Claudia Durant RN) Classes Attended: Yes (09/27/2016 14:52:Claudia Durant RN) Tubal Ligation: No (09/27/2016 14:52:Claudia Durant RN) Tubal Authorization Signed: N/A (09/27/2016 14:52:Claudia Durant RN) Consent: N/A (09/27/2016 14:52:Claudia Durant RN) Consent Signed: N/A (09/27/2016 14:52:Claudia Durant RN) Pain Management Plans: Epidural (09/27/2016 14:52:Ashley Steward RN) Plans for Labor and Delivery: None (09/27/2016 14:52:Ashley Steward RN) Support Person: Elie Pate (09/27/2016 14:52:Ashley Steward RN) Support Person Relationship: (09/27/2016 14:52:Ashley Steward RN) Cultural/Spritual Practice: No (09/27/2016 14:52:Claudia Durant RN) Spir/Cult Dietary Needs: No (09/27/2016 14:52:Claudia Durant RN) LIVING SITUATION/DISCHARGE PLAN Living Arrangements: House (09/27/2016 14:52:Claudia Durant RN) Adequate Access to:: Electric; Heat; Refrigeration; Plumbing/Running water; Phone; Transportation (09/27/2016 14:52:Claudia Durant RN) WIC Program: No (09/27/2016 14:52:Claudia Durant RN) Discharge Rate Setter Person: spouse (09/27/2016 14:52:Claudia Durant RN) Person to Help after Discharge: spouse (09/27/2016 14:52:Claudia Durant RN) Currently Using Commun Resources: No (09/27/2016 14:52:Claudia Durant RN) Outside Agency/Foreign Languages Department Chair: No (09/27/2016 14:52:Claudia Durant RN) Car Seat for Discharge: Yes (09/27/2016 14:52:Claudia Durant RN) Adoption Requested: No (09/27/2016 14:52:Claudia Durant RN) Pt Contact w/ Post : N/A (09/27/2016 14:52:Claudia Durant RN) LABS Blood Type: O Positive (09/27/2016 14:52:Ana M Gillespie RN) Antibody Screen: Negative (09/27/2016 14:52:Ana M Gillespie RN) Rho(G) this : Not Applicable (09/27/2016 14:52:Connie Lawrence RN) Hemoglobin: 11.3 L (10/06/2016 06:50:QS system process) Hematocrit: 32.7 L (10/06/2016 06:50:QS system process) MCV: 91 (10/06/2016 06:50:QS system process) Group Beta Strep: Negative (09/27/2016 14:52:Ana M Gillespie RN) Gonorrhea: Negative (09/27/2016 14:52:Ana M Gillespie RN) Chlamydia: Negative (09/27/2016 14:52:Ana M Gillespie RN) Hepatitis B: Negative (09/27/2016 14:52:Ana M Gillespie RN) Rubella: Immune (09/27/2016 14:52:Ana M Gillespie RN) OB/PREVIOUS HISTORY Previous Procedures: None (09/27/2016 14:52:Connie Lawrence RN) Current Procedures: Ultrasound; NST (09/27/2016 14:52:Connie Lawrence RN) History of Previous : No (09/27/2016 14:52:Connie Lawrence RN) History of Gestational Diabetes: No (09/27/2016 14:52:Connie Lawrence RN) History of PIH: No (09/27/2016 14:52:Connie Lawrence RN) History of Incompetent Cervix: No (09/27/2016 14:52:Connie Lawrence RN) History of Placenta Previa/Abrup: No (09/27/2016 14:52:Connie Lawrence RN) History of Macrosomia: No (09/27/2016 14:52:Connie Lawrence RN) History of IUGR: No (09/27/2016 14:52:Connie Lawrence RN) History of Hemorrhage: No (09/27/2016 14:52:Connie Lawrence RN) History of Loss/Stillborn: No (09/27/2016 14:52:Connie Lawrence RN) History of : No (09/27/2016 14:52:Connie Lawrence RN) History of D (Rh) Sensitization: No (09/27/2016 14:52:Connie Lawrence RN) History Recurrent Loss/Stillborn: No (09/27/2016 14:52:Connie Lawrence RN) History Depression/PP Depression: No (09/27/2016 14:52:Connie Lawrence RN) History of Uterine Anomaly/WILL: No (09/27/2016 14:52:Connie Lawrence RN) History of Infertility: No (09/27/2016 14:52:Connie Lawrence RN) History of ART Treatment: No (09/27/2016 14:52:Connie Lawrence RN) History of WILL: No (09/27/2016 14:52:Connie Lawrence RN) Comments Obstetrical History: G1-Current (09/27/2016 14:52:Connie Lawrence RN) MEDICAL HISTORY Med Hx Diabetes: No (09/27/2016 14:52:Connie Lawrence RN) Med Hx Hypertension: No (09/27/2016 14:52:Connie Lawrence RN) Med Hx Heart Disease: No (09/27/2016 14:52:Connie Lawrence RN) Med Hx Autoimmune Disorder: No (09/27/2016 14:52:Connie Lawrence RN) Med Hx Kidney Disease/UTI: No (09/27/2016 14:52:Connie Lawrence RN) Med Hx Neurologic/Epilepsy: No (09/27/2016 14:52:Connie Lawrence RN) Med Hx Psychiatric Disorders: No (09/27/2016 14:52:Connie Lawrence RN) Med Hx Hepatitis/Liver Disease: No (09/27/2016 14:52:Connie Lawrence RN) Med Hx Varicosities/Phlebitis: No (09/27/2016 14:52:Connie Lawrence RN) Med Hx Thyroid Dysfunction: No (09/27/2016 14:52:Connie Lawrence RN) Med Hx Trauma/Violence: No (09/27/2016 14:52:Connie Lawrence RN) Med Hx Blood Transfusion: No (09/27/2016 14:52:Connie Lawrence RN) Med Hx Pulmonary (Asthma,TB): No (09/27/2016 14:52:Connie Lawrence RN) Med Hx Breast: No (09/27/2016 14:52:Connie Lawrence RN) Med Hx SWITCH ADJUSTER Surgery: No (09/27/2016 14:52:Connie Lawrence RN) Med Hx Hospitalization/Surgery: Yes (09/27/2016 14:52:Ana M Gillespie RN) Med Hx Anesthetic Complications: No (09/27/2016 14:52:Connie Lawrence RN) Med Hx Abnormal Pap Smear: No (09/27/2016 14:52:Connie Lawrence RN) Other Medical Diseases: No (09/27/2016 14:52:Connie Lawrence RN) Med Hx Significant Family Hx: No (09/27/2016 14:52:Connie Lawrence RN) Details of Med/Surg Hx: tonsillectomy, tubes in ears L hip doesn't have full range of motion (09/27/2016 14:52:Ana M Gillespie RN) INFECTIOUS HISTORY Inf Hx Gonorrhea: No (09/27/2016 14:52:Connie Lawrence RN) Inf Hx Chlamydia: No (09/27/2016 14:52:Connie Lawrence RN) Inf Hx Syphilis: No (09/27/2016 14:52:Connie Lawrence RN) Inf Hx HIV/AIDS: No (09/27/2016 14:52:Connie Lawrence RN) Inf Hx Human Papilloma Virus: No (09/27/2016 14:52:Connie Lawrence RN) Inf Hx Pt/Partner Genital Herpes: No (09/27/2016 14:52:Connie Lawrence RN) Inf Hx Tuberculosis/Exposure: No (09/27/2016 14:52:Connie Lawrence RN) Inf Hx Hepatitis B,C: No (09/27/2016 14:52:Connie Lawrence RN) Inf Hx Rash or Viral Illness: No (09/27/2016 14:52:Connie Lawrence RN) GENETIC HISTORY Gen Hx Age >=35 at [place]: No (09/27/2016 14:52:Connie Lawrence RN) Gen Hx Thalassemia: No (09/27/2016 14:52:Connie Lawrence RN) Gen Hx Congenital Heart Defect: No (09/27/2016 14:52:Connie Lawrence RN) Gen Hx Neural Tube Defect: No (09/27/2016 14:52:Connie Lawrence RN) Gen Hx Down's Syndrome: No (09/27/2016 14:52:Connie Lawrence RN) Gen Hx John-Sachs: No (09/27/2016 14:52:Connie Lawrence RN) Gen Hx Marshall: No (09/27/2016 14:52:Connie Lawrence RN) Gen Hx Familial Dysautonomia: No (09/27/2016 14:52:Connie Lawrence RN) Gen Hx Sickle Cell Disease/Trait: No (09/27/2016 14:52:Connie Lawrence RN) Gen Hx Hemophilia/Blood Disorder: No (09/27/2016 14:52:Connie Lawrence RN) Gen Hx Muscular Dystrophy: No (09/27/2016 14:52:Connie Lawrence RN) Gen Hx Cystic Fibrosis: No (09/27/2016 14:52:Connie Lawrence RN) Gen Hx [place] Chorea: No (09/27/2016 14:52:Connie Lawrence RN) Gen Hx Mental Retardation/Autism: No (09/27/2016 14:52:Connie Lawrence RN) Gen Hx Tested for Fragile X: No (09/27/2016 14:52:Connie Lawrence RN) Gen Hx Other Inher/Chromosomal: No (09/27/2016 14:52:Connie Lawrence RN) Gen Hx Maternal Metabolic DO: No (09/27/2016 14:52:Connie Lawrence RN) Gen Hx Pt Father or FOB Defect: No (09/27/2016 14:52:Connie Lawrence RN) Gen Hx Other Genetic History: No (09/27/2016 14:52:Connie Lawrence RN) Gen Hx Drugs/Meds since LMP: No (09/27/2016 14:52:Connie Lawrence RN)
--- NOTE | 2016-10-11 06:16 | L&D General Admission ---
General Admit Datetime Report Generated by CPN: 10/11/2016 06:00 INFORMATION Patient Age: 21 (09/09/2016 13:56:QS system process) EDC: 10/19/2016 00:00 (09/27/2016 14:52:Ana M Gillespie RN) : 1 (09/27/2016 14:52:Ana M Gillespie RN) Para: 0 (09/30/2016 18:58:Claudia Durant RN) Term: 0 (09/27/2016 14:52:Claudia Durant RN) : 0 (09/27/2016 14:52:Claudia Durant RN) Spontaneous Abortions: 0 (09/27/2016 14:52:Claudia Durant RN) Induced Abortions: 0 (09/27/2016 14:52:Claudia Durant RN) Livin (09/27/2016 14:52:Claudia Druant RN) Cesareans: 0 (09/27/2016 14:52:Claudia Durant RN) VBACs: 0 (09/27/2016 14:52:Claudia Durant RN) Ectopic: 0 (09/27/2016 14:52:Claudia Durant RN) Multiple Births: 0 (09/27/2016 14:52:Claudia Durant RN) Baby, Number in Womb: 1 (09/30/2016 18:58:Claudia Durant RN) CARE Primary Microphone Operator: [facility] (09/27/2016 14:52:Ana M Gillespie RN) Month of 1st Visit: March 2016 (09/27/2016 14:52:Claudia Durant RN) Adequate Care: Yes (09/27/2016 14:52:Claudia Durant RN) Prepregnancy Weight (lb): 123 (09/27/2016 14:52:Claudia Durant RN) Prepregnancy Weight (kg): 55.9 (09/27/2016 14:52:QS system process) Height (in): 64 (10/06/2016 14:52:QS system process) ALLERGIES Medication Allergy: No (09/27/2016 14:52:Ana M Gillespie RN) Medication Allergies: shrimp (10/03/2016) (10/03/2016 20:21:QS system process) Latex Allergy: No Latex Allergies (09/27/2016 14:52:Ana M Gillespie RN) Food Allergies: shellfish, crawfish, shrimp (09/27/2016) (09/27/2016 14:52:Claudia Durant RN) Environmental Allergies: none (09/27/2016 14:52:Claudia Durant RN) COMMUNICATION Primary Language: Faroese (09/27/2016 14:52:Claudia Durant RN) Medical Tx Preferred Language: Faroese (09/27/2016 14:52:Claudia Durant RN) Communication Barrier(s): None (09/27/2016 14:52:Claudia Durant RN) DEMOGRAPHICS Address: [address] [place] [id number] (09/09/2016 13:56:QS system process) Zipcode: [address] (09/09/2016 13:56:QS system process) Home (09/09/2016 13:56:QS system process) SSN: [id number] (09/09/2016 13:56:QS system process) Next of Kin Name: ASHLEY PATE (09/09/2016 13:56:QS system process) Next of Kin (09/09/2016 13:56:QS system process) Next of Kin Relationship: SPO (09/09/2016 13:56:QS system process) Date of : 1995 (09/09/2016 13:56:QS system process) Marital Status: (09/09/2016 13:56:QS system process) Sex: Female (09/09/2016 13:56:QS system process) Race: Other (09/09/2016 13:56:QS system process) Ethnicity: or (09/09/2016 13:56:QS system process) Mu-Ism: None (09/09/2016 13:56:QS system process) DRUG AND ALCOHOL USE Alcohol: No (09/27/2016 14:52:Claudia Durant RN) Cigarettes: Never Smoker. [id number] (09/27/2016 14:52:Claudia Durant RN) Marijuana: No (09/27/2016 14:52:Claudia Durant RN) Cocaine: No (09/27/2016 14:52:Claudia Durant RN) Other Illicit Drugs: No (09/27/2016 14:52:Claudia Durant RN) VACCINE HISTORY Influenza Vaccine: Yes (09/27/2016 14:52:Claudia Durant RN) Influenza Date: 06/2016 (09/27/2016 14:52:Claudia Durant RN) Pneumococcal Vaccine: No (09/27/2016 14:52:Claudia Durant RN) Tetanus Vaccine: Yes (09/27/2016 14:52:Claudia Durant RN) Tetanus Date: 09/2016 (09/27/2016 14:52:Claudia Durant RN) Tdap Vaccine: Yes (09/27/2016 14:52:Claudia Durant RN) Tdap Date: 09/2016 (09/27/2016 14:52:Claudia Durant RN) Hepatitis B Vaccine: No (09/27/2016 14:52:Claudia Durant RN) Inorganic Chemical Technician: [facility] (09/27/2016 14:52:Ashley Steward RN) Feeding Preference: Breast (09/27/2016 14:52:Claudia Durant RN) Benefit of Breast Feed Discussed: Yes (09/27/2016 14:52:Ashley Steward RN) Circumcision: Yes (09/27/2016 14:52:Claudia Durant RN) Classes Attended: Yes (09/27/2016 14:52:Claudia Durant RN) Tubal Ligation: No (09/27/2016 14:52:Claudia Durant RN) Tubal Authorization Signed: N/A (09/27/2016 14:52:Claudia Durant RN) Consent: N/A (09/27/2016 14:52:Claudia Durant RN) Consent Signed: N/A (09/27/2016 14:52:Claudia Durant RN) Pain Management Plans: Epidural (09/27/2016 14:52:Ashley Steward RN) Plans for Labor and Delivery: None (09/27/2016 14:52:Ashley Steward RN) Support Person: Elie Pate (09/27/2016 14:52:Ashley Steward RN) Support Person Relationship: (09/27/2016 14:52:Ashley Steward RN) Cultural/Spritual Practice: No (09/27/2016 14:52:Claudia Durant RN) Spir/Cult Dietary Needs: No (09/27/2016 14:52:Claudia Durant RN) LIVING SITUATION/DISCHARGE PLAN Living Arrangements: House (09/27/2016 14:52:Claudia Durant RN) Adequate Access to:: Electric; Heat; Refrigeration; Plumbing/Running water; Phone; Transportation (09/27/2016 14:52:Claudia Durant RN) WIC Program: No (09/27/2016 14:52:Claudia Durant RN) Discharge Pharmacy Technician Instructor Person: spouse (09/27/2016 14:52:Claudia Durant RN) Person to Help after Discharge: spouse (09/27/2016 14:52:Claudia Durant RN) Currently Using Commun Resources: No (09/27/2016 14:52:Claudia Durant RN) Outside Agency/Special Education Curriculum Specialist: No (09/27/2016 14:52:Claudia Durant RN) Car Seat for Discharge: Yes (09/27/2016 14:52:Claudia Durant RN) Adoption Requested: No (09/27/2016 14:52:Claudia Durant RN) Pt Contact w/ Post : N/A (09/27/2016 14:52:Claudia Durant RN) LABS Blood Type: O Positive (09/27/2016 14:52:Ana M Gillespie RN) Antibody Screen: Negative (09/27/2016 14:52:Ana M Gillespie RN) Rho(G) this : Not Applicable (09/27/2016 14:52:Connie Lawrence RN) Hemoglobin: 12.9 (10/10/2016 14:31:QS system process) Hematocrit: 37.5 (10/10/2016 14:31:QS system process) MCV: 91 (10/10/2016 14:31:QS system process) Group Beta Strep: Negative (09/27/2016 14:52:Ana M Gillespie RN) Gonorrhea: Negative (09/27/2016 14:52:Ana M Gillespie RN) Chlamydia: Negative (09/27/2016 14:52:Ana M Gillespie RN) Hepatitis B: Negative (09/27/2016 14:52:Ana M Gillespie RN) Rubella: Immune (09/27/2016 14:52:Ana M Gillespie RN) OB/PREVIOUS HISTORY Previous Procedures: None (09/27/2016 14:52:Connie Lawrence RN) Current Procedures: Ultrasound; NST (09/27/2016 14:52:Connie Lawrence RN) History of Previous : No (09/27/2016 14:52:Connie Lawrence RN) History of Gestational Diabetes: No (09/27/2016 14:52:Connie Lawrence RN) History of PIH: No (09/27/2016 14:52:Connie Lawrence RN) History of Incompetent Cervix: No (09/27/2016 14:52:Connie Lawrence RN) History of Placenta Previa/Abrup: No (09/27/2016 14:52:Connie Lawrence RN) History of Macrosomia: No (09/27/2016 14:52:Connie Lawrence RN) History of IUGR: No (09/27/2016 14:52:Connie Lawrence RN) History of Hemorrhage: No (09/27/2016 14:52:Connie Lawrence RN) History of Loss/Stillborn: No (09/27/2016 14:52:Connie Lawrence RN) History of : No (09/27/2016 14:52:Connie Lawrence RN) History of D (Rh) Sensitization: No (09/27/2016 14:52:Connie Lawrence RN) History Recurrent Loss/Stillborn: No (09/27/2016 14:52:Connie Lawrence RN) History Depression/PP Depression: No (09/27/2016 14:52:Connie Lawrence RN) History of Uterine Anomaly/WILL: No (09/27/2016 14:52:Connie Lawrence RN) History of Infertility: No (09/27/2016 14:52:Connie Lawrence RN) History of ART Treatment: No (09/27/2016 14:52:Connie Lawrence RN) History of WILL: No (09/27/2016 14:52:Connie Lawrence RN) Comments Obstetrical History: G1-Current (09/27/2016 14:52:Connie Lawrence RN) MEDICAL HISTORY Med Hx Diabetes: No (09/27/2016 14:52:Connie Lawrence RN) Med Hx Hypertension: No (09/27/2016 14:52:Connie Lawrence RN) Med Hx Heart Disease: No (09/27/2016 14:52:Connie Lawrence RN) Med Hx Autoimmune Disorder: No (09/27/2016 14:52:Connie Lawrence RN) Med Hx Kidney Disease/UTI: No (09/27/2016 14:52:Connie Lawrence RN) Med Hx Neurologic/Epilepsy: No (09/27/2016 14:52:Connie Lawrence RN) Med Hx Psychiatric Disorders: No (09/27/2016 14:52:Connie Lawrence RN) Med Hx Hepatitis/Liver Disease: No (09/27/2016 14:52:Connie Lawrence RN) Med Hx Varicosities/Phlebitis: No (09/27/2016 14:52:Connie Lawrence RN) Med Hx Thyroid Dysfunction: No (09/27/2016 14:52:Connie Lawrence RN) Med Hx Trauma/Violence: No (09/27/2016 14:52:Connie Lawrence RN) Med Hx Blood Transfusion: No (09/27/2016 14:52:Connie Lawrence RN) Med Hx Pulmonary (Asthma,TB): No (09/27/2016 14:52:Connie Lawrence RN) Med Hx Breast: No (09/27/2016 14:52:Connie Lawrence RN) Med Hx ANIMAL DAMAGE CONTROL AGENT Surgery: No (09/27/2016 14:52:Connie Lawrence RN) Med Hx Hospitalization/Surgery: Yes (09/27/2016 14:52:Ana M Gillespie RN) Med Hx Anesthetic Complications: No (09/27/2016 14:52:Connie Lawrence RN) Med Hx Abnormal Pap Smear: No (09/27/2016 14:52:Connie Lawrence RN) Other Medical Diseases: No (09/27/2016 14:52:Connie Lawrence RN) Med Hx Significant Family Hx: No (09/27/2016 14:52:Connie Lawrence RN) Details of Med/Surg Hx: tonsillectomy, tubes in ears L hip doesn't have full range of motion (09/27/2016 14:52:Ana M Gillespie RN) INFECTIOUS HISTORY Inf Hx Gonorrhea: No (09/27/2016 14:52:Connie Lawrence RN) Inf Hx Chlamydia: No (09/27/2016 14:52:Connie Lawrence RN) Inf Hx Syphilis: No (09/27/2016 14:52:Connie Lawrence RN) Inf Hx HIV/AIDS: No (09/27/2016 14:52:Connie Lawrence RN) Inf Hx Human Papilloma Virus: No (09/27/2016 14:52:Connie Lawrence RN) Inf Hx Pt/Partner Genital Herpes: No (09/27/2016 14:52:Connie Lawrence RN) Inf Hx Tuberculosis/Exposure: No (09/27/2016 14:52:Connie Lawrence RN) Inf Hx Hepatitis B,C: No (09/27/2016 14:52:Connie Lawrence RN) Inf Hx Rash or Viral Illness: No (09/27/2016 14:52:Connie Lawrence RN) GENETIC HISTORY Gen Hx Age >=35 at MATTEO: No (09/27/2016 14:52:Connie Lawrence RN) Gen Hx Thalassemia: No (09/27/2016 14:52:Connie Lawrence RN) Gen Hx Congenital Heart Defect: No (09/27/2016 14:52:Connie Lawrence RN) Gen Hx Neural Tube Defect: No (09/27/2016 14:52:Connie Lawrence RN) Gen Hx Down's Syndrome: No (09/27/2016 14:52:Connie Lawrence RN) Gen Hx John-Sachs: No (09/27/2016 14:52:Connie Lawrence RN) Gen Hx Marshall: No (09/27/2016 14:52:Connie Lawrence RN) Gen Hx Familial Dysautonomia: No (09/27/2016 14:52:Connie Lawrence RN) Gen Hx Sickle Cell Disease/Trait: No (09/27/2016 14:52:Connie Lawrence RN) Gen Hx Hemophilia/Blood Disorder: No (09/27/2016 14:52:Connie Lawrence RN) Gen Hx Muscular Dystrophy: No (09/27/2016 14:52:Connie Lawrence RN) Gen Hx Cystic Fibrosis: No (09/27/2016 14:52:Connie Lawrence RN) Gen Hx [place] Chorea: No (09/27/2016 14:52:Connie Lawrence RN) Gen Hx Mental Retardation/Autism: No (09/27/2016 14:52:Connie Lawrence RN) Gen Hx Tested for Fragile X: No (09/27/2016 14:52:Connie Lawrence RN) Gen Hx Other Inher/Chromosomal: No (09/27/2016 14:52:Connie Lawrence RN) Gen Hx Maternal Metabolic DO: No (09/27/2016 14:52:Connie Lawrence RN) Gen Hx Pt Father or FOB Defect: No (09/27/2016 14:52:Connie Lawrence RN) Gen Hx Other Genetic History: No (09/27/2016 14:52:Connie Lawrence RN) Gen Hx Drugs/Meds since LMP: No (09/27/2016 14:52:Connie Lawrence RN)
--- NOTE | 2016-10-11 15:42 | L&D General Admission ---
General Admit Datetime Report Generated by CPN: 10/11/2016 15:42 Patient Age: 21 (09/09/2016 13:56:QS system process) EDC: 10/19/2016 00:00 (09/27/2016 14:52:Ana M Gillespie RN) : 1 (09/27/2016 14:52:Ana M Gillespie RN) Para: 0 (09/27/2016 14:52:Ana M Gillespie RN) Baby, Number in Womb: 1 (09/27/2016 15:58:Ana M Gillespie RN) Primary Oracle Adf Developer: [facility] (09/27/2016 14:52:Ana M Gillespie RN) Medication Allergy: No (09/27/2016 14:52:Ana M Gillespie RN) Latex Allergy: No Latex Allergies (09/27/2016 14:52:An aM Gillespie RN) Address: [address] [place] [id number] (09/09/2016 13:56:QS system process) Zipcode: [address] (09/09/2016 13:56:QS system process) Home (09/09/2016 13:56:QS system process) SSN: [id number] (09/09/2016 13:56:QS system process) Next of Kin Name: ASHLEY HARRIS (09/09/2016 13:56:QS system process) Next of Kin (09/09/2016 13:56:QS system process) Next of Kin Relationship: SPO (09/09/2016 13:56:QS system process) Date of : 1995 (09/09/2016 13:56:QS system process) Marital Status: (09/09/2016 13:56:QS system process) Sex: Female (09/09/2016 13:56:QS system process) Race: Other (09/09/2016 13:56:QS system process) Ethnicity: or (09/09/2016 13:56:QS system process) Judaism: None (09/09/2016 13:56:QS system process) Blood Type: O Positive (09/27/2016 14:52:Ana M Gillespie RN) Antibody Screen: Negative (09/27/2016 14:52:Ana M Gillespie RN) Hemoglobin: 12.5 (09/27/2016 14:44:QS system process) Hematocrit: 35.7 L (09/27/2016 14:44:QS system process) MCV: 90 (09/27/2016 14:44:QS system process) Group Beta Strep: Negative (09/27/2016 14:52:Ana M Gillespie RN) Gonorrhea: Negative (09/27/2016 14:52:Ana M Gillespie RN) Chlamydia: Negative (09/27/2016 14:52:Ana M Gillespie, RN) Hepatitis B: Negative (09/27/2016 14:52:Ana M Gillespie, ORTIZ) Rubella: Immune (09/27/2016 14:52:Ana M Gillespie RN) Med Hx Hospitalization/Surgery: Yes (09/27/2016 14:52:Ana M Gillespie, RN)
--- NOTE | 2016-10-11 15:42 | Antepartum Discharge Summary ---
Antepartum DC Datetime Report Generated by CPN: 10/11/2016 15:41 Diet: Regular (09/27/2016 15:58:Ana M Gillespie RN) Activity: Normal Activity (09/27/2016 15:58:Ana M Gillespie RN) Instructions Given To: Patient/Family (09/27/2016 15:58:Ana M Gillespie RN) Instructions Understood: Patient Verbalized Understanding; Support Person Verbalized Understanding (09/27/2016 15:58:Ana M Gillespie RN) Referrals: None (09/27/2016 15:58:Ana M Gillespie RN) Educational Materials- Other: Pre-eclampsia, kick counts (09/27/2016 15:58:Ana M Gillespie RN) Discharged AMA: No (09/27/2016 15:58:Ana M Gillespie RN) Discharge Date/Time: 09/27/2016 15:55 (09/27/2016 15:58:Ana M Gillespie RN) Discharged To: Home (09/27/2016 15:58:Ana M Gillespie RN) Discharge Provider Name: Josue Jeffers CNM (09/27/2016 15:58:Ana M Gillespie RN) Accompanied By: DIALLO (09/27/2016 15:58:Ana M Gillespie RN) Discharge Method: Ambulatory (09/27/2016 15:58:Ana M Gillespie RN) Condition: Stable (09/27/2016 15:58:Ana M Gillespie RN) Follow Up With: [facility] (09/27/2016 15:58:Ana M Gillespie RN) Follow Up On: As Scheduled (09/27/2016 15:58:Ana M Gillespie RN) Follow Up Phone Number: [facility] - (09/27/2016 15:58:Ana M Gillespie RN)
--- NOTE | 2016-10-11 15:42 | L&D Current Admission ---
Current Admit Datetime Report Generated by N: 10/11/2016 15:42 Chief Complaint: Pt arrived from office for pre-eclampsia workup (09/27/2016 14:45:Ana M Gillespie RN)
--- NOTE | 2016-10-11 15:43 | L&D Flow Sheet ---
LD Flowsheet Datetime Report Generated by CPN: 10/11/2016 15:42 Datetime: 09/27/2016 15:55 Communication Comments: Pt ambulated off floor in stable condition (Ana M Gillespie RN) Datetime: 09/27/2016 15:50 Monitor Mode: External (Ana M Gillespie RN) Frequency (min): irreg (Ana M Gillespie RN) Quality: Mild (Ana M Gillespie RN) Duration (sec): 60-100 (Ana M Gillespie RN) Resting Tone (Palpate): Relaxed (Ana M Gillespie RN) Monitor Mode: External US (Ana M Gillespie RN) FHR Baseline Rate : 135 (Ana M Gillespie RN) Variability: Moderate 6-25 bpm (Ana M Gillespie RN) Accelerations: 15X15 (Ana M Gillespie RN) Decelerations: None (Ana M Gillespie RN) Communication Comments: Monitors removed (Ana M Gillespie RN) Communication Comments: D/C order received at bedside per Josue Jeffers CNM. Reviewed kick counts and pre-e signs. Pt has no questions at this time (Ana M Gillespie RN) Datetime: 09/27/2016 15:48 Dilatation (cm): 0.0 (Ana M Gillespie RN) Effacement (%): 50 (Ana M Gillespie RN) Station: -1 (Ana M Gillespie RN) Exam by: Josue Jeffers CNFranky (Ana M Gillespie RN) Datetime: 09/27/2016 15:46 Communication Comments: Josue Jeffers CNM at bedside (Ana M Gillespie RN) Datetime: 09/27/2016 15:45 NBP Sys/[place]/Mean (mmHg): 123 (QS system process) : 82 (QS system process) : 98 (QS system process) Pulse: 74 (QS system process) Datetime: 09/27/2016 15:30 Monitor Mode: External (Ana M Gillespie, RN) Frequency (min): 3-6 (Ana M Gillespie, RN) Quality: Mild (Ana M Gillespie, RN) Duration (sec): 50-120 (Ana M Gillespie, RN) Duration Criteria: Less than Two 120 Second Contractions (Ana M Gillespie, RN) Pattern: Normal: <= 5 Contractions in 10 Minutes (Ana M Gillespie, RN) Resting Tone (Palpate): Relaxed (Ana M Gillespie, RN) Monitor Mode: External US (Ana M Gillespie, RN) FHR Baseline Rate : 135 (Ana M Gillespie RN) Variability: Moderate 6-25 bpm (Ana M Gillespie, RN) Accelerations: 15X15 (Ana M Gillespie, RN) Decelerations: None (Ana M Gillespie, RN) Datetime: 09/27/2016 15:28 NBP Sys/[place]/Mean (mmHg): 118 (QS system process) : 73 (QS system process) : 91 (QS system process) Pulse: 77 (QS system process) Datetime: 09/27/2016 15:14 NBP Sys/[place]/Mean (mmHg): 123 (QS system process) : 91 (QS system process) : 103 (QS system process) Pulse: 66 (QS system process) Datetime: 09/27/2016 14:58 NBP Sys/[place]/Mean (mmHg): 125 (QS system process) : 84 (QS system process) : 100 (QS system process) Pulse: 65 (QS system process) Datetime: 09/27/2016 14:56 Patient Position/Activity: Left Lateral (Ana M Gillespie RN) I/O Interventions: Clear Liquids Given (Ana M Gillespie, RN) Datetime: 09/27/2016 14:55 Stage of : Labor (Ana M Gillespie, RN) Procedures: Labs Drawn (Ana M Gillespie, RN) Datetime: 09/27/2016 14:45 Pain Scale: 0 (Ana M Gillespie RN) Pain Presence: None/Denies (Ana M Gillespie RN) Pain Type: N/A (Ana M Gillespie RN) Membrane Status: Intact (Ana M Gillespie RN) Vaginal Bleeding: None (Ana M Gillespie RN) Level of Consciousness: Fully Conscious (Ana M Gillespie RN) DTR's/Clonus: DTRs 2+; No Clonus (Ana M Gillespie RN) Headache: Denies (Ana M Gillespie RN) Breath Sounds, Left: Clear and Equal (Ana M Gillespie RN) Breath Sounds, Right: Clear and Equal (Ana M Gillespie RN) Nausea/Vomiting: Denies (Ana M Gillespie RN) RUQ Epigastric Pain: Denies (Ana M Gillespie, ORTIZ) Instructional Method: Verbal; Patient Instructed; Family/Support Person Instructed; Verbalized Understanding (Ana M Gillespie RN) Plan of Care: Plan of Care Discussed (Ana M Gillespie RN) Unit Routine: [place] to Room; Call [place]; Bed; Handwashing; Monitoring; Bathroom Privileges (Ana M Gillespie RN)
--- NOTE | 2016-10-11 15:49 | L&D Discharge Summary ---
OB Discharge Summary Datetime Report Generated by CPN: 10/11/2016 15:49 DISCHARGE DIAGNOSIS Diagnosis/Symptoms: Gestational Hypertension Diagnoses/Symptoms Other: not in labor Gestation: 38.0 Number of Babies in Womb: 1 Parity: 0 DIET/ACTIVITY/RESTRICTIONS Diet: Regular Activity: Bedrest; May Be Up to Bathroom; May Be Up for Meals; May Shower Activity Restrictions: No Exercising; No Lifting; Minimize Stair Climbing TEACHING/INSTRUCTIONS/REFERRALS Instructions Given To: patient and spouse Instructions Understood: Patient Verbalized Understanding; Support Person Verbalized Understanding Referrals: None Educational Materials- Other: *Pre-Eclampsia DISCHARGE INFORMATION Discharged AMA: No Discharge Date/Time: 09/30/2016 19:05 Discharged To: Home Discharge Provider Name: Dr. Mahoney Accompanied By: spouse Discharge Method: Ambulatory Condition: Stable FOLLOW UP INFORMATION Follow Up With: Other-Annotate Follow Up On: 1-2 Days Follow Up Phone Number: [facility] - Comments: Pt to return to L_D at [facility] on Monday evening for IOL, informational handout provided.
== END 2016-10-06 20:49 | disposition home or self-care (01) | DRG 775 ==
LOC: LR 20:08 → 2S 10-05 04:56
PROVIDERS: ADMIT Specialist; ATTEND Obstetrics & Gynecology
PROC: 3E0P7GC Introduction of Other Therapeutic Substance into Female Reproductive, Via Natural or Artificial Opening (ICD-10-PCS; 2016-10-04)
PROC: 10E0XZZ Delivery of Products of Conception, External Approach (ICD-10-PCS; principal; 2016-10-05)
DX: O13.4 Gestational [pregnancy-induced] hypertension without significant proteinuria, complicating childbirth (principal); O69.81X0 Labor and delivery complicated by cord around neck, without compression, not applicable or unspecified; Z3A.37 37 weeks gestation of pregnancy; Z37.0 Single live birth
CPT/HCPCS: 36415; 80053; 80307; 81005; 83615; 84550; 85025; 85027; 86592; 86850; 86900; 86901; J2300; J2550; J2590; J3490

== ENCOUNTER 2016-10-10 13:48 | Emergency (ER) | payer OTHER ==
--- NOTE | 2016-10-10 14:07 | ER Document Report ---
ED Medical Screen (RME) - General Stated Complaint: BLOOD PRESSURE ISSUES Time seen by provider: 14:03 Mode of Arrival: Ambulatory Information source: Patient Notes: 21-year-old female with hypertension sent to er this morning by [facility]. She delivered on oct.05. sHe developed PIH during did not have to take any blood pressure medicine. She has had a fever for 3 days but not today. She was breast-feeding until she got the fever. No mastitis. 177/111 in triage. TRAVEL OUTSIDE OF THE [place] IN LAST 30 DAYS: No - Related Data Allergies/Adverse Reactions: shrimp Allergy (Verified 10/10/16 14:04) Past Medical History - Immunizations Immunizations up to date: Yes Hx Diphtheria, Pertussis, Tetanus Vaccination: Yes
[2016-10-10 14:55] LABS: ABSOLUTE EOSINOPHILS # (AUTO) 0.3 10^3/uL (0.0-0.6); ABSOLUTE LYMPHOCYTES (AUTO) 1.7 10^3/uL (0.5-4.7); ABSOLUTE MONOCYTES (AUTO) 0.8 10^3/uL (0.1-1.4); ABSOLUTE NEUT (AUTO) 7.2 10^3/uL (1.7-8.2); BASOPHILS % (AUTO) 0.5 % (0-2); EOSINOPHILS % (AUTO) 3.2 % (0-6); HEMATOCRIT 37.5 % (36.0-47.0); HEMOGLOBIN 12.9 g/dL (12.0-15.5); HGB HCT DIFFERENCE 1.2; LYMPHOCYTES % (AUTO) 16.8 % (13-45); MEAN CORPUSCULAR HEMOGLOBIN 31.2 pg (27.0-33.4); MEAN CORPUSCULAR HGB CONC 34.3 g/dL (32.0-36.0); MEAN CORPUSCULAR VOLUME 91 fl (80-97); MONOCYTES % (AUTO) 8.2 % (3-13); RED BLOOD COUNT 4.12 10^6/uL (3.72-5.28); RED CELL DISTRIBUTION WIDTH 14.2 % (11.5-14.0); SEGMENTED NEUTROPHILS % (AUTO) 71.3 % (42-78); WHITE BLOOD COUNT 10.1 10^3/uL (4.0-10.5)
[2016-10-10 15:15] LABS: APPEARANCE,URINE SLIGHTLY-CLOUDY; BILIRUBIN,URINE NEGATIVE (NEGATIVE); GLUCOSE, URINE NEGATIVE (NEGATIVE); KETONES,URINE NEGATIVE (NEGATIVE); LEUKOCYTE ESTERASE,URINE LARGE (NEGATIVE); NITRITE,URINE NEGATIVE (NEGATIVE); PROTEIN,URINE NEGATIVE (NEGATIVE); URINE SPECIFIC GRAVITY 1.011; UROBILINOGEN,URINE NEGATIVE mg/dL (<2.0)
[2016-10-10 15:17] LABS: ALANINE AMINOTRANSFERASE 40 U/L (9-52); ALBUMIN 3.4 g/dL (3.5-5.0); ALKALINE PHOSPHATASE 124 U/L (38-126); ANION GAP 11 (5-19); ASPARTATE AMINO TRANSFERASE 32 U/L (14-36); BILIRUBIN,TOTAL 0.3 mg/dL (0.2-1.3); BLOOD UREA NITROGEN 12 mg/dL (7-20); CARBON DIOXIDE 26 mmol/L (22-30); CHLORIDE 105 mmol/L (98-107); CREATININE RESULT 0.67 mg/dL (0.52-1.25); GLUCOSE 69 mg/dL (75-110); LDH 751 U/L (313-618); MAGNESIUM 1.9 mg/dL (1.6-2.3); POTASSIUM 4.3 mmol/L (3.6-5.0); SODIUM 141.9 mmol/L (137-145); TOTAL PROTEIN 6.9 g/dL (6.3-8.2)
--- NOTE | 2016-10-10 16:05 | ER Document Report ---
ED General - General Chief Complaint: High Blood Pressure Stated Complaint: BLOOD PRESSURE ISSUES Mode of Arrival: Ambulatory TRAVEL OUTSIDE OF THE [place] IN LAST 30 DAYS: No - HPI Patient complains to provider of: hypertension Notes: Patient is approximately one week after vaginal delivery. Patient was diagnosed hypertension induced in but never diagnosed preeclampsia patient underwent induction because of her hypertension. [facility] today referred to the ER for further evaluation. Upon evaluation patient patient's blood pressure is hypertensive 177/111. Patient denies any symptoms states swelling in her legs and decrease since denies chest pain abdominal pain fevers chills nausea vomiting. Patient also states while in today they did evaluate her for mastitis and ruled that out. - Related Data Allergies/Adverse Reactions: shrimp Allergy (Verified 10/10/16 14:04) Past Medical History - General Information source: Patient - Social History Smoking Status: Never Smoker Chew tobacco use (# tins/day): No Frequency of alcohol use: None Drug Abuse: None Family History: Reviewed & Not Pertinent Patient has suicidal ideation: No Patient has homicidal ideation: No Past Surgical History: Reports: Hx Tonsillectomy - Immunizations Immunizations up to date: Yes Hx Diphtheria, Pertussis, Tetanus Vaccination: Yes Review of Systems - Review of Systems Constitutional: Other - Hypertension EENT: No symptoms reported Cardiovascular: No symptoms reported Respiratory: No symptoms reported Gastrointestinal: No symptoms reported Genitourinary: No symptoms reported Female Genitourinary: No symptoms reported Musculoskeletal: No symptoms reported Skin: No symptoms reported Hematologic/Lymphatic: No symptoms reported Neurological/Psychological: No symptoms reported Physical Exam - Vital signs Vitals: Temp Pulse Resp BP Pulse Ox 97.8 F 69 16 177/111 H 99 10/10/16 14:04 10/10/16 14:04 10/10/16 14:04 10/10/16 14:04 10/10/16 14:04 Interpretation: Hypertensive - General General appearance: Appears well, Alert - HEENT Head: Normocephalic, Atraumatic Eyes: Normal Pupils: PERRL - Respiratory Respiratory status: No respiratory distress Chest status: Nontender Breath sounds: Normal Chest palpation: Normal - Cardiovascular Rhythm: Regular Heart sounds: Normal auscultation Murmur: No - Abdominal Inspection: Normal Distension: No distension Bowel sounds: Normal Tenderness: Nontender Organomegaly: No organomegaly - Back Back: Normal, Nontender - Extremities General upper extremity: Normal inspection, Nontender, Normal color, Normal ROM , Normal temperature General lower extremity: Normal inspection, Nontender, Normal color, Normal ROM , Normal temperature, Normal weight bearing. No: Carolin's sign - Neurological Neuro grossly intact: Yes Cognition: Normal Orientation: AAOx4 Nick Coma Scale Eye Opening: Spontaneous [place] Coma Scale Verbal: Oriented [place] Coma Scale Motor: Obeys Commands Nick Coma Scale Total: 15 Speech: Normal Motor strength normal: LUE, RUE, LLE, RLE Sensory: Normal - Psychological Associated symptoms: Normal affect, Normal mood - Skin Skin Temperature: Warm Skin Moisture: Dry Skin Color: Normal Course - Re-evaluation Re-evalutation: 10/10/16 20:09 After evaluation here in the ER patient's blood pressure did decline. Discuss results with Dr. Luu notified that patient did have a mildly elevated LDH however no protein urine and that the patient did have decrease in her blood pressure. Dr. Luupatient patient well still suggest the patient be started on Normodyne 100 mg Patient also has entered tract infection. Will send patient on Keflex. Patient otherwise will be discharged home with medication patient has a follow- up appointment at the end of the week. Patient to keep this appointment. - Vital Signs Vital signs: Temp Pulse Resp BP Pulse Ox 97.7 F 76 16 139/101 H 99 10/10/16 16:34 10/10/16 16:34 10/10/16 16:34 10/10/16 16:34 10/10/16 16:34 - Laboratory Result Diagrams: 10/10/16 14:31 10/10/16 14:31 Laboratory results interpreted by me: 10/10/16 10/10/16 10/10/16 14:31 14:31 14:31 RDW 14.2 H Glucose 69 L Lactate Dehydrogenase 751 H Albumin 3.4 L Urine Blood LARGE H Ur Leukocyte Esterase LARGE H Discharge - Discharge Clinical Impression: Transient hypertension during , UTI (urinary tract infection) Qualifiers: Urinary tract infection type: site unspecified Hematuria presence: with hematuria Qualified Code(s): N39.0 - Urinary tract infection, site not specified Condition: Good Disposition: HOME, SELF-CARE Instructions: Beta Blockers ([facility]), High Blood Pressure ([facility]), Urinary Tract Infection ([facility]) Additional Instructions: Take medication as prescribed. Return to the ER symptoms worsen. Follow-up with your primary care physician. Prescriptions: Cephalexin Monohydrate [Keflex 500 mg Capsule] 500 mg PO QID 7 Days Labetalol HCl 100 mg PO BID #30 tablet Forms: Return to Work Referrals: LAURIE,NO [Primary Care Provider] - Follow up as needed VICKY LUU MD [ACTIVE STAFF] - 10/14/16
[2016-10-10] MEDS ORDERED: CEPHALEXIN 500 MG CAPSULE PO ONE (16:07)
[2016-10-10 18:23] VITALS: BP 139/101
== END 2016-10-10 16:34 | disposition home or self-care (01) ==
LOC: ER 13:48
DX: O13.5 Gestational [pregnancy-induced] hypertension without significant proteinuria, complicating the puerperium (principal); O86.20 Urinary tract infection following delivery, unspecified; Z91.013 Allergy to seafood
CPT/HCPCS: 36415; 80053; 81001; 83615; 83735; 85025; 99283

== ENCOUNTER 2016-12-30 22:31 | Emergency (ER) | payer OTHER ==
[2016-12-31] MEDS ORDERED: OXYCODONE-ACETAMINOPHEN 5-325 MG TABLET PO ONE (01:53)
[2016-12-31] MEDS ORDERED: HYDROCODONE/ACETAMINOPHEN 5-325 MG 6 TAB/DSPK PO PRN (01:53)
[2016-12-31] MEDS ORDERED: LIDOCAINE 5% (700 MG) TRANSDERMAL ADH..PATCH TP ONE (01:53)
[2016-12-31] MEDS ORDERED: KETOROLAC TROMETHAMINE 60 MG/2 ML SDV IM ONE (01:53)
--- NOTE | 2016-12-31 01:55 | ER Document Report ---
ED General - General Chief Complaint: Low Back Pain Stated Complaint: HORRIBLE BACK AND LEG PAIN Notes: Patient is a 21-year-old female without past medical history who presents with 4 days of right perilumbar spine pain with intermittent radiation of pain into her right leg. Does describe the pain as a severe, constant, throbbing pain. States moving worsens the pain. She has been trying ibuprofen with minimal improvement of the pain. States she's had similar symptoms in the past approximately 4-5 years ago. Denies any associated bowel or bladder incontinence, retention of urine or feces, fever, IV drug use, weakness or numbness. She has not seen her primary care doctor regarding today's concerns. Denies any focal injury to the area and is uncertain of what caused the pain to start. TRAVEL OUTSIDE OF THE [place] IN LAST 30 DAYS: No - Related Data Allergies/Adverse Reactions: shellfish derived Allergy (Verified 12/30/16 23:38) Past Medical History - General Information source: Patient - Social History Smoking Status: Never Smoker Chew tobacco use (# tins/day): No Frequency of alcohol use: Occasional Drug Abuse: None Lives with: Spouse/Significant other Family History: Reviewed & Not Pertinent Renal/ Medical History: Denies: Hx Peritoneal Dialysis Past Surgical History: Reports: Hx Tonsillectomy - Immunizations Immunizations up to date: Yes Hx Diphtheria, Pertussis, Tetanus Vaccination: Yes Review of Systems - Review of Systems Notes: Constitutional: Negative for fever. HENT: Negative for sore throat. Eyes: Negative for visual changes. Cardiovascular: Negative for chest pain. Respiratory: Negative for shortness of breath. Gastrointestinal: Negative for abdominal pain, vomiting or diarrhea. Genitourinary: Negative for dysuria. Musculoskeletal: Positive for back pain. Skin: Negative for rash. Neurological: Negative for headaches, weakness or numbness. 10 point ROS negative except as marked above and in HPI. Physical Exam - Vital signs Vitals: Temp Pulse Resp BP Pulse Ox 98.3 F 56 L 16 158/89 H 100 12/30/16 22:54 12/30/16 22:54 12/30/16 22:54 12/30/16 22:54 12/30/16 22:54 Interpretation: Hypertensive Notes: PHYSICAL EXAMINATION: GENERAL: Well-appearing, well-nourished and in no acute distress. HEAD: Atraumatic, normocephalic. EYES: Pupils equal round and reactive to light, extraocular movements intact, sclera anicteric, conjunctiva are normal. ENT: nares patent, oropharynx clear without exudates. Moist mucous membranes. NECK: Normal range of motion, supple without lymphadenopathy LUNGS: Breath sounds clear to auscultation bilaterally and equal. No wheezes rales or rhonchi. HEART: Regular rate and rhythm without murmurs ABDOMEN: Soft, nontender, normoactive bowel sounds. No guarding, no rebound. No masses appreciated. EXTREMITIES: Normal range of motion, no pitting or edema. No cyanosis. Back: No midline spinal tenderness step-offs or deformities. Pain on palpation of the perilumbar spine region just to the right of the L34 region NEUROLOGICAL: 5 out of 5 strength both distally and proximally bilateral lower extremities. 2+ patellar reflexes bilaterally. No clonus. Sensation grossly intact in the bilateral lower extremities. Patient is able to ambulate without difficulty. Able to walk on heels and toes. PSYCH: Normal mood, normal affect. SKIN: Warm, Dry, normal turgor, no rashes or lesions noted. Course - Re-evaluation Re-evalutation: 12/31/16 01:53 Presentation of a well appearing patient complaining of acute back pain. No rapid progression of symptoms, systemic symptoms including fevers, chills, weight loss, history of recent bacterial infection, bilateral symptoms, numbness , weakness, difficulty walking, urinary retention or bowel incontinence, personal history of cancer, immunosuppression, diabetes, known AAA, or history of IV drug use. Exam is without point tenderness over vertebral bodies, pulsatile abdominal mass, and patient has symmetric and intact lower extremity strength, sensation, and reflexes without clonus. 2+ symmetric medial malleolar and dorsalis pedis pulses Based on history and physical, I have a very low suspicion of a concerning etiology of pain including epidural compression syndrome, spinal infection, transverse myelitis, malignancy, abdominal aortic aneurysm, renal colic, acute lower extremity claudication, neurogenic claudication, ankylosing spondylitis, or other intra-abdominal process. Due to absence of concerning risk factors in history and physical as well as absence of rapidly progressive, severe, or bilateral symptoms, will defer imaging at this point. Plan to manage conservatively with outpatient analgesia, analgesia, and physical therapy. - Acetaminophen 650 q 4 + ibuprofen 600 q 6 - Continue normal daily activities as tolerated by pain - Provide with standard musculoskeletal back pain exercise instructions - Instruct to follow up with primary care provider if symptoms not improving - Provide careful return precautions and concerning symptoms to watch for. - Vital Signs Vital signs: Temp Pulse Resp BP Pulse Ox 98.3 F 56 L 16 158/89 H 100 12/30/16 22:54 12/30/16 22:54 12/30/16 22:54 12/30/16 22:54 12/30/16 22:54 - Diagnostic Test Radiology reviewed: Reports reviewed Discharge - Discharge Clinical Impression: Back pain Qualifiers: Back pain location: low back pain Chronicity: acute Back pain laterality: right Sciatica presence: with sciatica Sciatica laterality: sciatica of right side Qualified Code(s): M54.41 - Lumbago with sciatica, right side Condition: Good Disposition: HOME, SELF-CARE Additional Instructions: You have been seen in the Emergency Department (ED) today for back pain. Your workup and exam have not shown any acute abnormalities and you are likely suffering from muscle strain or possible problems with your discs, but there is no treatment that will fix your symptoms at this time. Please take ibuprofen 600 mg every 6 hours for the next 1 week. Use the [place] that was prescribed to take home only at night as needed for severe pain that prevents you from sleeping. Please also purchase topical lidocaine [id number] to apply directly to the area. Apply heat to the area as often as you are able. Continue to keep active and avoid prolonged periods of bed rest. Please follow up with your doctor as soon as possible regarding today's ED visit and your back pain. Return to the ED for worsening back pain, fever, weakness or numbness of either leg, or if you develop either (1) an inability to urinate or have bowel movements, or (2) loss of your ability to control your bathroom functions (if you start having "accidents"), or if you develop other new symptoms that concern you.concern you.
[2016-12-31 02:57] VITALS: BP 136/76
== END 2016-12-31 02:45 | disposition home or self-care (01) ==
LOC: ER 22:31
DX: M54.41 Lumbago with sciatica, right side (principal); M54.5 Low back pain; M79.604 Pain in right leg
CPT/HCPCS: 99283; 96372; 72100; J1885

== ENCOUNTER 2019-06-08 13:31 | Outpatient (CLI) | payer OTHER | END 2019-06-08 13:58 | disposition home or self-care (01) | LOC: LC 13:31 | PROVIDERS: ATTEND Obstetrics & Gynecology | PROC: 4A1HXCZ Monitoring of Products of Conception, Cardiac Rate, External Approach (ICD-10-PCS; principal; 2019-06-08) | DX: Z34.93 Encounter for supervision of normal pregnancy, unspecified, third trimester (principal) | CPT/HCPCS: 59025 ==

== ENCOUNTER 2019-06-28 06:06 | Inpatient (IN) | payer OTHER ==
--- NOTE | 2019-06-28 06:08 | Non Stress Test Report ---
Non Stress Test Datetime Report Generated by CPN: 06/28/2019 06:08 DEMOGRAPHIC EGA NST: 35.3 INDICATION Indication for Study: Ordered by Provider Indication for Study (NST) Other: missed NST appt in office VITAL SIGNS Temperature - NST: 97.4 Pulse - NST: 74 RESP - NST: 16 NBPSYS NST: 112 NBPDIA NST: 66 MONITORING Monitor Explained: Monitor Explained; Test Explained; Patient Verbalized Understanding Time on Monitor: 06/08/2019 13:35 Time off Monitor: 06/08/2019 13:55 NST Duration: 20 NST INTERVENTIONS NST Interventions: None Physician Notified NST: Dr Luu BABY A: [id number] BABY A Movement : Present Contraction Frequency : none FHR Baseline : 145 Accelerations : 15X15 Decelerations : None (Annotations: Data stored by [facility] on behalf of user) Variability : Moderate 6-25bpm NST Review: Meets Criteria for Reactive NST NST Review and Verified By : MILADYS PATE RN NST Results: Reactive NST Results: Reactive NST REPORT Report Trigger: Send Report
[2019-06-28] MEDS ORDERED: OXYTOCIN/NORMAL SALINE 20 UNIT/1,000 ML RTUINJ IV PRN ×2 (06:23→18:03)
[2019-06-28] MEDS ORDERED: RINGERS SOLUTION,LACTATED 1,000 ML IV PRN (06:23)
[2019-06-28] MEDS ORDERED: RINGERS SOLUTION,LACTATED 300 ML IV ONE (06:23)
[2019-06-28] MEDS ORDERED: OXYTOCIN 10 UNIT/ML VIAL ONE (06:50)
[2019-06-28] MEDS ORDERED: LIDOCAINE 1% INJ-PF (10 MG/ML) 30 ML SDV ONE (06:50)
[2019-06-28] MEDS ORDERED: MISOPROSTOL 0.2 MG TABLET ONE (06:50)
[2019-06-28] MEDS ORDERED: OXYTOCIN/NORMAL SALINE 20 UNIT/1,000 ML RTUINJ ONE (06:50)
[2019-06-28 07:42] LABS: APPEARANCE,URINE SLIGHTLY-CLOUDY; BILIRUBIN,URINE NEGATIVE (NEGATIVE); COLOR,URINE YELLOW; GLUCOSE, URINE NEGATIVE (NEGATIVE); KETONES,URINE NEGATIVE (NEGATIVE); LEUKOCYTE ESTERASE,URINE TRACE (NEGATIVE); NITRITE,URINE NEGATIVE (NEGATIVE); PROTEIN,URINE NEGATIVE (NEGATIVE); URINE SPECIFIC GRAVITY 1.021
[2019-06-28 07:48] LABS: ABSOLUTE EOSINOPHILS # (AUTO) 0.1 10^3/uL (0.0-0.6); ABSOLUTE LYMPHOCYTES (AUTO) 1.7 10^3/uL (0.5-4.7); ABSOLUTE MONOCYTES (AUTO) 0.5 10^3/uL (0.1-1.4); ABSOLUTE NEUT (AUTO) 4.5 10^3/uL (1.7-8.2); BASOPHILS % (AUTO) 0.5 % (0-2); EOSINOPHILS % (AUTO) 1.4 % (0-6); HEMATOCRIT 30.2 % (36.0-47.0); LYMPHOCYTES % (AUTO) 24.5 % (13-45); MEAN CORPUSCULAR HEMOGLOBIN 26.9 pg (27.0-33.4); MEAN CORPUSCULAR HGB CONC 33.1 g/dL (32.0-36.0); MEAN CORPUSCULAR VOLUME 81 fl (80-97); MONOCYTES % (AUTO) 6.9 % (3-13); PLATELET COUNT 324 10^3/uL (150-450); RED BLOOD COUNT 3.72 10^6/uL (3.72-5.28); RED CELL DISTRIBUTION WIDTH 16.4 % (11.5-14.0); SEGMENTED NEUTROPHILS % (AUTO) 66.7 % (42-78); TOTAL CELLS COUNTED % (AUTO) 100 %; WHITE BLOOD COUNT 6.8 10^3/uL (4.0-10.5)
[2019-06-28 07:58] LABS: URINE AMPHETAMINES SCREEN NEGATIVE; URINE BARBITURATES SCREEN NEGATIVE; URINE BENZODIAZEPINES SCREEN NEGATIVE; URINE COCAINE SCREEN NEGATIVE; URINE MARIJUANA (THC) SCREEN NEGATIVE; URINE METHADONE SCREEN NEGATIVE; URINE PHENCYCLIDINE SCREEN NEGATIVE
[2019-06-28] MEDS ORDERED: FENTANYL/BUPIVACAINE/NS/PF 300 MCG/150 ML RTUINJ EPI ONE (12:24)
[2019-06-28] MEDS ORDERED: BUPIVACAINE HCL 0.25 % INJ/PF (2.5 MG/1 ML) 30 ML VIAL ONE (12:24)
[2019-06-28] MEDS ORDERED: EPHEDRINE SULFATE INJ 50 MG/1 ML AMPULE ONE (12:24)
--- NOTE | 2019-06-28 12:33 | Admission Physical ---
Datetime Report Generated by CPN: 06/28/2019 12:33 CURRENT ADMISSION Hx Assessment: The History has been Reviewed and is Current Chief Complaint: Scheduled Induction of Labor Indication for Induction: Gestational HTN Admit Impression : Term, Intrauterine ; No Active Labor; Intact Membranes Admit Plan: Admit to Unit; Initiate Labor Induction Protocol ALLERGIES Medication Allergies: Yes Medication Allergies: shellfish derived (06/28/2019) Latex: No Latex Allergies Food Allergies: shrimp iodine OBSTETRICAL HISTORY EDC: 07/10/2019 00:00 : 2 Para: 1 Term: 1 Ectopic: 0 Livin Cesareans: 0 VBACs: 0 Multiple Births: 0 Gestational Diabetes: No Rh Sensitization: No Incompetent Cervix: No WILL: No Infertility: No ART Treatment: No Uterine Anomaly: No IUGR: No Hx Previous C/S: No Macrosomia: No Hx Loss/Stillborn: No PIH: Yes Hx : No Placenta Previa/Abruption: No Depression/PP Depression: No PTL/PROM: No Post Hemorrhage: No Current Procedures: Ultrasound; NST SEE RECORDS Alcohol: No Marijuana : No Cocaine: No Other Illicit Drugs: No Cigarettes: Never Smoker. 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: No Heart Disease: No Hosp/Surgery: Yes Autoimmune Disorder: No Anesthetic Complications: No Kidney Disease: No Abnormal Pap Smear: No Neuro/Epilepsy: No Psychiatric Disorders: No Other Medical Diseases: No Hepatitis/Liver Disease: No Significant Family History: No Varicosities/Phlebitis: No Trauma/Violence : No Thyroid Dysfunction: No Medical History Comments: tubes in ears, tonsilectomy INFECTIOUS HISTORY Gonorrhea: No Genital Herpes: No Chlamydia: No Tuberculosis: No Syphilis: No Hepatitis: No HIV/AIDS Exposure: No Rash or Viral Illness: No HPV: No PHYSICAL EXAM General: Normal HEENT: Normal Neurologic: Normal Thyroid: Normal Heart: Normal Lungs: Normal Breast: Normal Back: Normal Abdomen: Normal Genitourinary Exam: Normal Extremities: Normal DTRs: Normal Pelvic Type: Adequate Physical Exam Comments: Pelvis proven for 7-7 GBS neg Vital Signs: Reviewed FETUS A EGA: 38.2 Monitoring: External US Variability: Moderate 6-25bpm Accelerations: 15X15 Decelerations: None FHR Category: Category I Admit Comment: Admit to LD for IOL for Gestational Hypertension VE /vtx/0, arom clear fluid, hsb at desies epidural Cat 1 strip,irreg uc's POC discussed PLANS FOR LABOR AND DELIVERY Labor and Delivery: None Pain Management: None Other Pain Management Plans: wait and see. pt has had an epidural in the past Feeding Preference: Breast Benefit of Breast Feed Discussed: Yes Circumcision: N/A INFORMED CONSENT Assignment: Radha Dong MD Signature: with User ID: [email or web address] : with User ID: [email or web address]
[2019-06-28] MEDS ORDERED: FENTANYL CITRATE INJ/PF 100 MCG/2 ML AMPUL ONE (13:41)
[2019-06-28] MEDS ORDERED: PHENYLEPHRINE HCL INJ/PF 10 MG/1 ML SDV ONE (13:41)
[2019-06-28] MEDS ORDERED: IBUPROFEN 800 MG TABLET ONE (17:59)
[2019-06-28] MEDS ORDERED: DIPHENHYDRAMINE HCL 25 MG CAPSULE PO PRN (18:03)
[2019-06-28] MEDS ORDERED: ACETAMINOPHEN 650 MG SUPP.RECT PR PRN (18:03)
[2019-06-28] MEDS ORDERED: MEASLES,MUMPS&RUBELLA VACC/PF 0.5 ML VIAL SUBCUT PRN (18:03)
[2019-06-28] MEDS ORDERED: GLYCERIN/WITCH HAZEL LEAF 1 EACH MED..WIPE TP PRN (18:03)
[2019-06-28] MEDS ORDERED: PROMETHAZINE HCL INJ 25 MG/1 ML VIAL IV PRN (18:03)
[2019-06-28] MEDS ORDERED: BENZOCAINE/MENTHOL AEROSOL SPRAY 56 ML TOP PRN (18:03)
[2019-06-28] MEDS ORDERED: DIPH/PERTUSS(ACELL)/TETANUS VAC/PF 0.5 ML SYR (>=10YO) IM PRN (18:03)
[2019-06-28] MEDS ORDERED: MAGNESIUM HYDROXIDE SUSP 30 ML UDCUP PO PRN (18:03)
[2019-06-28] MEDS ORDERED: PSEUDOEPHEDRINE HCL 30 MG TABLET PO PRN (18:03)
[2019-06-28] MEDS ORDERED: PROMETHAZINE HCL 25 MG TABLET PO PRN (18:03)
[2019-06-28] MEDS ORDERED: PROMETHAZINE HCL 25 MG SUPP.RECT PR PRN (18:03)
[2019-06-28] MEDS ORDERED: ACETAMINOPHEN WITH CODEINE #3 TABLET PO PRN ×2 (18:03)
[2019-06-28] MEDS ORDERED: NA PHOS,M-B/NA PHOS,DI-BA (ADULT) 133 ML ENEMA PR PRN (18:03)
[2019-06-28] MEDS ORDERED: DIBUCAINE 1% OINTMENT 56 GM TP PRN (18:03)
[2019-06-28] MEDS: FAMOTIDINE 20 MG TABLET PO SCH (23:54)
[2019-06-29] MEDS: IBUPROFEN 800 MG TABLET PO SCH ×3 (01:25→17:30)
[2019-06-29 06:26] LABS: HEMOGLOBIN 9.1 g/dL (12.0-15.5); MEAN CORPUSCULAR HGB CONC 33.7 g/dL (32.0-36.0); MEAN CORPUSCULAR VOLUME 80 fl (80-97); PLATELET COUNT 285 10^3/uL (150-450); RED BLOOD COUNT 3.36 10^6/uL (3.72-5.28); RED CELL DISTRIBUTION WIDTH 16.2 % (11.5-14.0); WHITE BLOOD COUNT 10.5 10^3/uL (4.0-10.5)
[2019-06-29] MEDS: FERROUS SULFATE 325 MG TABLET PO SCH ×2 (09:31→17:29)
[2019-06-29] MEDS: PRENATAL VITAMIN W DHA CAPSULE PO SCH (09:31)
[2019-06-29] MEDS: DOCUSATE SODIUM 100 MG CAPSULE PO SCH ×2 (09:31→17:29)
[2019-06-29] MEDS: FAMOTIDINE 20 MG TABLET PO SCH ×2 (09:33→21:29)
--- NOTE | 2019-06-29 10:18 | PDOC PROGRESS REPORT ---
Subjective-OB Progress Note for:: 06/29/19 Subjective: Doing well, no c/o, Physical Exam (OB) Vital Signs: Temp Pulse Resp BP Pulse Ox 97.9 F 57 L 14 127/79 H 99 06/29/19 07:58 06/29/19 07:58 06/29/19 07:58 06/29/19 07:58 06/29/19 07:58 Intake & Output 06/28/19 06/29/19 06/30/19 06:59 06:59 06:59 Weight 80.9 kg - PIH/Pre-Eclampsia Clonus: Negative Headache: Absent Epigastric Pain: No Visual Changes: No - Lochia Lochia Amount: Scant < 10 ml Lochia Color: Rubra/Red - Abdomen Description: Tender, Soft Hernia Present: No Fundal Description: Firm, Midline Fundal Height: u/u - u/2 Objective-Diagnostic Laboratory: 06/29/19 05:49 06/29/19 05:49 WBC 10.5 RBC 3.36 L Hgb 9.1 L Hct 27.0 L MCV 80 MCH 27.0 MCHC 33.7 RDW 16.2 H Plt Count 285 Assessment and Plan(PN) - Assessment and Plan (1) Vaginal delivery Is this a current diagnosis for this admission?: Yes - Time Spent with Patient Time with patient: Less than 15 minutes Medications reviewed and adjusted accordingly: Yes - Disposition Anticipated Discharge: Home Within: within 24 hours
[2019-06-30] MEDS: IBUPROFEN 800 MG TABLET PO SCH ×2 (01:16→10:06)
[2019-06-30 08:19] VITALS: BP 131/67
--- NOTE | 2019-06-30 08:56 | PDOC PROGRESS REPORT ---
Subjective-OB Progress Note for:: 06/30/19 Subjective: Doing well, hsb at BS ready to go home, feeling good, scant bleeding, mild cramping, Physical Exam (OB) Vital Signs: Temp Pulse Resp BP Pulse Ox 98.0 F 54 L 14 131/67 H 99 06/30/19 08:31 06/30/19 08:31 06/30/19 08:31 06/30/19 07:52 06/30/19 08:31 Intake & Output 06/29/19 06/30/19 07/01/19 06:59 06:59 06:59 Intake Total 800 Balance 800 Weight 80.9 kg - PIH/Pre-Eclampsia Clonus: Negative Headache: Absent Epigastric Pain: No Visual Changes: No - Lochia Lochia Amount: Scant < 10 ml Lochia Color: Rubra/Red - Abdomen Description: Soft Hernia Present: No Fundal Description: Firm, Midline Fundal Height: u/3 - u/4 Objective-Diagnostic Laboratory: 06/29/19 05:49 Assessment and Plan(PN) - Assessment and Plan (1) Vaginal delivery Is this a current diagnosis for this admission?: Yes - Time Spent with Patient Time with patient: Less than 15 minutes Medications reviewed and adjusted accordingly: Yes - Disposition Anticipated Discharge: Home Within: within 24 hours
--- NOTE | 2019-06-30 09:00 | PDOC DISCHARGE SUMMARY ---
Impression - Admit/DC Date/PCP Admission Date/Primary Care Provider: 06/28/19 06:06 VICKY FARLEY MD Discharge Date: 06/30/19 - Discharge Diagnosis (1) Vaginal delivery Is this a current diagnosis for this admission?: Yes - Additional Information Resuscitation Status: Full Code Discharge Diet: As Tolerated, Regular Discharge Activity: Activity As Tolerated, No Lifting Over 10 Pounds, No Lifting/Push/Pulling, Pelvic Rest Referrals: VICKY FARLEY MD [Primary Care Provider] - (RTC 2 weeks) Prescriptions: Ibuprofen [Motrin 800 mg Tablet] 800 mg PO Q8A #30 tablet Home Medications: Pnv,Calcium 72/Iron/Folic Acid [Pnv Plus Multivit Tab] 1 tab PO DAILY 09/27/16 Ibuprofen [Motrin 800 mg Tablet] 800 mg PO Q8A #30 tablet 06/30/19 HPI Gestational Age: 38.2 Reason(s) for Admission: Induction of Labor, PIH Procedures: NST, Ultrasound Intrapartum Procedure(s): Spontaneous Vaginal Delivery Hospital Course Hospital Course: stable, routine Results Laboratory Results: WBC 10.5 10^3/uL (4.0-10.5) 06/29/19 05:49 RBC 3.36 10^6/uL (3.72-5.28) L 06/29/19 05:49 Hgb 9.1 g/dL (12.0-15.5) L 06/29/19 05:49 Hct 27.0 % (36.0-47.0) L 06/29/19 05:49 MCV 80 fl (80-97) 06/29/19 05:49 MCH 27.0 pg (27.0-33.4) 06/29/19 05:49 MCHC 33.7 g/dL (32.0-36.0) 06/29/19 05:49 RDW 16.2 % (11.5-14.0) H 06/29/19 05:49 Plt Count 285 10^3/uL (150-450) 06/29/19 05:49 Lymph % (Auto) 24.5 % (13-45) 06/28/19 07:17 Sharkey % (Auto) 6.9 % (3-13) 06/28/19 07:17 Eos % (Auto) 1.4 % (0-6) 06/28/19 07:17 Baso % (Auto) 0.5 % (0-2) 06/28/19 07:17 Absolute Neuts (auto) 4.5 10^3/uL (1.7-8.2) 06/28/19 07:17 Absolute Lymphs (auto) 1.7 10^3/uL (0.5-4.7) 06/28/19 07:17 Absolute Monos (auto) 0.5 10^3/uL (0.1-1.4) 06/28/19 07:17 Absolute Eos (auto) 0.1 10^3/uL (0.0-0.6) 06/28/19 07:17 Absolute Basos (auto) 0.0 10^3/uL (0.0-0.2) 06/28/19 07:17 Seg Neutrophils % 66.7 % (42-78) 06/28/19 07:17 Urine Color YELLOW 06/28/19 07:11 Urine Appearance SLIGHTLY-CLOUDY 06/28/19 07:11 Urine pH 6.0 (5.0-9.0) 06/28/19 07:11 Ur Specific [place] 1.021 06/28/19 07:11 Urine Protein NEGATIVE mg/dL (NEGATIVE) 06/28/19 07:11 Urine Glucose (UA) NEGATIVE mg/dL (NEGATIVE) 06/28/19 07:11 Urine Ketones NEGATIVE mg/dL (NEGATIVE) 06/28/19 07:11 Urine Blood NEGATIVE (NEGATIVE) 06/28/19 07:11 Urine Nitrite NEGATIVE (NEGATIVE) 06/28/19 07:11 Urine Bilirubin NEGATIVE (NEGATIVE) 06/28/19 07:11 Urine Urobilinogen 2.0 mg/dL (<2.0) H 06/28/19 07:11 Ur Leukocyte Esterase TRACE (NEGATIVE) H 06/28/19 07:11 Urine Ascorbic Acid NEGATIVE (NEGATIVE) 06/28/19 07:11 Urine Opiates Screen NEGATIVE 06/28/19 07:11 Urine Methadone Screen NEGATIVE 06/28/19 07:11 Ur Barbiturates Screen NEGATIVE 06/28/19 07:11 Ur Phencyclidine Scrn NEGATIVE 06/28/19 07:11 Ur Amphetamines Screen NEGATIVE 06/28/19 07:11 U Benzodiazepines Scrn NEGATIVE 06/28/19 07:11 Urine Cocaine Screen NEGATIVE 06/28/19 07:11 U Marijuana (THC) Screen NEGATIVE 06/28/19 07:11 Blood Type O POSITIVE 06/28/19 07:17 Antibody Screen NEGATIVE 06/28/19 07:17 Plan Health Concerns: discussed S&S to report Plan of Treatment: RTC 2 weeks, baby home with parents
[2019-06-30] MEDS: PRENATAL VITAMIN W DHA CAPSULE PO SCH (10:06)
[2019-06-30] MEDS: DOCUSATE SODIUM 100 MG CAPSULE PO SCH (10:07)
[2019-06-30] MEDS: FERROUS SULFATE 325 MG TABLET PO SCH (10:09)
[2019-06-30] MEDS: FAMOTIDINE 20 MG TABLET PO SCH (10:10)
--- NOTE | 2019-07-03 09:49 | Delivery Summary ---
Del Sum A-C Datetime Report Generated by CPN: 07/03/2019 09:49 DELIVERY PERSONNEL DELIVERY PERSONNEL: [id number] Delivery Doctor:: Isatu Bustos Labor and Delivery Nurse:: Keesha Bryson, RNC Labor and Delivery Nurse:: Keesha Adelaide, RNC Hand Tube Winder/VENETIAN BLIND MECHANIC: Krystal Scott, ST MATERNAL INFORMATION Delivery Anesthesia: Epidural Medications After Delivery: Pitocin Drip 20 Units/1000ml NSS Estimated Blood Loss (ml): 150 Maternal Complications: None Provider Comments: Called to patients room and with her cervix completely dialated and pushing. Delivered after short period of pushing over intact perineum. Delivered YARELIS. After delivery of the head, the shoulders and the rest of the body followed easily. Cord clamped and cut after a 30 second delay as the was vigorous. Baby placed skin to skin with Mother. Both stable condition. LABOR SUMMARY EDC: 07/10/2019 00:00 No. Babies in Womb: 1 Attempted: No Labor Anesthesia: Epidural LABOR INFORMATION Reason for Induction: Gestational Hypertension Onset of Labor: 06/28/2019 13:00 Complete Dilatation: 06/28/2019 17:10 Oxytocin: Induction Group B Beta Strep: neg Antibiotics # of Doses: 0 Antibiotics Time of Last Dose: 0 Name of Antibiotic Given: 0 Steroids Given: None Reason Steroids Not Administered: Not Applicable MEMBRANES Membranes Rupture Method: Artificial Rupture of Membranes: 06/28/2019 12:15 Length of Rupture (hr): 5.48 Amniotic Fluid Color: Clear Amniotic Fluid Amount: Small Amniotic Fluid Odor: None STAGES OF LABOR Stage 1 hr: 4 Stage 1 min: 10 Stage 2 hr: 0 Stage 2 min: 34 Stage 3 hr: 0 Stage 3 min: 5 Total Time in Labor hr: 4 Total Time in Labor min: 49 VAGINAL DELIVERY Episiotomy: None Laceration #1: None Laceration Extension #1: N/A Laceration Repair: Not Applicable Sponge Count Correct: N/A Sharps Count Correct: Yes BABY A INFORMATION Infant Delivery Date/Time: 06/28/2019 17:44 Method of Delivery: Vaginal Born in Route : No : N/A Forceps: N/A Vacuum Extraction: N/A Shoulder Dystocia : No PRESENTATION/POSITION BABY A Presentation: Cephalic Cephalic Presentation: Vertex Vertex Position: Right Occipital Anterior Breech Presentation: N/A PLACENTA INFORMATION BABY A Placenta Delivery Time : 06/28/2019 17:49 Placenta Method of Delivery: Spontaneous Placenta Status: Delivered SCORES BABY A Heart Rate 1 min: >100 bpm Resp Effort 1 min: Good Cry Reflex Irritability 1 min: Cough or Sneeze or Pulls Away Muscle Tone 1 min: Active Motion Color 1 min: Body [place], Extremities Blue Resuscitation Effort 1 min: Tactile Stimulation SCORE 1 MIN: 9 Heart Rate 5 min: >100 bpm Resp Effort 5 min: Good Cry Reflex Irritability 5 min: Cough or Sneeze or Pulls Away Muscle Tone 5 min: Active Motion Color 5 min: Body [place], Extremities Blue Resuscitation Effort 5 min: Tactile Stimulation SCORE 5 MIN: 9 INFANT INFORMATION BABY A Gestational Age at Delivery: 38.2 Gestational Status: Early Term- 37- 38.6 Weeks Infant Outcome : Liveborn Condition : Stable Infant Sex: Female IDENTIFICATION BABY A Infant Verification Date/Time: 06/28/2019 18:08 ID Band Number: [id number] Mother's Name Verified: Yes Infant RN Verifying Infant: Eufemia Bryson RN/M Jose RN WEIGHT/LENGTH BABY A Birthweight (gm): 3785 Infant Weight (lb): 8 Weight (oz): 6 Infant Length (in): 20.50 Length (cm): 52.07 CORD INFORMATION BABY A No. Cord Vessels: 3 Nuchal Cord : N/A Cord Blood Taken: Yes-For Eval (Mom's Blood Type - or O+) Infant Suction: None ASSESSMENT BABY A Infant Complications: None Physical Findings at Delivery: Within Normal Limits Respirations: Appears Normal Skin to Skin: Yes Skin to Skin: Yes Door Clamp Operator/ALS Called : No Care By: D Adelaide RN Transferred To: Remains with Mother BABY B INFORMATION : N/A SIGNATURES Signature: with User ID: [email or web address] : with User ID: [email or web address]
== END 2019-06-30 11:39 | disposition home or self-care (01) | DRG 807 ==
LOC: LR 06:06 → 2S 19:48
PROVIDERS: ADMIT Obstetrics & Gynecology; ATTEND Obstetrics & Gynecology
PROC: 10E0XZZ Delivery of Products of Conception, External Approach (ICD-10-PCS; principal; 2019-06-28)
DX: O13.4 Gestational [pregnancy-induced] hypertension without significant proteinuria, complicating childbirth (principal); Z37.0 Single live birth; Z3A.38 38 weeks gestation of pregnancy
CPT/HCPCS: 36415; 80307; 81005; 85025; 85027; 86592; 86850; 86900; 86901; J2370; J2590; J3010; J3490

== ENCOUNTER 2019-10-23 05:57 | Emergency (ER) | payer OTHER ==
[2019-10-23] MEDS ORDERED: ACETAMINOPHEN 325 MG TABLET PO ONE (06:26)
--- NOTE | 2019-10-23 06:35 | ER Document Report ---
ED Flu Like - General Chief Complaint: Flu Symptoms Stated Complaint: POSSIBLE FLU SYMPTOMS Time Seen by Provider: 10/23/19 06:25 Primary Care Provider: DANA HICKEY MD [ACTIVE PROVISIONAL STAFF] - Follow up as needed Notes: HPI: 24-year-old female who presents today with the onset 2 days ago of some runny nose, congestion, cough, sore throat, body aches, mild headache, without vomiting or diarrhea. She has not taken any antipyretics. No obvious sick contacts. She denies any chest pain or dysuria. ROS: See HPI All other review of systems reviewed and otherwise negative Reviewed vital signs and nursing note as charted by RN. PHYSICAL EXAM: CONSTITUTIONAL: Alert and oriented and responds appropriately to questions. Well-appearing; well-nourished HEAD: Normocephalic; atraumatic EYES: PERRL; Conjunctivae clear, sclerae non-icteric ENT: Normal nose; bilateral non-copious nonpurulent rhinorrhea; moist mucous membranes; pharynx very minimal erythema no peritonsillar swelling or exudate present NECK: Supple without meningismus; non-tender; no cervical lymphadenopathy, no masses CARD: Regular rate and rhythm; no murmurs; symmetric distal pulses RESP: Normal chest excursion without splinting or tachypnea; breath sounds clear and equal bilaterally; no wheezes, no rhonchi, no rales ABD/GI: Normal bowel sounds; non-distended; soft, non-tender BACK: The back appears normal and is non-tender to palpation EXT: Normal ROM in all joints; non-tender to palpation; no edema SKIN: No acute lesions noted NEURO: CN 2-12 intact; 5/5 bilateral upper and lower extremity strength with sensation intact to light touch PSYCH: The patient's mood and manner are appropriate. Grooming and personal hygiene are appropriate. TRAVEL OUTSIDE OF THE [place] IN LAST 30 DAYS: No - Related Data Allergies/Adverse Reactions: shellfish derived Allergy (Verified 06/28/19 07:00) Past Medical History - Social History Smoking Status: Never Smoker Frequency of alcohol use: None Drug Abuse: None Family History: Reviewed & Not Pertinent Patient has suicidal ideation: No Patient has homicidal ideation: No Renal/ Medical History: Denies: Hx Peritoneal Dialysis Past Surgical History: Reports: Hx Tonsillectomy - Immunizations Immunizations up to date: Yes Hx Diphtheria, Pertussis, Tetanus Vaccination: Yes Physical Exam - Vital signs Vitals: Temp Pulse Resp BP Pulse Ox 100.5 F H 106 H 17 140/85 H 97 10/23/19 06:04 10/23/19 06:04 10/23/19 06:04 10/23/19 06:04 10/23/19 06:04 Course - Re-evaluation Re-evalutation: 10/23/19 06:34 Given the above history and physical, with the constellation of symptoms, looking very nontoxic, symptoms around 48 hours ago in duration, I do believe this is most likely an upper respiratory tract infection, and/or flu, and/or strep throat. Influenza and strep throat have been ordered and Tylenol has been provided. I do have extremely low pretest probability for acute bacterial meningitis. 10/23/19 07:58 Influenza and strep as recorded. Patient still looks excellent. Low suspicion for pneumonia or acute bacterial meningitis. Given the above symptomatology, patient will be discharged home with strict return precautions and follow-up with the primary care physician. - Vital Signs Vital signs: Temp Pulse Resp BP Pulse Ox 99.5 F 106 H 17 140/85 H 97 10/23/19 07:19 10/23/19 06:04 10/23/19 06:04 10/23/19 06:04 10/23/19 06:04 Discharge - Discharge Clinical Impression: Sore throat (viral), Nasal congestion Condition: Good Disposition: HOME, SELF-CARE Additional Instructions: Come back immediately with any difficulty breathing or swallowing, fevers, persistent vomiting, or any other acute problems. Please make sure that you follow-up with the primary care physician and take antipyretics as discussed. Referrals: DANA HICKEY MD [ACTIVE PROVISIONAL STAFF] - Follow up as needed
[2019-10-23 07:25] LABS: A TYPE INFLUENZA AG NEGATIVE (NEGATIVE); B INFLUENZA AG NEGATIVE (NEGATIVE)
[2019-10-23 08:14] VITALS: BP 128/77
== END 2019-10-23 08:03 | disposition home or self-care (01) ==
LOC: ER 05:57
DX: J02.8 Acute pharyngitis due to other specified organisms (principal); B97.89 Other viral agents as the cause of diseases classified elsewhere; R05 Cough; R51 Headache; J34.89 Other specified disorders of nose and nasal sinuses; R09.81 Nasal congestion; Z91.013 Allergy to seafood
CPT/HCPCS: 87070; 87804; 87880; 99283

== ENCOUNTER 2020-05-07 12:02 | Emergency (ER) | payer OTHER ==
[2020-05-07] MEDS ORDERED: ASPIRIN 81 MG TABLET, CHEWABLE PO ONE (12:23)
--- NOTE | 2020-05-07 12:27 | ER Document Report ---
ED Medical Screen (RME) - General Chief Complaint: Chest Pain Stated Complaint: CHEST PAIN Time Seen by Provider: 05/07/20 12:18 Mode of Arrival: Ambulatory Information source: Patient Notes: 25-year-old female presented to ED for complaint of chest pain for week 2 weeks ago. She states she was working out at that time she went to her primary care doctor they gave her some muscle relaxers and it got much better. She states she has not worked out since then and her heart started hurting again and racing at times. She states she went back to her primary care on Monday and she heard a clicking sound on her exam. 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 Last menstrual period was April 01. Does not smoke occasionally drinks no drugs. She is alert oriented respirations regular nonlabored at this time. She states she is having chest pain at this time. I have greeted and performed a rapid initial assessment of this patient. A comprehensive ED assessment and evaluation of the patient, analysis of test results and completion of medical decision making process will be conducted by an additional ED providers. TRAVEL OUTSIDE OF THE [place] IN LAST 30 DAYS: No - Related Data Allergies/Adverse Reactions: shellfish derived Allergy (Verified 06/28/19 07:00) Past Medical History Renal/ Medical History: Denies: Hx Peritoneal Dialysis Past Surgical History: Reports: Hx Tonsillectomy - Immunizations Immunizations up to date: Yes Hx Diphtheria, Pertussis, Tetanus Vaccination: Yes Physical Exam - Vital signs Vitals: Temp Pulse Resp BP Pulse Ox 99.3 F 72 16 141/72 H 98 05/07/20 12:05/07/20 12:05/07/20 12:05/07/20 12:05/07/20 12:17 Course - Vital Signs Vital signs: Temp Pulse Resp BP Pulse Ox 99.3 F 72 16 141/72 H 98 05/07/20 12:17 05/07/20 12:17 05/07/20 12:17 05/07/20 12:17 05/07/20 12:17
--- NOTE | 2020-05-07 12:30 | EKG REPORT ---
SEVERITY:- OTHERWISE NORMAL ECG - SINUS ARRHYTHMIA, RATE 60-88 : Confirmed by: Kaiden Dallas MD 07-May-2020 12:29:32
--- NOTE | 2020-05-07 12:59 | RADIOLOGY REPORT (SQ) ---
EXAM DESCRIPTION: CHEST 2 VIEWS IMAGES COMPLETED DATE/TIME: 05/07/2020 12:35 pm REASON FOR STUDY: chest pain COMPARISON: None. EXAM PARAMETERS: NUMBER OF VIEWS: two views TECHNIQUE: Digital Frontal and Lateral radiographic views of the chest acquired. RADIATION DOSE: NA LIMITATIONS: none FINDINGS: LUNGS AND PLEURA: No opacities, masses or pneumothorax. No pleural effusion. MEDIASTINUM AND HILAR STRUCTURES: No masses or contour abnormalities. HEART AND VASCULAR STRUCTURES: Heart normal size. No evidence for failure. BONES: No acute findings. HARDWARE: None in the chest. OTHER: No other significant finding. IMPRESSION: NO ACUTE RADIOGRAPHIC FINDING IN THE CHEST. TECHNICAL DOCUMENTATION: JOB ID: [id number] 2010 [employer]- All Rights Reserved Reading location - IP/workstation name: [email or web address]
[2020-05-07 13:02] LABS: APPEARANCE,URINE CLEAR; BILIRUBIN,URINE NEGATIVE (NEGATIVE); COLOR,URINE YELLOW; GLUCOSE, URINE NEGATIVE (NEGATIVE); KETONES,URINE NEGATIVE (NEGATIVE); LEUKOCYTE ESTERASE,URINE NEGATIVE (NEGATIVE); NITRITE,URINE NEGATIVE (NEGATIVE); PROTEIN,URINE NEGATIVE (NEGATIVE); URINE SPECIFIC GRAVITY 1.025; UROBILINOGEN,URINE NEGATIVE mg/dL (<2.0)
[2020-05-07 13:03] LABS: HEMATOCRIT 36.5 % (36.0-47.0); HEMOGLOBIN 12.6 g/dL (12.0-15.5); MEAN CORPUSCULAR HEMOGLOBIN 28.9 pg (27.0-33.4); MEAN CORPUSCULAR HGB CONC 34.7 g/dL (32.0-36.0); MEAN CORPUSCULAR VOLUME 84 fl (80-97); RED BLOOD COUNT 4.37 10^6/uL (3.72-5.28); RED CELL DISTRIBUTION WIDTH 15.1 % (11.5-14.0); WHITE BLOOD COUNT 6.9 10^3/uL (4.0-10.5)
[2020-05-07 13:10] LABS: ALBUMIN 4.7 g/dL (3.5-5.0); ALKALINE PHOSPHATASE 82 U/L (38-126); ANION GAP 6 (5-19); ASPARTATE AMINO TRANSFERASE 55 U/L (14-36); BILIRUBIN,TOTAL 0.4 mg/dL (0.2-1.3); BLOOD UREA NITROGEN 15 mg/dL (7-20); CALCIUM 9.7 mg/dL (8.4-10.2); CARBON DIOXIDE 27 mmol/L (22-30); CHLORIDE 106 mmol/L (98-107); CREATINE KINASE 69 U/L (30-135); GLUCOSE 109 mg/dL (75-110); POTASSIUM 4.7 mmol/L (3.6-5.0); TOTAL PROTEIN 9.1 g/dL (6.3-8.2)
[2020-05-07 13:42] LABS: ABSOLUTE LYMPHOCYTES# (MANUAL) 4.6 10^3/uL (0.5-4.7); ABSOLUTE MONOCYTES # (MANUAL) 0.4 10^3/uL (0.1-1.4); BASOPHILS % (MANUAL) 2 % (0-2); EOSINOPHILS % (MANUAL) 0 % (0-6); LYMPHOCYTES % (MANUAL) 59 % (13-45); MONOCYTES % (MANUAL) 6 % (3-13); SEGMENTED NEUTROPHILS % (MAN) 25 % (42-78); TOTAL CELLS COUNTED 100
[2020-05-07 13:44] LABS: ANISOCYTOSIS SLIGHT; PLATELET CLUMPS PRESENT; PLATELET COMMENT ADEQUATE; PLATELET COUNT 379 10^3/uL (150-450)
--- NOTE | 2020-05-07 16:28 | ER Document Report ---
ED General - General Chief Complaint: Chest Pain Stated Complaint: CHEST PAIN Time Seen by Provider: 05/07/20 12:18 Mode of Arrival: Ambulatory Notes: 25-year-old female arrives with chief complaint of substernal chest pain for 3 weeks on and off with associated fevers. Patient was seen by Dr. Kaplan at [facility] and had a mono test done. Patient also has splenomegaly according to her personal doctor. 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 Patient denies any rhinorrhea nuchal rigidity skin rash abuse tick bites animal bites human bites overuse trauma injury or diarrhea constipation nausea vomiting sore throat. TRAVEL OUTSIDE OF THE [place] IN LAST 30 DAYS: No - Related Data Allergies/Adverse Reactions: shellfish derived Allergy (Verified 06/28/19 07:00) Past Medical History - General Information source: Patient - Social History Smoking Status: Never Smoker Cigarette use (# per day): No Chew tobacco use (# tins/day): No Smoking Education Provided: No Frequency of alcohol use: None Drug Abuse: None Lives with: Family Family History: Reviewed & Not Pertinent Patient has suicidal ideation: No Patient has homicidal ideation: No Renal/ Medical History: Denies: Hx Peritoneal Dialysis Past Surgical History: Reports: Hx Tonsillectomy - Immunizations Immunizations up to date: Yes Hx Diphtheria, Pertussis, Tetanus Vaccination: Yes Review of Systems - Review of Systems Constitutional: See HPI, Fever EENT: No symptoms reported Cardiovascular: See HPI, Chest pain Respiratory: No symptoms reported Gastrointestinal: No symptoms reported Genitourinary: No symptoms reported Female Genitourinary: No symptoms reported Musculoskeletal: No symptoms reported Skin: No symptoms reported Hematologic/Lymphatic: No symptoms reported Neurological/Psychological: No symptoms reported Physical Exam - Vital signs Vitals: Temp Pulse Resp BP Pulse Ox 99.3 F 72 16 141/72 H 98 05/07/20 12:17 05/07/20 12:17 05/07/20 12:17 05/07/20 12:17 05/07/20 12:17 Interpretation: Normal - General General appearance: Appears well - HEENT Head: Normocephalic, Atraumatic Eyes: Normal Pupils: PERRL Mouth/Lips: Normal Mucous membranes: Normal Pharynx: Normal Neck: Normal - Respiratory Respiratory status: No respiratory distress Chest status: Nontender Breath sounds: Normal Chest palpation: Normal - Cardiovascular Rhythm: Regular Murmur: Yes - click murmur - Abdominal Inspection: Normal Distension: No distension Bowel sounds: Normal Tenderness: Nontender Organomegaly: No organomegaly - Rectal Hemorrhoids: Other - deferred - Genitourinary Bimanuel exam: Other - deferred - Back Back: Normal - Extremities General upper extremity: Normal inspection General lower extremity: Normal inspection - Neurological Neuro grossly intact: Yes Cognition: Normal Orientation: AAOx4 Haswell Coma Scale Eye Opening: Spontaneous Haswell Coma Scale Verbal: Oriented Nick Coma Scale Motor: Obeys Commands Nick Coma Scale Total: 15 Speech: Normal Motor strength normal: LUE, RUE, LLE, RLE Sensory: Normal - Psychological Associated symptoms: Normal affect - Skin Skin Temperature: Warm Skin Moisture: Dry Course - Vital Signs Vital signs: Temp Pulse Resp BP Pulse Ox 99.3 F 72 16 141/72 H 98 05/07/20 12:17 05/07/20 12:17 05/07/20 12:17 05/07/20 12:17 05/07/20 12:17 - Laboratory Result Diagrams: 05/07/20 12:35 05/07/20 12:35 Laboratory results interpreted by me: 05/07/20 05/07/20 12:35 12:35 RDW 15.1 H Seg Neuts % (Manual) 25 L Lymphocytes % (Manual) 59 H AST 55 H ALT 55 H Total Protein 9.1 H - Diagnostic Test Radiology reviewed: Reports reviewed - cxr interstitial on my exam Critical Care Note - Critical Care Note Comments: I spoke with PIPE FITTER Rosaura at [facility]. This was done at 1630 and she advises the patient is positive for mononucleosis. The patient has been CT had here in the ER with the finding of splenomegaly. Discharge - Discharge Clinical Impression: Chest pain at rest, Splenomegaly, Interstitial chest x-ray on my exam Mononucleosis Qualifiers: Infectious mononucleosis etiology: unspecified organism Infectious mononucleosis complication: without complication Qualified Code(s): B27.90 - Infectious mononucleosis, unspecified without complication Condition: Good Disposition: HOME, SELF-CARE Additional Instructions: Follow-up with personal doctor return to ER as needed take medicines as directed encourage fluids. Avoid any immunocompromised people's until your coronavirus test returns. You were found to be positive for rhinovirus and also the of high lymphocyte count. There is no cure for Marilia-Brower mono virus. You will be treated with Zithromax empirically. Avoid kissing any peoples who are immunocompromised. Marilia-Brower virus is transmitted to spit related saliva related transfer. Prescriptions: Azithromycin [Zithromax 250 mg Tablet] 250 mg PO ASDIR PRN #6 tablet PRN Reason: Forms: Return to Work
[2020-05-07 17:00] VITALS: BP 141/83
== END 2020-05-07 16:58 | disposition home or self-care (01) ==
LOC: ER 12:02
DX: R07.9 Chest pain, unspecified (principal); R16.1 Splenomegaly, not elsewhere classified; B27.90 Infectious mononucleosis, unspecified without complication; R50.9 Fever, unspecified; Z20.828 Contact with and (suspected) exposure to other viral communicable diseases
CPT/HCPCS: 93005; 99285; 36415; 82550; 83735; 85025; 87635; 80053; 81001; 84484; 71046; 93010; C9803